=== PATIENT | male | born 1945 | race Caucasian/White ===

== ENCOUNTER 2016-08-23 21:10 | Inpatient (IN) | payer OTHER ==
[~2016-08-23] VITALS: Ht 182.9 cm; Wt 58.0 kg
[~2016-08-23 21:10] MED LIST: ALBUTEROL; DOXA1TAB86 PO; TIOTCAP INH; [UNRECOGNIZED DRUG - OTHER]; advair
[2016-08-23] MEDS ORDERED: METHYLPREDNISOLONE 125 MG VIAL IV STA (21:42)
[2016-08-23] MEDS ORDERED: ADVIN25/60 INH (21:51)
[2016-08-23] MEDS ORDERED: Ventolin HFA INH (21:51)
[2016-08-23] MEDS ORDERED: MULT-506 PO (21:51)
[2016-08-23] MEDS ORDERED: IPRASOL4 INH (21:51)
[2016-08-23] MEDS ORDERED: THY/30 PO (21:51)
[2016-08-23] MEDS ORDERED: CHOL20007 PO (21:51)
--- NOTE | 2016-08-23 21:54 | EMERGENCY ROOM VISIT NOTE ---
History Report prepared by Rohit: Liu Zayas Under the Supervision of: Dr. Sole Thacker M.D. First contact with patient: 21:34 Chief Complaint: SHORTNESS OF BREATH Stated Complaint: SOB History of Present Illness The patient is a 70 year old male who presents to the Emergency Room via ALS with complaints of persistent shortness of breath that worsened this evening. The patient was a long-term smoker and quit four years ago, He has a history of COPD. He notes that he has had episodes like this in the past where he can't get enough air. He had some episodes earlier today and then had another one this evening at which point he called ALS because it was worse than the prior episodes. He does not know what triggers these episodes. He also complains of a cough. He denies being on oxygen at home and any heart history. The patient received 125 of Solu-Medrol en route to the ED. Source of History: patient Onset: this evening Position: chest Timing: worsening, other (persistent) Associated Symptoms: + cough Review of Systems See HPI for pertinent positives & negatives. A total of 10 systems reviewed and were otherwise negative. Past Medical & Surgical Medical Problems: (1) Asthma (2) Bronchitis (3) COPD (chronic obstructive pulmonary disease) (4) Emphysema of lung (5) Kidney stones (6) Pneumonia Surgical Problems: (1) S/P hernia surgery Family History FH: cancer FH: lung disease Social History Smoking Status: Former Smoker Alcohol Use: occasionally Marital Status: Housing Status: lives with significant other Occupation Status: employed Current/Historical Medications Scheduled Cholecalciferol (Vitamin D3), 2,000 INTER.UNIT PO DAILY Doxazosin Mesylate (Doxazosin Mesylate), 4 MG PO HS Fluticasone Prop/Salmeterol (Advair Diskus 250/50 60 Dose), 1 PUFF INH BID Multivitamin (Multivitamin), 1 TAB PO DAILY Thyroid ([place]man Thyroid), 60 MG PO DAILY Scheduled PRN Ipratropium-Albuterol (Duoneb), 1 TREATMENT INH Q6H PRN for SOB/Cough/Wheeze [Ventolin HFA], 2 PUFFS INH QID PRN for SOB/Wheezing Allergies Coded Allergies: Gadolinium (Verified Allergy, Intermediate, Nausea/Vomiting, 08/23/16) Physical Exam Vital Signs Date Time Temp Pulse Resp B/P Pulse Ox O2 Delivery O2 Flow Rate FiO2 08/23/16 23:14 109 22 97/74 98 BiPAP 08/23/16 22:12 105 100 6.0 08/23/16 21:41 113 08/23/16 21:31 36.7 111 30 141/83 95 Room Air 08/23/16 21:31 97 Nasal Cannula 4.0 Physical Exam CONSTITUTIONAL: Moderate to severe respiratory distress. HEENT: No icterus, moist mucous membranes NECK: No meningismus, trachea is midline. CARDIOVASCULAR: Regular rate, normal perfusion RESPIRATORY: Diminished breath sounds bilaterally. Faint wheezing in all ji. GASTROINTESTINAL: Non-tender GENITOURINARY: No flank tenderness MUSCULOSKELETAL: Full range of motion NEUROLOGIC: No acute gross focal deficits. PSYCHIATRIC: Normal affect SKIN: Normal for ethnicity. Medical Decision & Procedures ER Provider Diagnostic Interpretation: X-ray results as stated below per interpretation by me and the radiologist. CHEST ONE VIEW PORTABLE CLINICAL HISTORY: DYSPNEA SHORTNESS OF BREATH. COMPARISON STUDY: 02/09/2013 FINDINGS: There is underlying pulmonary emphysema. There is no focal pulmonary consolidation. There is subtle elevation of the interstitium, a finding which may be related to technical factors. There are no pleural effusions. There is no pneumothorax. IMPRESSION: Emphysema. No evidence of focal pulmonary consolidation Electronically signed by: Juvenal Green M.D. 08/23/2016 10:28 PM CTA CHEST: No definite filling defect to suggest a PE. No acute aortic abnormality. No consolidation or pleural effusion. Hyperinflation of the lungs with severe, bilateral emphysematous changes. Mild multifocal parenchymal lung scarring. Small parenchymal lung nodules in the right lower lobe are likely due to prior infection/ prior inflammation. Followup in 12 months or per year department's specific protocol. Laboratory Results 08/23/16 22:00 Red Blood Count 4.32, Mean Corpuscular Volume 93.8, Mean Corpuscular Hemoglobin 33.3, Mean Corpuscular Hemoglobin Concent 35.6, Mean Platelet Volume 9.2, Neutrophils (%) (Auto) 86.4, Lymphocytes (%) (Auto) 7.1, Monocytes (%) (Auto) 5.7, Eosinophils (%) (Auto) 0.4, Basophils (%) (Auto) 0.2, Neutrophils # (Auto) 9.67, Lymphocytes # (Auto) 0.79, Monocytes # (Auto) 0.64, Eosinophils # (Auto) 0.04, Basophils # (Auto) 0.02 08/23/16 22:00 Test 08/23/16 21:55 08/23/16 22:00 08/24/16 00:13 Influenza Type A Antigen Neg for Influ A (NEG) Influenza Type B Antigen Neg for Influ B (NEG) White Blood Count 11.18 K/uL (4.8-10.8) Red Blood Count 4.32 M/uL (4.7-6.1) Hemoglobin 14.4 g/dL (14.0-18.0) Hematocrit 40.5 % (42-52) Mean Corpuscular Volume 93.8 fL (80-100) Mean Corpuscular Hemoglobin 33.3 pg (25-34) Mean Corpuscular Hemoglobin Concent 35.6 g/dl (32-36) Platelet Count 156 K/uL (130-400) Mean Platelet Volume 9.2 fL (7.4-10.4) Neutrophils (%) (Auto) 86.4 % Lymphocytes (%) (Auto) 7.1 % Monocytes (%) (Auto) 5.7 % Eosinophils (%) (Auto) 0.4 % Basophils (%) (Auto) 0.2 % Neutrophils # (Auto) 9.67 K/uL (1.4-6.5) Lymphocytes # (Auto) 0.79 K/uL (1.2-3.4) Monocytes # (Auto) 0.64 K/uL (0.11-0.59) Eosinophils # (Auto) 0.04 K/uL (0-0.5) Basophils # (Auto) 0.02 K/uL (0-0.2) RDW Standard Deviation 47.1 fL (36.4-46.3) RDW Coefficient of Variation 13.6 % (11.5-14.5) Immature Granulocyte % (Auto) 0.2 % Immature Granulocyte # (Auto) 0.02 K/uL (0.00-0.02) Prothrombin Time 11.2 SECONDS (9.0-12.0) Prothromb Time International Ratio 1.0 (0.9-1.1) Activated Partial Thromboplast Time 29.6 SECONDS (21.0-31.0) Partial Thromboplastin Ratio 1.1 Anion Gap 13.0 mmol/L (3-11) Est Creatinine Clear Calc Drug Dose 81.7 ml/min Estimated GFR () 109.5 Estimated GFR (Non- 94.5 BUN/Creatinine Ratio 24.9 (10-20) Calcium Level 8.2 mg/dl (8.5-10.1) Total Bilirubin 0.4 mg/dl (0.2-1) Aspartate Amino Transf (AST/SGOT) 25 U/L (15-37) Alanine Aminotransferase (ALT/SGPT) 33 U/L (12-78) Alkaline Phosphatase 50 U/L (45-117) Troponin I 0.043 ng/ml (0-0.045) Pro-B-Type Natriuretic Peptide 362 pg/ml (0-900) Total Protein 6.4 gm/dl (6.4-8.2) Albumin 3.6 gm/dl (3.4-5.0) Globulin 2.8 gm/dl (2.5-4.0) Albumin/Globulin Ratio 1.3 (0.9-2) Thyroid Stimulating Hormone (TSH) 1.040 uIu/ml (0.300-4.500) Labs reviewed by ED physician. Medications Administered Medications (Trade) Dose Ordered Sig/William Route Start Time Stop Time Status Last Admin Dose Admin Albuterol/ Ipratropium (Duoneb) 10 ml QIDR INH 08/24/16 08:00 09/23/16 07:59 08/23/16 22:11 10 ML ECG Indication: SOB/dyspnea Rate (beats per minute): 118 Rhythm: sinus tachycardia Findings: nonspecific-ST abn, RBBB ED Course 2129: Past medical records reviewed. The patient was evaluated in room A12. A complete history and physical examination was performed. 2199: Ordered Ioversol 125 ml IV/interaction checking. 2210: Ordered Duoneb 10 ml INH. 0004: At this time, I discussed the patient's case with Dr. Lincoln - Hospital[facility] and he agreed to accept the patient for further evaluation. Medical Decision Differential diagnoses include exacerbation of underlying emphysema, COPD, or pulmonary embolism. 70-year-old long-time smoker (quit 4 years ago) with worsening emphysema and lung disease presents to the emergency room for worsening shortness of breath today. He notes his PFTs 25%. He was noted to be tachycardic and severely short of breath on arrival to the emergency room. He is placed on oxygen, BiPAP given albuterol nebulizer treatments as well as steroids. CT was obtained to rule out pulmonary embolus was subsequently negative. Admission arranged with [facility] hospitalist service. Consults Time Called: [phone] Consulting Physician: Dr. Lincoln - [facility] Returned Call: [phone] At this time, I discussed the patient's case with Dr. Lincoln and he agreed to accept the patient for further evaluation. Impression Primary Impression: Emphysema of lung Additional Impression: COPD (chronic obstructive pulmonary disease) Critical Care critical care time 30 mins Scribe Attestation The scribe's documentation has been prepared under my direction and personally reviewed by me in its entirety. I confirm that the note above accurately reflects all work, treatment, procedures, and medical decision making performed by me. Departure Information Dispostion Being Evaluated By Hospitalist Referrals No Doctor, Assigned (PCP)
[2016-08-23] MEDS ORDERED: OPTIRAY 320 IV PRN (22:00)
[2016-08-23 22:12] VITALS: PULSE 105; O2SAT 100
[2016-08-23 22:21] LABS: BASO % 0.2 %; BASO ABS # 0.02 K/uL (0-0.2); COMPLETE YES; EOS % 0.4 %; HEMATOCRIT 40.5 % (42-52); IG% 0.2 %; LYMPH % 7.1 %; LYMPH ABS # 0.79 K/uL (1.2-3.4); MEAN CELL VOLUME 93.8 fL (80-100); MEAN CORPUSCULAR HEMOGLOBIN 33.3 pg (25-34); MEAN CORPUSCULAR HGB CONC 35.6 g/dl (32-36); MEAN PLATELET VOLUME 9.2 fL (7.4-10.4); MONO % 5.7 %; NEUT % 86.4 %; PLATELET COUNT 156 K/uL (130-400); RED BLOOD COUNT 4.32 M/uL (4.7-6.1); WHITE BLOOD COUNT 11.18 K/uL (4.8-10.8)
--- NOTE | 2016-08-23 22:30 | DIAGNOSTIC IMAGING REPORT ---
CHEST ONE VIEW PORTABLE CLINICAL HISTORY: DYSPNEA SHORTNESS OF BREATH. COMPARISON STUDY: 02/09/2013 FINDINGS: There is underlying pulmonary emphysema. There is no focal pulmonary consolidation. There is subtle elevation of the interstitium, a finding which may be related to technical factors. There are no pleural effusions. There is no pneumothorax. IMPRESSION: Emphysema. No evidence of focal pulmonary consolidation Electronically signed by: Juvenal Green M.D. 08/23/2016 10:28 PM
[2016-08-23 22:31] LABS: PARTIAL THROMBOPLASTIN RATIO 1.1; PROTHROMBIN TIME (PATIENT) 11.2 SECONDS (9.0-12.0)
[2016-08-23 22:43] LABS: CALCIUM 8.2 mg/dl (8.5-10.1); POTASSIUM 3.8 mmol/L (3.5-5.1)
[2016-08-23 23:00] LABS: BUN/CREATININE RATIO 24.9 (10-20); CREATININE 0.72 mg/dl (0.60-1.40)
[2016-08-23 23:10] LABS: ALB/GLOB RATIO 1.3 (0.9-2); THYROID STIMULATING HORMONE 1.04 uIu/ml (0.300-4.500)
[2016-08-24] VITALS (11 sets, daily range): BP systolic 94–117; BP diastolic 62–75; PULSE 72–94; TEMP 36.4–36.9; O2SAT 93–97; Ht 182.9 cm; Wt 58.0 kg
[2016-08-24] MEDS ORDERED: SODIUM CHLORIDE 0.9% 1000ML 1,000 ML IV ONE (00:15)
[2016-08-24 00:52] LABS: ALLEN TEST POS (POS); ARTERIAL BLD GAS O2 SATURATION 98.1 % (90-95); ARTERIAL BLOOD GAS HCO3 24 mmol/L (19-24); ARTERIAL BLOOD GAS PO2 110 mm/Hg (80-95); ARTERIAL BLOOD GAS pH 7.38 (7.35-7.45); O2 ADMINISTRATION 6 L O2
[2016-08-24] MEDS ORDERED: DOXYCYCLINE IV 100 MG in DEXTROSE 5% 100ML 100 ML IV STA (02:09)
[2016-08-24] MEDS ORDERED: CALCIUM GLUCONATE 10% 1,000 MG in SODIUM CHLORIDE 0.9% 50ML 50 ML IV STA (02:21)
[2016-08-24] MEDS ORDERED: LEVALBUTEROL/IPRATROPIUM NEB INH PRN (02:30)
[2016-08-24] MEDS ORDERED: IPRATROPIUM BROMIDE NEB SOLN 0.02% 2.5 ML VIAL INH PRN (02:30)
[2016-08-24] MEDS ORDERED: NITROGLYCERIN 0.4 MG SL PER TAB CHARGE SL PRN (02:30)
[2016-08-24] MEDS ORDERED: LEVALBUTEROL 1.25MG/0.5ML NEB INH PRN (02:30)
[2016-08-24] MEDS ORDERED: TRAMADOL HCL 50 MG TAB PO PRN (02:30)
[2016-08-24] MEDS ORDERED: ACETAMINOPHEN 325 MG TAB PO PRN (02:30)
[2016-08-24] MEDS ORDERED: LEVALBUTEROL/IPRATROPIUM NEB INH SCH (03:00)
[2016-08-24] MEDS: LEVALBUTEROL 1.25MG/0.5ML NEB INH SCH ×4 (03:00→21:00)
[2016-08-24] MEDS: IPRATROPIUM BROMIDE NEB SOLN 0.02% 2.5 ML VIAL INH SCH ×4 (03:00→21:00)
[2016-08-24] MEDS ORDERED: INSULIN GLARGINE SOLOSTAR 100 UNITS/ML 3 ML PEN SC STA (03:03)
[2016-08-24] MEDS ORDERED: MAGNESIUM SULFATE 1GM / D5W 1 GM in PREMIXED IN D5W 100 ML IV STA (03:04)
[2016-08-24] MEDS ORDERED: DEXTROSE 50% 50 ML SYR IV PRN (05:30)
[2016-08-24] MEDS ORDERED: GLUCOSE 10 TABS/TUBE PO PRN (05:30)
[2016-08-24] MEDS ORDERED: GLUCAGON FOR INJ 1 MG VIAL SQ PRN (05:30)
[2016-08-24] MEDS ORDERED: GLUCOSE 40% GEL 15 GM TUBE PO PRN (05:30)
--- NOTE | 2016-08-24 07:16 | DIAGNOSTIC IMAGING REPORT ---
CT ANGIOGRAM OF THE CHEST CLINICAL HISTORY: Dyspnea. Tachypnea. COMPARISON STUDY: Chest x-ray dated 08/23/2016. TECHNIQUE: Following the IV administration of 113 cc of Optiray 320, CT angiogram of the chest was performed from the upper abdomen to the thoracic inlet utilizing the pulmonary embolus protocol. Images are reviewed in the axial, sagittal, and coronal planes. 3-D MIPS images are created and assessed. IV contrast was administered without complication. CT DOSE: 259.30 mGy.cm FINDINGS: Thyroid: Atrophic. Thoracic aorta: There is atherosclerotic calcification of the thoracic aorta, which is normal in caliber and demonstrates standard 3-vessel arch anatomy. No dissection is seen. Pulmonary vasculature: The pulmonary trunk is normal in caliber. There are no filling defects identified in main, lobar, or segmental pulmonary branches to suggest pulmonary embolus. Heart: The heart is normal in size and configuration, and without pericardial effusion. Lungs and pleural spaces: There is advanced emphysema. Minimal secretions are noted in the trachea. No airspace consolidation or pleural effusion is identified. Foci of linear atelectasis versus scarring is are present at both lung bases. There is a 10 mm irregular nodular density in the left upper lobe seen on image #251. There are 2 nodular foci at the right lung base seen on image #85 measuring up to 7 mm. Air trapping is present at both lung bases. Mediastinum: There is no mediastinal lymphadenopathy. Pham: Clear. Axillae: There is no axillary lymphadenopathy. Upper abdomen: There is advanced atherosclerotic calcification of the partially imaged abdominal aorta. Partially visualized upper abdominal viscera is otherwise within normal limits. Skeletal structures: The skeletal structures are osteopenic. Mild degenerative change and kyphoscoliosis are noted in the thoracic spine. No lytic or blastic bony lesions are seen. Soft tissues: The patient is cachectic. IMPRESSION: 1. There is no evidence of pulmonary embolus in the main, lobar, or segmental pulmonary arteries. 2. Advanced emphysema with air trapping both lung bases. 3. There is no airspace consolidation or pleural effusion. 4. There is an indeterminant 10 mm nodular density in the left upper lobe. Although this may represent parenchymal scarring, precautionary 3 month follow-up chest CT is recommended for reassessment. Additional nodular foci are seen in the right lung base. These should also be reassessed at follow-up. 5. No mediastinal or hilar adenopathy is identified. Electronically signed by: Aman Monte M.D. 08/24/2016 7:14 AM
[2016-08-24 07:30] LABS: BASO % 0.1 %; BASO ABS # 0.01 K/uL (0-0.2); COMPLETE YES; HEMATOCRIT 39.2 % (42-52); IG% 0.2 %; LYMPH % 3.8 %; LYMPH ABS # 0.39 K/uL (1.2-3.4); MEAN CELL VOLUME 93.8 fL (80-100); MEAN CORPUSCULAR HEMOGLOBIN 32.1 pg (25-34); MEAN CORPUSCULAR HGB CONC 34.2 g/dl (32-36); MEAN PLATELET VOLUME 9.4 fL (7.4-10.4); MONO % 3.9 %; PLATELET COUNT 165 K/uL (130-400); RED BLOOD COUNT 4.18 M/uL (4.7-6.1); WHITE BLOOD COUNT 10.29 K/uL (4.8-10.8)
[2016-08-24] MEDS ORDERED: ALBUT/IPRATROP 3MG/0.5MG NEB 3 ML VIAL INH SCH (08:00)
[2016-08-24 08:07] LABS: BUN/CREATININE RATIO 22.9 (10-20); CALCIUM 8.5 mg/dl (8.5-10.1); CREATININE 0.72 mg/dl (0.60-1.40); POTASSIUM 4.5 mmol/L (3.5-5.1)
[2016-08-24] MEDS: INSULIN ASPART 100 UNITS/ML 3 ML PEN SC SCH ×4 (08:18→20:58)
--- NOTE | 2016-08-24 08:22 | HISTORY & PHYSICAL EXAMINATION ---
DATE OF ADMISSION: 08/24/2016 PRIMARY CARE PHYSICIAN: Dr. Chávez. CHIEF COMPLAINT: Shortness of breath. HISTORY OF PRESENT ILLNESS: Medical history significant for COPD, pulmonary nodules as per records, past tobacco abuse, BPH. hypothyroidism Over the last few days, patient noted junky cough symptoms, increasing shortness of breath than usual. No chest pain. Sinus congestion sx, sick grandkids. Px was unsure if he was to take rescue kit from lung specialist's office. Patient was brought to Emergency Room. Given Solu-Medrol for COPD exacerbation en route to the ER. Px noted in respiratory distress at the ER. Px started on BiPAP MEDICAL HISTORY: As above. He sees [facility] outpatient. Recent outpatient visit last July 2017. Pulmonary rehabilitation referral outpatient after New Year. CT chest with contrast May 2003, 2015 showed severe emphysema. Overall, bilateral upper and lower lobe lingular pulmonary nodules are unchanged compared to previous chest CT. Pneumococcal vaccine June 2014 last seasonal flu vaccine last 2011, has been refusing flu vaccine since. HOME MEDICATIONS: Include vitamin D, doxazosin, Advair Diskus, DuoNebs, multivitamins, Bear thyroid. SURGERIES: He has had hernia surgery, shoulder surgery. HOME MEDICATIONS: Include Advair Diskus, armour thyroid, DuoNebs multivitamins, Ventolin. ALLERGIES: GADOLINIUM. FAMILY HISTORY: Lung cancer. PERSONAL AND SOCIAL HISTORY: Past tobacco abuse. No chronic intake of alcoholic beverages. REVIEW OF SYSTEM: As per HPI, all other ROS negative. PHYSICAL EXAMINATION: VITAL SIGNS: Blood pressure 107/60, pulse rate 111, RR 30, T 37 O2 sats 97% on BiPAP. GENERAL: Noted to be hyposthenic. min respiratory distress. SKIN: Normal color. HEENT: [place] palpebral conjunctivae. Dry mucosa. BiPAP in place. NECK: Supple. CHEST: Decreased breath sounds. Occasional wheeze. HEART: Tachycardic. ABDOMEN: Soft. EXTREMITIES: No edema. no tenderness NEUROLOGIC: No gross focality. LABS: Hemoglobin was noted to be 17, hematocrit 40, white cells 11, platelets 140. Sodium 140 potassium 3.8, chloride 101, CO2 27, BUN 18, creatinine 0.7, glucose 100. ABG - pH of 7.38, pCO2 42, pO2 112, O2 sats 98% on 6 liters. IMAGING DATA: CT chest initial read, no PE, no lobar infiltrates; emphysema. ASSESSMENT: 1. Acute hypoxemic respiratory failure secondary to chronic obstructive pulmonary disease exacerbation. 2. Past tobacco abuse. 3. Pulmonary nodules, stable on recent CT. 4. Malnutrition (Low BMI) secondary to chronic obstructive pulmonary disease. 6. Benign prostatic hypertrophy on doxazosin treatment. 7. Hypothyroidism, euthyroid as of today's TSH. PLAN: PCU continue BiPAP. Doxycycline, nebs, steroids. Pulmonary consult. RE Respiratory failure. Nutrition consult, low BMI. PT/OT. DVT prophylaxis, Lovenox subQ. Full code. MTDD
[2016-08-24] MEDS: METHYLPREDNISOLONE IV 40 MG in SYRINGE 0 ML IV SCH ×3 (08:26→23:09)
[2016-08-24] MEDS: MULTIVITAMIN TAB PO SCH (08:26)
[2016-08-24] MEDS: ARMOUR THYROID 30 MG TAB PO SCH (08:26)
[2016-08-24] MEDS: ENOXAPARIN 30 MG/0.3 ML SYR SC SCH (08:26)
--- NOTE | 2016-08-24 10:17 | Pulmonary Consultation ---
History General Date of Service: Aug 24, 2016. Stated Complaint: Respiratory Failure, Acute HPI The patient is a 70 year old male who presents to [facility] with complaints of Respiratory Failure, Acute. The patient's primary care provider is Mak Chávez III, M.D.. 70-year-old gentleman with very severe COPD last FEV1 obtain 2008 notably 27% predicted. He also should be noted he had no signs of significant reversibility. He said progressive shortness of breath over the last 4 days to the point EMS was called 2 days ago but he discontinue the call as he noted mild improvement in his shortness of breath. Yesterday he was severely short of breath and he notes unable to breathe. He denies: Fever, productive sputum, hemoptysis, pleurisy, classic cardiac chest pain. Spirometry (04/05/2009) FEV1: 1.02/27% FVC: 2.21/67% FEV1/FVC: 46 Borderline reversibility T.28/117% TV: 5.07/198% DLCO: 59% DL/DC: 62% Review of Systems Constitutional: reports: no symptoms Eyes: reports: no symptoms ENT: reports: no symptoms Cardiovascular: reports: no symptoms Respiratory: reports: as stated in HPI Gastrointestinal: reports: no symptoms Genitourinary - Male: reports: no symptoms Musculoskeletal: reports: no symptoms Integumentary: reports: no symptoms Neurologic: reports: no symptoms Psychiatric: reports: no symptoms Hematologic / Lymphatic: no symptoms Allergic / Immunologic: no symptoms Past Medical History Past Medical History: (1) Asthma (2) Bronchitis (3) COPD (chronic obstructive pulmonary disease) (4) Emphysema of lung (5) Kidney stones (6) Pneumonia Past Surgical History: (1) S/P hernia surgery Family History FH: cancer FH: lung disease Social History Hx Tobacco Use In Past Year?: No (Pt quit 4 years ago) Smoking Status: Former Smoker Marital status: Occupational Status: employed Allergies Coded Allergies: Gadolinium (Verified Allergy, Intermediate, Nausea/Vomiting, 08/23/16) Current Medications Reported Home Medications Medications Dose Route/Sig Max Daily Dose Days Date Category Dose Instructions [Ventolin HFA] 108 MCG/ACT Inh 2 Puffs INH QID PRN 08/23/16 Reported Vitamin D3 (Cholecalciferol) 2,000 Unit Tab 2,000 Inter.unit PO DAILY 08/23/16 Reported Multivitamin (Multivitamins) Tab 1 Tab PO DAILY 08/23/16 Reported Duoneb (Ipratropium-Albuterol) 3 Ml Nebu 1 Treatment INH Q6H PRN 08/23/16 Reported [place] Thyroid (Thyroid) 30 Mg Tab 60 Mg PO DAILY 08/23/16 Reported Advair Diskus 250/50 60 Dose (Fluticasone Prop/Salmeterol) 1 Ea Aerp 1 Puff INH BID 08/23/16 Reported RINSE MOUTH AFTER USE Doxazosin Mesylate 4 Mg Tab 4 Mg PO HS 02/09/13 Reported Physical Physical Exam Vital Signs: Date Time Temp Pulse Resp B/P Pulse Ox O2 Delivery O2 Flow Rate FiO2 08/24/16 08:00 Nasal Cannula 3.0 08/24/16 07:59 36.4 72 18 100/63 97 3.0 08/24/16 07:58 86 20 97 Nasal Cannula 3.0 08/24/16 05:14 36.6 83 18 98/62 97 3.0 08/24/16 05:14 97 Nasal Cannula 3.0 08/24/16 03:15 36.6 94 20 104/72 97 Non-Rebreather 10.0 08/24/16 02:29 88 18 116/89 97 BiPAP 08/24/16 01:34 88 20 107/68 97 BiPAP 6.0 08/24/16 01:11 95 08/23/16 23:14 109 22 97/74 98 BiPAP 08/23/16 22:12 105 100 6.0 08/23/16 21:41 113 08/23/16 21:31 36.7 111 30 141/83 95 Room Air 08/23/16 21:31 97 Nasal Cannula 4.0 General Appearance: NO APPARENT DISTRESS Head: NORMOCEPHALIC, ATRAUMATIC Eyes: EOMI, SCLERAE NORMAL, CONJUNCTIVAE NORMAL ENT: NORMAL EAR EXAM, NORMAL NASAL EXAM, NORMAL MOUTH EXAM, NORMAL SINUS EXAM Neck: NORMAL RANGE OF MOTION, NO TENDERNESS, TRACHEA MIDLINE, NO STRIDOR Respiratory: wheezing Cardiovasular: REGULAR RATE/RHYTHM, NORMAL S1S2, NO M/G/R, NO MURMUR, NO GALLOP Abdomen: NON TENDER, NORMAL BOWEL SOUNDS, NO REBOUND, NO MASSES, NO GUARDING, NO ORGANOMEGALY Genitourinary - Male: EXTERNAL GENITALIA NORMAL Back: NORMAL INSPECTION, NO MIDLINE TENDERNESS, NO CVA TENDERNESS, NO PARAVERTEBRAL TTP Upper Extremities: NO EDEMA, NO DEFORMITY, NORMAL ROM Lower Extremities: NO EDEMA, NO DEFORMITY, NORMAL ROM Pulses: carotid (R) (2+), carotid (L) (1+), dorsalis pedis (R) (2+), dorsalis pedis (L) (2+) Neuro: ALERT, ORIENTED x 3, NORMAL MOTOR EXAM, NORMAL SENSATION, NORMAL CEREBELLAR EXAM Reflexes: biceps (R) (2+), bicpes (L) (2+), patellar (L) (2+), achilles (R) (2+ ) Babinski Testing: right (downgoing), left (downgoing) Psychiatric: NORMAL AFFECT, NO SUICIDAL IDEATION Diagnostics Labs Results Past 24 Hours Test 08/23/16 21:55 08/23/16 22:00 08/24/16 00:32 08/24/16 03:22 Range/Units Influenza Type A Antigen Neg for Influ A NEG Influenza Type B Antigen Neg for Influ B NEG White Blood Count 11.18 4.8-10.8 K/uL Red Blood Count 4.32 4.7-6.1 M/uL Hemoglobin 14.4 14.0-18.0 g/dL Hematocrit 40.5 42-52 % Mean Corpuscular Volume 93.8 80-100 fL Mean Corpuscular Hemoglobin 33.3 25-34 pg Mean Corpuscular Hemoglobin Concent 35.6 32-36 g/dl Platelet Count 156 130-400 K/uL Mean Platelet Volume 9.2 7.4-10.4 fL Neutrophils (%) (Auto) 86.4 % Lymphocytes (%) (Auto) 7.1 % Monocytes (%) (Auto) 5.7 % Eosinophils (%) (Auto) 0.4 % Basophils (%) (Auto) 0.2 % Neutrophils # (Auto) 9.67 1.4-6.5 K/uL Lymphocytes # (Auto) 0.79 1.2-3.4 K/uL Monocytes # (Auto) 0.64 0.11-0.59 K/uL Eosinophils # (Auto) 0.04 0-0.5 K/uL Basophils # (Auto) 0.02 0-0.2 K/uL RDW Standard Deviation 47.1 36.4-46.3 fL RDW Coefficient of Variation 13.6 11.5-14.5 % Immature Granulocyte % (Auto) 0.2 % Immature Granulocyte # (Auto) 0.02 0.00-0.02 K/uL Prothrombin Time 11.2 9.0-12.0 SECONDS Prothromb Time International Ratio 1.0 0.9-1.1 Activated Partial Thromboplast Time 29.6 21.0-31.0 SECONDS Partial Thromboplastin Ratio 1.1 Sodium Level 139 136-145 mmol/L Potassium Level 3.8 3.5-5.1 mmol/L Chloride Level 101 98-107 mmol/L Carbon Dioxide Level 25 21-32 mmol/L Anion Gap 13.0 3-11 mmol/L Blood Urea Nitrogen 18 7-18 mg/dl Creatinine 0.72 0.60-1.40 mg/dl Est Creatinine Clear Calc Drug Dose 81.7 ml/min Estimated GFR () 109.5 Estimated GFR (Non- 94.5 BUN/Creatinine Ratio 24.9 10-20 Random Glucose 160 70-99 mg/dl Calcium Level 8.2 8.5-10.1 mg/dl Magnesium Level 2.0 1.8-2.4 mg/dl Total Bilirubin 0.4 0.2-1 mg/dl Aspartate Amino Transf (AST/SGOT) 25 15-37 U/L Alanine Aminotransferase (ALT/SGPT) 33 12-78 U/L Alkaline Phosphatase 50 45-117 U/L Troponin I 0.043 0-0.045 ng/ml Pro-B-Type Natriuretic Peptide 362 0-900 pg/ml Total Protein 6.4 6.4-8.2 gm/dl Albumin 3.6 3.4-5.0 gm/dl Globulin 2.8 2.5-4.0 gm/dl Albumin/Globulin Ratio 1.3 0.9-2 Thyroid Stimulating Hormone (TSH) 1.040 0.300-4.500 uIu/ml Arterial Blood pH 7.38 7.35-7.45 Arterial Blood Partial Pressure CO2 42 35-46 mmHg Arterial Blood Partial Pressure O2 110 80-95 mm/Hg Arterial Blood HCO3 24 19-24 mmol/L Arterial Blood Oxygen Saturation 98.1 90-95 % Arterial Blood Base Excess -1.0 -9-1.8 mEq/L Arterial Blood Gas Delivery 6 L O2 Steven Test POS POS Lactic Acid Level 1.9 0.4-2.0 mmol/L Bedside Glucose 209 70-99 mg/dl Test 08/24/16 06:52 08/24/16 08:07 Range/Units White Blood Count 10.29 4.8-10.8 K/uL Red Blood Count 4.18 4.7-6.1 M/uL Hemoglobin 13.4 14.0-18.0 g/dL Hematocrit 39.2 42-52 % Mean Corpuscular Volume 93.8 80-100 fL Mean Corpuscular Hemoglobin 32.1 25-34 pg Mean Corpuscular Hemoglobin Concent 34.2 32-36 g/dl Platelet Count 165 130-400 K/uL Mean Platelet Volume 9.4 7.4-10.4 fL Neutrophils (%) (Auto) 92.0 % Lymphocytes (%) (Auto) 3.8 % Monocytes (%) (Auto) 3.9 % Eosinophils (%) (Auto) 0.0 % Basophils (%) (Auto) 0.1 % Neutrophils # (Auto) 9.47 1.4-6.5 K/uL Lymphocytes # (Auto) 0.39 1.2-3.4 K/uL Monocytes # (Auto) 0.40 0.11-0.59 K/uL Eosinophils # (Auto) 0.00 0-0.5 K/uL Basophils # (Auto) 0.01 0-0.2 K/uL RDW Standard Deviation 47.0 36.4-46.3 fL RDW Coefficient of Variation 13.8 11.5-14.5 % Immature Granulocyte % (Auto) 0.2 % Immature Granulocyte # (Auto) 0.02 0.00-0.02 K/uL Sodium Level 138 136-145 mmol/L Potassium Level 4.5 3.5-5.1 mmol/L Chloride Level 101 98-107 mmol/L Carbon Dioxide Level 27 21-32 mmol/L Anion Gap 10.0 3-11 mmol/L Blood Urea Nitrogen 17 7-18 mg/dl Creatinine 0.72 0.60-1.40 mg/dl Est Creatinine Clear Calc Drug Dose 81.7 ml/min Estimated GFR () 109.5 Estimated GFR (Non- 94.5 BUN/Creatinine Ratio 22.9 10-20 Random Glucose 164 70-99 mg/dl Calcium Level 8.5 8.5-10.1 mg/dl Bedside Glucose 165 70-99 mg/dl Microbiology Results 08/23/16 Blood Culture, Received Pending 08/23/16 Blood Culture, Received Pending 08/24/16 Gram Stain, Received Pending 08/24/16 Sputum Culture, Received Pending Diagnostic Radiology 1) CTA CHEST: a. No definite filling defect to suggest a PE b. No acute aortic abnormality c. No consolidation or pleural effusion d. Hyperinflation of the lungs with severe, bilateral emphysematous changes. Mild multifocal parenchymal lung scarring e. Right lower lobe 7.2 mm lung nodule in 7.0 mm lung nodule f. High risk patient will require follow-up in 3 months 2) CXR: Bilateral apical emphysematous changes with flattened diaphragms bilateral nursing services manager strips suggesting right atrial enlargement Impression Assessment and Plan 70-year-old gentleman with a very severe COPD via ATS criteria and acute exacerbation: #1 COPD: Patient with very severe COPD best off FEV1 of 27% in 2008. He is receive steroids at this time and and we should continue monthly IV methylprednisolone 40 mg every 8 would be appropriate. If the patient as well as the next 24 hours with switch him to 60 of prednisone by mouth and slowly taper over 2 week period. Also suggest we continue the patient on nighttime BiPAP. Current study suggested PaCO2 greater than 45 and/or signs of poor sleep and severe COPD patients treated with BiPAP will decrease readmission rates. Also patient will need pulmonary rehabilitation to help optimize decrease in readmission rates. I've also written for incentive spirometry. #2 ID: Patient initiated on doxycycline but per criteria as he is severe COPD and required admission I will change him to ceftriaxone and azithromycin. I do believe the patient has a low risk for acute infections of 3 days of ceftriaxone and a full course of azithromycin over 5 day period of time should be adequate. Thank you very much for this consultation
[2016-08-24] MEDS: CEFTRIAXONE SOD INJ 1 GM in DEXTROSE 5% ADD-VANTAGE 50ML 50 ML IV SCH (11:36)
[2016-08-24] MEDS: AZITHROMYCIN IV 500 MG in DEXTROSE 5% 250ML 250 ML IV SCH (12:05)
[2016-08-24] MEDS ORDERED: DOXYCYCLINE IV 100 MG in DEXTROSE 5% 100ML 100 ML IV SCH (14:00)
--- NOTE | 2016-08-24 14:15 | Progress Note ---
Internal Med Progress Note Date of Service: Aug 24, 2016. Provider Documentation: SUBJECTIVE: The patient was seen and examined Admitted with COPD exacerbation ,possibly Infected A little better this Morning OBJECTIVE: Vital Signs-as noted below Exam: General-Moderate distress at rest Eyes-normal ENT-normal Neck-supple Lungs-Decreased breath sound bilaterally No wheezing Heart-Regular,no murmur Abdomen-Benign,no masses,bowel sound present Extremities-No edema Neuro-AAOx3 Lab data as noted below. ASSESSMENT & PLAN: Acute hypoxemic respiratory failure secondary to chronic obstructive pulmonary disease exacerbation. Past tobacco abuse. FEV1-27% and FVC 67% in 2008 Emphysema in CXR-no pneumonia Has been on Azithromycin and Ceftriaxone and IV Solumedrol Appreciate Pulmonary Input Pulmonary nodules, stable on recent CT. No acute symptoms Malnutrition (Low BMI) secondary to chronic obstructive pulmonary disease. Nutrition consult, low BMI. Benign prostatic hypertrophy on doxazosin treatment.\ Hypothyroidism, euthyroid as of today's TSH. . DVT prophylaxis, Lovenox subQ. Full code. DISPOSITION PT /OT evaluation Vital Signs: Date Time Temp Pulse Resp B/P Pulse Ox O2 Delivery O2 Flow Rate FiO2 08/24/16 12:00 Nasal Cannula 3.0 08/24/16 11:30 36.7 86 18 94/62 93 Room Air 08/24/16 08:00 Nasal Cannula 3.0 08/24/16 07:59 36.4 72 18 100/63 97 3.0 08/24/16 07:58 86 20 97 Nasal Cannula 3.0 08/24/16 05:14 36.6 83 18 98/62 97 3.0 08/24/16 05:14 97 Nasal Cannula 3.0 08/24/16 03:15 36.6 94 20 104/72 97 Non-Rebreather 10.0 08/24/16 02:29 88 18 116/89 97 BiPAP 08/24/16 01:34 88 20 107/68 97 BiPAP 6.0 08/24/16 01:11 95 08/23/16 23:14 109 22 97/74 98 BiPAP 08/23/16 22:12 105 100 6.0 08/23/16 21:41 113 08/23/16 21:31 36.7 111 30 141/83 95 Room Air 08/23/16 21:31 97 Nasal Cannula 4.0 Lab Results: Results Past 24 Hours Test 08/23/16 21:55 08/23/16 22:00 08/24/16 00:32 08/24/16 03:22 Range/Units Influenza Type A Antigen Neg for Influ A NEG Influenza Type B Antigen Neg for Influ B NEG White Blood Count 11.18 4.8-10.8 K/uL Red Blood Count 4.32 4.7-6.1 M/uL Hemoglobin 14.4 14.0-18.0 g/dL Hematocrit 40.5 42-52 % Mean Corpuscular Volume 93.8 80-100 fL Mean Corpuscular Hemoglobin 33.3 25-34 pg Mean Corpuscular Hemoglobin Concent 35.6 32-36 g/dl Platelet Count 156 130-400 K/uL Mean Platelet Volume 9.2 7.4-10.4 fL Neutrophils (%) (Auto) 86.4 % Lymphocytes (%) (Auto) 7.1 % Monocytes (%) (Auto) 5.7 % Eosinophils (%) (Auto) 0.4 % Basophils (%) (Auto) 0.2 % Neutrophils # (Auto) 9.67 1.4-6.5 K/uL Lymphocytes # (Auto) 0.79 1.2-3.4 K/uL Monocytes # (Auto) 0.64 0.11-0.59 K/uL Eosinophils # (Auto) 0.04 0-0.5 K/uL Basophils # (Auto) 0.02 0-0.2 K/uL RDW Standard Deviation 47.1 36.4-46.3 fL RDW Coefficient of Variation 13.6 11.5-14.5 % Immature Granulocyte % (Auto) 0.2 % Immature Granulocyte # (Auto) 0.02 0.00-0.02 K/uL Prothrombin Time 11.2 9.0-12.0 SECONDS Prothromb Time International Ratio 1.0 0.9-1.1 Activated Partial Thromboplast Time 29.6 21.0-31.0 SECONDS Partial Thromboplastin Ratio 1.1 Sodium Level 139 136-145 mmol/L Potassium Level 3.8 3.5-5.1 mmol/L Chloride Level 101 98-107 mmol/L Carbon Dioxide Level 25 21-32 mmol/L Anion Gap 13.0 3-11 mmol/L Blood Urea Nitrogen 18 7-18 mg/dl Creatinine 0.72 0.60-1.40 mg/dl Est Creatinine Clear Calc Drug Dose 81.7 ml/min Estimated GFR () 109.5 Estimated GFR (Non- 94.5 BUN/Creatinine Ratio 24.9 10-20 Random Glucose 160 70-99 mg/dl Calcium Level 8.2 8.5-10.1 mg/dl Magnesium Level 2.0 1.8-2.4 mg/dl Total Bilirubin 0.4 0.2-1 mg/dl Aspartate Amino Transf (AST/SGOT) 25 15-37 U/L Alanine Aminotransferase (ALT/SGPT) 33 12-78 U/L Alkaline Phosphatase 50 45-117 U/L Troponin I 0.043 0-0.045 ng/ml Pro-B-Type Natriuretic Peptide 362 0-900 pg/ml Total Protein 6.4 6.4-8.2 gm/dl Albumin 3.6 3.4-5.0 gm/dl Globulin 2.8 2.5-4.0 gm/dl Albumin/Globulin Ratio 1.3 0.9-2 Thyroid Stimulating Hormone (TSH) 1.040 0.300-4.500 uIu/ml Arterial Blood pH 7.38 7.35-7.45 Arterial Blood Partial Pressure CO2 42 35-46 mmHg Arterial Blood Partial Pressure O2 110 80-95 mm/Hg Arterial Blood HCO3 24 19-24 mmol/L Arterial Blood Oxygen Saturation 98.1 90-95 % Arterial Blood Base Excess -1.0 -9-1.8 mEq/L Arterial Blood Gas Delivery 6 L O2 Steven Test POS POS Lactic Acid Level 1.9 0.4-2.0 mmol/L Bedside Glucose 209 70-99 mg/dl Test 08/24/16 06:52 08/24/16 08:07 08/24/16 11:34 Range/Units White Blood Count 10.29 4.8-10.8 K/uL Red Blood Count 4.18 4.7-6.1 M/uL Hemoglobin 13.4 14.0-18.0 g/dL Hematocrit 39.2 42-52 % Mean Corpuscular Volume 93.8 80-100 fL Mean Corpuscular Hemoglobin 32.1 25-34 pg Mean Corpuscular Hemoglobin Concent 34.2 32-36 g/dl Platelet Count 165 130-400 K/uL Mean Platelet Volume 9.4 7.4-10.4 fL Neutrophils (%) (Auto) 92.0 % Lymphocytes (%) (Auto) 3.8 % Monocytes (%) (Auto) 3.9 % Eosinophils (%) (Auto) 0.0 % Basophils (%) (Auto) 0.1 % Neutrophils # (Auto) 9.47 1.4-6.5 K/uL Lymphocytes # (Auto) 0.39 1.2-3.4 K/uL Monocytes # (Auto) 0.40 0.11-0.59 K/uL Eosinophils # (Auto) 0.00 0-0.5 K/uL Basophils # (Auto) 0.01 0-0.2 K/uL RDW Standard Deviation 47.0 36.4-46.3 fL RDW Coefficient of Variation 13.8 11.5-14.5 % Immature Granulocyte % (Auto) 0.2 % Immature Granulocyte # (Auto) 0.02 0.00-0.02 K/uL Sodium Level 138 136-145 mmol/L Potassium Level 4.5 3.5-5.1 mmol/L Chloride Level 101 98-107 mmol/L Carbon Dioxide Level 27 21-32 mmol/L Anion Gap 10.0 3-11 mmol/L Blood Urea Nitrogen 17 7-18 mg/dl Creatinine 0.72 0.60-1.40 mg/dl Est Creatinine Clear Calc Drug Dose 81.7 ml/min Estimated GFR () 109.5 Estimated GFR (Non- 94.5 BUN/Creatinine Ratio 22.9 10-20 Random Glucose 164 70-99 mg/dl Calcium Level 8.5 8.5-10.1 mg/dl Bedside Glucose 165 190 70-99 mg/dl Microbiology Results 08/23/16 Blood Culture, Received Pending 08/23/16 Blood Culture, Received Pending 08/24/16 Gram Stain - Final, Resulted 08/24/16 Sputum Culture, Resulted Pending
[2016-08-24] MEDS: FLUTICASONE/SALMETEROL 250/50 (ADVAIR) 14 PUFF/1 INHALER INH SCH (20:33)
[2016-08-24] MEDS: DOXAZosin MESYLATE TAB 4 MG TAB PO SCH (20:33)
[2016-08-25] VITALS (15 sets, daily range): BP systolic 107–146; BP diastolic 62–81; PULSE 80–99; TEMP 36.4–37.1; O2SAT 93–98
[2016-08-25] MEDS: LEVALBUTEROL 1.25MG/0.5ML NEB INH SCH ×4 (02:17→20:51)
[2016-08-25] MEDS: IPRATROPIUM BROMIDE NEB SOLN 0.02% 2.5 ML VIAL INH SCH ×4 (02:17→20:51)
[2016-08-25 05:43] LABS: CALCIUM 8.5 mg/dl (8.5-10.1); CREATININE 0.78 mg/dl (0.60-1.40); POTASSIUM 4.5 mmol/L (3.5-5.1)
[2016-08-25 06:10] LABS: MAGNESIUM 2.3 mg/dl (1.8-2.4)
[2016-08-25] MEDS: INSULIN ASPART 100 UNITS/ML 3 ML PEN SC SCH ×4 (07:42→21:00)
[2016-08-25 07:45] LABS: ESTIMATED AVERAGE GLUCOSE 105 mg/dl; HA1C FLAG Normal (Normal)
[2016-08-25] MEDS: ARMOUR THYROID 30 MG TAB PO SCH (08:18)
[2016-08-25] MEDS: MULTIVITAMIN TAB PO SCH (08:18)
[2016-08-25] MEDS: FLUTICASONE/SALMETEROL 250/50 (ADVAIR) 14 PUFF/1 INHALER INH SCH ×2 (08:18→21:12)
[2016-08-25] MEDS: TIOTROPIUM BROMIDE 5 PUFF/90 MCG INH INH SCH (08:18)
[2016-08-25] MEDS: ENOXAPARIN 30 MG/0.3 ML SYR SC SCH (08:19)
[2016-08-25] MEDS: INSULIN GLARGINE SOLOSTAR 100 UNITS/ML 3 ML PEN SC SCH (08:23)
[2016-08-25] MEDS: METHYLPREDNISOLONE IV 40 MG in SYRINGE 0 ML IV SCH ×3 (10:12→23:59)
[2016-08-25] MEDS: CEFTRIAXONE SOD INJ 1 GM in DEXTROSE 5% ADD-VANTAGE 50ML 50 ML IV SCH (11:00)
[2016-08-25] MEDS: AZITHROMYCIN IV 500 MG in DEXTROSE 5% 250ML 250 ML IV SCH (11:51)
--- NOTE | 2016-08-25 12:17 | Pulmonology Progress Note ---
Pulmonary Progress Note Date of Service Aug 25, 2016. Attending Cable Subjective Some mild improvement in dyspnea. Cough generally dry but able to produce yellow sputum this morning. Denies chest pain. Appetite is very marginal and has been so for quite some time. Reports very poor sleep and relates this in part to high tension/ anxiety related to family related issues. Objective 70-yo male hospital day # 2 admitted to [facility] with exacerbation of COPD. Prior records were reviewed. PMHx includes: Emphysema/COPD [FEV1: 1.02/27%, FVC: 2.21/ 67, FEV1/FVC: 46%] follows with [facility], h/o pneumonia, hypothyroid, underweight, pulmonary nodules, BPH. He is a former smoker, quit 2013. This is the patient's first admission with COPD. 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 He reports he is currently in the process of arranging pulmonary rehab referral (PFTs, CXR, EKG scheduled for 09/02/16). At baseline he is markedly symptomatic with dyspnea provoked activity such as preparing for his day and doing the dishes. He does have history of pulmonary nodules which he states were followed for 2-years in [place]. His last CT ( record unavailable) 06/2016. Patient presented through the ER with symptoms of increased dyspnea and loose cough. He was treated briefly with BiPAP now weaned to supplemental O2. On admission WBC 11.18, AB.38/42/110-6L/24, influenza: negative. CXR consistent with emphysema. CTA 08/23/16: Advanced emphysema with 10mm BLANCHE irregular density and nodular basilar densities (7mm) with evidence of air trapping. He was treated with nebulized bronchodilators, IV steroid, Azithromycin/ceftriaxone, with continued Advair + Spiriva. Today: - 95-98% on 3-4LPM - HD stable, afebrile - WBC: 10.27 - improved Physical Exam: Constitutional: Frail male lying in hospital bed. Family at bedside Head: + facial symmetry, nasal cannula in place Respiratory: non-labored respirations. Very diminished BS throughout. No wheeze , rales or rhonchi. No cough during examination CV: RRR, no MRG. Warm and perfused peripherally. +2 DP bilaterally. MSK/Extremities; Moving and developed symmetrically with muscle wasting and increased AP chest diameter. Neurologic: A&O, good data recall. Appropriate affect. Assessment & Plan 70-yo male admitted with hypoxic exacerbation of COPD/Emphysema: he is clinically improving 1. Continue Spiriva, Advair and nebulizers 2. Wean to PO steroid tomorrow: 50mg prednisone PO 3. Complete course of azithromycin + ceftriaxone for CAP 4. Consideration of nutrition consult in-house for initial recommendations then outpatient referral as well 5. Obtain prior records of past CT chest for pulmonary nodules 6. In the future will need: updated PFTs, ambulatory and nocturnal pulse oximetry studies, and CT chest in 10/2016. Data Medications: Current Inpatient Medications Medications (Trade) Dose Ordered Sig/William Route Start Time Stop Time Status Last Admin Dose Admin Ioversol (Optiray 320) 125 ml UD PRN IV 08/23/16 22:00 08/27/16 21:59 Enoxaparin Sodium (Lovenox Inj) 30 mg Q24H SC 08/24/16 08:00 09/23/16 07:59 08/25/16 08:19 30 MG Acetaminophen (Tylenol Tab) 650 mg Q4H PRN PO 08/24/16 02:30 09/23/16 02:29 Nitroglycerin (Nitrostat Tab) 0.4 mg UD PRN SL 08/24/16 02:30 09/23/16 02:29 Tramadol HCl 25 mg 25 mg Q6H PRN PO 08/24/16 02:30 09/23/16 02:29 Methylprednisolone Sodium Succinate/ Syringe (Solu-Medrol IV/ Syringe) 0.64 ml @ 1.5 mls/min Q8H IV 08/24/16 08:00 09/23/16 07:59 08/25/16 10:12 1.5 MLS/MIN Insulin Glargine (Lantus Solostar Pen) 5 unit DAILY SC 08/25/16 09:00 09/24/16 08:59 08/25/16 08:23 5 UNIT Doxazosin Mesylate (Cardura Tab) 4 mg HS PO 08/24/16 21:00 09/23/16 20:59 08/24/16 20:33 4 MG Multivitamins (Multivitamin Tab) 1 tab DAILY PO 08/24/16 09:00 09/23/16 08:59 08/25/16 08:18 1 TAB Thyroid ([place] Thyroid Tab) 60 mg DAILY PO 08/24/16 09:00 09/23/16 08:59 08/25/16 08:18 60 MG Ipratropium [place] (Atrovent 0.02% 0.5MG/2.5ML Neb) 0.5 mg Q6R INH 08/24/16 03:00 09/23/16 02:59 08/25/16 08:49 0.5 MG Levalbuterol (Xopenex 1.25MG/ 0.5ML Neb) 1.25 mg Q6R INH 08/24/16 03:00 09/23/16 02:59 08/25/16 08:50 1.25 MG Ipratropium [place] (Atrovent 0.02% 0.5MG/2.5ML Neb) 0.5 mg Q4H PRN INH 08/24/16 02:30 09/23/16 02:29 Levalbuterol (Xopenex 1.25MG/ 0.5ML Neb) 1.25 mg Q4H PRN INH 08/24/16 02:30 09/23/16 02:29 Insulin Aspart (novoLOG ASPART) SLIDING SCALE If C... ACHS SC 08/24/16 06:30 09/23/16 06:29 08/24/16 12:09 1 UNITS Glucose (Glucose 40% Gel) 15-30 GRAMS 15 GRAMS... UD PRN PO 08/24/16 05:30 09/23/16 05:29 Glucose (Glucose Chew Tab) 4-8 Tablets 4 Tabl... UD PRN PO 08/24/16 05:30 09/23/16 05:29 Dextrose (Dextrose 50% 50ML Syringe) 25-50ML OF 50% DW IV FOR... UD PRN IV 08/24/16 05:30 09/23/16 05:29 Glucagon 1 mg 1 mg UD PRN SQ 08/24/16 05:30 09/23/16 05:29 Ceftriaxone Sodium 1 gm/ Dextrose 50 ml @ 100 mls/hr DAILY@1100 IV 08/24/16 11:00 08/26/16 11:29 08/25/16 11:00 100 MLS/HR Azithromycin/ Dextrose (Zithromax IV/D5 250ml) 255 ml @ 125 mls/hr DAILY@1200 IV 08/24/16 12:00 08/28/16 14:03 08/25/16 11:51 125 MLS/HR Tiotropium [place] (Spiriva Handihaler Inhaler) 1 puff QAM INH 08/25/16 09:00 09/24/16 08:59 08/25/16 08:18 1 PUFF Salmeterol Xinafoate/ Fluticasone (Advair Diskus 250/50 Inh) 1 puff BIDR INH 08/24/16 21:00 09/23/16 20:59 08/25/16 08:18 1 PUFF I & O: 24-Hour Column 08/25/16 08:00 Intake Total 1253 ml Balance 1253 ml Vital Signs: Date Time Temp Pulse Resp B/P Pulse Ox O2 Delivery O2 Flow Rate FiO2 08/25/16 08:00 Nasal Cannula 3.0 08/25/16 07:55 84 20 95 Nasal Cannula 4.0 08/25/16 06:35 36.5 82 21 116/69 98 Nasal Cannula 4.0 08/25/16 05:00 36.5 80 20 116/68 98 Nasal Cannula 3.0 08/25/16 02:17 84 20 93 Nasal Cannula 4.0 08/24/16 23:40 Nasal Cannula 3.0 08/24/16 23:17 36.7 77 20 117/75 97 Nasal Cannula 4.0 08/24/16 20:00 96 Nasal Cannula 3.0 08/24/16 19:05 36.9 77 18 115/69 96 08/24/16 16:00 97 Nasal Cannula 3.0 08/24/16 15:13 36.9 83 18 100/63 97 Nasal Cannula 2.0 08/24/16 14:38 82 20 97 Nasal Cannula 2.0 Laboratory Results: Last 24 Hours Test 08/24/16 17:02 08/24/16 20:41 08/25/16 04:54 08/25/16 07:29 Bedside Glucose 121 mg/dl 169 mg/dl 139 mg/dl Sodium Level 139 mmol/L Potassium Level 4.5 mmol/L Chloride Level 103 mmol/L Carbon Dioxide Level 30 mmol/L Anion Gap 6.0 mmol/L Blood Urea Nitrogen 19 mg/dl Creatinine 0.78 mg/dl Est Creatinine Clear Calc Drug Dose 72.3 ml/min Estimated GFR () 106.0 Estimated GFR (Non- 91.5 BUN/Creatinine Ratio 24.0 Random Glucose 161 mg/dl Calcium Level 8.5 mg/dl Phosphorus Level 4.0 mg/dl Magnesium Level 2.3 mg/dl
--- NOTE | 2016-08-25 13:25 | Progress Note ---
Internal Med Progress Note Date of Service: Aug 25, 2016. Provider Documentation: SUBJECTIVE: The patient was seen and examined Admitted with COPD exacerbation ,possibly Infected Remains stable Minimal improvement OBJECTIVE: Vital Signs-as noted below Exam: General-Moderate distress at rest Eyes-normal ENT-normal Neck-supple Lungs-Decreased breath sound bilaterally Minimal air entry both sides Heart-Regular,no murmur Abdomen-Benign,no masses,bowel sound present Extremities-No edema Neuro-AAOx3 Lab data as noted below. ASSESSMENT & PLAN: Acute hypoxemic respiratory failure secondary to chronic obstructive pulmonary disease exacerbation. Past tobacco abuse. FEV1-27% and FVC 67% in 2008 Emphysema in CXR-no pneumonia Has been on Azithromycin and Ceftriaxone and IV Solumedrol Appreciate Pulmonary Input and recommendation Pulmonary nodules, stable on recent CT. No acute symptoms Follow up as recommended Malnutrition (Low BMI) secondary to chronic obstructive pulmonary disease. Nutrition consult, low BMI. Benign prostatic hypertrophy on doxazosin treatment. Hypothyroidism, Euthyroid as of today's TSH. . DVT prophylaxis, Lovenox subQ. Full code. DISPOSITION PT /OT evaluation Dr Nieves will take over care from 08/26/16 Vital Signs: Date Time Temp Pulse Resp B/P Pulse Ox O2 Delivery O2 Flow Rate FiO2 08/25/16 12:21 36.7 87 18 124/74 95 2.0 08/25/16 12:00 Nasal Cannula 3.0 08/25/16 08:00 Nasal Cannula 3.0 08/25/16 07:55 84 20 95 Nasal Cannula 4.0 08/25/16 06:35 36.5 82 21 116/69 98 Nasal Cannula 4.0 08/25/16 05:00 36.5 80 20 116/68 98 Nasal Cannula 3.0 08/25/16 02:17 84 20 93 Nasal Cannula 4.0 08/24/16 23:40 Nasal Cannula 3.0 08/24/16 23:17 36.7 77 20 117/75 97 Nasal Cannula 4.0 08/24/16 20:00 96 Nasal Cannula 3.0 08/24/16 19:05 36.9 77 18 115/69 96 08/24/16 16:00 97 Nasal Cannula 3.0 08/24/16 15:13 36.9 83 18 100/63 97 Nasal Cannula 2.0 08/24/16 14:38 82 20 97 Nasal Cannula 2.0 Lab Results: Results Past 24 Hours Test 08/24/16 17:02 08/24/16 20:41 08/25/16 04:54 08/25/16 07:29 Range/Units Bedside Glucose 121 169 139 70-99 mg/dl Sodium Level 139 136-145 mmol/L Potassium Level 4.5 3.5-5.1 mmol/L Chloride Level 103 98-107 mmol/L Carbon Dioxide Level 30 21-32 mmol/L Anion Gap 6.0 3-11 mmol/L Blood Urea Nitrogen 19 7-18 mg/dl Creatinine 0.78 0.60-1.40 mg/dl Est Creatinine Clear Calc Drug Dose 72.3 ml/min Estimated GFR () 106.0 Estimated GFR (Non- 91.5 BUN/Creatinine Ratio 24.0 10-20 Random Glucose 161 70-99 mg/dl Calcium Level 8.5 8.5-10.1 mg/dl Phosphorus Level 4.0 2.5-4.9 mg/dl Magnesium Level 2.3 1.8-2.4 mg/dl Test 08/25/16 11:53 Range/Units Bedside Glucose 127 70-99 mg/dl
[2016-08-25] MEDS: DOXAZosin MESYLATE TAB 4 MG TAB PO SCH (21:12)
[2016-08-26] VITALS (11 sets, daily range): BP systolic 124–141; BP diastolic 73–83; PULSE 85–102; TEMP 36.5–36.8; O2SAT 92–98
[2016-08-26] MEDS: IPRATROPIUM BROMIDE NEB SOLN 0.02% 2.5 ML VIAL INH SCH ×4 (02:00→20:00)
[2016-08-26] MEDS: LEVALBUTEROL 1.25MG/0.5ML NEB INH SCH ×4 (02:00→20:00)
[2016-08-26 07:34] LABS: BUN/CREATININE RATIO 28.3 (10-20); CREATININE 0.77 mg/dl (0.60-1.40); MAGNESIUM 2.5 mg/dl (1.8-2.4); POTASSIUM 4.6 mmol/L (3.5-5.1)
[2016-08-26 07:35] LABS: PHOSPHORUS 3.7 mg/dl (2.5-4.9)
[2016-08-26] MEDS: INSULIN ASPART 100 UNITS/ML 3 ML PEN SC SCH ×4 (08:00→20:53)
[2016-08-26] MEDS: ENOXAPARIN 30 MG/0.3 ML SYR SC SCH (08:21)
[2016-08-26] MEDS: METHYLPREDNISOLONE IV 40 MG in SYRINGE 0 ML IV SCH ×2 (08:21→15:47)
[2016-08-26] MEDS: FLUTICASONE/SALMETEROL 250/50 (ADVAIR) 14 PUFF/1 INHALER INH SCH ×2 (08:21→19:59)
[2016-08-26] MEDS: MULTIVITAMIN TAB PO SCH (08:59)
[2016-08-26] MEDS: ARMOUR THYROID 30 MG TAB PO SCH (08:59)
[2016-08-26] MEDS: TIOTROPIUM BROMIDE 5 PUFF/90 MCG INH INH SCH (08:59)
[2016-08-26] MEDS: INSULIN GLARGINE SOLOSTAR 100 UNITS/ML 3 ML PEN SC SCH (09:08)
[2016-08-26] MEDS: CEFTRIAXONE SOD INJ 1 GM in DEXTROSE 5% ADD-VANTAGE 50ML 50 ML IV SCH (10:22)
[2016-08-26] MEDS: AZITHROMYCIN IV 500 MG in DEXTROSE 5% 250ML 250 ML IV SCH (12:03)
--- NOTE | 2016-08-26 15:49 | PULMONARY PROGRESS NOTE ---
DATE: 08/26/2016 DATE: 08/26/2016. TIME: 2:55 p.m. SUBJECTIVE: The patient is generally feeling better. He is much less short of breath than when he first presented to the hospital. He has very little cough. There has been no sputum production. He is not having chest pains. He is able to move a bit now without getting as planned. The patient's was with him during this evaluation. They had many questions. The patient quit smoking about 4 years ago. We had a pulmonary function test from about 7 years ago that was severely abnormal at that time. This is only the first hospital stay for a respiratory problem. The patient keeps himself very active. 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 He and his have been going to the gym about 3 days per week, but not recently. He states he can do about 1.5 miles per hour on a treadmill. He used to be able to do 2 miles per hour. He has been elevating the treadmill somewhat; however. The patient has a history of multiple lung nodules. He had been followed at [facility] for 2 years or longer and was told that there was no change and thus the lesions were benign. OBJECTIVE: VITAL SIGNS: The patient was comfortable at rest. His BMI is only 17.3. His eyes are slightly sunken. Temperature was 36.5. No lymph nodes were palpable. Neck veins were not distended. CHEST: Heart rate was 88 beats per minute. The rhythm was regular. Blood pressure 141/80. Respiratory rate was 16 breaths per minute. The breath sounds were diffusely diminished. Faint wheezing was heard at end expiration with the forced vital capacity maneuver. Oxygen saturation on 3 liters was 94%. ABDOMEN: Soft. EXTREMITIES: Showed no cyanosis, clubbing or edema. I did review the patient's CAT scan that was done on August 24. It did show severe emphysema that was seen in all lobes. He does, however, have a very large bulla at the area of the right base. He also has a left upper lobe nodule measuring 10 mm and 2 much smaller nodules in the right lower lung field. There was no other CAT scan seen for comparison. Electrolytes today show sodium 139, potassium 4.6, chloride 102, bicarbonate 29. BUN 22 with a creatinine of 0.77. Blood sugar was 135. He did have a blood gas done 08/24/2016 showing a pH of 7.38 with a pCO2 of 42 and a pO2 of 110 on 6 liters of oxygen. ASSESSMENTS: 1. Acute respiratory failure with hypoxia -- improved. 2. Severe emphysema. 3. Chronic obstructive pulmonary disease exacerbation. 4. Multiple lung nodules. COMMENTS AND RECOMMENDATIONS: The patient spoke at length about his longstanding history of issues. He did have a discussion several years ago with Dr. Lopez regarding lung transplantation. 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 It is quite amazing that he has not been hospitalized before this. The encouraging finding is that he does not have carbon dioxide retention. As time goes on and he gets closer to discharge, we will need to determine if he needs oxygen at home. He has been maintained on Spiriva at home. He also is on Advair at home 250/50 one puff b.i.d. At the time of discharge, I would suggest changing that to 500/50 just to give him a little more steroid. He is still on methylprednisolone 40 mg IV q. 8 hours and this is likely accounting for much of his improvement. He is also on the nebulizer treatments. I believe that he has a machine at home for neb treatments, but he had not used them for a long long time. Obviously, there is no significant reversibility in this case. The most important thing is for the patient to stay active. He has already been referred for pulmonary rehab. They are going to delay the starting of this; however, due to his current illness. I would decrease the Solu-Medrol somewhat now that he is improved and see how he does with that. I did encourage the patient to stay active but that he would need to gradually resume some of his activities after he is home and feeling much better. The patient and his asked questions about such things as stem cell treatment. I gave them my opinion that there was no data at present to suggest that it was helpful for his particular problem. He states that is what all the other pulmonologists have told him as well. I did spend a total of 35 minutes with this patient and his .
--- NOTE | 2016-08-26 17:37 | Progress Note ---
Medicine Progress Note Date & Time of Visit: Aug 26, 2016 at 17:25. Subjective Pt was seen and examined Sitting in bed comfortable with his kids at bedside Pt said that he feels much better today He said that he works around to day and he did better compare to yesterday He said that he had mild SOB on exertion Pt denies any chest pain, palpitation, dizziness Objective Last 8 Hrs Date Time Temp Pulse Resp B/P Pulse Ox O2 Delivery O2 Flow Rate FiO2 08/26/16 16:00 94 Nasal Cannula 3.0 08/26/16 15:09 36.8 90 18 136/78 92 Nasal Cannula 2.0 08/26/16 11:28 94 Physical Exam: General- very pleasant, no acute distress Head- atraumatic Eyes- PERRL, EOMI ENT- oropharynx clear Neck- supple, no JVD Lungs- decrease breath sound at base, no wheezing Heart- regular rhythm; no murmur Abdomen- normal bowel sounds, soft, nontender, no masses or hepatosplenomegaly Extremities- no calf tenderness Neuro- alert, oriented x 3 Skin- warm & dry Laboratory Results: Last 24 Hours Test 08/25/16 21:08 08/26/16 06:30 08/26/16 07:44 08/26/16 12:20 Bedside Glucose 133 mg/dl 129 mg/dl 135 mg/dl Sodium Level 139 mmol/L Potassium Level 4.6 mmol/L Chloride Level 102 mmol/L Carbon Dioxide Level 29 mmol/L Anion Gap 8.0 mmol/L Blood Urea Nitrogen 22 mg/dl Creatinine 0.77 mg/dl Est Creatinine Clear Calc Drug Dose 73.2 ml/min Estimated GFR () 106.6 Estimated GFR (Non- 91.9 BUN/Creatinine Ratio 28.3 Random Glucose 140 mg/dl Calcium Level 9.0 mg/dl Phosphorus Level 3.7 mg/dl Magnesium Level 2.5 mg/dl Test 08/26/16 16:41 Bedside Glucose 100 mg/dl Assessment & Plan Acute hypoxemic respiratory failure secondary to chronic obstructive pulmonary disease exacerbation. Past tobacco abuse. FEV1-27% and FVC 67% in 2008 CXR showed Emphysema, no pneumonia CT chest showed advanced emphysema with air trapping both lung bases He was on Azithromycin and Ceftriaxone Ceftriaxone was discontinued Continue zithromax will taper IV Solumedrol to BID and change to PO prednisone upon discharge Pulmonary consulted and recommended to increase Advair to 500/50 upon discharge Continue breathing treatment Pulmonary nodules stable on recent CT. No acute symptoms Follow up as recommended Malnutrition (Low BMI) secondary to chronic obstructive pulmonary disease. Nutrition consult, low BMI. BPH on doxazosin Stable. Hypothyroidism, Stable. . DVT Px on Lovenox subQ. Code Status Full code. DISPOSITION PT /OT evaluation Current Inpatient Medications: Current Inpatient Medications Medications (Trade) Dose Ordered Sig/William Route Start Time Stop Time Status Last Admin Dose Admin Ioversol (Optiray 320) 125 ml UD PRN IV 08/23/16 22:00 08/27/16 21:59 Enoxaparin Sodium (Lovenox Inj) 30 mg Q24H SC 08/24/16 08:00 09/23/16 07:59 08/26/16 08:21 30 MG Acetaminophen (Tylenol Tab) 650 mg Q4H PRN PO 08/24/16 02:30 09/23/16 02:29 Nitroglycerin (Nitrostat Tab) 0.4 mg UD PRN SL 08/24/16 02:30 09/23/16 02:29 Tramadol HCl 25 mg 25 mg Q6H PRN PO 08/24/16 02:30 09/23/16 02:29 Methylprednisolone Sodium Succinate/ Syringe (Solu-Medrol IV/ Syringe) 0.64 ml @ 1.5 mls/min Q8H IV 08/24/16 08:00 09/23/16 07:59 08/26/16 15:47 1.5 MLS/MIN Insulin Glargine (Lantus Solostar Pen) 5 unit DAILY SC 08/25/16 09:00 09/24/16 08:59 08/26/16 09:08 5 UNIT Doxazosin Mesylate (Cardura Tab) 4 mg HS PO 08/24/16 21:00 09/23/16 20:59 08/25/16 21:12 4 MG Multivitamins (Multivitamin Tab) 1 tab DAILY PO 08/24/16 09:00 09/23/16 08:59 08/26/16 08:59 1 TAB Thyroid ([place] Thyroid Tab) 60 mg DAILY PO 08/24/16 09:00 09/23/16 08:59 08/26/16 08:59 60 MG Ipratropium [place] (Atrovent 0.02% 0.5MG/2.5ML Neb) 0.5 mg Q6R INH 08/24/16 03:00 09/23/16 02:59 08/26/16 08:03 0.5 MG Levalbuterol (Xopenex 1.25MG/ 0.5ML Neb) 1.25 mg Q6R INH 08/24/16 03:00 09/23/16 02:59 08/26/16 08:03 1.25 MG Ipratropium [place] (Atrovent 0.02% 0.5MG/2.5ML Neb) 0.5 mg Q4H PRN INH 08/24/16 02:30 09/23/16 02:29 Levalbuterol (Xopenex 1.25MG/ 0.5ML Neb) 1.25 mg Q4H PRN INH 08/24/16 02:30 09/23/16 02:29 Insulin Aspart (novoLOG ASPART) SLIDING SCALE If C... ACHS SC 08/24/16 06:30 09/23/16 06:29 08/24/16 12:09 1 UNITS Glucose (Glucose 40% Gel) 15-30 GRAMS 15 GRAMS... UD PRN PO 08/24/16 05:30 09/23/16 05:29 Glucose (Glucose Chew Tab) 4-8 Tablets 4 Tabl... UD PRN PO 08/24/16 05:30 09/23/16 05:29 Dextrose (Dextrose 50% 50ML Syringe) 25-50ML OF 50% DW IV FOR... UD PRN IV 08/24/16 05:30 09/23/16 05:29 Glucagon 1 mg 1 mg UD PRN SQ 08/24/16 05:30 09/23/16 05:29 Azithromycin/ Dextrose (Zithromax IV/D5 250ml) 255 ml @ 125 mls/hr DAILY@1200 IV 08/24/16 12:00 08/28/16 14:03 08/26/16 12:03 125 MLS/HR Tiotropium [place] (Spiriva Handihaler Inhaler) 1 puff QAM INH 08/25/16 09:00 09/24/16 08:59 08/26/16 08:59 1 PUFF Salmeterol Xinafoate/ Fluticasone (Advair Diskus 250/50 Inh) 1 puff BIDR INH 08/24/16 21:00 09/23/16 20:59 08/26/16 08:21 1 PUFF
[2016-08-26] MEDS: DOXAZosin MESYLATE TAB 4 MG TAB PO SCH (20:39)
[2016-08-27] VITALS (9 sets, daily range): BP systolic 114–137; BP diastolic 76–84; PULSE 69–101; TEMP 36.3–36.5; O2SAT 92–98
[2016-08-27] MEDS: IPRATROPIUM BROMIDE NEB SOLN 0.02% 2.5 ML VIAL INH SCH ×4 (02:40→21:02)
[2016-08-27] MEDS: LEVALBUTEROL 1.25MG/0.5ML NEB INH SCH ×4 (02:41→21:02)
[2016-08-27] MEDS: METHYLPREDNISOLONE IV 40 MG in SYRINGE 0 ML IV SCH ×2 (05:35→18:01)
[2016-08-27 07:12] LABS: BASO % 0.1 %; BASO ABS # 0.01 K/uL (0-0.2); COMPLETE YES; IG% 0.3 %; LYMPH % 9.6 %; LYMPH ABS # 0.94 K/uL (1.2-3.4); MEAN CELL VOLUME 95.2 fL (80-100); MEAN CORPUSCULAR HEMOGLOBIN 32.6 pg (25-34); MEAN CORPUSCULAR HGB CONC 34.3 g/dl (32-36); MEAN PLATELET VOLUME 9.4 fL (7.4-10.4); MONO % 12.7 %; NEUT % 77.3 %; PLATELET COUNT 195 K/uL (130-400); WHITE BLOOD COUNT 9.84 K/uL (4.8-10.8)
[2016-08-27] MEDS: INSULIN ASPART 100 UNITS/ML 3 ML PEN SC SCH ×4 (08:00→21:00)
[2016-08-27] MEDS: FLUTICASONE/SALMETEROL 250/50 (ADVAIR) 14 PUFF/1 INHALER INH SCH ×2 (08:53→21:31)
[2016-08-27] MEDS: TIOTROPIUM BROMIDE 5 PUFF/90 MCG INH INH SCH (08:54)
[2016-08-27] MEDS: MULTIVITAMIN TAB PO SCH (08:55)
[2016-08-27] MEDS: ARMOUR THYROID 30 MG TAB PO SCH (08:55)
[2016-08-27] MEDS: ENOXAPARIN 30 MG/0.3 ML SYR SC SCH (08:56)
[2016-08-27] MEDS: INSULIN GLARGINE SOLOSTAR 100 UNITS/ML 3 ML PEN SC SCH (08:58)
[2016-08-27] MEDS: AZITHROMYCIN IV 500 MG in DEXTROSE 5% 250ML 250 ML IV SCH (12:31)
--- NOTE | 2016-08-27 12:32 | PROGRESS NOTE ---
DATE: 08/27/2016 DATE: 08/27/2016. PROBLEM LIST: Includes: 1. Acute respiratory failure with hypoxemia, which is improved. 2. Severe emphysema. 3. Chronic obstructive pulmonary disease with exacerbation. 4. Multiple lung nodules. SUBJECTIVE: The patient reports that he is doing better today. He states that he did have an episode last night where he became more short of breath. He states that this was following or during his nebulizer. He states that he did put oxygen on at 3 liters and ended up having medication for anxiety as well and eventually was able to get to sleep. He then states he woke up this morning, he was to 1 liter and he has been off oxygen this morning and doing well. He states that he is still a little bit short of breath, but it is improving. He still has little bit of cough and mucus production, but that is improving as well. He denies any chest pain or pressure. Denies any chest heaviness. Denies any palpitations. No nausea or vomiting, no indigestion or heartburn. States that overall he is doing pretty well. The patient did have multiple questions regarding the event last night regarding his breathing in general. These were answered as best as able. OBJECTIVE: GENERAL: The patient is a 70-year-old male in no acute distress. He is sitting at bedside. He is very thin, almost cachectic appearing. He is alert and oriented x3. Mood is good. Affect is good. VITAL SIGNS: Temp 36.4, pulse 69, respirations 20, blood pressure 137/84, pulse ox 96% on 2 liters. HEAD, EYES, EARS, NOSE, AND THROAT: Normocephalic, atraumatic. Pupils equal, round and reactive to light and accommodation. Extraocular movements are intact. [place] moist gingival and buccal mucosa. NECK: Supple. No mass. No adenopathy. No bruit. CHEST: Diminished, does have expiratory wheeze at end range exhalation. No rale or rhonchi noted. CARDIOVASCULAR: Regular rate and rhythm. There are no murmurs, gallops or rubs noted. ABDOMEN: Soft, nontender. No guarding, rigidity or organomegaly. EXTREMITIES: No erythema or edema. LABORATORY DATA: Shows a white count of 9,000, H\T\H 13.7 and 40.0. IMPRESSION: This is a 70-year-old male who has severe emphysema with bullae who presented with acute respiratory failure with hypoxemia, which has improved. Currently, his oxygen saturations are doing well on room air, although it is in low 90%. My suspicion is that the patient does desaturate overnight while he is sleeping based on history and I would like for him to have an overnight oximeter done on room air as I think he would benefit from oxygen at nighttime upon discharge. I would like that done tonight if possible. At this point, I think that it would be good to continue a slow prednisone taper. I think we can continue 40 q. 12 today and then transition to oral prednisone tomorrow. I will continue aggressive pulmonary toilet as well. The patient is benefiting from this. If he continues to do well will anticipate discharge in the next couple days. We will continue to follow through hospitalization. The patient will need to have pulmonary followup as an outpatient as well. Again spent 30 minutes with the patient answering questions regarding his lung condition.
[2016-08-27] MEDS ORDERED: CEFUROXIME AXETIL 500 MG TAB PO ONE (13:30)
[2016-08-27] MEDS: DOXAZosin MESYLATE TAB 4 MG TAB PO SCH (21:31)
--- NOTE | 2016-08-27 21:39 | Progress Note ---
Medicine Progress Note Date & Time of Visit: Aug 27, 2016 at 21:34. Subjective Pt was seen and examined sitting in bed eating dinner with family at bedside Pt said that he feels much better today I saw him walking early today in the hallway, and he said that he did better today compared to yesterday denies any palpitation, dizziness and chest pain Objective Last 8 Hrs Date Time Temp Pulse Resp B/P Pulse Ox O2 Delivery O2 Flow Rate FiO2 08/27/16 21:30 87 136/84 08/27/16 21:04 95 18 95 Room Air 08/27/16 15:26 36.5 83 18 114/76 92 Room Air Physical Exam: General- very pleasant, no acute distress Head- atraumatic Eyes- PERRL, EOMI ENT- oropharynx clear Neck- supple, no JVD Lungs- no wheezing, no crackles Heart- regular rhythm; no murmur Abdomen- normal bowel sounds, soft, nontender, no masses or hepatosplenomegaly Extremities- no calf tenderness Neuro- alert, oriented x 3 Skin- warm & dry Laboratory Results: Last 24 Hours Test 08/27/16 06:23 08/27/16 07:50 08/27/16 11:38 08/27/16 16:45 White Blood Count 9.84 K/uL Red Blood Count 4.20 M/uL Hemoglobin 13.7 g/dL Hematocrit 40.0 % Mean Corpuscular Volume 95.2 fL Mean Corpuscular Hemoglobin 32.6 pg Mean Corpuscular Hemoglobin Concent 34.3 g/dl Platelet Count 195 K/uL Mean Platelet Volume 9.4 fL Neutrophils (%) (Auto) 77.3 % Lymphocytes (%) (Auto) 9.6 % Monocytes (%) (Auto) 12.7 % Eosinophils (%) (Auto) 0.0 % Basophils (%) (Auto) 0.1 % Neutrophils # (Auto) 7.61 K/uL Lymphocytes # (Auto) 0.94 K/uL Monocytes # (Auto) 1.25 K/uL Eosinophils # (Auto) 0.00 K/uL Basophils # (Auto) 0.01 K/uL RDW Standard Deviation 47.5 fL RDW Coefficient of Variation 13.7 % Immature Granulocyte % (Auto) 0.3 % Immature Granulocyte # (Auto) 0.03 K/uL Bedside Glucose 100 mg/dl 124 mg/dl 111 mg/dl Test 08/27/16 20:55 Bedside Glucose 124 mg/dl Assessment & Plan Acute hypoxemic respiratory failure secondary to chronic obstructive pulmonary disease exacerbation. Past tobacco abuse. FEV1-27% and FVC 67% in 2008 CXR showed Emphysema, no pneumonia CT chest showed advanced emphysema with air trapping both lung bases He was on Azithromycin and Ceftriaxone Ceftriaxone was discontinued Completed zithromax course Conitnue IV Solumedrol to BID and change to PO prednisone upon discharge Pulmonary consulted and recommended to increase Advair to 500/50 upon discharge Continue breathing treatment will get an overnight pulse oximetry tonight will need to continue to follow with pulmonology as an outpatient Pulmonary nodules stable on recent CT. No acute symptoms Follow up as recommended Malnutrition (Low BMI) secondary to chronic obstructive pulmonary disease. Nutrition consult, low BMI. BPH on doxazosin Stable. Hypothyroidism, Stable. . DVT Px on Lovenox subQ. Code Status Full code. DISPOSITION PT /OT evaluation possible to discharge tomorrow Current Inpatient Medications: Current Inpatient Medications Medications (Trade) Dose Ordered Sig/William Route Start Time Stop Time Status Last Admin Dose Admin Ioversol (Optiray 320) 125 ml UD PRN IV 08/23/16 22:00 08/27/16 21:59 Enoxaparin Sodium (Lovenox Inj) 30 mg Q24H SC 08/24/16 08:00 09/23/16 07:59 08/27/16 08:56 30 MG Acetaminophen (Tylenol Tab) 650 mg Q4H PRN PO 08/24/16 02:30 09/23/16 02:29 Nitroglycerin (Nitrostat Tab) 0.4 mg UD PRN SL 08/24/16 02:30 09/23/16 02:29 Tramadol HCl ([place] Tab) 25 mg Q6H PRN PO 08/24/16 02:30 09/23/16 02:29 Insulin Glargine (Lantus Solostar Pen) 5 unit DAILY SC 08/25/16 09:00 09/24/16 08:59 08/27/16 08:58 5 UNIT Doxazosin Mesylate (Cardura Tab) 4 mg HS PO 08/24/16 21:00 09/23/16 20:59 08/27/16 21:31 4 MG Multivitamins (Multivitamin Tab) 1 tab DAILY PO 08/24/16 09:00 09/23/16 08:59 08/27/16 08:55 1 TAB Thyroid ([place] Thyroid Tab) 60 mg DAILY PO 08/24/16 09:00 09/23/16 08:59 08/27/16 08:55 60 MG Ipratropium [place] (Atrovent 0.02% 0.5MG/2.5ML Neb) 0.5 mg Q6R INH 08/24/16 03:00 09/23/16 02:59 08/27/16 21:02 0.5 MG Levalbuterol (Xopenex 1.25MG/ 0.5ML Neb) 1.25 mg Q6R INH 08/24/16 03:00 09/23/16 02:59 08/27/16 21:02 1.25 MG Ipratropium [place] (Atrovent 0.02% 0.5MG/2.5ML Neb) 0.5 mg Q4H PRN INH 08/24/16 02:30 09/23/16 02:29 Levalbuterol (Xopenex 1.25MG/ 0.5ML Neb) 1.25 mg Q4H PRN INH 08/24/16 02:30 09/23/16 02:29 Insulin Aspart (novoLOG ASPART) SLIDING SCALE If C... ACHS SC 08/24/16 06:30 09/23/16 06:29 08/24/16 12:09 1 UNITS Glucose (Glucose 40% Gel) 15-30 GRAMS 15 GRAMS... UD PRN PO 08/24/16 05:30 09/23/16 05:29 Glucose (Glucose Chew Tab) 4-8 Tablets 4 Tabl... UD PRN PO 08/24/16 05:30 09/23/16 05:29 Dextrose (Dextrose 50% 50ML Syringe) 25-50ML OF 50% DW IV FOR... UD PRN IV 08/24/16 05:30 09/23/16 05:29 Glucagon (Glucagon Inj) 1 mg UD PRN SQ 08/24/16 05:30 09/23/16 05:29 Tiotropium [place] (Spiriva Handihaler Inhaler) 1 puff QAM INH 08/25/16 09:00 09/24/16 08:59 08/27/16 08:54 1 PUFF Salmeterol Xinafoate/ Fluticasone 1 puff 1 puff BIDR INH 08/24/16 21:00 09/23/16 20:59 08/27/16 21:31 1 PUFF Methylprednisolone Sodium Succinate/ Syringe (Solu-Medrol IV/ Syringe) 0.64 ml @ 1.5 mls/min Q12H IV 08/27/16 06:00 09/26/16 05:59 08/27/16 18:01 1.5 MLS/MIN Cefuroxime Axetil (Ceftin Tab) 500 mg BID PO 08/27/16 23:00 08/30/16 10:59
[2016-08-27] MEDS: CEFUROXIME AXETIL 500 MG TAB PO SCH (22:42)
[2016-08-28] MEDS: LEVALBUTEROL 1.25MG/0.5ML NEB INH SCH ×4 (01:30→20:53)
[2016-08-28] MEDS: IPRATROPIUM BROMIDE NEB SOLN 0.02% 2.5 ML VIAL INH SCH ×4 (01:30→20:53)
[2016-08-28] MEDS: METHYLPREDNISOLONE IV 40 MG in SYRINGE 0 ML IV SCH (05:32)
[2016-08-28 07:11] VITALS: BP 129/80; PULSE 83; TEMP 36.8; O2SAT 93
[2016-08-28 07:41] VITALS: O2SAT 93
[2016-08-28] MEDS: INSULIN ASPART 100 UNITS/ML 3 ML PEN SC SCH ×4 (08:38→20:59)
[2016-08-28] MEDS: TIOTROPIUM BROMIDE 5 PUFF/90 MCG INH INH SCH (08:44)
[2016-08-28] MEDS: FLUTICASONE/SALMETEROL 250/50 (ADVAIR) 14 PUFF/1 INHALER INH SCH ×2 (08:44→20:23)
[2016-08-28] MEDS: ENOXAPARIN 30 MG/0.3 ML SYR SC SCH (08:45)
[2016-08-28] MEDS: CEFUROXIME AXETIL 500 MG TAB PO SCH ×2 (08:46→20:24)
[2016-08-28] MEDS: MULTIVITAMIN TAB PO SCH (08:46)
[2016-08-28] MEDS: ARMOUR THYROID 30 MG TAB PO SCH (08:46)
[2016-08-28] MEDS: INSULIN GLARGINE SOLOSTAR 100 UNITS/ML 3 ML PEN SC SCH (08:47)
[2016-08-28] MEDS ORDERED: GUAIFENESIN 200 MG TAB PO PRN (13:15)
--- NOTE | 2016-08-28 13:35 | Progress Note ---
Medicine Progress Note Date & Time of Visit: Aug 28, 2016 at 13:25. Subjective Pt was seen and examined Sitting at the edge of the bed eating his food Pt said that he is feeling much better He continue to cough alot he said that last night the lowest his o2 sat dropped was 93 Denies any chest pain, palpitation and dizziness Objective Last 8 Hrs Date Time Temp Pulse Resp B/P Pulse Ox O2 Delivery O2 Flow Rate FiO2 08/28/16 07:41 93 Room Air 08/28/16 07:11 36.8 83 16 129/80 93 Room Air Physical Exam: General- very pleasant, no acute distress Head- atraumatic Eyes- PERRL, EOMI ENT- oropharynx clear Neck- supple, no JVD Lungs- no wheezing, no crackles Heart- regular rhythm; no murmur Abdomen- normal bowel sounds, soft, nontender, no masses or hepatosplenomegaly Extremities- no calf tenderness Neuro- alert, oriented x 3 Skin- warm & dry Laboratory Results: Last 24 Hours Test 08/27/16 16:45 08/27/16 20:55 08/28/16 08:25 08/28/16 12:05 Bedside Glucose 111 mg/dl 124 mg/dl 109 mg/dl 102 mg/dl Assessment & Plan Acute hypoxemic respiratory failure secondary to chronic obstructive pulmonary disease exacerbation. Past tobacco abuse. FEV1-27% and FVC 67% in 2008 CXR showed Emphysema, no pneumonia CT chest showed advanced emphysema with air trapping both lung bases He was on Azithromycin and Ceftriaxone Ceftriaxone was discontinued Completed zithromax course Conitnue IV Solumedrol to BID and change to PO prednisone upon discharge Pulmonary consulted and recommended to increase Advair to 500/50 upon discharge Continue breathing treatment Abx was changed to cefuroxime Change steroid to po prednisone Guaifenesin added will need to continue to follow with pulmonology as an outpatient Will discharge when clears by pulmonology Pulmonary nodules stable on recent CT. No acute symptoms Follow up as recommended Malnutrition (Low BMI) secondary to chronic obstructive pulmonary disease. Nutrition consult, low BMI. BPH on doxazosin Stable. Hypothyroidism, Stable. . DVT Px on Lovenox subQ. Code Status Full code. DISPOSITION PT /OT evaluation possible to discharge today Follow up appointment with his primary care provider Dr. Chávez on Sep 03 @ 3: 30 pm Consultants: pulmonology PT/OT Current Inpatient Medications: Current Inpatient Medications Medications (Trade) Dose Ordered Sig/William Route Start Time Stop Time Status Last Admin Dose Admin Enoxaparin Sodium (Lovenox Inj) 30 mg Q24H SC 08/24/16 08:00 09/23/16 07:59 08/28/16 08:45 30 MG Acetaminophen (Tylenol Tab) 650 mg Q4H PRN PO 08/24/16 02:30 09/23/16 02:29 Nitroglycerin (Nitrostat Tab) 0.4 mg UD PRN SL 08/24/16 02:30 09/23/16 02:29 Tramadol HCl (Ultram Tab) 25 mg Q6H PRN PO 08/24/16 02:30 09/23/16 02:29 Insulin Glargine (Lantus Solostar Pen) 5 unit DAILY SC 08/25/16 09:00 09/24/16 08:59 08/28/16 08:47 5 UNIT Doxazosin Mesylate (Cardura Tab) 4 mg HS PO 08/24/16 21:00 09/23/16 20:59 08/27/16 21:31 4 MG Multivitamins (Multivitamin Tab) 1 tab DAILY PO 08/24/16 09:00 09/23/16 08:59 08/28/16 08:46 1 TAB Thyroid ([place] Thyroid Tab) 60 mg DAILY PO 08/24/16 09:00 09/23/16 08:59 08/28/16 08:46 60 MG Ipratropium [place] (Atrovent 0.02% 0.5MG/2.5ML Neb) 0.5 mg Q6R INH 08/24/16 03:00 09/23/16 02:59 08/27/16 21:02 0.5 MG Levalbuterol (Xopenex 1.25MG/ 0.5ML Neb) 1.25 mg Q6R INH 08/24/16 03:00 09/23/16 02:59 08/27/16 21:02 1.25 MG Ipratropium [place] (Atrovent 0.02% 0.5MG/2.5ML Neb) 0.5 mg Q4H PRN INH 08/24/16 02:30 09/23/16 02:29 Levalbuterol (Xopenex 1.25MG/ 0.5ML Neb) 1.25 mg Q4H PRN INH 08/24/16 02:30 09/23/16 02:29 Insulin Aspart (novoLOG ASPART) SLIDING SCALE If C... ACHS SC 08/24/16 06:30 09/23/16 06:29 08/24/16 12:09 1 UNITS Glucose (Glucose 40% Gel) 15-30 GRAMS 15 GRAMS... UD PRN PO 08/24/16 05:30 09/23/16 05:29 Glucose (Glucose Chew Tab) 4-8 Tablets 4 Tabl... UD PRN PO 08/24/16 05:30 09/23/16 05:29 Dextrose (Dextrose 50% 50ML Syringe) 25-50ML OF 50% DW IV FOR... UD PRN IV 08/24/16 05:30 09/23/16 05:29 Glucagon (Glucagon Inj) 1 mg UD PRN SQ 08/24/16 05:30 09/23/16 05:29 Tiotropium [place] (Spiriva Handihaler Inhaler) 1 puff QAM INH 08/25/16 09:00 09/24/16 08:59 08/28/16 08:44 1 PUFF Salmeterol Xinafoate/ Fluticasone 1 puff 1 puff BIDR INH 08/24/16 21:00 09/23/16 20:59 08/28/16 08:44 1 PUFF Methylprednisolone Sodium Succinate/ Syringe (Solu-Medrol IV/ Syringe) 0.64 ml @ 1.5 mls/min Q12H IV 08/27/16 06:00 09/26/16 05:59 08/28/16 05:32 1.5 MLS/MIN Cefuroxime Axetil (Ceftin Tab) 500 mg BID PO 08/27/16 23:00 08/30/16 10:59 08/28/16 08:46 500 MG Guaifenesin (Organidin Nr Tab) 200 mg Q6H PRN PO 08/28/16 13:15 09/27/16 13:14 UNV
[2016-08-28 15:06] VITALS: BP 127/74; PULSE 94; TEMP 36.9; O2SAT 93
--- NOTE | 2016-08-28 17:38 | PULMONARY PROGRESS NOTE ---
DATE: 08/28/2016 TIME: 5:10 p.m. SUBJECTIVE: The patient is generally feeling better. He ambulated without much difficulty today. He is overall less short of breath. He is not coughing a whole lot. The patient has many questions. Upon discharge, he is going to a personal nursing home, this involves some family issues. OBJECTIVE: GENERAL: The patient appeared comfortable at rest. He is afebrile. EARS, NOSE, THROAT: Unchanged. VITAL SIGNS: Heart rate was 94 beats per minute, blood pressure 127/74, oxygen saturation 93% on room air, respiratory rate 20 breaths per minute and not labored. The breath sounds were severely diminished. There was prolongation to the expiratory phase of respirations. LABORATORY DATA: Blood sugar today was 102. IMPRESSIONS: 1. Acute respiratory failure with hypoxia - improved. 2. Severe emphysema. 3. Chronic obstructive pulmonary disease exacerbation. 4. Multiple lung nodules. COMMENTS AND RECOMMENDATIONS: The patient is about ready for discharge. It appears that he needs a new nebulizer at home. He never got one of his own, someone gave him one. I believe it would be reasonable to continue him with the albuterol 3-4 times per day. He would continue with the Spiriva and the Advair. The Advair dose, however, should be increased to 500/50 one puff b.i.d. He can be sent home with tapering prednisone and continue the antibiotics for a few days. If a 2-step has not been done, that should be done before discharge. Likewise, it appears he will not be going home tonight and if possible an overnight pulse ox with digital recording should again be attempted. Reportedly, there was not equipment to do so last night. Staff monitored him and did not notice any oxygen desaturations. The patient requested if I could see him in the office for follow up. I told him that I was more than happy to do that. I would still anticipate that he would be following with his primary and with Hue Zaragoza PA-C who works from the respiratory division. I told him, he could call my office for an appointment in about 1 month, but he would be following with the primary in a week or so. VALERY
[2016-08-28] MEDS: DOXAZosin MESYLATE TAB 4 MG TAB PO SCH (20:26)
[2016-08-28 20:28] VITALS: BP 126/80; PULSE 82
[2016-08-28] MEDS ORDERED: COUGH DROP (SUGAR FREE) LOZ 24 LOZ/1 BOX ONE (22:32)
[2016-08-28 23:37] VITALS: BP 143/90; PULSE 75; TEMP 36.3; O2SAT 93
[2016-08-29] MEDS: LEVALBUTEROL 1.25MG/0.5ML NEB INH SCH ×2 (01:36→07:06)
[2016-08-29] MEDS: IPRATROPIUM BROMIDE NEB SOLN 0.02% 2.5 ML VIAL INH SCH ×2 (01:36→07:06)
[2016-08-29] MEDS: FLUTICASONE/SALMETEROL 250/50 (ADVAIR) 14 PUFF/1 INHALER INH SCH (07:37)
[2016-08-29] MEDS: ENOXAPARIN 30 MG/0.3 ML SYR SC SCH (07:39)
[2016-08-29 07:53] VITALS: BP 130/78; PULSE 77; TEMP 36.4; O2SAT 95
[2016-08-29] MEDS: INSULIN ASPART 100 UNITS/ML 3 ML PEN SC SCH ×2 (08:00→12:00)
[2016-08-29] MEDS: INSULIN GLARGINE SOLOSTAR 100 UNITS/ML 3 ML PEN SC SCH (08:37)
[2016-08-29] MEDS: MULTIVITAMIN TAB PO SCH (08:40)
[2016-08-29] MEDS: ARMOUR THYROID 30 MG TAB PO SCH (08:40)
[2016-08-29] MEDS: CEFUROXIME AXETIL 500 MG TAB PO SCH (08:40)
[2016-08-29] MEDS: TIOTROPIUM BROMIDE 5 PUFF/90 MCG INH INH SCH (08:41)
[2016-08-29 08:53] VITALS: O2SAT 95
--- NOTE | 2016-08-29 12:16 | Progress Note ---
Medicine Progress Note Date & Time of Visit: Aug 29, 2016 at 12:03. Subjective Pt was seen and examined Pt sitting in at the edge of the bed very comfortable He already got dressed and ready to be discharge Pt said that he feels much better today He said that he is back to his baseline He did good at the 2 step exercise denies any chest pain, palpitation Objective Last 8 Hrs Date Time Temp Pulse Resp B/P Pulse Ox O2 Delivery O2 Flow Rate FiO2 08/29/16 08:53 95 Room Air 08/29/16 07:53 36.4 77 20 130/78 95 Room Air 08/29/16 07:15 Room Air Physical Exam: General- very pleasant, no acute distress Head- atraumatic Eyes- PERRL, EOMI ENT- oropharynx clear Neck- supple, no JVD Lungs- no wheezing, no crackles Heart- regular rhythm; no murmur Abdomen- normal bowel sounds, soft, nontender Extremities- no calf tenderness Neuro- alert, oriented x 3 Skin- warm & dry Laboratory Results: Last 24 Hours Test 08/28/16 12:05 08/28/16 16:46 08/28/16 20:37 08/29/16 08:04 Bedside Glucose 102 mg/dl 98 mg/dl 91 mg/dl 88 mg/dl Test 08/29/16 11:49 Bedside Glucose 154 mg/dl Assessment & Plan Acute hypoxemic respiratory failure secondary to chronic obstructive pulmonary disease exacerbation. Past tobacco abuse. FEV1-27% and FVC 67% in 2008 CXR showed Emphysema, no pneumonia CT chest showed advanced emphysema with air trapping both lung bases He was on Azithromycin and Ceftriaxone Ceftriaxone was discontinued Completed zithromax course Conitnue IV Solumedrol to BID and change to PO prednisone upon discharge Pulmonary consulted and recommended to increase Advair to 500/50 upon discharge Continue breathing treatment Abx was changed to cefuroxime Change steroid to po prednisone Guaifenesin added Continue to follow with pulmonology as an outpatient Will discharge today with prednisone taper Pulmonary nodules stable on recent CT. No acute symptoms Follow up as recommended Malnutrition (Low BMI) secondary to chronic obstructive pulmonary disease. Nutrition consult, low BMI. BPH on doxazosin Stable. Hypothyroidism, Stable. . DVT Px on Lovenox subQ. Code Status Full code. DISPOSITION PT /OT evaluation discharge today Follow up appointment with his primary care provider Dr. Chávez on Sep 03 @ 3: 30 pm Hue Womack's office will call pt to schedule a follow up appointment Consultants: pulmonology PT/OT Current Inpatient Medications: Current Inpatient Medications Medications (Trade) Dose Ordered Sig/William Route Start Time Stop Time Status Last Admin Dose Admin Enoxaparin Sodium (Lovenox Inj) 30 mg Q24H SC 08/24/16 08:00 09/23/16 07:59 08/28/16 08:45 30 MG Acetaminophen (Tylenol Tab) 650 mg Q4H PRN PO 08/24/16 02:30 09/23/16 02:29 Nitroglycerin (Nitrostat Tab) 0.4 mg UD PRN SL 08/24/16 02:30 09/23/16 02:29 Tramadol HCl (Ultram Tab) 25 mg Q6H PRN PO 08/24/16 02:30 09/23/16 02:29 Insulin Glargine (Lantus Solostar Pen) 5 unit DAILY SC 08/25/16 09:00 09/24/16 08:59 08/28/16 08:47 5 UNIT Doxazosin Mesylate (Cardura Tab) 4 mg HS PO 08/24/16 21:00 09/23/16 20:59 08/28/16 20:26 4 MG Multivitamins (Multivitamin Tab) 1 tab DAILY PO 08/24/16 09:00 09/23/16 08:59 08/29/16 08:40 1 TAB Thyroid ([place] Thyroid Tab) 60 mg DAILY PO 08/24/16 09:00 09/23/16 08:59 08/29/16 08:40 60 MG Ipratropium [place] (Atrovent 0.02% 0.5MG/2.5ML Neb) 0.5 mg Q6R INH 08/24/16 03:00 09/23/16 02:59 08/27/16 21:02 0.5 MG Levalbuterol (Xopenex 1.25MG/ 0.5ML Neb) 1.25 mg Q6R INH 08/24/16 03:00 09/23/16 02:59 08/27/16 21:02 1.25 MG Ipratropium [place] (Atrovent 0.02% 0.5MG/2.5ML Neb) 0.5 mg Q4H PRN INH 08/24/16 02:30 09/23/16 02:29 Levalbuterol (Xopenex 1.25MG/ 0.5ML Neb) 1.25 mg Q4H PRN INH 08/24/16 02:30 09/23/16 02:29 Insulin Aspart (novoLOG ASPART) SLIDING SCALE If C... ACHS SC 08/24/16 06:30 09/23/16 06:29 08/24/16 12:09 1 UNITS Glucose (Glucose 40% Gel) 15-30 GRAMS 15 GRAMS... UD PRN PO 08/24/16 05:30 09/23/16 05:29 Glucose (Glucose Chew Tab) 4-8 Tablets 4 Tabl... UD PRN PO 08/24/16 05:30 09/23/16 05:29 Dextrose (Dextrose 50% 50ML Syringe) 25-50ML OF 50% DW IV FOR... UD PRN IV 08/24/16 05:30 09/23/16 05:29 Glucagon (Glucagon Inj) 1 mg UD PRN SQ 08/24/16 05:30 09/23/16 05:29 Tiotropium [place] (Spiriva Handihaler Inhaler) 1 puff QAM INH 08/25/16 09:00 09/24/16 08:59 08/29/16 08:41 1 PUFF Salmeterol Xinafoate/ Fluticasone (Advair Diskus 250/50 Inh) 1 puff BIDR INH 08/24/16 21:00 09/23/16 20:59 08/29/16 07:37 1 PUFF Cefuroxime Axetil (Ceftin Tab) 500 mg BID PO 08/27/16 23:00 08/30/16 10:59 08/29/16 08:40 500 MG Guaifenesin (Organidin Nr Tab) 200 mg Q6H PRN PO 08/28/16 13:15 09/27/16 13:14 08/28/16 22:31 200 MG Prednisone (PredniSONE TAB) 40 mg BID PO 08/28/16 21:00 09/27/16 20:59 08/29/16 08:40 40 MG
[2016-08-29] MEDS ORDERED: GUAI1TAB68 PO (12:29)
[2016-08-29] MEDS ORDERED: PRED10TA PO (12:29)
[2016-08-29] MEDS ORDERED: SPRIN INH (12:29)
[2016-08-29] MEDS ORDERED: CEFU1TAB35 PO (12:29)
[2016-08-29] MEDS ORDERED: ADVIN50/60 INH (12:29)
[2016-08-29] MEDS ORDERED: Ventolin HFA INH (12:33)
[2016-08-29] MEDS ORDERED: CHOL20007 PO (12:33)
[2016-08-29] MEDS ORDERED: DOXA1TAB86 PO (12:33)
[2016-08-29] MEDS ORDERED: THY/30 PO (12:33)
[2016-08-29] MEDS ORDERED: IPRASOL4 INH (12:33)
[2016-08-29] MEDS ORDERED: MULT-506 PO (12:33)
--- NOTE | 2016-08-29 12:44 | Discharge Instructions ---
Discharge Instructions Admission Reason for Admission: Respiratory Failure, Acute Discharge Discharge Diagnosis / Problem: COPD exacerbation, Severe emphysema, Lung nodules Discharge Goals Goal(s): Decrease discomfort, Improve function, Improve disease control Activity Recommendations Activity Limitations: resume your previous activity (as tolerated) . Instructions / Follow-Up Instructions / Follow-Up Discharge at [facility] Follow up appointment with his primary care provider Dr. Chávez on Sep 03 @ 3: 30 pm Nik Swann's office will contact you to schedule a follow up appointment Continue Physical therapy Nebulizer script was given to case technician to fax Advair was changed to 500/50 mg take 1 puff twice a day (please rinse mouth after each use) Complete the abx course (Cefuroxime 500mg twice a day) Spiriva was added Prednisone taper dose as directed Current Hospital Diet Patient's current hospital diet: Regular Diet Discharge Diet Recommended Diet: Low Sodium Diet (2gm Na) Pending Studies Studies pending at discharge: no Laboratory Results Hemoglobin A1c Test 08/23/16 22:00 Range/Units Estimated Average Glucose 105 mg/dl Hemoglobin A1c 5.3 4.5-5.6 % Medical Emergencies . Who to Call and When: Medical Emergencies: If at any time you feel your situation is an emergency, please call 911 immediately. . Non-Emergent Contact Non-Emergency issues call your: Primary Care Provider Call Non-Emergent contact if: you have any medication questions . . "Provider Documentation" section prepared by Scott Nieves. VTE Core Measure Inpt VTE Proph given/why not?: Enoxaparin (Lovenox)SQ
[2016-08-29 12:50] VITALS: BP 130/78; PULSE 77; TEMP 36.4; O2SAT 95
--- NOTE | 2016-08-31 23:52 | Discharge Summary ---
Discharge Summary Admission Date: Aug 24, 2016 at 01:50 Discharge Date: Aug 29, 2016 Discharge Disposition: Personal care Principal Diagnosis: Acute Respiratory failure Secondary Diagnoses/Problems: COPD exacerbation Severe emphysema Lung Nodule Procedures: Patient Name: JI ARAYA JR Unit Number: [id number] Dictated: 08/24/16705 Transcribed: 08/24/16705 EV Printed Date/Time: [~ rep prt dt]/[~ rep prt tm] [~ rep ct labl] - [~ rep ct ivnm] [facility] Radiology [place] [address] Dictated: 08/24/16705 Transcribed: 08/24/16705 EV Printed Date/Time: [~ rep prt dt]/[~ rep prt tm] [~ rep ct labl] - [~ rep ct ivnm] CT ANGIOGRAM OF THE CHEST CLINICAL HISTORY: Dyspnea. Tachypnea. COMPARISON STUDY: Chest x-ray dated 08/23/2016. TECHNIQUE: Following the IV administration of 113 cc of Optiray 320, CT angiogram of the chest was performed from the upper abdomen to the thoracic inlet utilizing the pulmonary embolus protocol. Images are reviewed in the axial, sagittal, and coronal planes. 3-D MIPS images are created and assessed. IV contrast was administered without complication. CT DOSE: 259.30 mGy.cm FINDINGS: Thyroid: Atrophic. Thoracic aorta: There is atherosclerotic calcification of the thoracic aorta, which is normal in caliber and demonstrates standard 3-vessel arch anatomy. No dissection is seen. Pulmonary vasculature: The pulmonary trunk is normal in caliber. There are no filling defects identified in main, lobar, or segmental pulmonary branches to suggest pulmonary embolus. Heart: The heart is normal in size and configuration, and without pericardial effusion. Lungs and pleural spaces: There is advanced emphysema. Minimal secretions are noted in the trachea. No airspace consolidation or pleural effusion is identified. Foci of linear atelectasis versus scarring is are present at both lung bases. There is a 10 mm irregular nodular density in the left upper lobe seen on image #251. There are 2 nodular foci at the right lung base seen on image #85 measuring up to 7 mm. Air trapping is present at both lung bases. Mediastinum: There is no mediastinal lymphadenopathy. Pham: Clear. Axillae: There is no axillary lymphadenopathy. Upper abdomen: There is advanced atherosclerotic calcification of the partially imaged abdominal aorta. Partially visualized upper abdominal viscera is otherwise within normal limits. Skeletal structures: The skeletal structures are osteopenic. Mild degenerative change and kyphoscoliosis are noted in the thoracic spine. No lytic or blastic bony lesions are seen. Soft tissues: The patient is cachectic. IMPRESSION: 1. There is no evidence of pulmonary embolus in the main, lobar, or segmental pulmonary arteries. 2. Advanced emphysema with air trapping both lung bases. 3. There is no airspace consolidation or pleural effusion. 4. There is an indeterminant 10 mm nodular density in the left upper lobe. Although this may represent parenchymal scarring, precautionary 3 month follow-up chest CT is recommended for reassessment. Additional nodular foci are seen in the right lung base. These should also be reassessed at follow-up. 5. No mediastinal or hilar adenopathy is identified. Electronically signed by: Aman Monte M.D. 08/24/2016 7:14 AM Consultations: pulmonology PT/OT Medication Reconciliation New Medications: Fluticasone Prop/Salmeterol (Advair Diskus 500/50 60 Dose) 1 Ea Aerp 1 PUFFS INH BID for 30 Days, #1 INHALER Rinse mouth after each use Cefuroxime Axetil (Cefuroxime Axetil) 500 Mg Tab 500 MG PO BID for 4 Days, #8 TAB Guaifenesin (Organ-I Nr) 200 Mg Tab 200 MG PO 7 PRN for cough for 7 Days, #21 TAB Prednisone Tab (Prednisone) 10 Mg Tab 10 MG PO UD for 12 Days, #30 TAB Take 4 tab daily for 3 days, then 3 tab daily for 3 days, then 2 tabs daily for 3 days, then 1 tab daily for 3 days and stop. Tiotropium [place] (Spiriva Handihaler) 5 Puff/90 Mcg Aerp 1 PUFF INH QAM for 30 Days Continued Medications: Cholecalciferol (Vitamin D3) 2,000 Unit Tab 2000 INTER.UNIT PO DAILY for 30 Days, TAB (This prescription has been renewed) Doxazosin Mesylate (Doxazosin Mesylate) 4 Mg Tab 4 MG PO HS for 30 Days (This prescription has been renewed) Ipratropium-Albuterol (Duoneb) 3 Ml Nebu 1 TREATMENT INH Q6H PRN for SOB/Cough/Wheeze for 30 Days, INHA (This prescription has been renewed) Multivitamin (Multivitamin) Tab 1 TAB PO DAILY for 30 Days, TAB (This prescription has been renewed) Thyroid ([place] Thyroid) 30 Mg Tab 60 MG PO DAILY for 30 Days, #60 TAB (This prescription has been renewed) [Ventolin HFA] () 108 MCG/ACT INH 2 PUFFS INH QID PRN for SOB/Wheezing (This prescription has been renewed) Discontinued Medications: Fluticasone Prop/Salmeterol (Advair Diskus 250/50 60 Dose) 1 Ea Aerp 1 PUFF INH BID, INHALER RINSE MOUTH AFTER USE Admission Information HPI (per Admitting provider): HISTORY OF PRESENT ILLNESS: Medical history significant for COPD, pulmonary nodules as per records, past tobacco abuse, BPH. hypothyroidism Over the last few days, patient noted junky cough symptoms, increasing shortness of breath than usual. No chest pain. Sinus congestion sx, sick grandkids. Px was unsure if he was to take rescue kit from lung specialist's office. Patient was brought to Emergency Room. Given Solu-Medrol for COPD exacerbation en route to the ER. Px noted in respiratory distress at the ER. Px started on BiPAP Physical Exam (per Admitting): PHYSICAL EXAMINATION: VITAL SIGNS: Blood pressure 107/60, pulse rate 111, RR 30, T 37 O2 sats 97% on BiPAP. GENERAL: Noted to be hyposthenic. min respiratory distress. SKIN: Normal color. HEENT: [place] palpebral conjunctivae. Dry mucosa. BiPAP in place. NECK: Supple. CHEST: Decreased breath sounds. Occasional wheeze. HEART: Tachycardic. ABDOMEN: Soft. EXTREMITIES: No edema. no tenderness NEUROLOGIC: No gross focality. Hospital Course Acute hypoxemic respiratory failure secondary to chronic obstructive pulmonary disease exacerbation. Past tobacco abuse. FEV1-27% and FVC 67% in 2008 CXR showed Emphysema, no pneumonia CT chest showed advanced emphysema with air trapping both lung bases He was on Azithromycin and Ceftriaxone Ceftriaxone was discontinued Completed zithromax course Conitnue IV Solumedrol to BID and change to PO prednisone upon discharge Pulmonary consulted and recommended to increase Advair to 500/50 upon discharge Continue breathing treatment Abx was changed to cefuroxime Change steroid to po prednisone Guaifenesin added Continue to follow with pulmonology as an outpatient Will discharge today with prednisone taper Pulmonary nodules stable on recent CT. No acute symptoms Follow up as recommended Malnutrition (Low BMI) secondary to chronic obstructive pulmonary disease. Nutrition consult, low BMI. BPH on doxazosin Stable. Hypothyroidism, Stable. . DVT Px on Lovenox subQ. Code Status Full code. DISPOSITION PT /OT evaluation discharge today Follow up appointment with his primary care provider Dr. Chávez on Sep 03 @ 3: 30 pm Hue Womack's office will call pt to schedule a follow up appointment Total time spent on discharge = 35 minutes This includes examination of the patient, discharge planning, medication reconciliation, and communication with other providers. Discharge Instructions Reason for Admission: Respiratory Failure, Acute Discharge Discharge Diagnosis / Problem: COPD exacerbation, Severe emphysema, Lung nodules Discharge Goals Goal(s): Decrease discomfort, Improve function, Improve disease control Activity Recommendations Activity Limitations: resume your previous activity (as tolerated) . Instructions / Follow-Up Instructions / Follow-Up Discharge at [facility] Follow up appointment with his primary care provider Dr. Chávez on Sep 03 @ 3: 30 pm Nik Swann's office will contact you to schedule a follow up appointment Continue Physical therapy Nebulizer script was given to case management manager to fax Advair was changed to 500/50 mg take 1 puff twice a day (please rinse mouth after each use) Complete the abx course (Cefuroxime 500mg twice a day) Spiriva was added Prednisone taper dose as directed Current Hospital Diet Patient's current hospital diet: Regular Diet Discharge Diet Recommended Diet: Low Sodium Diet (2gm Na) Pending Studies Studies pending at discharge: no Laboratory Results Hemoglobin A1c Test 08/23/16 22:00 Range/Units Estimated Average Glucose 105 mg/dl Hemoglobin A1c 5.3 4.5-5.6 % Medical Emergencies . Who to Call and When: Medical Emergencies: If at any time you feel your situation is an emergency, please call 911 immediately. . Non-Emergent Contact Non-Emergency issues call your: Primary Care Provider Call Non-Emergent contact if: you have any medication questions . . "Provider Documentation" section prepared by Scott Nieves. VTE Core Measure Inpt VTE Proph given/why not?: Enoxaparin (Lovenox)SQ Additional Copies To Eber Vidal
[2016-10-19] MEDS ORDERED: PRD20 PO (20:13)
[2016-10-19] MEDS ORDERED: XNX5 PO (20:13)
[2016-10-19] MEDS ORDERED: ZTHM250 PO (20:13)
[2016-10-19] MEDS ORDERED: DLR500 PO (20:13)
== END 2016-08-29 13:50 | disposition home or self-care (01) | DRG 190 ==
LOC: CANRESERV → ENRESERVDT → ENRESERVTM → EDBD 21:10 → C.EDA 21:12 → C.MED 08-24 01:50 → C.MSW 08-26 00:08
PROVIDERS: ADMIT Internal Medicine; ATTEND Internal Medicine
DX: J44.1 Chronic obstructive pulmonary disease with (acute) exacerbation (principal); J96.01 Acute respiratory failure with hypoxia; E46 Unspecified protein-calorie malnutrition; Z68.1 Body mass index [BMI] 19.9 or less, adult; N40.0 Benign prostatic hyperplasia without lower urinary tract symptoms; E03.9 Hypothyroidism, unspecified; R91.8 Other nonspecific abnormal finding of lung field; Z87.891 Personal history of nicotine dependence; J45.909 Unspecified asthma, uncomplicated; Z87.442 Personal history of urinary calculi; Z79.51 Long term (current) use of inhaled steroids; Z79.52 Long term (current) use of systemic steroids; Z79.02 Long term (current) use of antithrombotics/antiplatelets; Z79.899 Other long term (current) drug therapy

== ENCOUNTER 2016-10-09 11:11 | Inpatient (IN) | payer OTHER ==
[~2016-10-09] VITALS: Ht 182.9 cm; Wt 55.4 kg
[~2016-10-09 11:11] MED LIST changes: -ALBUTEROL; +CEFU1TAB35 PO; +CHOL20007 PO; +GUAI1TAB68 PO; +IPRASOL4 INH; +MULT-506 PO; +SPRIN INH; +THY/30 PO; -TIOTCAP INH; +Ventolin HFA INH; -[UNRECOGNIZED DRUG - OTHER]; -advair
[2016-10-09 11:56] LABS: BASO % 0.7 %; BASO ABS # 0.05 K/uL (0-0.2); COMPLETE YES; EOS % 1.2 %; HEMATOCRIT 46.3 % (42-52); IG% 0.7 %; LYMPH % 18.2 %; LYMPH ABS # 1.33 K/uL (1.2-3.4); MEAN CELL VOLUME 94.9 fL (80-100); MEAN CORPUSCULAR HEMOGLOBIN 32.8 pg (25-34); MEAN CORPUSCULAR HGB CONC 34.6 g/dl (32-36); MEAN PLATELET VOLUME 9.4 fL (7.4-10.4); MONO % 12.6 %; NEUT % 66.6 %; PLATELET COUNT 218 K/uL (130-400); RED BLOOD COUNT 4.88 M/uL (4.7-6.1); WHITE BLOOD COUNT 7.29 K/uL (4.8-10.8)
[2016-10-09] MEDS ORDERED: ALBUT/IPRATROP 3MG/0.5MG NEB 3 ML VIAL INH ONE (12:00)
--- NOTE | 2016-10-09 12:07 | DIAGNOSTIC IMAGING REPORT ---
SINGLE VIEW CHEST CLINICAL HISTORY: Dyspnea. FINDINGS: 2 AP, portable, upright chest radiographs are compared to chest x-ray and chest CT dated 08/23/2016. The cardiomediastinal silhouette is unremarkable. Enlargement of the central pulmonary arteries suggests pulmonary artery hypertension. Advanced emphysema with chronic interstitial thickening and nodularity is similar to previous. Nodular densities were better characterized on the recent chest CT scan. No airspace consolidation or pleural effusion is identified. No pneumothorax is seen. The skeletal structures are osteopenic. The bony thorax is grossly intact. IMPRESSION: Advanced emphysema with no acute cardiopulmonary abnormality. No significant change from recent prior examinations Electronically signed by: Aman Monte M.D. 10/09/2016 12:06 PM Dictated Date/Time: 10/09/2016 12:04 PM
[2016-10-09 12:12] LABS: BLOOD UREA NITROGEN 15 mg/dl (7-18); BUN/CREATININE RATIO 15.5 (10-20); CALCIUM 8.9 mg/dl (8.5-10.1); CARBON DIOXIDE 30 mmol/L (21-32); CHLORIDE 103 mmol/L (98-107); CKMB/CK RATIO 4.2 (0-3.0); CREATININE 0.99 mg/dl (0.60-1.40); GLUCOSE 124 mg/dl (70-99); MAGNESIUM 2.3 mg/dl (1.8-2.4); SODIUM 141 mmol/L (136-145)
--- NOTE | 2016-10-09 12:13 | EMERGENCY ROOM VISIT NOTE ---
History Report prepared by Rohit: Anyi Garcia Under the Supervision of: Dr. José Moya M.D. First contact with patient: 11:42 Chief Complaint: SHORTNESS OF BREATH Stated Complaint: SHORTNESS OF BREATH Nursing Triage Summary: pt here increased sob since last pm. pt currently at [facility] for rehab for copd. pt had duoneb there this am. pt normally does not wear oxygen at home. fully ambulatory History of Present Illness The patient is a 70 year old male who presents to the Emergency Room with complaints of persistent shortness of breath that began Thursday. The patient states that he is currently at [facility] for rehabilitation after a COPD exacerbation in early August. He states that he does not normally wear oxygen at home. The patient states that Thursday he began experiencing the symptoms so he began his rescue kit. He states that he has been taking 40 mg of Prednisone daily along with 875 mg of Augment twice a day. The patient states that he gives his own DuoNebs while at the rehabilitation facility. EMS reports that he received Solu-Medrol IV prior to arrival. The patient's daughter notes that the patient's cough has been subsiding since Thursday, but states that the shortness of breath has been worsening. The patient denies any chest pain, loss of consciousness, or abdominal pain. Source of History: patient, family (daughter) Onset: Thursday Position: other (global) Quality: other (shortness of breath) Timing: worsening, other (persistent) Associated Symptoms: + cough, No LOC, No abdominal pain, No chest pain Review of Systems See HPI for pertinent positives & negatives. A total of 10 systems reviewed and were otherwise negative. Past Medical & Surgical Medical Problems: (1) BPH (benign prostatic hyperplasia) (2) COPD (chronic obstructive pulmonary disease) (3) Emphysema of lung (4) Hypothyroidism (5) Lung nodules Surgical Problems: (1) H/O cystoscopy (2) History of inguinal hernia repair (3) History of tonsillectomy and adenoidectomy Family History FH: cancer FH: lung disease Social History Smoking Status: Never Smoker Alcohol Use: occasionally Marital Status: Housing Status: lives with significant other Occupation Status: employed Current/Historical Medications Scheduled Albuterol Hfa (Ventolin Hfa), 2-4 PUFFS INH Q6H Amoxicillin & Pot Clavulanate (Augmentin 875-125 mg), 1 TAB PO BID Cholecalciferol (Vitamin D3), 2,000 INTER.UNIT PO DAILY Doxazosin Mesylate (Doxazosin Mesylate), 4 MG PO HS Fluticasone Prop/Salmeterol (Advair Diskus 500/50 60 Dose), 1 PUFFS INH BID Multivitamin (Multivitamin), 1 TAB PO DAILY Thyroid ([place] Thyroid), 60 MG PO DAILY Tiotropium [place] (Spiriva Handihaler), 1 PUFF INH QAM Scheduled PRN Ipratropium-Albuterol (Duoneb), 1 TREATMENT INH Q6H PRN for SOB/Cough/Wheeze Miscellaneous Medications Prednisone (Prednisone Tab), 20 MG PO Allergies Coded Allergies: Gadolinium (Verified Allergy, Intermediate, Nausea/Vomiting, 10/09/16) Physical Exam Vital Signs Date Time Temp Pulse Resp B/P Pulse Ox O2 Delivery O2 Flow Rate FiO2 10/09/16 13:31 111 19 91 10/09/16 13:09 98 10/09/16 13:01 96 19 99 10/09/16 12:31 82 16 98 10/09/16 12:26 83 12 98 Nebulizer 10.0 10/09/16 12:21 84 15 92 Room Air 10/09/16 12:16 85 12 91 10/09/16 12:11 87 23 90 10/09/16 12:06 86 17 91 10/09/16 12:01 86 15 92 10/09/16 11:56 85 13 91 10/09/16 11:51 89 18 10/09/16 11:46 86 22 91 10/09/16 11:41 87 15 92 10/09/16 11:36 84 23 92 10/09/16 11:31 87 17 93 10/09/16 11:30 96 Room Air 10/09/16 11:26 87 15 93 10/09/16 11:22 36.4 87 18 124/83 95 Room Air 10/09/16 11:21 91 21 94 10/09/16 11:18 91 10/09/16 11:16 90 16 96 10/09/16 11:14 124/83 Physical Exam GENERAL: Patient is in moderate distress, unwell appearing. HEENT: No acute trauma, normocephalic atraumatic, mucous membranes moist, no nasal congestion, no scleral icterus. NECK: No stridor, no adenopathy, no meningismus, trachea is midline. LUNGS: Dyspneic, tachypneic with pursed lip breathing. Tight lung sounds in all ji with minimal air movement. HEART: Regular rate and rhythm. No murmurs, rubs, gallops appreciated. ABDOMEN: Soft, nontender, bowel sounds positive, no masses appreciated, no peritonitis. BACK: No midline tenderness, no CVA tenderness EXTREMITIES: Normal motion all extremities, no cyanosis, no edema. NEUROLOGIC: Alert and oriented, no acute motor or sensory deficits, no focal weakness, cranial nerves grossly intact. SKIN: No rash, no jaundice, no diaphoresis. Medical Decision & Procedures ER Provider Diagnostic Interpretation: X ray results are stated below per my interpretation and the radiologist's interpretation. SINGLE VIEW CHEST CLINICAL HISTORY: Dyspnea. FINDINGS: 2 AP, portable, upright chest radiographs are compared to chest x-ray and chest CT dated 08/23/2016. The cardiomediastinal silhouette is unremarkable. Enlargement of the central pulmonary arteries suggests pulmonary artery hypertension. Advanced emphysema with chronic interstitial thickening and nodularity is similar to previous. Nodular densities were better characterized on the recent chest CT scan. No airspace consolidation or pleural effusion is identified. No pneumothorax is seen. The skeletal structures are osteopenic. The bony thorax is grossly intact. IMPRESSION: Advanced emphysema with no acute cardiopulmonary abnormality. No significant change from recent prior examinations Electronically signed by: Aman Monte M.D. 10/09/2016 12:06 PM Dictated Date/Time: 10/09/2016 12:04 PM Laboratory Results 10/09/16 11:15 Red Blood Count 4.88, Mean Corpuscular Volume 94.9, Mean Corpuscular Hemoglobin 32.8, Mean Corpuscular Hemoglobin Concent 34.6, Mean Platelet Volume 9.4, Neutrophils (%) (Auto) 66.6, Lymphocytes (%) (Auto) 18.2, Monocytes (%) (Auto) 12.6, Eosinophils (%) (Auto) 1.2, Basophils (%) (Auto) 0.7, Neutrophils # (Auto ) 4.85, Lymphocytes # (Auto) 1.33, Monocytes # (Auto) 0.92, Eosinophils # (Auto ) 0.09, Basophils # (Auto) 0.05 10/09/16 11:15 Test 10/09/16 11:15 White Blood Count 7.29 K/uL (4.8-10.8) Red Blood Count 4.88 M/uL (4.7-6.1) Hemoglobin 16.0 g/dL (14.0-18.0) Hematocrit 46.3 % (42-52) Mean Corpuscular Volume 94.9 fL (80-100) Mean Corpuscular Hemoglobin 32.8 pg (25-34) Mean Corpuscular Hemoglobin Concent 34.6 g/dl (32-36) Platelet Count 218 K/uL (130-400) Mean Platelet Volume 9.4 fL (7.4-10.4) Neutrophils (%) (Auto) 66.6 % Lymphocytes (%) (Auto) 18.2 % Monocytes (%) (Auto) 12.6 % Eosinophils (%) (Auto) 1.2 % Basophils (%) (Auto) 0.7 % Neutrophils # (Auto) 4.85 K/uL (1.4-6.5) Lymphocytes # (Auto) 1.33 K/uL (1.2-3.4) Monocytes # (Auto) 0.92 K/uL (0.11-0.59) Eosinophils # (Auto) 0.09 K/uL (0-0.5) Basophils # (Auto) 0.05 K/uL (0-0.2) RDW Standard Deviation 46.9 fL (36.4-46.3) RDW Coefficient of Variation 13.5 % (11.5-14.5) Immature Granulocyte % (Auto) 0.7 % Immature Granulocyte # (Auto) 0.05 K/uL (0.00-0.02) Anion Gap 8.0 mmol/L (3-11) Est Creatinine Clear Calc Drug Dose 58.9 ml/min Estimated GFR () 89.1 Estimated GFR (Non- 76.8 BUN/Creatinine Ratio 15.5 (10-20) Calcium Level 8.9 mg/dl (8.5-10.1) Magnesium Level 2.3 mg/dl (1.8-2.4) Total Creatine Kinase 62 U/L (39-308) Creatine Kinase MB 2.6 ng/ml (0.5-3.6) Creatine Kinase MB Ratio 4.2 (0-3.0) Troponin I < 0.015 ng/ml (0-0.045) Chemistry Specimen Hemolysis Laboratory results as reviewed by me. Medications Administered Medications (Trade) Dose Ordered Sig/William Route Start Time Stop Time Status Last Admin Dose Admin Doxycycline Hyclate/Dextrose (Vibramycin IV/ D5 100ml) 110 ml @ 50 mls/hr NOW STAT IV 10/09/16 12:18 10/09/16 14:29 DC 10/09/16 12:58 50 MLS/HR Albuterol/ Ipratropium (Duoneb) 12 ml TODAY@1245 INH 10/09/16 12:45 10/09/16 16:00 DC 10/09/16 12:00 12 ML ECG Indication: SOB/dyspnea Rate (beats per minute): 84 Rhythm: normal sinus Findings: RBBB, no acute ischemic change, no ectopy ED Course 1143: The patient was evaluated in room C10. A complete history and physical exam was performed. 1211: Per nursing staff, the patient declined his first DuoNeb treatment. 1218: Ordered Doxycycline Hyclate 100 mg/Dextrose 110 ml @ 50 mls/hr IV. 1225: I reevaluated the patient and he agrees to the breathing treatment. I discussed the exam findings with him and I discussed the treatment plan. He verbalized complete understanding and agreement. He will be evaluated for further treatment. 1228: I discussed the patient's case with Pavel Mandel. He is going to evaluate the patient for further treatment. 1245: Ordered DuoNeb 12 ml INH. Medical Decision Differential: Infectious, Reactive Airway Disease, Pneumonia, Pneumothorax, COPD , CHF, ACS, Pulmonary Embolism, MSK, GI, Dissection, amongst other etiologies entertained. 70 yr old male arrives with worsening SHOB and breathing difficulty over the last few days. Long history of lung disease with known emphysema. Started rescue meds 4 days ago and symptoms persist. Now to point where unable to even walk down flowers due to severe SHOB. Given hour neb, already had solumedrol TEST EVALUATOR by EMS, and will add on Doxy (no pneumonia on CXR). Otherwise labs/ekg look OK. Will bring in as he has failed outpatient treatment and is far to SHOB to even walk down flowers. Consults Time Called: 1225 Consulting Physician: Dr. Palepu, [facility] Returned Call: 1228 I discussed the patient's case with Pavel Mandel. He is going to evaluate the patient for further treatment. Impression Primary Impression: Acute exacerbation of emphysema Additional Impression: Failure of outpatient treatment Scribe Attestation The scribe's documentation has been prepared under my direction and personally reviewed by me in its entirety. I confirm that the note above accurately reflects all work, treatment, procedures, and medical decision making performed by me. Departure Information Dispostion Being Evaluated By Hospitalist Referrals Mak Chávez III, M.D. (PCP) Problem Qualifiers
[2016-10-09] MEDS ORDERED: DOXYCYCLINE IV 100 MG in DEXTROSE 5% 100ML 100 ML IV STA (12:18)
[2016-10-09] MEDS ORDERED: ALBUT/IPRATROP 3MG/0.5MG NEB 3 ML VIAL INH SCH (12:45)
[2016-10-09] MEDS ORDERED: PRED20TA2 PO (13:15)
[2016-10-09] MEDS ORDERED: ONDANSETRON INJ 2 MG/ML 2 ML VIAL IV PRN (13:15)
[2016-10-09] MEDS ORDERED: AMOX875T PO (13:15)
[2016-10-09] MEDS ORDERED: ACETAMINOPHEN 325 MG TAB PO PRN (13:15)
[2016-10-09] MEDS ORDERED: VNTHFA/IN INH (13:19)
[2016-10-09] MEDS ORDERED: ADVIN50/60 INH (14:41)
[2016-10-09 15:02] LABS: ALLEN TEST POS (POS); ARTERIAL BLD GAS O2 SATURATION 89.4 % (90-95); ARTERIAL BLOOD GAS BASE EXCESS 5.9 mEq/L (-9-1.8); ARTERIAL BLOOD GAS HCO3 31 mmol/L (19-24); ARTERIAL BLOOD GAS PO2 55 mm/Hg (80-95); ARTERIAL BLOOD GAS pH 7.46 (7.35-7.45); O2 ADMINISTRATION RA
--- NOTE | 2016-10-09 15:38 | History and Physical ---
History & Physical Date & Time of Service: Oct 09, 2016 at 15:04 Chief Complaint: Shortness Of Breath Primary Care Physician: Mak Chávez III, M.D. History of Present Illness 70 year old male who presents to the ER with shortness of breath. Patient was recently admitted to [facility] 08/24 - 08/29 for COPD exacerbation. At the time of discharge, patient's Advair was increased, he was started on Spiriva, he completed courses of azithromycin and cefuroxime, and discharged on a Prednisone taper. Patient was discharged to [facility]. He reports he had been tolerating therapy until about one week ago. He reports increasing shortness of breath and cough productive for clear sputum. Patient was started on Prednisone taper and Augmentin 5 days ago. He reports 3 episodes of severe shortness of breath since last night. He reports improvement with application of oxygen. He has been using his nebulizer as well. She denies chest pain. No fever or chills. He denies lightheadedness, dizziness, diaphoresis, or syncopal events. No abdominal pain, nausea, or vomiting. He reports loose stools which he attributes to antibiotic use. He denies urinary symptoms. In the ER, patient is saturating well on room air. He was given IV solu-medrol by EMS and received IV Doxy and Duoneb in the ED. Past Medical/Surgical History Medical Problems: (1) BPH (benign prostatic hyperplasia) Status: Chronic (2) COPD (chronic obstructive pulmonary disease) Status: Chronic (3) Emphysema of lung Status: Chronic (4) Hypothyroidism Status: Chronic (5) Lung nodules Status: Chronic Surgical Problems: (1) H/O cystoscopy Status: Resolved (2) History of inguinal hernia repair Status: Resolved (3) History of tonsillectomy and adenoidectomy Status: Resolved Family History FH: breast cancer MOTHER Social History Smoking Status: Former Smoker Alcohol Use: none Immunizations History of Influenza Vaccine: Yes Influenza Vaccine Date: Jun 10, 2012 History of Tetanus Vaccine?: Yes Tetanus Immunization Date: May 12, 2007 History of Pneumococcal: Yes Pneumococcal Date: Jul 05, 2014 Allergies Coded Allergies: Gadolinium (Verified Allergy, Intermediate, Nausea/Vomiting, 10/09/16) Home Medications Scheduled Albuterol Hfa (Ventolin Hfa), 2-4 PUFFS INH Q6H Amoxicillin & Pot Clavulanate (Augmentin 875-125 mg), 1 TAB PO BID Cholecalciferol (Vitamin D3), 2,000 INTER.UNIT PO DAILY Doxazosin Mesylate (Doxazosin Mesylate), 4 MG PO HS Fluticasone Prop/Salmeterol (Advair Diskus 500/50 60 Dose), 1 PUFFS INH BID Multivitamin (Multivitamin), 1 TAB PO DAILY Thyroid ([place] Thyroid), 60 MG PO DAILY Tiotropium [place] (Spiriva Handihaler), 1 PUFF INH QAM Scheduled PRN Ipratropium-Albuterol (Duoneb), 1 TREATMENT INH Q6H PRN for SOB/Cough/Wheeze Miscellaneous Medications Prednisone (Prednisone Tab), 20 MG PO Review of Systems 10 point review of systems was completed with the pertinent positives and negatives noted per the HPI Physical Exam Vital Signs Date Time Temp Pulse Resp B/P Pulse Ox O2 Delivery O2 Flow Rate FiO2 10/09/16 14:47 104 126/68 90 Room Air 10/09/16 14:25 36.4 106 16 124/83 87 10/09/16 14:01 106 16 87 10/09/16 13:31 111 19 91 10/09/16 13:09 98 10/09/16 13:01 96 19 99 10/09/16 12:31 82 16 98 10/09/16 12:26 83 12 98 Nebulizer 10.0 10/09/16 12:21 84 15 92 Room Air 10/09/16 12:16 85 12 91 10/09/16 12:11 87 23 90 10/09/16 12:06 86 17 91 10/09/16 12:01 86 15 92 10/09/16 11:56 85 13 91 10/09/16 11:51 89 18 10/09/16 11:46 86 22 91 10/09/16 11:41 87 15 92 10/09/16 11:36 84 23 92 10/09/16 11:31 87 17 93 10/09/16 11:30 96 Room Air 10/09/16 11:26 87 15 93 10/09/16 11:22 36.4 87 18 124/83 95 Room Air 10/09/16 11:21 91 21 94 10/09/16 11:18 91 10/09/16 11:16 90 16 96 10/09/16 11:14 124/83 General Appearance: no apparent distress Head: normocephalic Eyes: normal inspection ENT: hearing grossly normal Neck: supple, no JVD Respiratory/Chest: no respiratory distress, + decreased breath sounds, + rhonchi (faint, scattered), + wheezing (faint, end expiratory) Cardiovascular: regular rate, rhythm, no edema, normal peripheral pulses Abdomen/GI: normal bowel sounds, non tender, soft Extremities/Musculoskelatal: normal inspection, no calf tenderness Neurologic/Psych: no motor/sensory deficits, alert, normal mood/affect, oriented x 3 Skin: normal color, warm/dry Diagnostics Laboratory Results Results Past 24 Hours Test 10/09/16 11:15 10/09/16 14:50 Range/Units White Blood Count 7.29 4.8-10.8 K/uL Red Blood Count 4.88 4.7-6.1 M/uL Hemoglobin 16.0 14.0-18.0 g/dL Hematocrit 46.3 42-52 % Mean Corpuscular Volume 94.9 80-100 fL Mean Corpuscular Hemoglobin 32.8 25-34 pg Mean Corpuscular Hemoglobin Concent 34.6 32-36 g/dl Platelet Count 218 130-400 K/uL Mean Platelet Volume 9.4 7.4-10.4 fL Neutrophils (%) (Auto) 66.6 % Lymphocytes (%) (Auto) 18.2 % Monocytes (%) (Auto) 12.6 % Eosinophils (%) (Auto) 1.2 % Basophils (%) (Auto) 0.7 % Neutrophils # (Auto) 4.85 1.4-6.5 K/uL Lymphocytes # (Auto) 1.33 1.2-3.4 K/uL Monocytes # (Auto) 0.92 0.11-0.59 K/uL Eosinophils # (Auto) 0.09 0-0.5 K/uL Basophils # (Auto) 0.05 0-0.2 K/uL RDW Standard Deviation 46.9 36.4-46.3 fL RDW Coefficient of Variation 13.5 11.5-14.5 % Immature Granulocyte % (Auto) 0.7 % Immature Granulocyte # (Auto) 0.05 0.00-0.02 K/uL Sodium Level 141 136-145 mmol/L Potassium Level 4.0 3.5-5.1 mmol/L Chloride Level 103 98-107 mmol/L Carbon Dioxide Level 30 21-32 mmol/L Anion Gap 8.0 3-11 mmol/L Blood Urea Nitrogen 15 7-18 mg/dl Creatinine 0.99 0.60-1.40 mg/dl Est Creatinine Clear Calc Drug Dose 58.9 ml/min Estimated GFR () 89.1 Estimated GFR (Non- 76.8 BUN/Creatinine Ratio 15.5 10-20 Random Glucose 124 70-99 mg/dl Calcium Level 8.9 8.5-10.1 mg/dl Magnesium Level 2.3 1.8-2.4 mg/dl Total Creatine Kinase 62 39-308 U/L Creatine Kinase MB 2.6 0.5-3.6 ng/ml Creatine Kinase MB Ratio 4.2 0-3.0 Troponin I < 0.015 0-0.045 ng/ml Chemistry Specimen Hemolysis Arterial Blood pH 7.46 7.35-7.45 Arterial Blood Partial Pressure CO2 44 35-46 mmHg Arterial Blood Partial Pressure O2 55 80-95 mm/Hg Arterial Blood HCO3 31 19-24 mmol/L Arterial Blood Oxygen Saturation 89.4 90-95 % Arterial Blood Base Excess 5.9 -9-1.8 mEq/L Arterial Blood Gas Delivery RA Steven Test POS POS Diagnostic Radiology CXR IMPRESSION: Advanced emphysema with no acute cardiopulmonary abnormality. No significant change from recent prior examinations Impression Assessment and Plan COPD EXACERBATION - admit to tele - hx severe COPD - presenting with increasing shortness of breath and cough x 1 week despite use of Prednisone and Augmentin - recently admitted 08/24 - 08/29 - Advair increased, started on Spiriva, discharged on prednisone taper, Azithromycin, and Cefuroxime - currently saturating well on room air - around the clock steroids and nebs, continue inhaled corticosteroid - no pneumonia on CXR; will use empiric Doxy - ABG - CT chest negative for PE on 08/24/16 - currently no hypoxia or tachycardia - will check flu PCR - pulmonary consult, input appreciated HX PULMONARY NODULES - outpatient follow up BPH - continue doxasosin HYPOTHYROIDISM - continue [place] thyroid DVT PROPHYLAXIS - SQ Lovenox DISPO - In my clinical judgment this beneficiary meets acute admission criteria, established by [facility], that includes being hospitalized through two midnights. Agree with above h and p.70M with hx of severe copd who was recently in hospital for copd ex and [facility] comes back with sob. Says he is again getting sob and cough since one week and was started on prednisone and Augmentin but was not getting better. Last night he had very shallow and anxious breathing. Currently saturating fine but once a while getting sob and having shallow breathing. Denies chest pain. afebrile. No nausea or abdominal pain. p/e Ge mild resp distress cvs s1 and s2 heard no murmurs Rs diminished b/l breath sounds Abd benign Round Up Ring Hand non focal ext no edema a/p copd ex cxr unremarkable started on nebs, iv steroids and doxycycline pulmonary consulted. monitor in tele VTE Prophylaxis VTE Risk Assessment Done? Y/N: Yes Risk Level: Moderate
[2016-10-09 16:13] VITALS: BP 99/67; PULSE 105; TEMP 36.7; O2SAT 92; Ht 182.9 cm; Wt 55.4 kg
[2016-10-09] MEDS: METHYLPREDNISOLONE IV 40 MG in SYRINGE 0 ML IV SCH (16:29)
[2016-10-09] MEDS: ENOXAPARIN 40 MG/0.4 ML SYR SQ SCH (18:01)
[2016-10-09] MEDS: ALBUT/IPRATROP 3MG/0.5MG NEB 3 ML VIAL INH SCH (19:34)
[2016-10-09 19:39] VITALS: PULSE 91; O2SAT 94
[2016-10-09 19:47] VITALS: BP 102/64; PULSE 92; TEMP 36.6; O2SAT 93
--- NOTE | 2016-10-09 19:54 | PULMONARY CONSULTATION ---
DATE OF CONSULTATION: 10/09/2016 TIME: 4:20 p.m. HISTORY OF PRESENT ILLNESS: The patient was seen in room 229. He is a 70-year-old male, with a longstanding history of severe emphysema. He was hospitalized from August 24 until August 29 with severe exacerbation. He has done fairly well since that time. He has been living at [facility]. I had seen him in the office recently. He was looking overall pretty comfortable. He did have pulmonary function testing done on September 13 and his FEV1 was only 21% of predicted. The actual FEV1 was 0.75 liters. The patient is short of breath with any exertion at all. He had been trying to do some treadmill at a very slow pace. He states many days he was doing a half a mile or more. It would be very slow, but he would persist. In the last week or so, he has been unable to do that. Approximately, 4-5 days ago, he developed some increased cough. The mucus was clear. He was much more short of breath. He was starting to get some panic attacks with breathing. He started a rescue kit that he had from his primary doctors. This included prednisone and Augmentin. He has been taking them up to the present time. Last evening, he had what he describes as a panic attack at about 7:30 p.m. He feels like he cannot get any air in or out. It just so happens that for several days he had not been walking to his dining area, but on that particular day he did. He thought he perhaps had tired himself out more. He goes through a few minutes of time where he gets very panicky and feels like he cannot breathe. He had oxygen around his room and he put it on for some relief. He felt somewhat better overnight and this morning. Then his symptoms recurred again. He was unable to do any significant exertion. This resulted in him going to the Emergency Room. In the Emergency Room today, he did have saturations as low as 87% on room air. He is feeling moderately better now, but he has not exerted himself at all. Earlier in the week, he did have some fevers as high as 100.8 according to the patient and his family. He has 3 family members there with him. He did not have any chest pains. His appetite has been only fair. His energy level is low. The patient does have a lot of anxiety and possibly some depression. He has been going through some stressful things at home apparently. He had a past history of some tiny lung nodules as well as the emphysema. PAST SURGICAL HISTORY: 1. Cystoscopy 2. Inguinal hernia repair. 3. T\T\A. 4. Right shoulder surgery in 2013. PAST MEDICAL HISTORY: 1. COPD as noted. 2. Anxiety. SOCIAL HISTORY: The patient quit smoking about 5 years ago. He smoked 2 packs per day for 45 years or more. Alcohol use is occasional. ALLERGIES: LISTED ALLERGY TO GADOLINIUM. IT APPARENTLY WAS SEVERE NAUSEA AND VOMITING. HOME MEDICATIONS: 1. Ventolin HFA p.r.n. 2. Augmentin. 3. Vitamin D3 daily. 4. Doxazosin 4 mg at bedtime. 5. Fluticasone/salmeterol (Advair) 500/50 one puff b.i.d. 6. Tiotropium daily. 7. DuoNebs q. 6 hours p.r.n. -- I have encouraged him to use it regularly, but he does not seem to want to. 8. Prednisone, currently at 20 mg. REVIEW OF SYSTEMS: Negative except for the above-mentioned complaints. FAMILY HISTORY: Father at age 88, congestive heart failure. Mother at age 54, breast cancer with metastatic disease to bones. PHYSICAL EXAMINATION: GENERAL: The patient is a 70-year-old male who was cooperative, alert and oriented. He was in no distress at rest. The patient is somewhat cachectic. His BMI is only 17.9. HEENT: Pupils were reactive to light. Nares were clear. Mouth exam was normal. NECK: Palpation of the neck reveals no lymph nodes. CHEST: Emphysematous. There is an increased AP diameter. His ribs were prominent from cachexia. VITAL SIGNS: Heart rate is 104. The rhythm is regular. Blood pressure is 126/68. Oxygen saturation is 90% on room air. LUNGS: The breath sounds are severely diminished bilaterally. No active wheezing was heard. There was marked prolongation to the expiratory phase of respiration. ABDOMEN: Soft. It was nontender. No masses were palpable. EXTREMITIES: Showed no cyanosis, clubbing or edema. IMAGING: Chest x-ray done today showed advanced emphysema with no acute changes. Osteopenia was reported. LABORATORY DATA: White count is 7.29. Hemoglobin is 16. Platelets are 218,000. Arterial blood gas showed a pH of 7.46 with a pCO2 of 44 and a pO2 of 55 on room air. Electrolytes show sodium 141, potassium 4.0, chloride 103, bicarbonate 30. BUN was 15 with a creatinine of 0.99. Blood sugar was 124. Troponin was less than 0.015. IMPRESSION: 1. Respiratory failure -- with hypoxia. 2. Severe emphysema with exacerbation. 3. Anxiety. COMMENTS AND RECOMMENDATIONS: The patient was started on doxycycline. I have no objection to this. I am not convinced that he has an active infection; however. He is on DuoNebs every 6 hours. He is on his baseline Advair. He is getting methylprednisolone 40 mg IV q. 8 hours. The patient has severe anxiety. His pCO2 levels were acceptable at 44. I am going to order him an antianxiety agent to see if this helps with his breathing. I will try him on low dose of Ativan. The patient is hopefully going to get started with pulmonary rehabilitation soon. I believe exercise would help him a lot, but for right now I have to try and get him through this exacerbation. We ultimately need to determine if he qualifies for oxygen as an outpatient. Thus far he has not, but this afternoon his saturations were as low as 87%. That of course would need to be checked shortly before discharge to qualify.
[2016-10-09] MEDS: FLUTICASONE/SALMETEROL (ADVAIR) 500/50 INH 14 PUFF INH SCH (21:34)
[2016-10-09] MEDS: DOXAZosin MESYLATE TAB 4 MG TAB PO SCH (21:35)
[2016-10-09] MEDS: LORAZEPAM 0.5 MG TAB PO SCH (21:46)
[2016-10-10] VITALS (15 sets, daily range): BP systolic 106–125; BP diastolic 69–77; PULSE 72–99; TEMP 36.3–36.7; O2SAT 90–97
[2016-10-10] MEDS: DOXYCYCLINE IV 100 MG in DEXTROSE 5% 100ML 100 ML IV SCH ×2 (00:35→11:03)
[2016-10-10] MEDS: METHYLPREDNISOLONE IV 40 MG in SYRINGE 0 ML IV SCH ×3 (00:36→17:51)
[2016-10-10 00:41] LABS: INFLUENZA A PCR Neg for Influ A (NEG); INFLUENZA B PCR Neg for Influ B (NEG)
[2016-10-10] MEDS: ALBUT/IPRATROP 3MG/0.5MG NEB 3 ML VIAL INH SCH ×4 (03:35→20:11)
[2016-10-10] MEDS: ARMOUR THYROID 30 MG TAB PO SCH (05:53)
[2016-10-10 07:00] LABS: HEMATOCRIT 41.3 % (42-52); MEAN CELL VOLUME 92.8 fL (80-100); MEAN CORPUSCULAR HEMOGLOBIN 32.1 pg (25-34); MEAN CORPUSCULAR HGB CONC 34.6 g/dl (32-36); MEAN PLATELET VOLUME 9.3 fL (7.4-10.4); PLATELET COUNT 209 K/uL (130-400); RED BLOOD COUNT 4.45 M/uL (4.7-6.1); WHITE BLOOD COUNT 8.78 K/uL (4.8-10.8)
[2016-10-10 07:29] LABS: BUN/CREATININE RATIO 28.8 (10-20); CALCIUM 8.4 mg/dl (8.5-10.1); CREATININE 0.7 mg/dl (0.60-1.40); POTASSIUM 4.2 mmol/L (3.5-5.1)
[2016-10-10] MEDS: FLUTICASONE/SALMETEROL (ADVAIR) 500/50 INH 14 PUFF INH SCH ×2 (08:14→20:33)
[2016-10-10] MEDS: MULTIVITAMIN TAB PO SCH (08:14)
[2016-10-10] MEDS: CHOLECALCIFEROL 1000 INTER.UNIT TAB PO SCH (08:15)
[2016-10-10] MEDS: LORAZEPAM 0.5 MG TAB PO SCH ×2 (08:16→20:32)
--- NOTE | 2016-10-10 08:47 | Clinical Documentation Query ---
JENNY Mckeon : CLINICAL DOCUMENTATION QUERY Patient is a 70 year old male admitted for COPD exacerbation. BMI noted to be 16.7 Kg/m*m. In order for this important clinical information to be captured, an associated clinical diagnosis must be explicitly documented by the provider. As appropriate, consider clarification as suggested below as this directly impacts risk of mortality and measures of severity of illness. Thank you. In your clinical opinion is this patient being managed for/present with: ( x) Cachexia as evidenced by BMI of 16.7 Kg/m*m in the setting of severe COPD ( ) Other explanation of clinical findings (Please Explain) ( ) Unable to determine (Please Define) ( ) Need to Discuss ( ) Not Agree The medical record reflects the following clinical findings, treatment, and risk factors. Clinical Indicators: BMI 16.7 Kg/m*m Treatment: Regular diet Risk Factors: Severe COPD Please clarify and document your clinical opinion in the progress notes and discharge summary. Terms such as "probable", "suspected", "likely", "questionable", "possible", or "still to be ruled out" are acceptable. IF IN AGREEMENT, YOU MUST DOCUMENT ABOVE DIAGNOSTIC STATEMENT IN DAILY PROGRESS NOTES AND DISCHARGE SUMMARY. This document is not part of the patient's record. Thank You, Brandon Cerda, KEVIN [phone]
--- NOTE | 2016-10-10 17:14 | PULMONARY PROGRESS NOTE ---
DATE: 10/10/2016 PULMONARY PROGRESS NOTE TIME: 4:55 p.m. SUBJECTIVE: The patient's breathing is slightly better today. He is not quite as short of breath. He has been sleepy today. This may in part be related to the trial of Ativan. The patient has severe anxiety. He was started on a q. 12 hours 0.5 dose. I explained to him that we may change this to p.r.n. if he persists with significant sleepiness. He did feel a little more relaxed today. In a certain sense, he felt it may have helped his breathing. He has been continued on his other medications. His cough is somewhat loose. He is not bringing up any phlegm. OBJECTIVE: GENERAL: The patient looks mildly short of breath. His family was with him. He is afebrile with a temperature of 36.3. EARS, NOSE, THROAT: Exam is unremarkable. VITAL SIGNS: Heart rate is 95 per minute. The rhythm is regular. Blood pressure 125/77. Respiratory rate is 20. However, he is doing some pursed lip breathing even with that. Oxygen saturation taken at the time of my exam was 91% on room air. LUNGS: The breath sounds are severely diminished. There is faint end-expiratory wheezing heard. ABDOMEN: Soft and nontender. EXTREMITIES: Showed no cyanosis, clubbing or edema. LABORATORY DATA: White count today was 8.78. Hemoglobin 14.3. Platelets 209,000. Blood gas yesterday showed a pH of 7.46 with a pCO2 of 44 and a pO2 of 55 on room air. Electrolytes showed sodium 140, potassium 4.2, chloride 103, bicarbonate 27. The BUN was 20 with a creatinine of 0.7. IMPRESSIONS: 1. Respiratory failure - with hypoxia. 2. Severe emphysema with exacerbation. 3. Anxiety. COMMENTS AND RECOMMENDATIONS: I believe the doxycycline could be given orally. I would continue with his neb treatments as current. I would continue with the methylprednisolone at the current dose of 40 mg IV q. 8 hours for now. Continue with the enoxaparin prophylactically. If the patient becomes or stays excessively sleepy, we change the lorazepam to p.r.n. only. This is being given just as a trial to see if it helps his breathing because of severe anxiety. Dr. Hidalgo will be caring for the patient as of tomorrow.
[2016-10-10] MEDS: ENOXAPARIN 40 MG/0.4 ML SYR SQ SCH (17:50)
[2016-10-10] MEDS: DOXAZosin MESYLATE TAB 4 MG TAB PO SCH (20:32)
[2016-10-10] MEDS ORDERED: METHYLPREDNISOLONE IV 40 MG in SYRINGE 0 ML IV SCH (21:00)
[2016-10-10] MEDS: DOXYCYCLINE HYCLATE 100 MG CAP PO SCH (21:05)
--- NOTE | 2016-10-10 21:27 | Progress Note ---
Internal Med Progress Note Date of Service: Oct 10, 2016. Provider Documentation: SUBJECTIVE: still having SOB , trouble with taking deep breath feels slightly better than yesterday no productive cough OBJECTIVE: Vital Signs-as noted below Exam: General-chronically ill appearing Eyes-sclera non icteric ENT- Neck-no thyromegaly Lungs-diminished breath sound , + wheeze Heart-regular S1/S2 Abdomen-soft, non tender Extremities-no lower ext edema Neuro-no focal neurological deficit Lab data as noted below. ASSESSMENT & PLAN: COPD EXACERBATION - presenting with increasing shortness of breath and cough x 1 week despite use of Prednisone and Augmentin - recently admitted 08/24 - 08/29 - for COPD exacerbation discharged to [facility] for rehab ABG shows respiratory alkalosis , hypoxia, Co2 in 50's - CT chest negative for PE on 08/24/16 - - pt is continued with IV Solu Medrol scheduled Neb tx Pulmonology consulted, input appreciated HX PULMONARY NODULES - outpatient follow up BPH - continue doxazosin HYPOTHYROIDISM - continue [place] thyroid [place]HEXIA/LOW BMI : possible secondary to underlying severe lung disease /advanced COPD cont respiratory support dietary consult requested DVT PROPHYLAXIS - SQ Lovenox FULL CODE DISPOSITION was recently in rehab will need PT/OT eval prior to discharge Vital Signs: Date Time Temp Pulse Resp B/P Pulse Ox O2 Delivery O2 Flow Rate FiO2 10/11/16 16:23 Nasal Cannula 2.0 10/11/16 15:27 36.8 94 22 125/78 90 Nasal Cannula 2.0 10/11/16 14:01 77 18 98 Nasal Cannula 2.0 10/11/16 08:13 Nasal Cannula 2.0 10/11/16 07:47 36.5 75 20 128/76 95 Nasal Cannula 2.0 10/11/16 07:25 80 16 98 Nasal Cannula 2.0 10/11/16 02:04 79 16 96 Nasal Cannula 2.0 10/11/16 00:00 36.8 91 20 137/84 94 Nasal Cannula 2.0 10/10/16 23:59 94 Nasal Cannula 2.0 10/10/16 22:00 36.6 97 24 92 2.0 10/10/16 20:11 97 24 92 Room Air 10/10/16 20:00 90 Room Air 2.0 10/10/16 19:51 36.6 99 18 121/76 90 Room Air Lab Results: Results Past 24 Hours Test 10/11/16 18:18 10/11/16 18:31 10/11/16 18:34 Range/Units
[2016-10-11] VITALS (12 sets, daily range): BP systolic 125–137; BP diastolic 76–85; PULSE 75–100; TEMP 36.5–36.8; O2SAT 90–98
[2016-10-11] MEDS: ALBUT/IPRATROP 3MG/0.5MG NEB 3 ML VIAL INH SCH ×3 (02:04→14:01)
[2016-10-11] MEDS: ARMOUR THYROID 30 MG TAB PO SCH (06:14)
[2016-10-11] MEDS: METHYLPREDNISOLONE IV 40 MG in SYRINGE 0 ML IV SCH ×2 (06:15→17:26)
[2016-10-11] MEDS: MULTIVITAMIN TAB PO SCH (07:46)
[2016-10-11] MEDS: DOXYCYCLINE HYCLATE 100 MG CAP PO SCH ×2 (07:46→21:06)
[2016-10-11] MEDS: FLUTICASONE/SALMETEROL (ADVAIR) 500/50 INH 14 PUFF INH SCH (07:47)
[2016-10-11] MEDS: CHOLECALCIFEROL 1000 INTER.UNIT TAB PO SCH (07:47)
[2016-10-11] MEDS: LORAZEPAM 0.5 MG TAB PO SCH (07:50)
[2016-10-11] MEDS: GUAIFENESIN 600 MG TABCR PO SCH ×2 (13:36→21:05)
[2016-10-11] MEDS: ENOXAPARIN 40 MG/0.4 ML SYR SQ SCH (17:26)
[2016-10-11] MEDS ORDERED: LORAZEPAM 0.5 MG TAB PO PRN (18:30)
[2016-10-11] MEDS: IPRATROPIUM BROMIDE NEB SOLN 0.02% 2.5 ML VIAL INH SCH (18:44)
[2016-10-11] MEDS: LEVALBUTEROL 1.25MG/0.5ML NEB INH SCH (18:44)
[2016-10-11] MEDS ORDERED: LEVALBUTEROL 1.25MG/0.5ML NEB INH PRN (18:45)
[2016-10-11] MEDS ORDERED: LEVALBUTEROL 1.25MG/0.5ML NEB INH STA (18:45)
[2016-10-11] MEDS ORDERED: IPRATROPIUM BROMIDE NEB SOLN 0.02% 2.5 ML VIAL INH PRN (18:45)
[2016-10-11] MEDS ORDERED: METHYLPREDNISOLONE IV 60 MG in SYRINGE 0 ML IV ONE (19:00)
[2016-10-11 19:09] LABS: ARTERIAL BLD GAS O2 SATURATION 99.4 % (90-95); ARTERIAL BLOOD GAS HCO3 33 mmol/L (19-24); ARTERIAL BLOOD GAS PO2 172 mm/Hg (80-95); ARTERIAL BLOOD GAS pH 7.44 (7.35-7.45)
--- NOTE | 2016-10-11 19:14 | DIAGNOSTIC IMAGING REPORT ---
CHEST ONE VIEW PORTABLE HISTORY: respiratory failure COMPARISON: Chest 10/09/2016. FINDINGS: The lungs remain hyperexpanded with apical predominant emphysematous changes. No pneumothorax. No pleural effusions. The heart is normal in size. No focal lung consolidations to suggest pneumonia. No evidence for pulmonary edema. IMPRESSION: Emphysema. No change from the prior study. No acute process within the chest. Electronically signed by: Remberto Liu M.D. 10/11/2016 7:13 PM Dictated Date/Time: 10/11/2016 7:12 PM
[2016-10-11] MEDS ORDERED: OPTIRAY 320 IV PRN (19:15)
[2016-10-11 19:21] LABS: ALLEN TEST POS (POS); O2 ADMINISTRATION 40%
--- NOTE | 2016-10-11 19:26 | Progress Note ---
Internal Med Progress Note Date of Service: Oct 11, 2016. Provider Documentation: SUBJECTIVE: developed severe respiratory distress today using accessory muscles sweating , can not complete full sentence mentions that he could not complete the Duo Neb breathing due to severe coughing spell Lung auscultation -minimum air entry Respiratory called immediately pt placed on BiPAP got an hour long Xopenex neb tx while on BiPAP ordered for stat ABG, Cxray transfer pt to PCU for close monitoring of hemodynamics Family members -significant others , Sister updated at bedside OBJECTIVE: Vital Signs-as noted below Exam: General-in respiratory distress, tachypneic , using accessory muscles to breath , sweating, tachypneic Eyes-sclera non icteric ENT-dry oral mucosa Neck-no thyromegaly Lungs-very poor air entry , Heart-regular S1/S2 Abdomen-soft, non tender Extremities-no lower ext edema Neuro-no focal neurological deficit , anxious Lab data as noted below. ASSESSMENT & PLAN: ACUTE ON CHRONIC RESPIRATORY FAILURE -due to COPD exacerbation , underlying severe emphysema ( FEV1 21 % ) with Bullous emphysema -pt placed on Bipap increase IV Solu Medrol to 60 mg q8 hrs ( was on 40 mg Q 12 h) -given hour long neb /along with Bipap -pt mentions of improvement of SOB able to speak in sentences cont Xopenex neb tx scheduled q 4hrs and Q 2hrs PRN -on empiric Abx with Doxycycline -stat portable Cxray shows -no infiltrate or effusion /unchanged form Xray on severe emphysematous disease ABG at 1900 shows : pH 7.44/pCo2 49 /P02 172 /Hco3 33 , spo2 99 % on Bipap Fio2 40 % D dimer 800 ( possible due to chronic illness /viral infection ) CT chest with contrast ordered to R/O PE serial cardiac markers ECHO ordered to assess rt heart strain Case D/w occupational therapist Pulmonology very poor prognosis given advanced underlying pulmonary disease ,recommend continued tx and respiratory support as outlined above recent admission to [facility] for severe COPD /ac respiratory failure form 08/24/16 to 08/29/16 discharged to [facility] Personal residential pt did not qualify for nocturnal 02 or BiPAP as per pulmonology note recently ordered for 2 L 02 tank , was delivered to [facility] , pt had not used the home 02 yet Had PFT done at [facility] Pulmonary clinic on 09/16/16 : shows severe compromised lung capacity FEV1 21 % reduced FEV1/FVC ratio evidence of severe air trapping based on the increased RV TLC ratio diffusion capacity severe reduced Flow volume loop is consistent with severe obstructive lung disease with now significant bronchodilator response present very poor prognosis HX PULMONARY NODULES - had continued out pt follow up -noted to be stable by Bronchoscopy on 04/07 and 04/26/[address] chest monitoring since 2013 CT chest with contrast ordered this admission for progressive respiratory failure R/O PE ECHO on 06/2014 : RV mildly elevated trace TR , mild MR no evidence of pulmonary HTN EF 65 -69 % Grade 1 diastolic dysfunction repeat ECHO ordered cont to monitor in tele BPH - on doxazosin HYPOTHYROIDISM - continue [place] thyroid CACHEXIA/LOW BMI : possible secondary to underlying severe lung disease /advanced COPD cont respiratory support dietary consult requested DVT PROPHYLAXIS moderate to High risk - SQ Lovenox FULL CODE DISPOSITION lives at Personal correction in [facility] will need PT/OT eval prior to discharge Family updated at bedside Vital Signs: Date Time Temp Pulse Resp B/P Pulse Ox O2 Delivery O2 Flow Rate FiO2 10/11/16 18:49 80 98 40 10/11/16 18:45 80 20 98 BiPAP/CPAP 40 10/11/16 18:37 36.8 94 22 10/11/16 16:23 Nasal Cannula 2.0 10/11/16 15:27 36.8 94 22 125/78 90 Nasal Cannula 2.0 10/11/16 14:01 77 18 98 Nasal Cannula 2.0 10/11/16 08:13 Nasal Cannula 2.0 10/11/16 07:47 36.5 75 20 128/76 95 Nasal Cannula 2.0 10/11/16 07:25 80 16 98 Nasal Cannula 2.0 10/11/16 02:04 79 16 96 Nasal Cannula 2.0 10/11/16 00:00 36.8 91 20 137/84 94 Nasal Cannula 2.0 10/10/16 23:59 94 Nasal Cannula 2.0 10/10/16 22:00 36.6 97 24 92 2.0 10/10/16 20:11 97 24 92 Room Air 10/10/16 20:00 90 Room Air 2.0 Lab Results: Results Past 24 Hours Test 10/11/16 18:35 10/11/16 19:00 Range/Units Creatine Kinase MB Ratio 0-3.0 Prothrombin Time 10.8 9.0-12.0 SECONDS Prothromb Time International Ratio 1.0 0.9-1.1 D-Dimer 800 0-500 ug/L FEU Arterial Blood pH 7.44 7.35-7.45 Arterial Blood Partial Pressure CO2 49 35-46 mmHg Arterial Blood Partial Pressure O2 172 80-95 mm/Hg Arterial Blood HCO3 33 19-24 mmol/L Arterial Blood Oxygen Saturation 99.4 90-95 % Arterial Blood Base Excess 7.0 -9-1.8 mEq/L Arterial Blood Gas Delivery 40% Steven Test POS POS
[2016-10-11 19:30] LABS: PROTHROMBIN TIME (PATIENT) 10.8 SECONDS (9.0-12.0)
[2016-10-11 19:54] LABS: CKMB/CK RATIO 3.5 (0-3.0); THYROID STIMULATING HORMONE 0.598 uIu/ml (0.300-4.500)
[2016-10-11] MEDS ORDERED: LEVALBUTEROL/IPRATROPIUM NEB INH SCH (20:00)
[2016-10-11] MEDS: DOXAZosin MESYLATE TAB 4 MG TAB PO SCH (21:05)
--- NOTE | 2016-10-11 21:23 | DIAGNOSTIC IMAGING REPORT ---
CHEST CTA for PULMONARY ARTERIES CT DOSE: 275.49 mGy.cm HISTORY: Atypical chest pain. TECHNIQUE: Multiaxial CT images of the chest were performed following the intravenous administration of contrast to evaluate the pulmonary arteries. Maximal intensity projection images were also obtained. COMPARISON STUDY: Chest CTA 08/23/2016. FINDINGS: There is a normal caliber thoracic aorta with no evidence for dissection. There is no evidence for pulmonary embolus. No pleural effusions. No pneumothorax. The liver and spleen are unremarkable. No mediastinal or hilar lymphadenopathy. The central airways are patent. Stable 1.5 cm left adrenal gland nodule. This is consistent with a benign adenoma. Advanced emphysema. Mild bronchial wall thickening persists. Left upper lobe 7 mm irregular density remains stable. This is best in image 105. Stable 3 mm subpleural nodule within the left lower lobe in image 45. No new focal lung consolidations. Subcentimeter nodular densities at the right lung base on image 105 of 371 also remain stable. IMPRESSION: 1. No evidence for pulmonary embolus. 2. Severe emphysema. 3. No new focal lung consolidations. 4. Stable subcentimeter nodular/irregular densities. Continued six-month chest CT follow up is recommended to ensure stability. Electronically signed by: Remberto Liu M.D. 10/11/2016 9:22 PM Dictated Date/Time: 10/11/2016 9:12 PM
[2016-10-11 22:10] LABS: ALLEN TEST POS (POS); ARTERIAL BLD GAS O2 SATURATION 99.2 % (90-95); ARTERIAL BLOOD GAS BASE EXCESS 4.4 mEq/L (-9-1.8); ARTERIAL BLOOD GAS HCO3 30 mmol/L (19-24); ARTERIAL BLOOD GAS PO2 158 mm/Hg (80-95); ARTERIAL BLOOD GAS pH 7.41 (7.35-7.45); O2 ADMINISTRATION 40%
[2016-10-12] VITALS (18 sets, daily range): BP systolic 117–131; BP diastolic 68–82; PULSE 60–96; TEMP 35.8–36.7; O2SAT 95–97
[2016-10-12] MEDS: METHYLPREDNISOLONE IV 60 MG in SYRINGE 0 ML IV SCH ×3 (00:08→16:57)
[2016-10-12 01:45] LABS: CKMB/CK RATIO 4.4 (0-3.0)
[2016-10-12] MEDS: IPRATROPIUM BROMIDE NEB SOLN 0.02% 2.5 ML VIAL INH SCH ×6 (02:48→20:27)
[2016-10-12] MEDS: LEVALBUTEROL 1.25MG/0.5ML NEB INH SCH ×6 (02:48→20:27)
[2016-10-12] MEDS: ARMOUR THYROID 30 MG TAB PO SCH (05:33)
[2016-10-12 07:18] LABS: HEMATOCRIT 41.9 % (42-52); MEAN CELL VOLUME 93.5 fL (80-100); MEAN CORPUSCULAR HEMOGLOBIN 31.9 pg (25-34); MEAN CORPUSCULAR HGB CONC 34.1 g/dl (32-36); MEAN PLATELET VOLUME 9.2 fL (7.4-10.4); PLATELET COUNT 222 K/uL (130-400); RED BLOOD COUNT 4.48 M/uL (4.7-6.1); WHITE BLOOD COUNT 12.01 K/uL (4.8-10.8)
[2016-10-12 07:19] LABS: ARTERIAL BLD GAS O2 SATURATION 97.7 % (90-95); ARTERIAL BLOOD GAS BASE EXCESS 5.9 mEq/L (-9-1.8); ARTERIAL BLOOD GAS HCO3 31 mmol/L (19-24); ARTERIAL BLOOD GAS PO2 99 mm/Hg (80-95); ARTERIAL BLOOD GAS pH 7.45 (7.35-7.45)
[2016-10-12 07:21] LABS: ALLEN TEST POS (POS); O2 ADMINISTRATION 30%
--- NOTE | 2016-10-12 07:46 | Pulmonology Progress Note ---
Pulmonary Progress Note Date of Service Oct 12, 2016. Objective Date: 09/16/16 PRE POST % CHANGE FEV1/FVC: 73 FEV1: 0.75/21% 0.66 -11 FVC: 2.08/43% 1.88 -9 25-27%: TLC: VC: 2.68/55% Date: 04/05/2009 PRE FEV1/FVC: 46 FEV1: 1.02/27% FVC: 2.21/67% 25-27%: T.28/117% VC: RV: FRC: DLCO: 59% DLCO/VA: 62% Data Medications: Current Inpatient Medications Medications (Trade) Dose Ordered Sig/William Route Start Time Stop Time Status Last Admin Dose Admin Enoxaparin Sodium (Lovenox Inj) 40 mg Q24H SQ 10/09/16 17:00 11/08/16 16:59 10/11/16 17:26 40 MG Acetaminophen (Tylenol Tab) 650 mg Q4H PRN PO 10/09/16 13:15 11/08/16 13:14 Ondansetron HCl (Zofran Inj) 4 mg Q6H PRN IV 10/09/16 13:15 11/08/16 13:14 Doxazosin Mesylate (Cardura Tab) 4 mg HS PO 10/09/16 21:00 11/08/16 20:59 10/11/16 21:05 4 MG Multivitamins (Multivitamin Tab) 1 tab DAILY PO 10/10/16 09:00 11/09/16 08:59 10/11/16 07:46 1 TAB Thyroid ([place] Thyroid Tab) 60 mg DAILYBB PO 10/10/16 06:00 11/09/16 06:59 10/12/16 05:33 60 MG Cholecalciferol (Vitamin D Tab) 2,000 inter.unit DAILY PO 10/10/16 09:00 11/09/16 08:59 10/11/16 07:47 2,000 INTER.UNIT Doxycycline Hyclate (Vibramycin Cap) 100 mg BID PO 10/10/16 21:00 10/17/16 20:59 10/11/16 21:06 100 MG Guaifenesin 600 mg 600 mg Q12 PO 10/11/16 12:15 11/10/16 12:14 10/11/16 21:05 600 MG Methylprednisolone Sodium Succinate/ Syringe (Solu-Medrol IV/ Syringe) 0.96 ml @ 1.5 mls/min Q8H IV 10/12/16 00:00 11/11/16 00:00 10/12/16 00:08 1.5 MLS/MIN Lorazepam (Ativan Tab) 0.5 mg Q8 PRN PO 10/11/16 18:30 11/10/16 18:29 Ipratropium [place] (Atrovent 0.02% 0.5MG/2.5ML Neb) 0.5 mg Q4R INH 10/11/16 20:00 11/10/16 19:59 10/12/16 02:48 0.5 MG Levalbuterol (Xopenex 1.25MG/ 0.5ML Neb) 1.25 mg Q4R INH 10/11/16 20:00 11/10/16 19:59 10/12/16 02:48 1.25 MG Levalbuterol (Xopenex 1.25MG/ 0.5ML Neb) 1.25 mg Q2H PRN INH 10/11/16 18:45 11/10/16 18:44 Ipratropium [place] (Atrovent 0.02% 0.5MG/2.5ML Neb) 0.5 mg Q2H PRN INH 10/11/16 18:45 11/10/16 18:44 Ioversol (Optiray 320) 100 ml UD PRN IV 10/11/16 19:15 10/15/16 19:14 I & O: 24-Hour Column 10/12/16 08:00 Output Total 500 ml Balance -500 ml Vital Signs: Date Time Temp Pulse Resp B/P Pulse Ox O2 Delivery O2 Flow Rate FiO2 10/12/16 05:54 60 97 40 10/12/16 04:00 96 BiPAP 30 10/12/16 03:44 36.3 79 20 123/81 96 BiPAP 10/12/16 02:48 67 15 97 BiPAP/CPAP 30 10/12/16 02:47 68 97 40 10/12/16 00:00 70 16 97 BiPAP/CPAP 30 10/11/16 23:14 36.5 84 20 130/85 97 BiPAP 10/11/16 23:03 30 10/11/16 21:28 99 97 40 10/11/16 20:02 36.6 100 22 131/77 98 BiPAP 10/11/16 18:49 80 98 40 10/11/16 18:45 80 20 98 BiPAP/CPAP 40 10/11/16 18:37 36.8 94 22 10/11/16 16:23 Nasal Cannula 2.0 10/11/16 15:27 36.8 94 22 125/78 90 Nasal Cannula 2.0 10/11/16 14:01 77 18 98 Nasal Cannula 2.0 10/11/16 08:13 Nasal Cannula 2.0 10/11/16 07:47 36.5 75 20 128/76 95 Nasal Cannula 2.0 Laboratory Results: Last 24 Hours Test 10/11/16 19:00 10/11/16 21:53 10/12/16 01:04 10/12/16 07:05 Prothrombin Time 10.8 SECONDS Prothromb Time International Ratio 1.0 D-Dimer 800 ug/L FEU Arterial Blood pH 7.44 7.41 7.45 Arterial Blood Partial Pressure CO2 49 mmHg 49 mmHg 45 mmHg Arterial Blood Partial Pressure O2 172 mm/Hg 158 mm/Hg 99 mm/Hg Arterial Blood HCO3 33 mmol/L 30 mmol/L 31 mmol/L Arterial Blood Oxygen Saturation 99.4 % 99.2 % 97.7 % Arterial Blood Base Excess 7.0 mEq/L 4.4 mEq/L 5.9 mEq/L Arterial Blood Gas Delivery 40% 40% 30% Steven Test POS POS POS Total Creatine Kinase 79 U/L 48 U/L Creatine Kinase MB 2.8 ng/ml 2.1 ng/ml Creatine Kinase MB Ratio 3.5 4.4 Troponin I < 0.015 ng/ml < 0.015 ng/ml Thyroid Stimulating Hormone (TSH) 0.598 uIu/ml White Blood Count 12.01 K/uL Red Blood Count 4.48 M/uL Hemoglobin 14.3 g/dL Hematocrit 41.9 % Mean Corpuscular Volume 93.5 fL Mean Corpuscular Hemoglobin 31.9 pg Mean Corpuscular Hemoglobin Concent 34.1 g/dl RDW Standard Deviation 47.0 fL RDW Coefficient of Variation 13.7 % Platelet Count 222 K/uL Mean Platelet Volume 9.2 fL
[2016-10-12 07:52] LABS: BUN/CREATININE RATIO 38.8 (10-20); CALCIUM 8.2 mg/dl (8.5-10.1); CREATININE 0.67 mg/dl (0.60-1.40); MAGNESIUM 2.5 mg/dl (1.8-2.4); POTASSIUM 4.3 mmol/L (3.5-5.1)
[2016-10-12] MEDS: DOXYCYCLINE HYCLATE 100 MG CAP PO SCH (07:54)
[2016-10-12] MEDS: MULTIVITAMIN TAB PO SCH (07:54)
[2016-10-12] MEDS: GUAIFENESIN 600 MG TABCR PO SCH ×2 (07:54→20:46)
[2016-10-12] MEDS: CHOLECALCIFEROL 1000 INTER.UNIT TAB PO SCH (07:54)
[2016-10-12 08:49] LABS: CKMB/CK RATIO 2.9 (0-3.0)
--- NOTE | 2016-10-12 10:22 | Pulmonology Progress Note ---
Pulmonary Progress Note Date of Service Oct 12, 2016. Attending Miguel A Hidalgo Subjective Patient with continued dyspnea at rest intermittent dry cough denies fever, chills or pleurisy Objective Conversation the patient was notably tachypnea, intermittently had a catch his breath and tripoding during the interview. He continues to note progressive dyspnea on exertion over the last 3-4 years at this time continuously short of breath even at rest. He also notes weight loss over the past 2-3 years as well. Vital signs: Reviewed VS: SaO2: 90-97% ([id number]-23/3: FIO2:40%) Respiratory: Decreased breath sounds bilaterally even at the bases no rhonchi or wheezes appreciated Cardiac: S1-S2 regular rate rhythm no murmurs rubs or gallops appreciated Abdomen: Soft nontender no rebound Extremities: No pitting edema, proper capillary refill Labs: ABG 10/09/16: 7.46/44/55/31RA 10/11/16: 7.44/49/172/33--40% BiPaP 10/11/16: 7.41/49/158/3040% BiPaP 10/12/16: 7.45/% BiPAP D-dimer: (10/11/16) 800 Troponin I: <0.015 Treatment 1)BiPAP 2)Solu-Medrol 60mg IV Q8 3)Xopenex/Atrovent Nebs Q4 4)Xopenex/Atrovent Nebs Q2 prn 5)Doxycycline 100mg BID CTA PE protocol (10/11/16) compared to 08/23/16 No signs of PE sever panlobular emphysema BLANCHE 7mm nodule stable 3mm sub-pleural LLL stable 4mm nodule stable 9mm infiltrate stable LLL 11mm stable Date: 09/16/16 PRE POST % CHANGE FEV1/FVC: 73 FEV1: 0.75/21% 0.66 -11 FVC: 2.08/43% 1.88 -9 25-27%: TLC: VC: 2.68/55% Date: 04/05/2009 PRE FEV1/FVC: 46 FEV1: 1.02/27% FVC: 2.21/67% 25-27%: T.28/117% VC: RV: FRC: DLCO: 59% DLCO/VA: 62% Assessment & Plan 70-year-old gentleman with very severe COPD, and pulmonary nodules admitted for respiratory insufficiency: #1 COPD: Patient is very severe COPD with FEV1 noted to be 21%. At this time I suggest we continue BiPAP as much as tolerated, IV steroids <240mg/QD, maintaining SaO2 between 88-92%, initiate Roflumilast and switch from doxycycline to azithromycin 250 mg every day. Also should continue nebulizers as currently scheduled. #2 pulmonary nodule: Patient has multiple pulmonary nodules at this time should be followed up in 6 months, if stable then in 07/2018. #3 family discussion: I had a 30 minute family discussion with the patient as well as his sister, and nephews. We talked about his end-stage pulmonary disease and his increased mortality. We discussed the need for him to be compliant with his medications and pulmonary regimen. We also discussed the possibility of initiating consultation for pulmonary transplant. Data Medications: Current Inpatient Medications Medications (Trade) Dose Ordered Sig/William Route Start Time Stop Time Status Last Admin Dose Admin Enoxaparin Sodium (Lovenox Inj) 40 mg Q24H SQ 10/09/16 17:00 11/08/16 16:59 10/11/16 17:26 40 MG Acetaminophen (Tylenol Tab) 650 mg Q4H PRN PO 10/09/16 13:15 11/08/16 13:14 Ondansetron HCl (Zofran Inj) 4 mg Q6H PRN IV 10/09/16 13:15 11/08/16 13:14 Doxazosin Mesylate (Cardura Tab) 4 mg HS PO 10/09/16 21:00 11/08/16 20:59 10/11/16 21:05 4 MG Multivitamins (Multivitamin Tab) 1 tab DAILY PO 10/10/16 09:00 11/09/16 08:59 10/12/16 07:54 1 TAB Thyroid ([place] Thyroid Tab) 60 mg DAILYBB PO 10/10/16 06:00 11/09/16 06:59 10/12/16 05:33 60 MG Cholecalciferol (Vitamin D Tab) 2,000 inter.unit DAILY PO 10/10/16 09:00 11/09/16 08:59 10/12/16 07:54 2,000 INTER.UNIT Doxycycline Hyclate (Vibramycin Cap) 100 mg BID PO 10/10/16 21:00 10/17/16 20:59 10/12/16 07:54 100 MG Guaifenesin 600 mg 600 mg Q12 PO 10/11/16 12:15 11/10/16 12:14 10/12/16 07:54 600 MG Methylprednisolone Sodium Succinate/ Syringe (Solu-Medrol IV/ Syringe) 0.96 ml @ 1.5 mls/min Q8H IV 10/12/16 00:00 11/11/16 00:00 10/12/16 07:54 1.5 MLS/MIN Lorazepam (Ativan Tab) 0.5 mg Q8 PRN PO 10/11/16 18:30 11/10/16 18:29 Ipratropium [place] (Atrovent 0.02% 0.5MG/2.5ML Neb) 0.5 mg Q4R INH 10/11/16 20:00 11/10/16 19:59 10/12/16 07:39 0.5 MG Levalbuterol (Xopenex 1.25MG/ 0.5ML Neb) 1.25 mg Q4R INH 10/11/16 20:00 11/10/16 19:59 10/12/16 07:39 1.25 MG Levalbuterol (Xopenex 1.25MG/ 0.5ML Neb) 1.25 mg Q2H PRN INH 10/11/16 18:45 11/10/16 18:44 Ipratropium [place] (Atrovent 0.02% 0.5MG/2.5ML Neb) 0.5 mg Q2H PRN INH 10/11/16 18:45 11/10/16 18:44 Ioversol (Optiray 320) 100 ml UD PRN IV 10/11/16 19:15 10/15/16 19:14 I & O: 24-Hour Column 10/12/16 07:59 Output Total 500 ml Balance -500 ml Vital Signs: Date Time Temp Pulse Resp B/P Pulse Ox O2 Delivery O2 Flow Rate FiO2 10/12/16 08:51 96 Nasal Cannula 2.0 10/12/16 08:00 BiPAP 30 10/12/16 07:58 35.8 68 20 126/82 97 BiPAP 30 68 10/12/16 07:39 75 97 30 10/12/16 07:39 75 17 97 BiPAP/CPAP 30 10/12/16 05:54 60 97 40 10/12/16 04:00 96 BiPAP 30 10/12/16 03:44 36.3 79 20 123/81 96 BiPAP 10/12/16 02:48 67 15 97 BiPAP/CPAP 30 10/12/16 02:47 68 97 40 10/12/16 00:00 70 16 97 BiPAP/CPAP 30 10/11/16 23:14 36.5 84 20 130/85 97 BiPAP 10/11/16 23:03 30 10/11/16 21:28 99 97 40 10/11/16 20:02 36.6 100 22 131/77 98 BiPAP 10/11/16 18:49 80 98 40 10/11/16 18:45 80 20 98 BiPAP/CPAP 40 10/11/16 18:37 36.8 94 22 10/11/16 16:23 Nasal Cannula 2.0 10/11/16 15:27 36.8 94 22 125/78 90 Nasal Cannula 2.0 10/11/16 14:01 77 18 98 Nasal Cannula 2.0 Laboratory Results: Last 24 Hours Test 10/11/16 19:00 10/11/16 21:53 10/12/16 01:04 10/12/16 07:05 Prothrombin Time 10.8 SECONDS Prothromb Time International Ratio 1.0 D-Dimer 800 ug/L FEU Arterial Blood pH 7.44 7.41 7.45 Arterial Blood Partial Pressure CO2 49 mmHg 49 mmHg 45 mmHg Arterial Blood Partial Pressure O2 172 mm/Hg 158 mm/Hg 99 mm/Hg Arterial Blood HCO3 33 mmol/L 30 mmol/L 31 mmol/L Arterial Blood Oxygen Saturation 99.4 % 99.2 % 97.7 % Arterial Blood Base Excess 7.0 mEq/L 4.4 mEq/L 5.9 mEq/L Arterial Blood Gas Delivery 40% 40% 30% Steven Test POS POS POS Total Creatine Kinase 79 U/L 48 U/L Creatine Kinase MB 2.8 ng/ml 2.1 ng/ml Creatine Kinase MB Ratio 3.5 4.4 Troponin I < 0.015 ng/ml < 0.015 ng/ml Thyroid Stimulating Hormone (TSH) 0.598 uIu/ml White Blood Count 12.01 K/uL Red Blood Count 4.48 M/uL Hemoglobin 14.3 g/dL Hematocrit 41.9 % Mean Corpuscular Volume 93.5 fL Mean Corpuscular Hemoglobin 31.9 pg Mean Corpuscular Hemoglobin Concent 34.1 g/dl RDW Standard Deviation 47.0 fL RDW Coefficient of Variation 13.7 % Platelet Count 222 K/uL Mean Platelet Volume 9.2 fL Sodium Level 138 mmol/L Potassium Level 4.3 mmol/L Chloride Level 101 mmol/L Carbon Dioxide Level 29 mmol/L Anion Gap 8.0 mmol/L Blood Urea Nitrogen 26 mg/dl Creatinine 0.67 mg/dl Est Creatinine Clear Calc Drug Dose 84.0 ml/min Estimated GFR () 112.8 Estimated GFR (Non- 97.4 BUN/Creatinine Ratio 38.8 Random Glucose 125 mg/dl Calcium Level 8.2 mg/dl Magnesium Level 2.5 mg/dl Test 10/12/16 08:11 Total Creatine Kinase 51 U/L Creatine Kinase MB 1.5 ng/ml Creatine Kinase MB Ratio 2.9 Troponin I < 0.015 ng/ml
--- NOTE | 2016-10-12 12:30 | ECHOCARDIOGRAM REPORT ---
*NOTICE TO RECEIVING REPUBLICAN AGENCY This information is strictly Confidential and protected under [place] law. [place] law prohibits you from making any further disclosure of this information unless further disclosure is expressly permitted by the written consent of the person to whom it pertains or is authorized by law. A general authorization for the release of medical or other information is not sufficient for this purpose. Hospital accepts no responsibility if the information is made available to any other person, INCLUDING THE PATIENT. Interpretation Summary * Name: JI ARAYA JR Study Date: 10/12/2016 10:08 AM * Patient Location: 2\S\S241\S\1 * : 1945 (M/d/yyyy) Gender: Male Height: 72 in * Age: 70 yrs Ethnicity: CA Weight: 123 lb * Ordering Physician: Kathie Brand * Referring Physician: Self, Referred * Performed By: Khurram Way RDCS * * Reason For Study: Chest pain * BSA: 1.7 m2 * -- Conclusions -- * The study is technically limited , but adequate for the referral indication. * The left ventricular wall motion is normal. * Left ventricular systolic function is normal. * Ejection Fraction = 60-65%. * The right ventricle is moderately dilated. * The right ventricular systolic function is normal as assessed by tricuspid annular plane systolic excursion (TAPSE) (normal >1.5 cm). * The tricuspid regurgitation envelope is insufficient to allow estimation of the pulmonary artery systolic pressure. * Grade I diastolic dysfunction, (abnormal relaxation pattern). * There is a small loculated anterior and right lateral pericardial effusion. * There are no echocardiographic indications of cardiac tamponade. * Compared to the report of the outpatient study performed 07/19/2014 at [facility]: the right ventricular chamber was reported to be mildly enlarged at that time. No pericardial effusion was reported on the prior study. Procedure Details * A complete two-dimensional transthoracic echocardiogram was performed (2D, M-mode, Doppler and color flow Doppler). * The study was technically difficult. * There were technical limitations due to patient'sPoor acoustic windows secondary to severe lung disease. * The study was technically difficult, but visualization was adequate with the administration of Definity ultrasound contrast. * A contrast injection of Definity was performed to improve assessment of LV function. * Contrast was injected into an intravenous site in the left arm. * One vial of Definity ultrasound contrast was diluted in normal saline to a total volume of 10 ml. A total of '3' ml of solution was administered during imaging. * Lot # [id number] of Definity utilized for procedure. * Expiration date 1JAN18. * The attending nurse who injected the contrast agent was KEVIN Brown. Left Ventricle * The left ventricle is normal in size. * There is normal left ventricular wall thickness. * Left ventricular systolic function is normal. * Ejection Fraction = 60-65%. * The left ventricular wall motion is normal. Right Ventricle * The right ventricle is moderately dilated. * The right ventricular systolic function is grossly normal. * The right ventricular systolic function is normal as assessed by tricuspid annular plane systolic excursion (TAPSE) (normal >1.5 cm). Atria * The left atrial size is normal. * Right atrial size is normal. * There is no evidence of atrial septal defect, but resolution does not allow assessment for a patent foramen ovale. Mitral Valve * The mitral valve is normal. * There is no mitral valve stenosis. * Significant mitral regurgitation is absent. Tricuspid Valve * The tricuspid valve is normal. * There is no tricuspid stenosis. * Significant tricuspid regurgitation is absent. * The tricuspid regurgitation envelope is insufficient to allow estimation of the pulmonary artery systolic pressure. Aortic Valve * The aortic valve is trileaflet. * Aortic valve sclerosis mild, without significant aortic valvular stenosis. * Aortic stenosis is absent. * There is no significant aortic regurgitation. Pulmonic Valve * The pulmonary valve is not well seen, but the Doppler examination is normal without significant regurgitation or stenosis. Great Vessels * The aortic root and proximal ascending aorta are normal sized. Pericardium/Pleural * There is a small loculated anterior and right lateral pericardial effusion. * There are no echocardiographic indications of cardiac tamponade. Great Vessels * Intermediate inferior vena cava diamter and respiratory collapse consistent with right atrail pressure of 8 mm Hg. Left Ventricular Diastolic Function * Grade I diastolic dysfunction, (abnormal relaxation pattern). MMode 2D Measurements and Calculations IVSd 1.0 cm IVSs 1.3 cm LVIDd 3.7 cm LVIDs 2.2 cm LVPWd 1.0 cm LVPWs 1.4 cm IVS/LVPW 0.99 FS 39.2 % EDV(Teich) 56.8 ml ESV(Teich) 16.7 ml EF(Teich) 70.6 % EDV(cubed) 49.2 ml ESV(cubed) 11.1 ml EF(cubed) 77.6 % % IVS thick 29.1 % % LVPW thick 33.5 % LV mass(C)d 113.0 grams LV mass(C)dI 65.2 grams/m\S\2 LV mass(C)s 88.6 grams LV mass(C)sI 51.1 grams/m\S\2 SV(Teich) 40.1 ml SI(Teich) 23.2 ml/m\S\2 SV(cubed) 38.2 ml SI(cubed) 22.0 ml/m\S\2 EPSS 0.54 cm Ao root diam 3.5 cm Ao root area 9.4 cm\S\2 ACS 1.8 cm LA dimension 2.7 cm LA/Ao 0.78 LVOT diam 1.9 cm LVOT area 2.7 cm\S\2 LVAd ap4 28.4 cm\S\2 LVLd ap4 8.1 cm EDV(MOD-sp4) 81.0 ml LVAs ap4 15.0 cm\S\2 LVLs ap4 6.7 cm ESV(MOD-sp4) 27.0 ml EF(MOD-sp4) 66.7 % LVAd ap2 18.5 cm\S\2 LVLd ap2 6.6 cm EDV(MOD-sp2) 43.0 ml LVAs ap2 8.6 cm\S\2 LVLs ap2 4.7 cm ESV(MOD-sp2) 14.0 ml EF(MOD-sp2) 67.4 % SV(MOD-sp4) 54.0 ml SI(MOD-sp4) 31.2 ml/m\S\2 SV(MOD-sp2) 29.0 ml SI(MOD-sp2) 16.7 ml/m\S\2 Doppler Measurements and Calculations MV E max lashon 34.6 cm/sec MV A max lashon 41.0 cm/sec MV E/A 0.84 MV dec time 0.12 sec Ao V2 max 101.7 cm/sec Ao max PG 4.1 mmHg Ao max PG (full) 2.9 mmHg LÓPEZ(V,A) 1.5 cm\S\2 LÓPEZ(V,D) 1.5 cm\S\2 LV V1 max PG 1.3 mmHg LV V1 max 56.0 cm/sec PA V2 max 102.4 cm/sec PA max PG 4.2 mmHg
[2016-10-12] MEDS: AZITHROMYCIN 250 MG TAB PO SCH (14:15)
[2016-10-12] MEDS: BOOST PLUS VANILLA PO SCH ×2 (16:58)
[2016-10-12] MEDS: ENOXAPARIN 40 MG/0.4 ML SYR SQ SCH (16:58)
--- NOTE | 2016-10-12 19:05 | Progress Note ---
Internal Med Progress Note Date of Service: Oct 12, 2016. Provider Documentation: SUBJECTIVE: feels much better today was on Bipap most part of the day getting break during meals pt seen at dinner time , off Bipap feels much comfortable . able to sleep last night while on Bipap as does not feel SOB able to speak in sentences no respiratory distress noted , smiling cough remains minimum , non productive no fever or chills OBJECTIVE: Vital Signs-as noted below Exam: General-cachectic , no sign of distress, pleasant Eyes-sclera non icteric ENT-dry oral mucosa Neck-no thyromegaly Lungs-poor air entry , no wheeze, improved auscultation form prior Heart-regular S1/S2 Abdomen-soft, non tender Extremities-no lower ext edema Neuro-no focal neurological deficit , anxious Lab data as noted below. 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 cont IV Solu Medrol to 60 mg q8 hrs appreciate input form Pulmonology on Xopenex neb tx scheduled q 4hrs and Q 2hrs PRN Abx changed to Zithromax 250 mg daily -will need to be on chronic therapy -added Daliresp /PDE4 inhibitor- to reduce number of COPD exacerbation in setting of advanced /End stage bullous emphysema CT chest -no PE severe emphysematous disease very poor prognosis given advanced underlying pulmonary disease , cont Bipap while in hospital with break for meals only pt will need evaluation for Bipap on discharge Had PFT done at [facility] on 09/16/16 : shows severe compromised lung capacity FEV1 21 % reduced FEV1/FVC ratio evidence of severe air trapping based on the increased RV TLC ratio diffusion capacity severe reduced Flow volume loop is consistent with severe obstructive lung disease with now significant bronchodilator response present very poor prognosis HX PULMONARY NODULES - had continued out pt follow up -noted to be stable by Bronchoscopy on 04/07 and 04/26/[address] chest monitoring since 2013 CT chest with contrast ordered this admission for progressive respiratory failure R/O PE BPH - on doxazosin HYPOTHYROIDISM - continue [place] thyroid CACHEXIA/LOW BMI : possible secondary to underlying severe lung disease /advanced COPD cont respiratory support dietary consult requested side effect of Daliresp -wt loss updated to pt and family by pulmonology Daliresp recommended to reduce COPD exacerbation with severe pulmonary disease given severe of COPD and life threatening effect with each COPD exacerbation / respiratory failure -benefit of tx out weight the side effect DVT PROPHYLAXIS moderate to High risk - SQ Lovenox FULL CODE DISPOSITION lives at Personal skilled nursing in [facility] will need PT/OT eval prior to discharge Family updated at bedside Vital Signs: Date Time Temp Pulse Resp B/P Pulse Ox O2 Delivery O2 Flow Rate FiO2 10/12/16 16:00 90 12 97 BiPAP/CPAP 30 10/12/16 16:00 BiPAP 30 10/12/16 15:42 36.4 87 20 126/78 95 BiPAP 10/12/16 12:32 36.7 92 123/76 97 10/12/16 12:00 BiPAP 30 10/12/16 11:15 80 12 97 BiPAP/CPAP 30 10/12/16 11:15 80 97 30 10/12/16 08:51 96 Nasal Cannula 2.0 10/12/16 08:00 BiPAP 30 10/12/16 07:58 35.8 68 20 126/82 97 BiPAP 30 68 10/12/16 07:39 75 97 30 10/12/16 07:39 75 17 97 BiPAP/CPAP 30 10/12/16 05:54 60 97 40 10/12/16 04:00 96 BiPAP 30 10/12/16 03:44 36.3 79 20 123/81 96 BiPAP 10/12/16 02:48 67 15 97 BiPAP/CPAP 30 10/12/16 02:47 68 97 40 10/12/16 00:00 70 16 97 BiPAP/CPAP 30 10/11/16 23:14 36.5 84 20 130/85 97 BiPAP 10/11/16 23:03 30 10/11/16 21:28 99 97 40 Lab Results: Results Past 24 Hours Test 10/11/16 21:53 10/12/16 01:04 10/12/16 07:05 10/12/16 08:11 Range/Units Arterial Blood pH 7.41 7.45 7.35-7.45 Arterial Blood Partial Pressure CO2 49 45 35-46 mmHg Arterial Blood Partial Pressure O2 158 99 80-95 mm/Hg Arterial Blood HCO3 30 31 19-24 mmol/L Arterial Blood Oxygen Saturation 99.2 97.7 90-95 % Arterial Blood Base Excess 4.4 5.9 -9-1.8 mEq/L Arterial Blood Gas Delivery 40% 30% Steven Test POS POS POS Total Creatine Kinase 48 51 39-308 U/L Creatine Kinase MB 2.1 1.5 0.5-3.6 ng/ml Creatine Kinase MB Ratio 4.4 2.9 0-3.0 Troponin I < 0.015 < 0.015 0-0.045 ng/ml White Blood Count 12.01 4.8-10.8 K/uL Red Blood Count 4.48 4.7-6.1 M/uL Hemoglobin 14.3 14.0-18.0 g/dL Hematocrit 41.9 42-52 % Mean Corpuscular Volume 93.5 80-100 fL Mean Corpuscular Hemoglobin 31.9 25-34 pg Mean Corpuscular Hemoglobin Concent 34.1 32-36 g/dl RDW Standard Deviation 47.0 36.4-46.3 fL RDW Coefficient of Variation 13.7 11.5-14.5 % Platelet Count 222 130-400 K/uL Mean Platelet Volume 9.2 7.4-10.4 fL Sodium Level 138 136-145 mmol/L Potassium Level 4.3 3.5-5.1 mmol/L Chloride Level 101 98-107 mmol/L Carbon Dioxide Level 29 21-32 mmol/L Anion Gap 8.0 3-11 mmol/L Blood Urea Nitrogen 26 7-18 mg/dl Creatinine 0.67 0.60-1.40 mg/dl Est Creatinine Clear Calc Drug Dose 84.0 ml/min Estimated GFR () 112.8 Estimated GFR (Non- 97.4 BUN/Creatinine Ratio 38.8 10-20 Random Glucose 125 70-99 mg/dl Calcium Level 8.2 8.5-10.1 mg/dl Magnesium Level 2.5 1.8-2.4 mg/dl
[2016-10-12] MEDS: DOXAZosin MESYLATE TAB 4 MG TAB PO SCH (20:46)
[2016-10-13] VITALS (19 sets, daily range): BP systolic 117–130; BP diastolic 69–86; PULSE 78–95; TEMP 36.3–36.8; O2SAT 90–98
[2016-10-13] MEDS: IPRATROPIUM BROMIDE NEB SOLN 0.02% 2.5 ML VIAL INH SCH ×6 (00:04→20:00)
[2016-10-13] MEDS: LEVALBUTEROL 1.25MG/0.5ML NEB INH SCH ×6 (00:04→20:00)
[2016-10-13] MEDS: METHYLPREDNISOLONE IV 60 MG in SYRINGE 0 ML IV SCH (00:16)
[2016-10-13] MEDS: ARMOUR THYROID 30 MG TAB PO SCH (05:33)
--- NOTE | 2016-10-13 07:59 | Pulmonology Progress Note ---
Pulmonary Progress Note Date of Service Oct 13, 2016. Attending Miguel A Martínez Subjective Patient still complains of dyspnea at rest and severe dyspnea on exertion. This time he denies: Fever, chills, pleurisy, cardiac chest pain, productive cough Objective During our conversations patient still tachypnea, using accessory muscles and apparently catching his breath. Vital signs: Reviewed VS: SaO2: 95-98% (0Rfo-SoEsP-13/3: FIO2:30%) Respiratory: Decreased breath sounds bilaterally even at the bases no rhonchi or wheezes appreciated Cardiac: S1-S2 regular rate rhythm no murmurs rubs or gallops appreciated Abdomen: Soft nontender no rebound Extremities: No pitting edema, proper capillary refill Labs: ABG 10/09/16: 7.46/44/55/31RA 10/11/16: 7.44/49/172/33--40% BiPaP 10/11/16: 7.41/49/158/3040% BiPaP 10/12/16: 7.45/% BiPAP D-dimer: (10/11/16) 800 Troponin I: <0.015 Treatment 1)BiPAP 2)Solu-Medrol 60mg IV Q8 3)Xopenex/Atrovent Nebs Q4 4)Xopenex/Atrovent Nebs Q2 prn 5)Doxycycline 100mg BID CTA PE protocol (10/11/16) compared to 08/23/16 No signs of PE sever panlobular emphysema BLANCHE 7mm nodule stable 3mm sub-pleural LLL stable 4mm nodule stable 9mm infiltrate stable LLL 11mm stable Date: 09/16/16 PRE POST % CHANGE FEV1/FVC: 73 FEV1: 0.75/21% 0.66 -11 FVC: 2.08/43% 1.88 -9 25-27%: TLC: VC: 2.68/55% Date: 04/05/2009 PRE FEV1/FVC: 46 FEV1: 1.02/27% FVC: 2.21/67% 25-27%: T.28/117% VC: RV: FRC: DLCO: 59% DLCO/VA: 62% Assessment & Plan 70-year-old gentleman with very severe COPD, and pulmonary nodules admitted for respiratory insufficiency: #1 Very Sever COPD (FEV1: 21%): We'll decrease his IV steroids to 40 mg every 8 hours at this time. We'll continue the rest of his medical regimen and monitor his response to initiation of Roflumilast and azithromycin, as a notably have GI side effects/weight loss. This patient is on BiPAP most of the time his SaO2 are notably elevated in the high 90s, continue on BiPAP for mechanical relief of his intrinsic PEEP. We'll also have to repeat/reattempt nocturnal desaturation study as the patient refused the testing last night, he was confused about the etiology/purpose of the test. He notes it he will comply this evening. The goal at this time is to move the patient to by mouth prednisone, continue on his current medical regimen, discharge on BiPAP and home O2 support and then consult lung transplant team. The patient is willing to go down to [facility] for ransplant consultation. #2 Pulmonary Nodule: Patient has multiple pulmonary nodules at this time should be followed up in 6 months, if stable then in 07/2018. #3 Family Discussion: Once again I had a 20-30 minute conversation with the patient and his sister about the necessity of medication/medical advice compliance. The patient and family member notes at this time they understand our goals and the reasoning behind her suggestions. Data Medications: Current Inpatient Medications Medications (Trade) Dose Ordered Sig/William Route Start Time Stop Time Status Last Admin Dose Admin Enoxaparin Sodium (Lovenox Inj) 40 mg Q24H SQ 10/09/16 17:00 11/08/16 16:59 10/12/16 16:58 40 MG Acetaminophen (Tylenol Tab) 650 mg Q4H PRN PO 10/09/16 13:15 11/08/16 13:14 Ondansetron HCl (Zofran Inj) 4 mg Q6H PRN IV 10/09/16 13:15 11/08/16 13:14 Doxazosin Mesylate (Cardura Tab) 4 mg HS PO 10/09/16 21:00 11/08/16 20:59 10/12/16 20:46 4 MG Multivitamins (Multivitamin Tab) 1 tab DAILY PO 10/10/16 09:00 11/09/16 08:59 10/12/16 07:54 1 TAB Thyroid ([place] Thyroid Tab) 60 mg DAILYBB PO 10/10/16 06:00 3/19/17 06:59 10/13/16 05:33 60 MG Cholecalciferol (Vitamin D Tab) 2,000 inter.unit DAILY PO 10/10/16 09:00 11/09/16 08:59 10/12/16 07:54 2,000 INTER.UNIT Guaifenesin 600 mg 600 mg Q12 PO 10/11/16 12:15 11/10/16 12:14 10/12/16 20:46 600 MG Methylprednisolone Sodium Succinate/ Syringe (Solu-Medrol IV/ Syringe) 0.96 ml @ 1.5 mls/min Q8H IV 10/12/16 00:00 11/11/16 00:00 10/13/16 00:16 1.5 MLS/MIN Lorazepam (Ativan Tab) 0.5 mg Q8 PRN PO 10/11/16 18:30 11/10/16 18:29 Ipratropium [place] (Atrovent 0.02% 0.5MG/2.5ML Neb) 0.5 mg Q4R INH 10/11/16 20:00 11/10/16 19:59 10/13/16 03:31 0.5 MG Levalbuterol (Xopenex 1.25MG/ 0.5ML Neb) 1.25 mg Q4R INH 10/11/16 20:00 11/10/16 19:59 10/13/16 03:31 1.25 MG Levalbuterol (Xopenex 1.25MG/ 0.5ML Neb) 1.25 mg Q2H PRN INH 10/11/16 18:45 11/10/16 18:44 Ipratropium [place] (Atrovent 0.02% 0.5MG/2.5ML Neb) 0.5 mg Q2H PRN INH 10/11/16 18:45 11/10/16 18:44 Ioversol (Optiray 320) 100 ml UD PRN IV 10/11/16 19:15 10/15/16 19:14 Azithromycin (Zithromax Tab) 250 mg QAM PO 10/12/16 14:00 10/19/16 08:59 10/12/16 14:15 250 MG Roflumilast (Daliresp Tab) 500 mcg DAILY PO 10/13/16 09:00 11/12/16 08:59 Enteral Nutritional Formula (Boost Plus Vanilla) 1 can TIDM PO 10/12/16 16:45 11/11/16 16:44 10/12/16 16:58 1 CAN I & O: 24-Hour Column 10/13/16 07:59 Intake Total 680 ml Output Total 650 ml Balance 30 ml Vital Signs: Date Time Temp Pulse Resp B/P Pulse Ox O2 Delivery O2 Flow Rate FiO2 10/13/16 07:46 36.3 82 20 130/77 98 BiPAP 10/13/16 06:07 84 97 30 10/13/16 04:00 97 BiPAP 30 10/13/16 03:41 36.4 86 24 118/86 97 BiPAP 10/13/16 03:32 78 97 30 10/13/16 03:31 78 16 97 BiPAP/CPAP 30 10/13/16 00:04 95 16 97 BiPAP/CPAP 30 10/13/16 00:01 97 BiPAP 30 10/12/16 23:23 36.5 91 22 121/79 95 Nasal Cannula 2.0 10/12/16 23:20 95 97 30 10/12/16 20:27 96 16 96 Nasal Cannula 2.0 10/12/16 20:00 95 BiPAP 30 10/12/16 19:27 36.5 89 18 131/82 95 BiPAP 10/12/16 16:00 90 12 97 BiPAP/CPAP 30 10/12/16 16:00 BiPAP 30 10/12/16 15:42 36.4 87 20 126/78 95 BiPAP 10/12/16 12:32 36.7 92 123/76 97 10/12/16 12:00 BiPAP 30 10/12/16 11:15 80 12 97 BiPAP/CPAP 30 10/12/16 11:15 80 97 30 10/12/16 08:51 96 Nasal Cannula 2.0 10/12/16 08:00 BiPAP 30 10/12/16 07:58 35.8 68 20 126/82 97 BiPAP 30 68 Laboratory Results: Last 24 Hours Test 10/12/16 08:11 10/13/16 07:15 Total Creatine Kinase 51 U/L Creatine Kinase MB 1.5 ng/ml Creatine Kinase MB Ratio 2.9 Troponin I < 0.015 ng/ml
[2016-10-13] MEDS: CHOLECALCIFEROL 1000 INTER.UNIT TAB PO SCH (08:21)
[2016-10-13] MEDS: GUAIFENESIN 600 MG TABCR PO SCH ×2 (08:21→20:35)
[2016-10-13] MEDS: MULTIVITAMIN TAB PO SCH (08:22)
[2016-10-13] MEDS: ROFLUMILAST 500 MCG TAB PO SCH (08:22)
[2016-10-13] MEDS: BOOST PLUS VANILLA PO SCH ×6 (08:22→17:52)
[2016-10-13 08:44] LABS: BUN/CREATININE RATIO 38.5 (10-20); CALCIUM 8.6 mg/dl (8.5-10.1); CREATININE 0.84 mg/dl (0.60-1.40); MAGNESIUM 2.5 mg/dl (1.8-2.4); POTASSIUM 4.8 mmol/L (3.5-5.1)
[2016-10-13] MEDS: AZITHROMYCIN 250 MG TAB PO SCH (08:56)
[2016-10-13] MEDS: METHYLPREDNISOLONE IV 40 MG in SYRINGE 0 ML IV SCH ×2 (08:56→17:52)
[2016-10-13] MEDS: ENOXAPARIN 40 MG/0.4 ML SYR SQ SCH (17:52)
[2016-10-13] MEDS: DOXAZosin MESYLATE TAB 4 MG TAB PO SCH (20:36)
--- NOTE | 2016-10-13 22:34 | Progress Note ---
Internal Med Progress Note Date of Service: Oct 13, 2016. Provider Documentation: SUBJECTIVE: respiratory status remains stable cough has improved nocturnal pulse oximetry ordered by pulmonology for Bipap on discharge OBJECTIVE: Vital Signs-as noted below Exam: General-cachectic , no sign of distress, pleasant Eyes-sclera non icteric ENT-dry oral mucosa Neck-no thyromegaly Lungs-poor air entry , no wheeze, improved auscultation form prior Heart-regular S1/S2 Abdomen-soft, non tender Extremities-no lower ext edema Neuro-no focal neurological deficit , anxious Lab data as noted below. 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 cont IV Solu Medrol to 60 mg q8 hrs appreciate input form Pulmonology on Xopenex neb tx scheduled q 4hrs and Q 2hrs PRN Abx changed to Zithromax 250 mg daily -will need to be on chronic therapy -added Daliresp /PDE4 inhibitor- to reduce number of COPD exacerbation in setting of advanced /End stage bullous emphysema CT chest -no PE severe emphysematous disease very poor prognosis given advanced underlying pulmonary disease , cont Bipap while in hospital with break for meals only Nocturnal pulse oximetry to asses for Bipap on discharge Had PFT done at [facility] clinic on 09/16/16 : shows severe compromised lung capacity FEV1 21 % reduced FEV1/FVC ratio evidence of severe air trapping based on the increased RV TLC ratio diffusion capacity severe reduced Flow volume loop is consistent with severe obstructive lung disease with now significant bronchodilator response present very poor prognosis pt will be referred to [facility] for lung transplant evaluation on discharge HX PULMONARY NODULES - had continued out pt follow up -noted to be stable by Bronchoscopy on 04/07 and 04/26/[address] chest monitoring since 2013 CT chest with contrast ordered this admission for progressive respiratory failure R/O PE BPH - on doxazosin HYPOTHYROIDISM - continue [place] thyroid CACHEXIA/LOW BMI : possible secondary to underlying severe lung disease /advanced COPD cont respiratory support dietary consult requested side effect of Daliresp -wt loss updated to pt and family by pulmonology Daliresp recommended to reduce COPD exacerbation with severe pulmonary disease given severe of COPD and life threatening effect with each COPD exacerbation / respiratory failure -benefit of tx out weight the side effect DVT PROPHYLAXIS moderate to High risk - SQ Lovenox FULL CODE DISPOSITION lives at [facility] residential in [facility] will need PT/OT eval prior to discharge Vital Signs: Date Time Temp Pulse Resp B/P Pulse Ox O2 Delivery O2 Flow Rate FiO2 10/13/16 23:21 36.8 88 22 126/79 90 Room Air 10/13/16 20:54 79 16 97 BiPAP/CPAP 24 10/13/16 20:00 93 BiPAP 10/13/16 19:49 36.4 92 18 127/79 93 BiPAP 10/13/16 16:16 88 98 30 10/13/16 16:13 88 16 98 BiPAP/CPAP 30 10/13/16 16:00 BiPAP 30 10/13/16 15:20 36.4 86 22 117/69 96 BiPAP 10/13/16 12:01 36.8 93 20 122/76 95 BiPAP 10/13/16 12:00 BiPAP 30 10/13/16 11:41 89 16 96 BiPAP/CPAP 30 10/13/16 08:00 BiPAP 30 10/13/16 07:46 36.3 82 20 130/77 98 BiPAP 10/13/16 07:08 83 16 98 BiPAP/CPAP 30 10/13/16 06:07 84 97 30 10/13/16 04:00 97 BiPAP 30 10/13/16 03:41 36.4 86 24 118/86 97 BiPAP 10/13/16 03:32 78 97 30 10/13/16 03:31 78 16 97 BiPAP/CPAP 30 10/13/16 00:04 95 16 97 BiPAP/CPAP 30 10/13/16 00:01 97 BiPAP 30 Lab Results: Results Past 24 Hours Test 10/13/16 07:15 Range/Units Sodium Level 141 136-145 mmol/L Potassium Level 4.8 3.5-5.1 mmol/L Chloride Level 102 98-107 mmol/L Carbon Dioxide Level 31 21-32 mmol/L Anion Gap 8.0 3-11 mmol/L Blood Urea Nitrogen 32 7-18 mg/dl Creatinine 0.84 0.60-1.40 mg/dl Est Creatinine Clear Calc Drug Dose 67.2 ml/min Estimated GFR () 102.8 Estimated GFR (Non- 88.7 BUN/Creatinine Ratio 38.5 10-20 Random Glucose 133 70-99 mg/dl Calcium Level 8.6 8.5-10.1 mg/dl Magnesium Level 2.5 1.8-2.4 mg/dl
[2016-10-14] VITALS (12 sets, daily range): BP systolic 125–141; BP diastolic 72–82; PULSE 81–100; TEMP 36.5–37; O2SAT 90–98
[2016-10-14] MEDS: METHYLPREDNISOLONE IV 40 MG in SYRINGE 0 ML IV SCH ×3 (02:04→18:13)
[2016-10-14] MEDS: IPRATROPIUM BROMIDE NEB SOLN 0.02% 2.5 ML VIAL INH SCH ×6 (03:02→19:31)
[2016-10-14] MEDS: LEVALBUTEROL 1.25MG/0.5ML NEB INH SCH ×6 (03:02→19:31)
[2016-10-14] MEDS: ARMOUR THYROID 30 MG TAB PO SCH (05:42)
[2016-10-14 07:35] LABS: BUN/CREATININE RATIO 44.1 (10-20); CALCIUM 8.5 mg/dl (8.5-10.1); CREATININE 0.74 mg/dl (0.60-1.40); MAGNESIUM 2.5 mg/dl (1.8-2.4); POTASSIUM 4.5 mmol/L (3.5-5.1)
[2016-10-14] MEDS: GUAIFENESIN 600 MG TABCR PO SCH ×2 (07:39→20:57)
[2016-10-14] MEDS: AZITHROMYCIN 250 MG TAB PO SCH (07:39)
[2016-10-14] MEDS: ROFLUMILAST 500 MCG TAB PO SCH (07:39)
[2016-10-14] MEDS: CHOLECALCIFEROL 1000 INTER.UNIT TAB PO SCH (07:40)
[2016-10-14] MEDS: MULTIVITAMIN TAB PO SCH (07:40)
[2016-10-14] MEDS: BOOST PLUS VANILLA PO SCH ×6 (07:40→17:43)
--- NOTE | 2016-10-14 09:01 | Progress Note ---
Subjective Date of Service: Oct 14, 2016. Subjective Pt evaluation today including: conversation w/ patient, physical exam, lab review, review of studies, review of inpatient medication list Saw/examined the patient in room 241 +pursed breathing does not have oxygen on currently while he is eating breakfast breathing is slightly improved as per patient, but cannot complete sentences due to shortness of breath denies chest pain, denies fevers/chills Problem List Medical Problems: (1) Acute exacerbation of emphysema Status: Acute (2) Failure of outpatient treatment Status: Acute Review of Systems Constitutional: No chills, No fever Respiratory: + dyspnea at rest, + dyspnea on exertion, + shortness of breath, No cough, No sputum, No wheezing Cardiac: No chest pain, No edema, No palpitations Abdomen: No diarrhea, No nausea, No pain, No vomiting Medications Current Inpatient Medications Medications (Trade) Dose Ordered Sig/William Route Start Time Stop Time Status Last Admin Dose Admin Enoxaparin Sodium (Lovenox Inj) 40 mg Q24H SQ 10/09/16 17:00 11/08/16 16:59 10/13/16 17:52 40 MG Acetaminophen (Tylenol Tab) 650 mg Q4H PRN PO 10/09/16 13:15 11/08/16 13:14 Ondansetron HCl (Zofran Inj) 4 mg Q6H PRN IV 10/09/16 13:15 11/08/16 13:14 Doxazosin Mesylate (Cardura Tab) 4 mg HS PO 10/09/16 21:00 11/08/16 20:59 10/13/16 20:36 4 MG Multivitamins (Multivitamin Tab) 1 tab DAILY PO 10/10/16 09:00 11/09/16 08:59 10/14/16 07:40 1 TAB Thyroid ([place] Thyroid Tab) 60 mg DAILYBB PO 10/10/16 06:00 11/09/16 06:59 10/14/16 05:42 60 MG Cholecalciferol (Vitamin D Tab) 2,000 inter.unit DAILY PO 10/10/16 09:00 11/09/16 08:59 10/14/16 07:40 2,000 INTER.UNIT Guaifenesin (Mucinex Contr Rel Tab) 600 mg Q12 PO 10/11/16 12:15 11/10/16 12:14 10/14/16 07:39 600 MG Lorazepam (Ativan Tab) 0.5 mg Q8 PRN PO 10/11/16 18:30 11/10/16 18:29 Ipratropium [place] (Atrovent 0.02% 0.5MG/2.5ML Neb) 0.5 mg Q4R INH 10/11/16 20:00 11/10/16 19:59 10/14/16 08:15 0.5 MG Levalbuterol (Xopenex 1.25MG/ 0.5ML Neb) 1.25 mg Q4R INH 10/11/16 20:00 11/10/16 19:59 10/14/16 08:15 1.25 MG Levalbuterol (Xopenex 1.25MG/ 0.5ML Neb) 1.25 mg Q2H PRN INH 10/11/16 18:45 11/10/16 18:44 Ipratropium [place] (Atrovent 0.02% 0.5MG/2.5ML Neb) 0.5 mg Q2H PRN INH 10/11/16 18:45 11/10/16 18:44 Ioversol (Optiray 320) 100 ml UD PRN IV 10/11/16 19:15 10/15/16 19:14 Azithromycin (Zithromax Tab) 250 mg QAM PO 10/12/16 14:00 10/19/16 08:59 10/14/16 07:39 250 MG Roflumilast (Daliresp Tab) 500 mcg DAILY PO 10/13/16 09:00 11/12/16 08:59 10/14/16 07:39 500 MCG Enteral Nutritional Formula 1 can 1 can TIDM PO 10/12/16 16:45 11/11/16 16:44 10/14/16 07:40 1 CAN Methylprednisolone Sodium Succinate/ Syringe (Solu-Medrol IV/ Syringe) 0.64 ml @ 1.5 mls/min Q8H IV 10/13/16 10:00 11/12/16 15:59 10/14/16 07:40 1.5 MLS/MIN Objective Vital Signs Date Time Temp Pulse Resp B/P Pulse Ox O2 Delivery O2 Flow Rate FiO2 10/14/16 08:19 36.8 83 16 133/78 98 10/14/16 07:20 81 16 92 Room Air 10/14/16 04:00 Room Air 10/14/16 03:54 36.8 83 20 128/72 92 Room Air 10/13/16 23:59 90 Room Air 10/13/16 23:21 36.8 88 22 126/79 90 Room Air 10/13/16 20:54 79 16 97 BiPAP/CPAP 24 10/13/16 20:00 93 BiPAP 10/13/16 19:49 36.4 92 18 127/79 93 BiPAP 10/13/16 16:16 88 98 30 10/13/16 16:13 88 16 98 BiPAP/CPAP 30 10/13/16 16:00 BiPAP 30 10/13/16 15:20 36.4 86 22 117/69 96 BiPAP 10/13/16 12:01 36.8 93 20 122/76 95 BiPAP 10/13/16 12:00 BiPAP 30 10/13/16 11:41 89 16 96 BiPAP/CPAP 30 Physical Exam General Appearance: + mild distress (mild respiratory distress), + thin Respiratory/Chest: + respiratory distress (mild respiratory distress with pursed breathing and inability to form complete sentences without getting short of breath), + decreased breath sounds (decreased air movement), + accessory muscle use Abdomen: non tender, soft Extremities: normal inspection, no pedal edema Neurologic/Psychiatric: no motor/sensory deficits, alert, normal mood/affect Skin: normal color Laboratory Results Last 24 Hours Test 10/14/16 06:45 Sodium Level 141 mmol/L Potassium Level 4.5 mmol/L Chloride Level 103 mmol/L Carbon Dioxide Level 29 mmol/L Anion Gap 9.0 mmol/L Blood Urea Nitrogen 33 mg/dl Creatinine 0.74 mg/dl Est Creatinine Clear Calc Drug Dose 75.7 ml/min Estimated GFR () 108.3 Estimated GFR (Non- 93.5 BUN/Creatinine Ratio 44.1 Random Glucose 120 mg/dl Calcium Level 8.5 mg/dl Magnesium Level 2.5 mg/dl Assessment and Plan This is a 70 year old male with PMH of severe emphysema who has oxygen at home but is noncompliant as well as a history of hypothyroidism presents with acute shortness of breath. Patient presented to the ER on 10/09 for shortness of breath and was admitted due to exacerbation of COPD/emphysema - he was started on nebs, doxycycline, solu-medrol with little improvement. Patient had a CTA to r/o PE on 10/11 - showing some subcentimeter pulmonary nodules but no pulmonary embolism. An echo was done on 10/12 - showing some right ventricular dilatation. Daliresp started, doxycycline was changed to azithro and the steroids were tapered upwards. Acute on Chronic Respiratory Failure secondary to Acute COPD exacerbation CXR and Chest CT to r/o PE were performed - showing severe pulmonary emphysema patient with FEV1 ~ 21% patient's steroids were tapered down on 10/13 to 40mg q8 doxycycline was converted to azithromycin May need long-term azithro as well as steroids, pending clinical course here was non-compliant with oxygen therapy at home - may need long-term and continuous therapy Daliresp started and will continue on discharge Nebulizers as needed May need bipap nocturnally - will discuss with pulmonology Pulmonary rehab, outpatient pulmonary follow-up upon discharge Will transfer out of tele to medical floor with continuous pulse oximeter Pulmonary Nodules to have repeat Chest CT in 6 months Hypothyroidism TSH wnl continue [place] thyroid replacement BPH continue Cardura DVT ppx Lovenox FULL CODE
[2016-10-14] MEDS: ENOXAPARIN 40 MG/0.4 ML SYR SQ SCH (17:44)
[2016-10-14] MEDS: DOXAZosin MESYLATE TAB 4 MG TAB PO SCH (20:57)
[2016-10-15] VITALS (18 sets, daily range): BP systolic 120–135; BP diastolic 76–83; PULSE 84–103; TEMP 36.4–36.9; O2SAT 93–97
[2016-10-15] MEDS: IPRATROPIUM BROMIDE NEB SOLN 0.02% 2.5 ML VIAL INH SCH ×7 (00:19→23:32)
[2016-10-15] MEDS: LEVALBUTEROL 1.25MG/0.5ML NEB INH SCH ×7 (00:19→23:32)
[2016-10-15] MEDS: METHYLPREDNISOLONE IV 40 MG in SYRINGE 0 ML IV SCH ×3 (02:40→20:26)
[2016-10-15 06:32] LABS: MEAN CELL VOLUME 95.2 fL (80-100); MEAN CORPUSCULAR HEMOGLOBIN 31.9 pg (25-34); MEAN CORPUSCULAR HGB CONC 33.5 g/dl (32-36); MEAN PLATELET VOLUME 9.5 fL (7.4-10.4); PLATELET COUNT 229 K/uL (130-400); RED BLOOD COUNT 4.83 M/uL (4.7-6.1); WHITE BLOOD COUNT 13.64 K/uL (4.8-10.8)
[2016-10-15 07:00] LABS: BUN/CREATININE RATIO 50.7 (10-20); CALCIUM 8.7 mg/dl (8.5-10.1); CREATININE 0.71 mg/dl (0.60-1.40); MAGNESIUM 2.5 mg/dl (1.8-2.4); POTASSIUM 4.3 mmol/L (3.5-5.1)
[2016-10-15] MEDS: ARMOUR THYROID 30 MG TAB PO SCH (07:41)
[2016-10-15] MEDS: BOOST PLUS VANILLA PO SCH ×6 (08:05→18:34)
[2016-10-15] MEDS: MULTIVITAMIN TAB PO SCH (08:07)
[2016-10-15] MEDS: CHOLECALCIFEROL 1000 INTER.UNIT TAB PO SCH (08:07)
[2016-10-15] MEDS: ROFLUMILAST 500 MCG TAB PO SCH (08:07)
[2016-10-15] MEDS: GUAIFENESIN 600 MG TABCR PO SCH ×2 (08:07→20:27)
[2016-10-15] MEDS: AZITHROMYCIN 250 MG TAB PO SCH (08:07)
--- NOTE | 2016-10-15 11:56 | Pulmonology Progress Note ---
Pulmonary Progress Note Date of Service Oct 15, 2016. Attending Dr. Hidalgo Subjective Feels well at rest. Marked dyspnea and light-headedness on ambulation to the restroom without supplementaryO2. Has been using BiPAP with improvement. Objective 70-yo male admitted to [facility] 10/09/16 from [facility] with 1-week history of dyspnea and cough persistent/progressive despite outpatient course of Augmentin and prednisone. Prior records were reviewed. 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 Patient was recently admitted to [facility] treated for COPD exacerbation. He was discharged to [facility] and doing well until apx 1-week [facility] when he developed dyspnea and cough progressive despite outpatient course of Augmentin and Steroid. CTA 10/11: no PE, severe emphysema, bronchial wall thickening, and stable pulmonary nodules. Echocardiogram: 10/12: EF 60-65%, grade diastolic dysfunction without any significant valvular dysfunction. He was treated with doxycycline then transitioned to Azithromycin (day #4), nebulized bronchodilators, IV steroid, expectorants and Daliresp. Additionally, he has been using BiPAP to aid in work of breathing. 10/14/16 pulse oximetry study was not consistent with prolonged desaturation. ABG : 10/12/16: 7.48/45/99-30%/31. Co2 - elevated to 49, highest documented. Today: - 93% - RA, slept on BiPAP - Methylprednisolone decreased to [id number] dosing - Azithromycin day #4 - Tolerating Roflumilast - PT/OT consulted - WBC 13.64 in setting of steroid - Hgb/Hct/Plts: 15.4/46/229 - CO2: 28 Physical Exam: Constitutional: Cachectic male lying in hospital bed. No acute distress Head: + facial symmetry Eyes: EOMi, PERRLA, no injection Respiratory: pursed lip-breathing with accessory muscle use. Bilateral wheeze most pronounced at bases. Cough and wheeze provoked with deep inspiration. No rales/rhonchi. CV: RRR, no MRG. Warm and perfused peripherally MSK/Extremiteis: Moving and developed symmetrically. No peripheral edema. Muscle wasting noted. Assessment & Plan 70-year-old admitted with COPD exacerbation: 1. Severe COPD/Emphysema: - Improving with steroid (down-titrated today) and bronchodilators - Tolerating roflumilast: continue post discharge - Nutrition encouraged - Continue 250mg azithromycin daily - repeat EKG for QTc with chronic use ( order placed) - Will need pulmonary rehabilitation as outpatient - Has been using BiPAP for WOB - he does not qualify for BiPAP but will attempt to determine if he may benefit / quality from home trilogy unit (TBD). 2. Pulmonary Nodules in high-risk patient: CT chest without contrast 03/2017, then, if stable then in 07/2018. Patient discussed reviewed and plan agreed upon Data Medications: Current Inpatient Medications Medications (Trade) Dose Ordered Sig/William Route Start Time Stop Time Status Last Admin Dose Admin Enoxaparin Sodium (Lovenox Inj) 40 mg Q24H SQ 10/09/16 17:00 11/08/16 16:59 10/14/16 17:44 40 MG Acetaminophen (Tylenol Tab) 650 mg Q4H PRN PO 10/09/16 13:15 11/08/16 13:14 Ondansetron HCl (Zofran Inj) 4 mg Q6H PRN IV 10/09/16 13:15 11/08/16 13:14 Doxazosin Mesylate (Cardura Tab) 4 mg HS PO 10/09/16 21:00 11/08/16 20:59 10/14/16 20:57 4 MG Multivitamins (Multivitamin Tab) 1 tab DAILY PO 10/10/16 09:00 11/09/16 08:59 10/15/16 08:07 1 TAB Thyroid ([place] Thyroid Tab) 60 mg DAILYBB PO 10/10/16 06:00 11/09/16 06:59 10/15/16 07:41 60 MG Cholecalciferol (Vitamin D Tab) 2,000 inter.unit DAILY PO 10/10/16 09:00 11/09/16 08:59 10/15/16 08:07 2,000 INTER.UNIT Guaifenesin (Mucinex Contr Rel Tab) 600 mg Q12 PO 10/11/16 12:15 11/10/16 12:14 10/15/16 08:07 600 MG Lorazepam (Ativan Tab) 0.5 mg Q8 PRN PO 10/11/16 18:30 11/10/16 18:29 Ipratropium Jbphh (Atrovent 0.02% 0.5MG/2.5ML Neb) 0.5 mg Q4R INH 10/11/16 20:00 11/10/16 19:59 10/15/16 06:50 0.5 MG Levalbuterol (Xopenex 1.25MG/ 0.5ML Neb) 1.25 mg Q4R INH 10/11/16 20:00 11/10/16 19:59 10/15/16 06:51 1.25 MG Levalbuterol (Xopenex 1.25MG/ 0.5ML Neb) 1.25 mg Q2H PRN INH 10/11/16 18:45 11/10/16 18:44 Ipratropium Jbphh (Atrovent 0.02% 0.5MG/2.5ML Neb) 0.5 mg Q2H PRN INH 10/11/16 18:45 11/10/16 18:44 Ioversol (Optiray 320) 100 ml UD PRN IV 10/11/16 19:15 10/15/16 19:14 Azithromycin (Zithromax Tab) 250 mg QAM PO 10/12/16 14:00 10/19/16 08:59 10/15/16 08:07 250 MG Roflumilast 500 mcg 500 mcg DAILY PO 10/13/16 09:00 11/12/16 08:59 10/15/16 08:07 500 MCG Methylprednisolone Sodium Succinate/ Syringe (Solu-Medrol IV/ Syringe) 0.64 ml @ 1.5 mls/min Q12 IV 10/15/16 09:00 11/14/16 08:59 10/15/16 09:31 1.5 MLS/MIN Enteral Nutritional Formula (Boost Plus Vanilla) 1 can TIDM PO 10/15/16 12:00 11/11/16 16:44 10/15/16 11:22 1 CAN I & O: 24-Hour Column 10/15/16 08:00 Intake Total 150 ml Output Total 275 ml Balance -125 ml Vital Signs: Date Time Temp Pulse Resp B/P Pulse Ox O2 Delivery O2 Flow Rate FiO2 10/15/16 09:49 93 Room Air 10/15/16 08:00 Room Air 10/15/16 07:57 36.5 101 20 135/82 93 Room Air 10/15/16 06:51 92 97 30 10/15/16 06:51 92 17 97 BiPAP/CPAP 24 10/15/16 03:58 86 96 30 10/15/16 03:57 86 19 95 BiPAP/CPAP 24 10/15/16 01:00 96 BiPAP 2.0 40 10/15/16 00:22 98 11 96 BiPAP/CPAP 40 10/15/16 00:19 98 96 30 10/14/16 22:57 36.6 100 16 125/80 90 Room Air 10/14/16 19:32 87 18 94 BiPAP/CPAP 24 10/14/16 19:31 87 94 30 10/14/16 15:45 98 16 96 Room Air 10/14/16 15:39 Room Air BiPAP 10/14/16 15:32 36.5 92 16 141/82 91 Room Air 10/14/16 13:29 100 93 10/14/16 11:41 100 16 93 Room Air Laboratory Results: Last 24 Hours Test 10/15/16 05:22 White Blood Count 13.64 K/uL Red Blood Count 4.83 M/uL Hemoglobin 15.4 g/dL Hematocrit 46.0 % Mean Corpuscular Volume 95.2 fL Mean Corpuscular Hemoglobin 31.9 pg Mean Corpuscular Hemoglobin Concent 33.5 g/dl RDW Standard Deviation 48.2 fL RDW Coefficient of Variation 13.8 % Platelet Count 229 K/uL Mean Platelet Volume 9.5 fL Sodium Level 140 mmol/L Potassium Level 4.3 mmol/L Chloride Level 102 mmol/L Carbon Dioxide Level 28 mmol/L Anion Gap 10.0 mmol/L Blood Urea Nitrogen 36 mg/dl Creatinine 0.71 mg/dl Est Creatinine Clear Calc Drug Dose 77.5 ml/min Estimated GFR () 110.2 Estimated GFR (Non- 95.1 BUN/Creatinine Ratio 50.7 Random Glucose 129 mg/dl Calcium Level 8.7 mg/dl Magnesium Level 2.5 mg/dl
--- NOTE | 2016-10-15 12:52 | Progress Note ---
Subjective Date of Service: Oct 15, 2016. Subjective Pt evaluation today including: conversation w/ patient, conversation w/ family , physical exam, lab review, review of studies, conversation w/ home service consultant, review of inpatient medication list Saw/examined the patient in room 254 breathing with pursed lips +thin, +cachectic +sob with exertion no chest pain Problem List Medical Problems: (1) Acute exacerbation of emphysema Status: Acute (2) Failure of outpatient treatment Status: Acute Review of Systems Constitutional: No chills, No fever Respiratory: + dyspnea at rest, + dyspnea on exertion, + shortness of breath, + wheezing, No cough, No hemoptysis, No sputum Cardiac: No chest pain, No edema, No palpitations Abdomen: No diarrhea, No nausea, No pain, No vomiting Medications Current Inpatient Medications Medications (Trade) Dose Ordered Sig/William Route Start Time Stop Time Status Last Admin Dose Admin Enoxaparin Sodium (Lovenox Inj) 40 mg Q24H SQ 10/09/16 17:00 11/08/16 16:59 10/14/16 17:44 40 MG Acetaminophen (Tylenol Tab) 650 mg Q4H PRN PO 10/09/16 13:15 11/08/16 13:14 Ondansetron HCl (Zofran Inj) 4 mg Q6H PRN IV 10/09/16 13:15 11/08/16 13:14 Doxazosin Mesylate (Cardura Tab) 4 mg HS PO 10/09/16 21:00 11/08/16 20:59 10/14/16 20:57 4 MG Multivitamins (Multivitamin Tab) 1 tab DAILY PO 10/10/16 09:00 11/09/16 08:59 10/15/16 08:07 1 TAB Thyroid ([place] Thyroid Tab) 60 mg DAILYBB PO 10/10/16 06:00 11/09/16 06:59 10/15/16 07:41 60 MG Cholecalciferol (Vitamin D Tab) 2,000 inter.unit DAILY PO 10/10/16 09:00 11/09/16 08:59 10/15/16 08:07 2,000 INTER.UNIT Guaifenesin (Mucinex Contr Rel Tab) 600 mg Q12 PO 10/11/16 12:15 11/10/16 12:14 10/15/16 08:07 600 MG Ipratropium [place] (Atrovent 0.02% 0.5MG/2.5ML Neb) 0.5 mg Q4R INH 10/11/16 20:00 11/10/16 19:59 10/15/16 11:59 0.5 MG Levalbuterol (Xopenex 1.25MG/ 0.5ML Neb) 1.25 mg Q4R INH 10/11/16 20:00 11/10/16 19:59 10/15/16 11:59 1.25 MG Levalbuterol (Xopenex 1.25MG/ 0.5ML Neb) 1.25 mg Q2H PRN INH 10/11/16 18:45 11/10/16 18:44 Ipratropium [place] (Atrovent 0.02% 0.5MG/2.5ML Neb) 0.5 mg Q2H PRN INH 10/11/16 18:45 11/10/16 18:44 Ioversol (Optiray 320) 100 ml UD PRN IV 10/11/16 19:15 10/15/16 19:14 Azithromycin (Zithromax Tab) 250 mg QAM PO 10/12/16 14:00 10/19/16 08:59 10/15/16 08:07 250 MG Roflumilast 500 mcg 500 mcg DAILY PO 10/13/16 09:00 11/12/16 08:59 10/15/16 08:07 500 MCG Methylprednisolone Sodium Succinate/ Syringe (Solu-Medrol IV/ Syringe) 0.64 ml @ 1.5 mls/min Q12 IV 10/15/16 09:00 11/14/16 08:59 10/15/16 09:31 1.5 MLS/MIN Enteral Nutritional Formula (Boost Plus Vanilla) 1 can TIDM PO 10/15/16 12:00 11/11/16 16:44 10/15/16 11:22 1 CAN Alprazolam (Xanax Tab) 0.5 mg Q8H PRN PO 10/15/16 11:45 11/14/16 11:44 Objective Vital Signs Date Time Temp Pulse Resp B/P Pulse Ox O2 Delivery O2 Flow Rate FiO2 10/15/16 11:59 101 22 97 Nasal Cannula 2.0 10/15/16 11:39 36.9 101 18 125/82 94 Room Air 10/15/16 09:49 93 Room Air 10/15/16 08:00 Room Air 10/15/16 07:57 36.5 101 20 135/82 93 Room Air 10/15/16 06:51 92 97 30 10/15/16 06:51 92 17 97 BiPAP/CPAP 24 10/15/16 03:58 86 96 30 10/15/16 03:57 86 19 95 BiPAP/CPAP 24 10/15/16 01:00 96 BiPAP 2.0 40 10/15/16 00:22 98 11 96 BiPAP/CPAP 40 10/15/16 00:19 98 96 30 10/14/16 22:57 36.6 100 16 125/80 90 Room Air 10/14/16 19:32 87 18 94 BiPAP/CPAP 24 10/14/16 19:31 87 94 30 10/14/16 15:45 98 16 96 Room Air 10/14/16 15:39 Room Air BiPAP 10/14/16 15:32 36.5 92 16 141/82 91 Room Air 10/14/16 13:29 100 93 Physical Exam General Appearance: + mild distress, + cachetic, + thin Respiratory/Chest: + respiratory distress (decreased breath sounds, decreased air movement; air trapping), + decreased breath sounds, + accessory muscle use ( +pursed lips breathing) Cardiovascular: regular rate, rhythm, no edema, no murmur Extremities: no pedal edema Neurologic/Psychiatric: alert, normal mood/affect Laboratory Results Last 24 Hours Test 10/15/16 05:22 White Blood Count 13.64 K/uL Red Blood Count 4.83 M/uL Hemoglobin 15.4 g/dL Hematocrit 46.0 % Mean Corpuscular Volume 95.2 fL Mean Corpuscular Hemoglobin 31.9 pg Mean Corpuscular Hemoglobin Concent 33.5 g/dl RDW Standard Deviation 48.2 fL RDW Coefficient of Variation 13.8 % Platelet Count 229 K/uL Mean Platelet Volume 9.5 fL Sodium Level 140 mmol/L Potassium Level 4.3 mmol/L Chloride Level 102 mmol/L Carbon Dioxide Level 28 mmol/L Anion Gap 10.0 mmol/L Blood Urea Nitrogen 36 mg/dl Creatinine 0.71 mg/dl Est Creatinine Clear Calc Drug Dose 77.5 ml/min Estimated GFR () 110.2 Estimated GFR (Non- 95.1 BUN/Creatinine Ratio 50.7 Random Glucose 129 mg/dl Calcium Level 8.7 mg/dl Magnesium Level 2.5 mg/dl Assessment and Plan This is a 70 year old male with PMH of severe emphysema who has oxygen at home but is noncompliant as well as a history of hypothyroidism presents with acute shortness of breath. Patient presented to the ER on 10/09 for shortness of breath and was admitted due to exacerbation of COPD/emphysema - he was started on nebs, doxycycline, solu-medrol with little improvement. Patient had a CTA to r/o PE on 10/11 - showing some subcentimeter pulmonary nodules but no pulmonary embolism. An echo was done on 10/12 - showing some right ventricular dilatation. Daliresp started, doxycycline was changed to azithro and the steroids were tapered upwards. Acute on Chronic Respiratory Failure secondary to Acute COPD exacerbation 10/15 severe pulmonary emphysema Steroids tapered to 40mg q12 continue azithro continue nebs as needed, O2 therapy Daliresp long-term steroids 10/[address] to r/o PE were performed - showing severe pulmonary emphysema patient with FEV1 ~ 21% patient's steroids were tapered down on 10/13 to 40mg q8 doxycycline was converted to azithromycin May need long-term azithro as well as steroids, pending clinical course here was non-compliant with oxygen therapy at home - may need long-term and continuous therapy Daliresp started and will continue on discharge Nebulizers as needed May need bipap nocturnally - will discuss with pulmonology Pulmonary rehab, outpatient pulmonary follow-up upon discharge Will transfer out of tele to medical floor with continuous pulse oximeter Pulmonary Nodules to have repeat Chest CT in 6 months Hypothyroidism TSH wnl continue [place] thyroid replacement BPH continue Cardura DVT ppx Lovenox FULL CODE
[2016-10-15] MEDS: ENOXAPARIN 40 MG/0.4 ML SYR SQ SCH (18:34)
[2016-10-15] MEDS: DOXAZosin MESYLATE TAB 4 MG TAB PO SCH (20:27)
[2016-10-16] VITALS (8 sets, daily range): BP systolic 111–123; BP diastolic 75–76; PULSE 57–99; TEMP 36.5–36.8; O2SAT 93–97
[2016-10-16] MEDS: IPRATROPIUM BROMIDE NEB SOLN 0.02% 2.5 ML VIAL INH SCH ×5 (04:00→19:40)
[2016-10-16] MEDS: LEVALBUTEROL 1.25MG/0.5ML NEB INH SCH ×5 (04:00→19:40)
[2016-10-16] MEDS: ARMOUR THYROID 30 MG TAB PO SCH (06:36)
[2016-10-16 07:15] LABS: HEMATOCRIT 43.5 % (42-52); MEAN CELL VOLUME 94.6 fL (80-100); MEAN CORPUSCULAR HEMOGLOBIN 32.4 pg (25-34); MEAN CORPUSCULAR HGB CONC 34.3 g/dl (32-36); MEAN PLATELET VOLUME 9.2 fL (7.4-10.4); PLATELET COUNT 215 K/uL (130-400); WHITE BLOOD COUNT 14.58 K/uL (4.8-10.8)
[2016-10-16 07:45] LABS: BUN/CREATININE RATIO 49.2 (10-20); CALCIUM 8.4 mg/dl (8.5-10.1); CREATININE 0.66 mg/dl (0.60-1.40); POTASSIUM 4.4 mmol/L (3.5-5.1)
[2016-10-16] MEDS: ROFLUMILAST 500 MCG TAB PO SCH (08:59)
[2016-10-16] MEDS: BOOST PLUS VANILLA PO SCH ×6 (08:59→16:47)
[2016-10-16] MEDS: CHOLECALCIFEROL 1000 INTER.UNIT TAB PO SCH (08:59)
[2016-10-16] MEDS: MULTIVITAMIN TAB PO SCH (08:59)
[2016-10-16] MEDS: GUAIFENESIN 600 MG TABCR PO SCH ×2 (08:59→21:37)
[2016-10-16] MEDS: AZITHROMYCIN 250 MG TAB PO SCH (09:00)
[2016-10-16] MEDS: METHYLPREDNISOLONE IV 40 MG in SYRINGE 0 ML IV SCH ×2 (09:00→21:39)
[2016-10-16] MEDS: ALPRAZOLAM 0.5 MG TAB PO PRN (09:07)
--- NOTE | 2016-10-16 09:20 | Pulmonology Progress Note ---
Pulmonary Progress Note Date of Service Oct 16, 2016. Attending Miguel A Hidalgo Subjective Patient with continued dyspnea at rest as well as dyspnea on exertion with little progress since his admission Objective 70-yo male admitted to [facility] 10/09/16 from [facility] with 1-week history of dyspnea and cough persistent/progressive despite outpatient course of Augmentin and prednisone. Prior records were reviewed. 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 Patient was recently admitted to [facility] treated for COPD exacerbation. He was discharged to [facility] and doing well until apx 1-week [employer] when he developed dyspnea and cough progressive despite outpatient course of Augmentin and Steroid. CTA 10/11: no PE, severe emphysema, bronchial wall thickening, and stable pulmonary nodules. Echocardiogram: 10/12: EF 60-65%, grade diastolic dysfunction without any significant valvular dysfunction. He was treated with doxycycline then transitioned to Azithromycin (day #4), nebulized bronchodilators, IV steroid, expectorants and Daliresp. Additionally, he has been using BiPAP to aid in work of breathing. 10/14/16 pulse oximetry study was not consistent with prolonged desaturation. ABG : 10/12/16: 7.48/45/99-30%/31. Co2 - elevated to 49, highest documented. Today: -SaO2 stable on 2 L nasal cannula, slept on BiPAP -WBC count 15,000 Medications: Solu-Medrol IV 40 mg every 12 hours Roflumilast Azithromycin 250 mg daily Xopenex/Atrovent nebulizers Guaifenesin 600 mg every 12 hours Discontinued medications: Doxycycline 100 mg by mouth twice a day Physical Exam: Constitutional: Cachectic male tripoding notably tachypnea R to the bathroom Head: + facial symmetry Eyes: EOMi, PERRLA, no injection Respiratory: Decreased breath sounds globally CV: Tachycardic no murmurs rubs or gallops appreciated Assessment & Plan 70-year-old admitted with COPD exacerbation: 1. Very Severe COPD/Emphysema: FEV1 21% predicted Medications: Continue current regimen Suggest we transfer the patient to lung transplant center for evaluation 2. Pulmonary Nodules in high-risk patient: CT chest without contrast 03/2017, then, if stable then in 07/2018. #3 leukocytosis: Suggest we obtain chest x-ray at this time and if negative or stable panculture. Patient shows any signs of increased instability reinitiated antibiotics for hospital associated infection. Data Medications: Current Inpatient Medications Medications (Trade) Dose Ordered Sig/William Route Start Time Stop Time Status Last Admin Dose Admin Enoxaparin Sodium (Lovenox Inj) 40 mg Q24H SQ 10/09/16 17:00 11/08/16 16:59 10/15/16 18:34 40 MG Acetaminophen (Tylenol Tab) 650 mg Q4H PRN PO 10/09/16 13:15 11/08/16 13:14 Ondansetron HCl (Zofran Inj) 4 mg Q6H PRN IV 10/09/16 13:15 11/08/16 13:14 Doxazosin Mesylate (Cardura Tab) 4 mg HS PO 10/09/16 21:00 11/08/16 20:59 10/15/16 20:27 4 MG Multivitamins (Multivitamin Tab) 1 tab DAILY PO 10/10/16 09:00 11/09/16 08:59 10/16/16 08:59 1 TAB Thyroid ([place] Thyroid Tab) 60 mg DAILYBB PO 10/10/16 06:00 11/09/16 06:59 10/16/16 06:36 60 MG Cholecalciferol (Vitamin D Tab) 2,000 inter.unit DAILY PO 10/10/16 09:00 11/09/16 08:59 10/16/16 08:59 2,000 INTER.UNIT Guaifenesin (Mucinex Contr Rel Tab) 600 mg Q12 PO 10/11/16 12:15 11/10/16 12:14 10/16/16 08:59 600 MG Ipratropium [place] (Atrovent 0.02% 0.5MG/2.5ML Neb) 0.5 mg Q4R INH 10/11/16 20:00 11/10/16 19:59 10/16/16 07:15 0.5 MG Levalbuterol (Xopenex 1.25MG/ 0.5ML Neb) 1.25 mg Q4R INH 10/11/16 20:00 11/10/16 19:59 10/16/16 07:15 1.25 MG Levalbuterol (Xopenex 1.25MG/ 0.5ML Neb) 1.25 mg Q2H PRN INH 10/11/16 18:45 11/10/16 18:44 Ipratropium [place] (Atrovent 0.02% 0.5MG/2.5ML Neb) 0.5 mg Q2H PRN INH 10/11/16 18:45 11/10/16 18:44 Azithromycin (Zithromax Tab) 250 mg QAM PO 10/12/16 14:00 10/19/16 08:59 10/16/16 09:00 250 MG Roflumilast 500 mcg 500 mcg DAILY PO 10/13/16 09:00 11/12/16 08:59 10/16/16 08:59 500 MCG Methylprednisolone Sodium Succinate/ Syringe (Solu-Medrol IV/ Syringe) 0.64 ml @ 1.5 mls/min Q12 IV 10/15/16 09:00 11/14/16 08:59 10/16/16 09:00 1.5 MLS/MIN Enteral Nutritional Formula (Boost Plus Vanilla) 1 can TIDM PO 10/15/16 12:00 11/11/16 16:44 10/16/16 08:59 1 CAN Alprazolam (Xanax Tab) 0.5 mg Q8H PRN PO 10/15/16 11:45 11/14/16 11:44 10/16/16 09:07 0.5 MG I & O: 24-Hour Column 10/16/16 07:59 Intake Total 1350 ml Balance 1350 ml Vital Signs: Date Time Temp Pulse Resp B/P Pulse Ox O2 Delivery O2 Flow Rate FiO2 10/16/16 07:15 91 18 94 Nasal Cannula 2.0 10/16/16 07:08 36.5 87 18 123/75 93 Room Air 10/16/16 04:00 57 18 97 Nasal Cannula 2.0 10/16/16 00:10 Room Air 10/15/16 23:45 36.6 87 18 120/83 94 Room Air 87 10/15/16 23:33 84 20 96 Nasal Cannula 2.0 10/15/16 19:26 96 22 93 Room Air 10/15/16 17:25 94 BiPAP 10/15/16 15:50 97 95 24 10/15/16 15:50 97 21 95 BiPAP/CPAP 24 10/15/16 15:04 36.4 92 16 122/76 94 BiPAP 10/15/16 14:23 103 96 24 10/15/16 13:41 94 10/15/16 11:59 101 22 97 Nasal Cannula 2.0 10/15/16 11:39 36.9 101 18 125/82 94 Room Air 10/15/16 09:49 93 Room Air Laboratory Results: Last 24 Hours Test 10/16/16 06:56 White Blood Count 14.58 K/uL Red Blood Count 4.60 M/uL Hemoglobin 14.9 g/dL Hematocrit 43.5 % Mean Corpuscular Volume 94.6 fL Mean Corpuscular Hemoglobin 32.4 pg Mean Corpuscular Hemoglobin Concent 34.3 g/dl RDW Standard Deviation 47.0 fL RDW Coefficient of Variation 13.6 % Platelet Count 215 K/uL Mean Platelet Volume 9.2 fL Sodium Level 141 mmol/L Potassium Level 4.4 mmol/L Chloride Level 103 mmol/L Carbon Dioxide Level 29 mmol/L Anion Gap 9.0 mmol/L Blood Urea Nitrogen 32 mg/dl Creatinine 0.66 mg/dl Est Creatinine Clear Calc Drug Dose 80.6 ml/min Estimated GFR () 113.5 Estimated GFR (Non- 98.0 BUN/Creatinine Ratio 49.2 Random Glucose 98 mg/dl Calcium Level 8.4 mg/dl
--- NOTE | 2016-10-16 10:55 | DIAGNOSTIC IMAGING REPORT ---
CHEST ONE VIEW PORTABLE CLINICAL HISTORY: Leukocytosis. Possible pneumonia. COPD exacerbation. COMPARISON STUDY: Chest radiograph and chest CT October 11, 2016. FINDINGS: Severe emphysema is noted. There is no pneumothorax or pleural effusion. No consolidation is identified. Cardiac size is normal. Mediastinal contours are normal. IMPRESSION: Severe emphysema. No consolidation identified. Electronically signed by: Adam Ellis M.D. 10/16/2016 10:54 AM Dictated Date/Time: 10/16/2016 10:53 AM
--- NOTE | 2016-10-16 13:00 | Progress Note ---
Subjective Date of Service: Oct 16, 2016. Subjective Pt evaluation today including: conversation w/ patient, physical exam, lab review, review of studies, conversation w/ insurance consultant, review of inpatient medication list Saw/examined the patient in room 254 +breathing with pursed lips Oxygen currently on; he is laying Problem List Medical Problems: (1) Acute exacerbation of emphysema Status: Acute (2) Failure of outpatient treatment Status: Acute Review of Systems Constitutional: No chills, No fever Respiratory: + dyspnea at rest, + dyspnea on exertion, + shortness of breath, + wheezing, No hemoptysis Cardiac: No chest pain, No edema, No palpitations Medications Current Inpatient Medications Medications (Trade) Dose Ordered Sig/William Route Start Time Stop Time Status Last Admin Dose Admin Enoxaparin Sodium (Lovenox Inj) 40 mg Q24H SQ 10/09/16 17:00 11/08/16 16:59 10/15/16 18:34 40 MG Acetaminophen (Tylenol Tab) 650 mg Q4H PRN PO 10/09/16 13:15 11/08/16 13:14 Ondansetron HCl (Zofran Inj) 4 mg Q6H PRN IV 10/09/16 13:15 11/08/16 13:14 Doxazosin Mesylate (Cardura Tab) 4 mg HS PO 10/09/16 21:00 11/08/16 20:59 10/15/16 20:27 4 MG Multivitamins (Multivitamin Tab) 1 tab DAILY PO 10/10/16 09:00 11/09/16 08:59 10/16/16 08:59 1 TAB Thyroid ([place] Thyroid Tab) 60 mg DAILYBB PO 10/10/16 06:00 11/09/16 06:59 10/16/16 06:36 60 MG Cholecalciferol (Vitamin D Tab) 2,000 inter.unit DAILY PO 10/10/16 09:00 11/09/16 08:59 10/16/16 08:59 2,000 INTER.UNIT Guaifenesin (Mucinex Contr Rel Tab) 600 mg Q12 PO 10/11/16 12:15 11/10/16 12:14 10/16/16 08:59 600 MG Ipratropium [place] (Atrovent 0.02% 0.5MG/2.5ML Neb) 0.5 mg Q4R INH 10/11/16 20:00 11/10/16 19:59 10/16/16 11:33 0.5 MG Levalbuterol (Xopenex 1.25MG/ 0.5ML Neb) 1.25 mg Q4R INH 10/11/16 20:00 11/10/16 19:59 10/16/16 11:33 1.25 MG Levalbuterol (Xopenex 1.25MG/ 0.5ML Neb) 1.25 mg Q2H PRN INH 10/11/16 18:45 11/10/16 18:44 Ipratropium [place] (Atrovent 0.02% 0.5MG/2.5ML Neb) 0.5 mg Q2H PRN INH 10/11/16 18:45 11/10/16 18:44 Azithromycin (Zithromax Tab) 250 mg QAM PO 10/12/16 14:00 10/19/16 08:59 10/16/16 09:00 250 MG Roflumilast 500 mcg 500 mcg DAILY PO 10/13/16 09:00 11/12/16 08:59 10/16/16 08:59 500 MCG Methylprednisolone Sodium Succinate/ Syringe (Solu-Medrol IV/ Syringe) 0.64 ml @ 1.5 mls/min Q12 IV 10/15/16 09:00 11/14/16 08:59 10/16/16 09:00 1.5 MLS/MIN Enteral Nutritional Formula (Boost Plus Vanilla) 1 can TIDM PO 10/15/16 12:00 11/11/16 16:44 10/16/16 12:10 1 CAN Alprazolam (Xanax Tab) 0.5 mg Q8H PRN PO 10/15/16 11:45 11/14/16 11:44 10/16/16 09:07 0.5 MG Objective Vital Signs Date Time Temp Pulse Resp B/P Pulse Ox O2 Delivery O2 Flow Rate FiO2 10/16/16 11:33 99 96 24 10/16/16 11:33 99 21 96 BiPAP/CPAP 24 10/16/16 08:00 Room Air 10/16/16 07:15 91 18 94 Nasal Cannula 2.0 10/16/16 07:08 36.5 87 18 123/75 93 Room Air 10/16/16 04:00 57 18 97 Nasal Cannula 2.0 10/16/16 00:10 Room Air 10/15/16 23:45 36.6 87 18 120/83 94 Room Air 87 10/15/16 23:33 84 20 96 Nasal Cannula 2.0 10/15/16 19:26 96 22 93 Room Air 10/15/16 17:25 94 BiPAP 10/15/16 15:50 97 95 24 10/15/16 15:50 97 21 95 BiPAP/CPAP 24 10/15/16 15:04 36.4 92 16 122/76 94 BiPAP 10/15/16 14:23 103 96 24 10/15/16 13:41 94 Physical Exam General Appearance: + moderate distress, + cachetic, + thin Respiratory/Chest: + respiratory distress (pursed lip breathing), + decreased breath sounds, + accessory muscle use (increased work of breathing) Cardiovascular: regular rate, rhythm, no edema, no murmur Extremities: normal inspection, no pedal edema Neurologic/Psychiatric: alert, normal mood/affect Laboratory Results Last 24 Hours Test 10/16/16 06:56 White Blood Count 14.58 K/uL Red Blood Count 4.60 M/uL Hemoglobin 14.9 g/dL Hematocrit 43.5 % Mean Corpuscular Volume 94.6 fL Mean Corpuscular Hemoglobin 32.4 pg Mean Corpuscular Hemoglobin Concent 34.3 g/dl RDW Standard Deviation 47.0 fL RDW Coefficient of Variation 13.6 % Platelet Count 215 K/uL Mean Platelet Volume 9.2 fL Sodium Level 141 mmol/L Potassium Level 4.4 mmol/L Chloride Level 103 mmol/L Carbon Dioxide Level 29 mmol/L Anion Gap 9.0 mmol/L Blood Urea Nitrogen 32 mg/dl Creatinine 0.66 mg/dl Est Creatinine Clear Calc Drug Dose 80.6 ml/min Estimated GFR () 113.5 Estimated GFR (Non- 98.0 BUN/Creatinine Ratio 49.2 Random Glucose 98 mg/dl Calcium Level 8.4 mg/dl Assessment and Plan This is a 70 year old male with PMH of severe emphysema who has oxygen at home but is noncompliant as well as a history of hypothyroidism presents with acute shortness of breath. Patient presented to the ER on 10/09 for shortness of breath and was admitted due to exacerbation of COPD/emphysema - he was started on nebs, doxycycline, solu-medrol with little improvement. Patient had a CTA to r/o PE on 10/11 - showing some subcentimeter pulmonary nodules but no pulmonary embolism. An echo was done on 10/12 - showing some right ventricular dilatation. Daliresp started, doxycycline was changed to azithro and the steroids were tapered upwards. Acute on Chronic Respiratory Failure secondary to Acute COPD exacerbation 10/16 severe pulmonary emphysema CXR noted from this AM, no acute process continue Daliresp, continue steroids, continue azithromycin, nebulizer treatments bipap nocturnally, oxygen at all times appreciate pulm input - would like patient transferred directly to [facility] to lung transplant center not sure if this is possible - will speak with CM 10/15 severe pulmonary emphysema Steroids tapered to 40mg q12 continue azithro continue nebs as needed, O2 therapy Daliresp long-term steroids 10/[address] to r/o PE were performed - showing severe pulmonary emphysema patient with FEV1 ~ 21% patient's steroids were tapered down on 10/13 to 40mg q8 doxycycline was converted to azithromycin May need long-term azithro as well as steroids, pending clinical course here was non-compliant with oxygen therapy at home - may need long-term and continuous therapy Daliresp started and will continue on discharge Nebulizers as needed May need bipap nocturnally - will discuss with pulmonology Pulmonary rehab, outpatient pulmonary follow-up upon discharge Will transfer out of tele to medical floor with continuous pulse oximeter Pulmonary Nodules to have repeat Chest CT in 6 months Hypothyroidism TSH wnl continue [place] thyroid replacement BPH continue Cardura DVT ppx Lovenox FULL CODE
[2016-10-16] MEDS: ENOXAPARIN 40 MG/0.4 ML SYR SQ SCH (16:47)
[2016-10-16] MEDS: DOXAZosin MESYLATE TAB 4 MG TAB PO SCH (21:38)
[2016-10-17] VITALS (14 sets, daily range): BP systolic 108–124; BP diastolic 73–85; PULSE 66–95; TEMP 36.5–37.1; O2SAT 91–98
[2016-10-17] MEDS: LEVALBUTEROL 1.25MG/0.5ML NEB INH SCH ×6 (00:18→23:52)
[2016-10-17] MEDS: IPRATROPIUM BROMIDE NEB SOLN 0.02% 2.5 ML VIAL INH SCH ×6 (00:18→23:52)
[2016-10-17] MEDS: ALPRAZOLAM 0.5 MG TAB PO PRN (06:25)
[2016-10-17] MEDS: ARMOUR THYROID 30 MG TAB PO SCH (06:52)
[2016-10-17] MEDS: BOOST PLUS VANILLA PO SCH ×6 (08:33→17:00)
[2016-10-17] MEDS: CHOLECALCIFEROL 1000 INTER.UNIT TAB PO SCH (09:47)
[2016-10-17] MEDS: AZITHROMYCIN 250 MG TAB PO SCH (09:47)
[2016-10-17] MEDS: ROFLUMILAST 500 MCG TAB PO SCH (09:47)
[2016-10-17] MEDS: MULTIVITAMIN TAB PO SCH (09:47)
[2016-10-17] MEDS: METHYLPREDNISOLONE IV 40 MG in SYRINGE 0 ML IV SCH ×2 (09:49→21:01)
[2016-10-17] MEDS: GUAIFENESIN 600 MG TABCR PO SCH ×2 (10:28→21:02)
--- NOTE | 2016-10-17 13:14 | Pulmonology Progress Note ---
Pulmonary Progress Note Date of Service Oct 17, 2016. Attending Miguel A Hidalgo Subjective Patient notes stable breathing over the last 24 hours. Objective 70-yo male admitted to [facility] 10/09/16 from [facility] with 1-week history of dyspnea and cough persistent/progressive despite outpatient course of Augmentin and prednisone. Prior records were reviewed. 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 Patient was recently admitted to [facility] treated for COPD exacerbation. He was discharged to [facility] and doing well until apx 1-week [employer] when he developed dyspnea and cough progressive despite outpatient course of Augmentin and Steroid. CTA 10/11: no PE, severe emphysema, bronchial wall thickening, and stable pulmonary nodules. Echocardiogram: 10/12: EF 60-65%, grade diastolic dysfunction without any significant valvular dysfunction. He was treated with doxycycline then transitioned to Azithromycin (day #4), nebulized bronchodilators, IV steroid, expectorants and Daliresp. Additionally, he has been using BiPAP to aid in work of breathing. 10/14/16 pulse oximetry study was not consistent with prolonged desaturation. ABG : 10/12/16: 7.48/45/99-30%/31. Co2 - elevated to 49, highest documented. Today: -SaO2: stable on BiPAP and O2nc (91-98%) -WBC count 15,000 Medications: Solu-Medrol IV 40 mg every 12 hours Roflumilast Azithromycin 250 mg daily Xopenex/Atrovent nebulizers Guaifenesin 600 mg every 12 hours Discontinued medications: Doxycycline 100 mg by mouth twice a day Physical Exam: Constitutional: Cachectic male tripoding notably tachypnea R to the bathroom Head: + facial symmetry Eyes: EOMi, PERRLA, no injection Respiratory: Decreased breath sounds globally CV: Tachycardic no murmurs rubs or gallops appreciated Assessment & Plan 70-year-old admitted with COPD exacerbation: 1. Very Severe COPD/Emphysema: FEV1 21% predicted Medications: Continue current regimen Suggest we transfer the patient to lung transplant center for evaluation 2. Pulmonary Nodules in high-risk patient: CT chest without contrast 03/2017, then, if stable then in 07/2018. #3 Leukocytosis: CXR stable and patient afebrile. continue to monitor Data Medications: Current Inpatient Medications Medications (Trade) Dose Ordered Sig/William Route Start Time Stop Time Status Last Admin Dose Admin Enoxaparin Sodium (Lovenox Inj) 40 mg Q24H SQ 10/09/16 17:00 11/08/16 16:59 10/16/16 16:47 40 MG Acetaminophen (Tylenol Tab) 650 mg Q4H PRN PO 10/09/16 13:15 11/08/16 13:14 10/17/16 08:33 650 MG Ondansetron HCl (Zofran Inj) 4 mg Q6H PRN IV 10/09/16 13:15 11/08/16 13:14 Doxazosin Mesylate (Cardura Tab) 4 mg HS PO 10/09/16 21:00 11/08/16 20:59 10/16/16 21:38 4 MG Multivitamins (Multivitamin Tab) 1 tab DAILY PO 10/10/16 09:00 11/09/16 08:59 10/17/16 09:47 1 TAB Thyroid ([place] Thyroid Tab) 60 mg DAILYBB PO 10/10/16 06:00 11/09/16 06:59 10/17/16 06:52 60 MG Cholecalciferol (Vitamin D Tab) 2,000 inter.unit DAILY PO 10/10/16 09:00 11/09/16 08:59 10/17/16 09:47 2,000 INTER.UNIT Guaifenesin (Mucinex Contr Rel Tab) 600 mg Q12 PO 10/11/16 12:15 11/10/16 12:14 10/17/16 10:28 600 MG Ipratropium [place] (Atrovent 0.02% 0.5MG/2.5ML Neb) 0.5 mg Q4R INH 10/11/16 20:00 11/10/16 19:59 10/17/16 07:08 0.5 MG Levalbuterol (Xopenex 1.25MG/ 0.5ML Neb) 1.25 mg Q4R INH 10/11/16 20:00 11/10/16 19:59 10/17/16 07:08 1.25 MG Levalbuterol (Xopenex 1.25MG/ 0.5ML Neb) 1.25 mg Q2H PRN INH 10/11/16 18:45 11/10/16 18:44 Ipratropium [place] (Atrovent 0.02% 0.5MG/2.5ML Neb) 0.5 mg Q2H PRN INH 10/11/16 18:45 11/10/16 18:44 Azithromycin (Zithromax Tab) 250 mg QAM PO 10/12/16 14:00 10/19/16 08:59 10/17/16 09:47 250 MG Roflumilast 500 mcg 500 mcg DAILY PO 10/13/16 09:00 11/12/16 08:59 10/17/16 09:47 500 MCG Methylprednisolone Sodium Succinate/ Syringe (Solu-Medrol IV/ Syringe) 0.64 ml @ 1.5 mls/min Q12 IV 10/15/16 09:00 11/14/16 08:59 10/17/16 09:49 1.5 MLS/MIN Enteral Nutritional Formula (Boost Plus Vanilla) 1 can TIDM PO 10/15/16 12:00 11/11/16 16:44 10/17/16 08:33 1 CAN Alprazolam (Xanax Tab) 0.5 mg Q8H PRN PO 10/15/16 11:45 11/14/16 11:44 10/17/16 06:25 0.5 MG I & O: 24-Hour Column 10/17/16 08:00 Intake Total 520 ml Balance 520 ml Vital Signs: Date Time Temp Pulse Resp B/P Pulse Ox O2 Delivery O2 Flow Rate FiO2 10/17/16 10:06 91 Nasal Cannula 2.0 10/17/16 08:10 Nasal Cannula 2.0 10/17/16 07:50 36.7 93 16 119/73 91 Nasal Cannula 2.0 10/17/16 07:20 79 11 98 Nasal Cannula 2.0 10/17/16 02:54 95 17 97 BiPAP/CPAP 24 10/17/16 02:54 95 97 24 10/17/16 00:18 86 18 97 BiPAP/CPAP 24 10/17/16 00:12 36.5 95 18 121/85 95 BiPAP 10/17/16 00:00 97 Nasal Cannula 2.0 24 10/16/16 22:58 86 97 24 10/16/16 19:40 82 20 95 Nasal Cannula 2.0 10/16/16 16:07 96 24 93 BiPAP/CPAP 24 10/16/16 15:36 Nasal Cannula 2.0 10/16/16 15:35 36.8 96 18 111/76 94 BiPAP
--- NOTE | 2016-10-17 17:00 | Progress Note ---
Subjective Date of Service: Oct 17, 2016. Subjective Pt evaluation today including: conversation w/ patient, conversation w/ family , physical exam, lab review, review of studies, conversation w/ moving consultant, review of inpatient medication list Saw/examined the patient in room 254 stable, baseline with breathing Problem List Medical Problems: (1) Acute exacerbation of emphysema Status: Acute (2) Failure of outpatient treatment Status: Acute Review of Systems Constitutional: No chills, No fever Respiratory: + dyspnea at rest, + dyspnea on exertion, + shortness of breath, + wheezing, No cough, No hemoptysis, No sputum Cardiac: No chest pain, No edema, No palpitations Abdomen: No diarrhea, No nausea, No pain, No vomiting Medications Current Inpatient Medications Medications (Trade) Dose Ordered Sig/William Route Start Time Stop Time Status Last Admin Dose Admin Enoxaparin Sodium (Lovenox Inj) 40 mg Q24H SQ 10/09/16 17:00 11/08/16 16:59 10/16/16 16:47 40 MG Acetaminophen (Tylenol Tab) 650 mg Q4H PRN PO 10/09/16 13:15 11/08/16 13:14 10/17/16 08:33 650 MG Ondansetron HCl (Zofran Inj) 4 mg Q6H PRN IV 10/09/16 13:15 11/08/16 13:14 Doxazosin Mesylate (Cardura Tab) 4 mg HS PO 10/09/16 21:00 11/08/16 20:59 10/16/16 21:38 4 MG Multivitamins (Multivitamin Tab) 1 tab DAILY PO 10/10/16 09:00 11/09/16 08:59 10/17/16 09:47 1 TAB Thyroid ([place] Thyroid Tab) 60 mg DAILYBB PO 10/10/16 06:00 11/09/16 06:59 10/17/16 06:52 60 MG Cholecalciferol (Vitamin D Tab) 2,000 inter.unit DAILY PO 10/10/16 09:00 11/09/16 08:59 10/17/16 09:47 2,000 INTER.UNIT Guaifenesin (Mucinex Contr Rel Tab) 600 mg Q12 PO 10/11/16 12:15 11/10/16 12:14 10/17/16 10:28 600 MG Ipratropium [place] (Atrovent 0.02% 0.5MG/2.5ML Neb) 0.5 mg Q4R INH 10/11/16 20:00 11/10/16 19:59 10/17/16 07:08 0.5 MG Levalbuterol (Xopenex 1.25MG/ 0.5ML Neb) 1.25 mg Q4R INH 10/11/16 20:00 11/10/16 19:59 10/17/16 07:08 1.25 MG Levalbuterol (Xopenex 1.25MG/ 0.5ML Neb) 1.25 mg Q2H PRN INH 10/11/16 18:45 11/10/16 18:44 Ipratropium [place] (Atrovent 0.02% 0.5MG/2.5ML Neb) 0.5 mg Q2H PRN INH 10/11/16 18:45 11/10/16 18:44 Azithromycin (Zithromax Tab) 250 mg QAM PO 10/12/16 14:00 10/19/16 08:59 10/17/16 09:47 250 MG Roflumilast 500 mcg 500 mcg DAILY PO 10/13/16 09:00 11/12/16 08:59 10/17/16 09:47 500 MCG Methylprednisolone Sodium Succinate/ Syringe (Solu-Medrol IV/ Syringe) 0.64 ml @ 1.5 mls/min Q12 IV 10/15/16 09:00 11/14/16 08:59 10/17/16 09:49 1.5 MLS/MIN Enteral Nutritional Formula (Boost Plus Vanilla) 1 can TIDM PO 10/15/16 12:00 11/11/16 16:44 10/17/16 08:33 1 CAN Alprazolam (Xanax Tab) 0.5 mg Q8H PRN PO 10/15/16 11:45 11/14/16 11:44 10/17/16 06:25 0.5 MG Objective Vital Signs Date Time Temp Pulse Resp B/P Pulse Ox O2 Delivery O2 Flow Rate FiO2 10/17/16 15:04 96 10/17/16 14:48 36.5 91 17 124/74 97 Room Air 10/17/16 10:06 91 Nasal Cannula 2.0 10/17/16 08:10 Nasal Cannula 2.0 10/17/16 07:50 36.7 93 16 119/73 91 Nasal Cannula 2.0 10/17/16 07:20 79 11 98 Nasal Cannula 2.0 10/17/16 02:54 95 17 97 BiPAP/CPAP 24 10/17/16 02:54 95 97 24 10/17/16 00:18 86 18 97 BiPAP/CPAP 10/17/16 00:12 36.5 95 18 121/85 95 BiPAP 10/17/16 00:00 97 Nasal Cannula 2.0 24 10/16/16 22:58 86 97 24 10/16/16 19:40 82 20 95 Nasal Cannula 2.0 Physical Exam General Appearance: no apparent distress, + cachetic, + thin Respiratory/Chest: + respiratory distress, + decreased breath sounds, + accessory muscle use, + wheezing Cardiovascular: regular rate, rhythm, no edema, no murmur Abdomen: normal bowel sounds, non tender, soft Extremities: normal inspection, no pedal edema Assessment and Plan This is a 70 year old male with PMH of severe emphysema who has oxygen at home but is noncompliant as well as a history of hypothyroidism presents with acute shortness of breath. Patient presented to the ER on 10/09 for shortness of breath and was admitted due to exacerbation of COPD/emphysema - he was started on nebs, doxycycline, solu-medrol with little improvement. Patient had a CTA to r/o PE on 10/11 - showing some subcentimeter pulmonary nodules but no pulmonary embolism. An echo was done on 10/12 - showing some right ventricular dilatation. Daliresp started, doxycycline was changed to azithro and the steroids were tapered upwards. Acute on Chronic Respiratory Failure secondary to Acute COPD exacerbation 10/17 so the plan for this patient is for pulmonary to call someone from [facility]; will need [id number] transfer at this point, he will be continued on IV steroids, azithro, nebulizers chronic azithro and steroids needed chronic O2 Bipap is not covered, but he should use this nocturnally while inpatient 10/16 severe pulmonary emphysema CXR noted from this AM, no acute process continue Daliresp, continue steroids, continue azithromycin, nebulizer treatments bipap nocturnally, oxygen at all times appreciate pulm input - would like patient transferred directly to [facility] to lung transplant center not sure if this is possible - will speak with KOURTNEY 10/15 severe pulmonary emphysema Steroids tapered to 40mg q12 continue azithro continue nebs as needed, O2 therapy Daliresp long-term steroids 10/[address] to r/o PE were performed - showing severe pulmonary emphysema patient with FEV1 ~ 21% patient's steroids were tapered down on 10/13 to 40mg q8 doxycycline was converted to azithromycin May need long-term azithro as well as steroids, pending clinical course here was non-compliant with oxygen therapy at home - may need long-term and continuous therapy Daliresp started and will continue on discharge Nebulizers as needed May need bipap nocturnally - will discuss with pulmonology Pulmonary rehab, outpatient pulmonary follow-up upon discharge Will transfer out of tele to medical floor with continuous pulse oximeter Pulmonary Nodules to have repeat Chest CT in 6 months Hypothyroidism TSH wnl continue [place] thyroid replacement BPH continue Cardura DVT ppx Lovenox FULL CODE
[2016-10-17] MEDS: DOXAZosin MESYLATE TAB 4 MG TAB PO SCH (21:02)
[2016-10-17] MEDS: ENOXAPARIN 40 MG/0.4 ML SYR SQ SCH (21:03)
[2016-10-18] VITALS (10 sets, daily range): BP systolic 118–128; BP diastolic 72–78; PULSE 84–96; TEMP 36.3–37.1; O2SAT 96–99
[2016-10-18] MEDS: IPRATROPIUM BROMIDE NEB SOLN 0.02% 2.5 ML VIAL INH SCH ×4 (03:57→19:10)
[2016-10-18] MEDS: LEVALBUTEROL 1.25MG/0.5ML NEB INH SCH ×4 (03:57→19:10)
[2016-10-18] MEDS: ARMOUR THYROID 30 MG TAB PO SCH (06:13)
[2016-10-18 09:08] LABS: HEMATOCRIT 44.6 % (42-52); MEAN CELL VOLUME 92.5 fL (80-100); MEAN CORPUSCULAR HEMOGLOBIN 32.4 pg (25-34); MEAN PLATELET VOLUME 9.5 fL (7.4-10.4); PLATELET COUNT 219 K/uL (130-400); RED BLOOD COUNT 4.82 M/uL (4.7-6.1); WHITE BLOOD COUNT 16.17 K/uL (4.8-10.8)
[2016-10-18 09:24] LABS: CREATININE 0.59 mg/dl (0.60-1.40)
[2016-10-18] MEDS: GUAIFENESIN 600 MG TABCR PO SCH ×2 (09:36→20:23)
[2016-10-18] MEDS: AZITHROMYCIN 250 MG TAB PO SCH (09:36)
[2016-10-18] MEDS: MULTIVITAMIN TAB PO SCH (09:36)
[2016-10-18] MEDS: ROFLUMILAST 500 MCG TAB PO SCH (09:37)
[2016-10-18] MEDS: CHOLECALCIFEROL 1000 INTER.UNIT TAB PO SCH (09:37)
--- NOTE | 2016-10-18 09:52 | PULMONARY PROGRESS NOTE ---
DATE: 10/18/2016 DATE: 10/18/2016. TIME: 9:15 a.m. SUBJECTIVE: The patient is generally feeling much better. He is less short of breath. His family is with him at present. His appetite is improved somewhat. His cough is loose and he is bringing up clear to white sputum. The patient remains weak. He has not ambulated outside of his room yet. With Dr. Hidalgo's assistance the patient spoke with someone from the transplant team at [facility]. I believe it sounds like they would be happy to evaluate him as an outpatient. I am quite certain they do not want him transferred there. They did tell him that he would have to live in the [place] area with 2 family attendants for 6 months plus there are many drawbacks for this consideration. The patient and his family spoke at length with me regarding the pros and cons of lung transplantation. OBJECTIVE: GENERAL: The patient appears comfortable. VITAL SIGNS: Temperature is 37.1. EARS, NOSE, THROAT EXAMINATION: Unremarkable. NECK: Palpation of the neck reveals no lymph nodes or masses. CHEST: Showed an increased AP diameter. HEART: Heart rate 88 beats per minute, it was regular. Blood pressure 128/72. LUNGS: Respiratory rate was 18 breaths per minute and not labored. Saturation was 99% on 2 liters. ABDOMEN: Soft and nontender. EXTREMITIES: Showed no cyanosis, clubbing or edema. LABORATORY DATA: White count today is 16.17. This has been rising a bit over the past few days without overt signs of infection. Hemoglobin is 15.6. Platelets were 219,000. I reviewed the patient's blood gases. The highest pCO2 is 49. This does not qualify him for a home BiPAP. IMPRESSIONS: 1. Respiratory failure -- acute on chronic with hypercarbia and hypoxia. 2. Emphysema -- severe. 3. Chronic obstructive pulmonary disease with exacerbation. 4. Anxiety. COMMENTS AND RECOMMENDATIONS: The patient seems to be doing well. I would encourage him to wear his BiPAP only at night now. He could have it on during the day if he needed it. I would like to decrease the Solu-Medrol and then soon thereafter change to prednisone. Would continue with his respiratory treatments. Levalbuterol typically is meant to be given q. 6 to q. 8 hours and thus now that he is better I believe we can cut that back. He may soon be approaching time for discharge in about 48 hours if all continues as current. As an outpatient, the patient can decide if he wants to go to [facility] for an evaluation.
[2016-10-18] MEDS: BOOST PLUS VANILLA PO SCH ×6 (10:39→20:24)
[2016-10-18] MEDS: ENOXAPARIN 40 MG/0.4 ML SYR SQ SCH (17:04)
--- NOTE | 2016-10-18 19:18 | Progress Note ---
Internal Med Progress Note Date of Service: Oct 18, 2016. Provider Documentation: SUBJECTIVE: breathing has improved today on nasal canula was on Bipap for few hours last night able to ambulate in room with out significant ALFARO eager to be discharged home early next week will have out pt follow up at [facility] ( [facility] ) OBJECTIVE: Vital Signs-as noted below Exam: General-cachectic , no sign of distress, pleasant Eyes-sclera non icteric ENT-dry oral mucosa Neck-no thyromegaly Lungs-poor air entry , no wheeze, improved auscultation form prior Heart-regular S1/S2 Abdomen-soft, non tender Extremities-no lower ext edema Neuro-no focal neurological deficit , anxious Lab data as noted below. 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 appreciate input form Pulmonology on Xopenex neb tx scheduled q 4hrs and Q 2hrs PRN Abx changed to Zithromax 250 mg daily -will need to be on chronic therapy -added Daliresp /PDE4 inhibitor- to reduce number of COPD exacerbation in setting of advanced /End stage bullous emphysema CT chest -no PE severe emphysematous disease Had PFT done at [facility] Pulmonary clinic on 09/16/16 : shows severe compromised lung capacity FEV1 21 % reduced FEV1/FVC ratio evidence of severe air trapping based on the increased RV TLC ratio diffusion capacity severe reduced Flow volume loop is consistent with severe obstructive lung disease with now significant bronchodilator response present Nocturnal pulse oximetry for Bipap done -pt did not qualify for Bipap at home per insurance criteria pt is willing to buy BiPAP machine with out of pocket pay Script given for home BiPAP very poor prognosis will benefit form lung transplant evaluation on discharge pt is willing to follow up at [facility] all images copied in CD and chart copy will be provided to pt on discharge for Lung transplant follow up as put patient HX PULMONARY NODULES - had continued out pt follow up -noted to be stable by Bronchoscopy on 04/07 and 04/26/[address] chest monitoring since 2013 remains stable BPH - on doxazosin HYPOTHYROIDISM - continue [place] thyroid DVT PROPHYLAXIS moderate to High risk - SQ Lovenox FULL CODE DISPOSITION lives at [facility] [place] return to [facility] possible on Thursday will need arrangement for transport Vital Signs: Date Time Temp Pulse Resp B/P Pulse Ox O2 Delivery O2 Flow Rate FiO2 10/19/16 16:00 Nasal Cannula 2.0 10/19/16 14:14 76 18 97 BiPAP/CPAP 24 10/19/16 08:34 36.5 95 20 103/71 95 Nasal Cannula 2.0 95 10/19/16 08:00 Nasal Cannula 2.0 10/19/16 07:56 69 96 24 10/19/16 07:44 69 18 96 Nasal Cannula 2.0 10/19/16 02:07 89 18 97 Nasal Cannula 2.0 10/19/16 00:15 Nasal Cannula 2.0 10/19/16 00:02 36.5 91 18 106/70 97 Nasal Cannula 2.0 10/18/16 20:08 Nasal Cannula 2.0 Lab Results:
[2016-10-18] MEDS: DOXAZosin MESYLATE TAB 4 MG TAB PO SCH (20:23)
[2016-10-18] MEDS: METHYLPREDNISOLONE IV 20 MG in SYRINGE 0 ML IV SCH (20:24)
[2016-10-19] VITALS (7 sets, daily range): BP systolic 103–106; BP diastolic 70–71; PULSE 69–95; TEMP 36.5; O2SAT 95–97
[2016-10-19] MEDS: LEVALBUTEROL 1.25MG/0.5ML NEB INH SCH ×4 (02:07→20:45)
[2016-10-19] MEDS: IPRATROPIUM BROMIDE NEB SOLN 0.02% 2.5 ML VIAL INH SCH ×4 (02:07→20:45)
[2016-10-19] MEDS: ARMOUR THYROID 30 MG TAB PO SCH (06:11)
[2016-10-19] MEDS: ALPRAZOLAM 0.5 MG TAB PO PRN (06:14)
[2016-10-19] MEDS: GUAIFENESIN 600 MG TABCR PO SCH ×2 (08:29→20:05)
[2016-10-19] MEDS: ROFLUMILAST 500 MCG TAB PO SCH (08:36)
[2016-10-19] MEDS: MULTIVITAMIN TAB PO SCH (08:36)
[2016-10-19] MEDS: CHOLECALCIFEROL 1000 INTER.UNIT TAB PO SCH (08:37)
[2016-10-19] MEDS: AZITHROMYCIN 250 MG TAB PO SCH (08:37)
[2016-10-19] MEDS: METHYLPREDNISOLONE IV 20 MG in SYRINGE 0 ML IV SCH (09:09)
[2016-10-19] MEDS: BOOST PLUS VANILLA PO SCH ×6 (10:00→20:06)
--- NOTE | 2016-10-19 11:51 | PULMONARY PROGRESS NOTE ---
DATE: 10/19/2016 TIME: 11:05 a.m. SUBJECTIVE: The patient had a pretty good day yesterday. He did not wear BiPAP last night. He wanted to see how he did. He had put it on for just a little while yesterday when he was short of breath. He tolerated the lower pressures well. This morning, he awakened early and was feeling anxious. Nursing staff encouraged him to take his alprazolam and he took a dose at 6:14 a.m. today. He feels somewhat fatigued. When I came in however, he has been upright and walking in his room. He has a walker. The patient was continuing to stay upright, holding himself up for the approximate 30 minutes that I was with him. He is feeling better as time goes on. He had the BiPAP on for a short time this morning when he felt short of breath. He does have significant anxiety complicating the picture. OBJECTIVE: GENERAL: The patient looks about the same as he usually does. He was in no distress at rest. He was standing and with his walker. VITAL SIGNS: Temperature 36.5. Blood pressure was 103/71. Oxygen saturations 95% on 2 liters. EARS, NOSE, THROAT: Unremarkable and unchanged. HEART: Heart rate is 95 per minute. LUNGS: Auscultation reveals fairly diminished breath sounds as prior. He does have a harsh cough. He states he is not bringing up much phlegm the last day or two. He did not seem to be using accessory muscles, but he was trying to do pursed-lip breathing. ABDOMEN: Soft and nontender. EXTREMITIES: Showed no edema. The patient did not have any lab work today. IMPRESSIONS: 1. Respiratory failure -- acute on chronic with hypercarbia and hypoxia. 2. Emphysema -- severe. 3. Chronic obstructive pulmonary disease with exacerbation. 4. Anxiety. COMMENTS AND RECOMMENDATIONS: The patient is slowly improving. He is anticipating purchasing a BiPAP on his own after discharge. This would be because he does not qualify by insurance criteria. I have encouraged him to seek out the prices from multiple suppliers because there may be significant differences. He already has oxygen at home. I have encouraged the patient to make an appointment at [facility] for about a month from now. This would give him time to improve and get better. He is supposed to go to pulmonary rehab for the first time on Thursday. I told him that if he feels up to it, he can go. I asked him to see me in the office in about 2 weeks. Ideally, I would have seen him in 1 week but next week, I am working in the hospital and not in the office. I would send him home with 40 mg a day of prednisone and decrease very gradually, such as about 10 mg per week cutback. The patient's family was with him during this exam.
[2016-10-19] MEDS: ENOXAPARIN 40 MG/0.4 ML SYR SQ SCH (17:29)
[2016-10-19] MEDS: DOXAZosin MESYLATE TAB 4 MG TAB PO SCH (20:06)
--- NOTE | 2016-10-19 20:09 | Progress Note ---
Internal Med Progress Note Date of Service: Oct 19, 2016. Provider Documentation: SUBJECTIVE: feels a little bit more anxious today more Short of breath , no cough evaluated by Dr Shah earlier remains stable form respiratory stand point Script for Bipap given setting 07/28 already has home 02 plan to discharge tomorrow will follow up at Lung transplant center in 1 -2 months for evaluation cont to follow up with Dr Shah in office on discharge OBJECTIVE: Vital Signs-as noted below Exam: General-cachectic , no sign of distress, pleasant Eyes-sclera non icteric ENT-dry oral mucosa Neck-no thyromegaly Lungs-improved air entry , no wheeze, improved auscultation form prior Heart-regular S1/S2 Abdomen-soft, non tender Extremities-no lower ext edema Neuro-no focal neurological deficit , anxious Lab data as noted below. ASSESSMENT & PLAN: ACUTE ON CHRONIC RESPIRATORY FAILURE -respiratory status improved -presented with COPD exacerbation , underlying severe emphysema ( FEV1 21 % ) with Bullous emphysema appreciate input form Pulmonology on Xopenex neb tx Abx changed to Zithromax 250 mg daily -will need to be on chronic therapy -added Daliresp /PDE4 inhibitor- to reduce number of COPD exacerbation in setting of advanced /End stage bullous emphysema will need slow taper of Prednisone will be discharge on 40 mg PO Prednisone daily and reduce 10 mg weekly to chronic [address] PO daily dose CT chest -no PE severe emphysematous disease Had PFT done at [facility] Pulmonary clinic on 09/16/16 : shows severe compromised lung capacity FEV1 21 % reduced FEV1/FVC ratio evidence of severe air trapping based on the increased RV TLC ratio diffusion capacity severe reduced Flow volume loop is consistent with severe obstructive lung disease with now significant bronchodilator response present Nocturnal pulse oximetry for Bipap done -pt did not qualify for Bipap at home per insurance criteria pt is willing to buy BiPAP machine with out of pocket pay Script given for home BiPAP very poor prognosis will benefit form lung transplant evaluation on discharge pt is willing to follow up at [facility] all images copied in CD and chart copy will be provided to pt on discharge for Lung transplant follow up as put patient HX PULMONARY NODULES - had continued out pt follow up -noted to be stable by Bronchoscopy on 04/07 and 04/26/[address] chest monitoring since 2013 remains stable BPH - on doxazosin HYPOTHYROIDISM - continue [place] thyroid DVT PROPHYLAXIS moderate to High risk - SQ Lovenox FULL CODE DISPOSITION lives at [facility] in [place] [facility] [place] already has home 02 return to [facility] tomorrow will need arrangement for transport -wheel chair van social service will be updated Medicine follow up with Dr Chávez Pulmonology follow up with Dr Shah Vital Signs: Date Time Temp Pulse Resp B/P Pulse Ox O2 Delivery O2 Flow Rate FiO2 10/19/16 16:00 Nasal Cannula 2.0 10/19/16 14:14 76 18 97 BiPAP/CPAP 24 10/19/16 08:34 36.5 95 20 103/71 95 Nasal Cannula 2.0 95 10/19/16 08:00 Nasal Cannula 2.0 10/19/16 07:56 69 96 24 10/19/16 07:44 69 18 96 Nasal Cannula 2.0 10/19/16 02:07 89 18 97 Nasal Cannula 2.0 10/19/16 00:15 Nasal Cannula 2.0 10/19/16 00:02 36.5 91 18 106/70 97 Nasal Cannula 2.0
[2016-10-19] MEDS ORDERED: ZTHM250 PO (20:13)
[2016-10-19] MEDS ORDERED: DLR500 PO (20:13)
[2016-10-19] MEDS ORDERED: PRD20 PO (20:13)
[2016-10-19] MEDS ORDERED: XNX5 PO (20:13)
[2016-10-20] VITALS (7 sets, daily range): BP systolic 111–112; BP diastolic 70–71; PULSE 87–94; TEMP 36.2–36.4; O2SAT 95–99
[2016-10-20] MEDS: IPRATROPIUM BROMIDE NEB SOLN 0.02% 2.5 ML VIAL INH SCH ×3 (02:30→14:23)
[2016-10-20] MEDS: LEVALBUTEROL 1.25MG/0.5ML NEB INH SCH ×3 (02:30→14:23)
[2016-10-20] MEDS: ARMOUR THYROID 30 MG TAB PO SCH (06:15)
[2016-10-20] MEDS: AZITHROMYCIN 250 MG TAB PO SCH (08:22)
[2016-10-20] MEDS: ROFLUMILAST 500 MCG TAB PO SCH (08:22)
[2016-10-20] MEDS: CHOLECALCIFEROL 1000 INTER.UNIT TAB PO SCH (08:23)
[2016-10-20] MEDS: GUAIFENESIN 600 MG TABCR PO SCH (08:23)
[2016-10-20] MEDS: MULTIVITAMIN TAB PO SCH (08:23)
[2016-10-20] MEDS: BOOST PLUS VANILLA PO SCH ×4 (10:18→14:12)
--- NOTE | 2016-10-20 14:28 | Discharge Instructions ---
Discharge Instructions Admission Reason for Admission: Copd Exacerbation Discharge Discharge Diagnosis / Problem: ADVANCED COPD /ACUTE ON CHRONIC RESPIRATORY FAILURE Discharge Goals Goal(s): Improve disease control, Diagnostic testing, Therapeutic intervention Activity Recommendations Activity Limitations: as noted below ( TOLERATED ) . Instructions / Follow-Up Instructions / Follow-Up HOSPITAL FOLLOW UP ON 10/23/2016 @ 11:50 AM Venus Dias MD General Internal Medicine [facility] PULMONARY REHAB SCHEDULED FOR NEXT Thursday10/24/[address] UP [address] MALIN IN 2 WEEKS , PLEASE CONTACT LUNG TRANSPLANT CENTER AT [facility] FOR EVALUATION IN MONTH call [phone]) TO SCHEDULE AN APPOINTMENT Current Hospital Diet Patient's current hospital diet: Regular Diet Discharge Diet Recommended Diet: Regular Diet Pending Studies Studies pending at discharge: no Laboratory Results Hemoglobin A1c Test 08/23/16 22:00 Range/Units Estimated Average Glucose 105 mg/dl Hemoglobin A1c 5.3 4.5-5.6 % Medical Emergencies . Who to Call and When: Medical Emergencies: If at any time you feel your situation is an emergency, please call 911 immediately. . Non-Emergent Contact Non-Emergency issues call your: Primary Care Provider . . "Provider Documentation" section prepared by Kathie Brand. VTE Core Measure Inpt VTE Proph given/why not?: Unfractionated heparin SQ
--- NOTE | 2016-10-20 14:37 | Progress Note ---
Internal Med Progress Note Date of Service: Oct 20, 2016. Provider Documentation: SUBJECTIVE: breathing much better today had a good night sleep , did not require BiPAP minimum cough . denies of SOB or ALFARO on 2 L 02 via nasal canula feels well enough to be discharged home today OBJECTIVE: Vital Signs-as noted below Exam: General-cachectic , no sign of distress, pleasant Eyes-sclera non icteric ENT-dry oral mucosa Neck-no thyromegaly Lungs-improved air entry , no wheeze, improved auscultation form prior Heart-regular S1/S2 Abdomen-soft, non tender Extremities-no lower ext edema Neuro-no focal neurological deficit , anxious Lab data as noted below. ASSESSMENT & PLAN: ACUTE ON CHRONIC RESPIRATORY FAILURE -respiratory status improved on 2 L 02 via nasal canula -presented with COPD exacerbation , underlying severe emphysema ( FEV1 21 % ) with Bullous emphysema appreciate input form Pulmonology on Xopenex neb tx Abx changed to Zithromax 250 mg daily -will need to be on chronic therapy -added Daliresp /PDE4 inhibitor- to reduce number of COPD exacerbation in setting of advanced /End stage bullous emphysema will need slow taper of Prednisone will be discharge on 40 mg PO Prednisone daily and reduce 10 mg weekly to chronic 10 mg PO daily dose-script sent to pharmacy CT chest -no PE severe emphysematous disease Had PFT done at [facility] Pulmonary clinic on 09/16/16 : shows severe compromised lung capacity FEV1 21 % reduced FEV1/FVC ratio evidence of severe air trapping based on the increased RV TLC ratio diffusion capacity severe reduced Flow volume loop is consistent with severe obstructive lung disease with now significant bronchodilator response present Nocturnal pulse oximetry for Bipap done -pt did not qualify for Bipap at home per insurance criteria pt is willing to buy BiPAP machine with out of pocket pay Script given for home BiPAP will benefit form lung transplant evaluation on discharge pt is willing to follow up at [facility] all images copied in CD and chart copy provided to pt on discharge for Lung transplant follow up as put patient HX PULMONARY NODULES - had continued out pt follow up -noted to be stable by Bronchoscopy on 04/07 and 04/26/[address] chest monitoring since 2013 remains stable BPH - on doxazosin HYPOTHYROIDISM - continue [place] thyroid DVT PROPHYLAXIS moderate to High risk - SQ Lovenox FULL CODE DISPOSITION Lives at the [facility] stable to be discharged today Medicine follow up with Dr Chávez Hospital follow up scheduled with Dr Dias on 10/23/16 @ 11 :50 AM ( Dr Chávez is out office) Pulmonology follow up with Dr Shah Vital Signs: Date Time Temp Pulse Resp B/P Pulse Ox O2 Delivery O2 Flow Rate FiO2 10/20/16 14:25 94 20 98 Nasal Cannula 2.0 10/20/16 10:50 87 95 10/20/16 08:00 Nasal Cannula 2.0 10/20/16 07:20 36.2 87 20 112/70 99 Nasal Cannula 2.0 10/20/16 07:05 88 20 98 Nasal Cannula 2.0 10/20/16 02:31 87 18 97 Nasal Cannula 2.0 10/20/16 00:23 36.4 94 18 111/71 95 2.0 10/19/16 20:53 82 18 97 Nasal Cannula 2.0 10/19/16 20:05 Nasal Cannula 2.0 10/19/16 16:00 Nasal Cannula 2.0
--- NOTE | 2016-10-20 14:44 | Discharge Summary ---
Discharge Summary Date of Service Oct 20, 2016. Discharge Summary Admission Date: Oct 09, 2016 at 13:39 Discharge Date: Oct 19, 2016 Discharge Disposition: Home with services Principal Diagnosis: ADVANCED COPD /ACUTE ON CHRONIC RESPIRATORY FAILURE Consultations: PULMONOLOGY Medication Reconciliation New Medications: Alprazolam (Alprazolam) 0.5 Mg Tab 0.5 MG PO Q8H PRN for anxiety, #90 TAB Azithromycin (Azithromycin) 250 Mg Tab 250 MG PO QAM for 30 Days, #30 TAB 9 Refills Prednisone (Prednisone) 20 Mg Tab 40 MG PO UD for 30 Days, #30 TAB 6 Refills 40 mg daily for 1 week 30 mg daily for 1 week 20 mg daily for 1 week 10 mg daily continue Roflumilast (Daliresp) 500 Mcg Tab 500 MCG PO DAILY for 30 Days, #30 TAB 6 Refills Continued Medications: Albuterol Hfa (Ventolin Hfa) 200 Puffs/67512 Mcg Aers 2-4 PUFFS INH Q6H, #1 INHALER Cholecalciferol (Vitamin D3) 2,000 Unit Tab 2000 INTER.UNIT PO DAILY for 30 Days, TAB Doxazosin Mesylate (Doxazosin Mesylate) 4 Mg Tab 4 MG PO HS for 30 Days Fluticasone Prop/Salmeterol (Advair Diskus 500/50 60 Dose) 1 Ea Aerp 1 PUFFS INH BID for 30 Days, #1 INHALER 5 Refills Ipratropium-Albuterol (Duoneb) 3 Ml Nebu 1 TREATMENT INH Q6H PRN for SOB/Cough/Wheeze for 30 Days, INHA Multivitamin (Multivitamin) Tab 1 TAB PO DAILY for 30 Days, TAB Thyroid ([place] Thyroid) 30 Mg Tab 60 MG PO DAILY for 30 Days, #60 TAB Tiotropium [place] (Spiriva Handihaler) 5 Puff/90 Mcg Aerp 1 PUFF INH QAM for 30 Days Discontinued Medications: Amoxicillin & Pot Clavulanate (Augmentin 875-125 mg) 1 Tab Tab 1 TAB PO BID for 7 Days, #14 TAB Prednisone (Prednisone Tab) 20 Mg Tab 20 MG PO, TAB on taper - 2 tabs x 5 days, 1 tab x 5 days Referrals At Discharge Follow up Referrals: Physician Referral - Please Call For Appointment with Khurram Malin DO Admission Information HPI (per Admitting provider): 70 year old male who presents to the ER with shortness of breath. Patient was recently admitted to [facility] 08/24 - 08/29 for COPD exacerbation. At the time of discharge, patient's Advair was increased, he was started on Spiriva, he completed courses of azithromycin and cefuroxime, and discharged on a Prednisone taper. Patient was discharged to [facility]. He reports he had been tolerating therapy until about one week ago. He reports increasing shortness of breath and cough productive for clear sputum. Patient was started on Prednisone taper and Augmentin 5 days ago. He reports 3 episodes of severe shortness of breath since last night. He reports improvement with application of oxygen. He has been using his nebulizer as well. She denies chest pain. No fever or chills. He denies lightheadedness, dizziness, diaphoresis, or syncopal events. No abdominal pain, nausea, or vomiting. He reports loose stools which he attributes to antibiotic use. He denies urinary symptoms. In the ER, patient is saturating well on room air. He was given IV solu-medrol by EMS and received IV Doxy and Duoneb in the ED. Physical Exam (per Admitting): General Appearance: no apparent distress Head: normocephalic Eyes: normal inspection ENT: hearing grossly normal Neck: supple, no JVD Respiratory/Chest: no respiratory distress, + decreased breath sounds, + rhonchi (faint, scattered), + wheezing (faint, end expiratory) Cardiovascular: regular rate, rhythm, no edema, normal peripheral pulses Abdomen/GI: normal bowel sounds, non tender, soft Extremities/Musculoskelatal: normal inspection, no calf tenderness Neurologic/Psych: no motor/sensory deficits, alert, normal mood/affect, oriented x 3 Skin: normal color, warm/dry Hospital Course ACUTE ON CHRONIC RESPIRATORY FAILURE -respiratory status improved on 2 L 02 via nasal canula -presented with COPD exacerbation , underlying severe emphysema ( FEV1 21 % ) with Bullous emphysema appreciate input form Pulmonology on Xopenex neb tx Abx changed to Zithromax 250 mg daily -will need to be on chronic therapy -added Daliresp /PDE4 inhibitor- to reduce number of COPD exacerbation in setting of advanced /End stage bullous emphysema will need slow taper of Prednisone will be discharge on 40 mg PO Prednisone daily and reduce 10 mg weekly to chronic 10 mg PO daily dose-script sent to pharmacy CT chest -no PE severe emphysematous disease Had PFT done at [facility] Pulmonary clinic on 09/16/16 : shows severe compromised lung capacity FEV1 21 % reduced FEV1/FVC ratio evidence of severe air trapping based on the increased RV TLC ratio diffusion capacity severe reduced Flow volume loop is consistent with severe obstructive lung disease with now significant bronchodilator response present Nocturnal pulse oximetry for Bipap done -pt did not qualify for Bipap at home per insurance criteria pt is willing to buy BiPAP machine with out of pocket pay Script given for home BiPAP will benefit form lung transplant evaluation on discharge pt is willing to follow up at [facility] all images copied in CD and chart copy provided to pt on discharge for Lung transplant follow up as put patient HX PULMONARY NODULES - had continued out pt follow up -noted to be stable by Bronchoscopy on 04/07 and 04/26/[address] chest monitoring since 2013 remains stable BPH - on doxazosin HYPOTHYROIDISM - continue [place] thyroid DVT PROPHYLAXIS moderate to High risk - SQ Lovenox FULL CODE DISPOSITION Lives at the [facility] at [facility] stable to be discharged today Medicine follow up with Dr Chávez Hospital follow up scheduled with Dr Dias on 10/23/16 @ 11 :50 AM ( Dr Chávez is out office) Pulmonology follow up with Dr Malin Total time spent on discharge = 45 MINS This includes examination of the patient, discharge planning, medication reconciliation, and communication with other providers. Discharge Instructions Discharge Instructions Admission Reason for Admission: Copd Exacerbation Discharge Discharge Diagnosis / Problem: ADVANCED COPD /ACUTE ON CHRONIC RESPIRATORY FAILURE Discharge Goals Goal(s): Improve disease control, Diagnostic testing, Therapeutic intervention Activity Recommendations Activity Limitations: as noted below ( TOLERATED ) . Instructions / Follow-Up Instructions / Follow-Up HOSPITAL FOLLOW UP ON 10/23/2016 @ 11:50 AM Venus Dias MD General Internal Medicine [facility] PULMONARY REHAB SCHEDULED FOR NEXT Thursday10/24/16 PULMONOLOGY FOLLOW UP WITH DR MALIN IN 2 WEEKS , PLEASE CONTACT LUNG TRANSPLANT CENTER AT [facility] FOR EVALUATION IN MONTH call [phone]) TO SCHEDULE AN APPOINTMENT Current Hospital Diet Patient's current hospital diet: Regular Diet Discharge Diet Recommended Diet: Regular Diet Pending Studies Studies pending at discharge: no Laboratory Results Hemoglobin A1c Test 08/23/16 22:00 Range/Units Estimated Average Glucose 105 mg/dl Hemoglobin A1c 5.3 4.5-5.6 % Medical Emergencies . Who to Call and When: Medical Emergencies: If at any time you feel your situation is an emergency, please call 911 immediately. . Non-Emergent Contact Non-Emergency issues call your: Primary Care Provider . . "Provider Documentation" section prepared by Kathie Brand. VTE Core Measure Inpt VTE Proph given/why not?: Unfractionated heparin SQ Additional Copies To Venus DIAS M.D. Khurram Malin, DO
== END 2016-10-20 15:37 | disposition home or self-care (01) | DRG 190 ==
LOC: ENRESERVTM → ENRESERVDT → EDBD 11:11 → C.EDC 11:12 → C.2T 13:39 → EDBEDREQSVC 13:40 → C.MS2W 10-10 23:44 → C.2T 10-11 18:17 → C.MS2W 10-14 09:50
PROVIDERS: ADMIT Internal Medicine; ATTEND Hospitalist
DX: J44.1 Chronic obstructive pulmonary disease with (acute) exacerbation (principal); J96.20 Acute and chronic respiratory failure, unspecified whether with hypoxia or hypercapnia; Z68.1 Body mass index [BMI] 19.9 or less, adult; R64 Cachexia; N40.0 Benign prostatic hyperplasia without lower urinary tract symptoms; E03.9 Hypothyroidism, unspecified; Z80.3 Family history of malignant neoplasm of breast; Z87.891 Personal history of nicotine dependence; R91.8 Other nonspecific abnormal finding of lung field; Z91.19 Patient's noncompliance with other medical treatment and regimen; J43.9 Emphysema, unspecified

== ENCOUNTER 2023-08-25 12:00 | Inpatient (IN) ==
[2023-08-25] MEDS ORDERED: methylPREDNISolone 125 MG/2 ML VIAL IV STA (12:10)
--- NOTE | 2023-08-25 12:14 | Emergency Department Note ---
Impression & Plan Acute exacerbation of chronic obstructive pulmonary disease, Complete heart block ED Provider Note Name: JI ARAYA Age: 77 Sex: Male Arrives Via: Ambulance Informant: Patient, EMS, ED Provider: José Moya MD Chief Complaint: Breathing difficulty Impression: As per impressions above Medical Decision Making: Pleasant 77-year-old male arrives for evaluation of worsening shortness of breath over the last 2 to 3 days. He does note that his heart rate seems slow a few days ago. Due to severe shortness of breath 9 1 called this morning. Arrives in significant distress. He is bradycardic mildly hypotensive and very short of breath. Initially nasal cannula for respiratory distress but due to continued difficulty he was switched to BiPAP with vast improvement. Chest x- ray shows severe emphysema questionable congestive findings. Exam though he is clearly dehydrated. He was given 500 mL normal saline blood pressures remained in the 1 teens. Patient was initially paced by EMS though he has not had any significant hypotension here nor significant chest pain so would hold off on further pacing or atropine/epi. Given his acute complete heart block I did have interventional cardiology evaluate patient at bedside shortly after arrival. As patient's blood pressure has stabilized he is looking better on a breathing standpoint seems reasonable to continue monitoring rather than doing emergent pacemaker at this time. Hospitalist as well as [facility] cardiology consulted for further management. Patient will be admitted to ICU. Of note patient did test positive for rhinovirus which is likely the exacerbating cause of the COPD exacerbation. Unclear why developed complete heart block whether this has been ongoing for some time just exacerbated by shortness of breath or whether due to generalized illness but will clearly need further management as an inpatient. At this point there is no evidence of PE, dissection ACS. No indication to start anticoagulants emergently at this time either. Patient does not have an elevated white blood cell count, no lobar infiltrate appreciated and there is no evidence of this being severe sepsis but rather shortness of breath due to COPD secondary to rhinovirus. I do not feel patient requires 30 mL/kg IV fluids. Triage/Nursing Notes reviewed by Me Differential:Reactive airway disease, pneumonia, pneumothorax, ACS, arrhythmia, COPD, CHF, infections, cardiac ischemia, pulmonary embolism, musculoskeletal, gastrointestinal, as well as other pathologies. Vital Signs: reviewed and remarkable for bradycardia Interventions: Normal saline bolus for 100 mL IV, Decadron 10 mg IV, BiPAP Labs:ED labs Reviewed by me and remarkable for respiratory panel positive for rhinovirus Imagin view chest x-ray as per my interpretation reveals severe emphysema with some congestion centrally CHF versus viral. No lobar infiltrate appreciated. EKG:As per my interpretation, indication shortness of breath. Complete heart block with heart rate 30. Poor baseline (likely secondary to increased work of breathing). When compared to October 15, 2016 he is now in complete heart block. Cardiac/Tele Monitoring: Cardiac Monitoring: An Order was placed for continuous cardiac monitoring. The monitor shows a rate of 30 with a complete heart block rhythm. Consults:Dr Corado Interventional cardiology. Dr Basil Zhao Hospitalist. Dr Tom Zhao Cardiology Plan: Disposition:Hospitalization. Condition: Fair History of Present Illness: 77-year-old gentleman arrives for evaluation of shortness of breath. Patient states he been having rapidly worsening shortness of breath over the last 2 to 3 days. He feels like he cannot catch his breath. Severe exhaustion with any attempts at movement. Has had no appetite. Denies any specific pain but may be some mild chest pressure over the last few days. Denies any syncope, nausea, vomiting, abdominal pain, back pain, leg swelling, urinary/bowel symptoms or other concerning signs or symptoms. Denies any history of cardiac disease. Has previously followed with a field research associate but it has been 6 to 12 months since then. States he has a long history of COPD is feels like a severe COPD exacerbation. EMS arrived this morning due to shortness of breath. They gave him a DuoNeb in route and were pacing him due to heart rates in the 30s. They note blood pressure about 130/70. Patient did get atropine IV. Past Medical History: COPD and emphysema, hypothyroidism, see chart for full Home Medications:See Below Allergies: Gadolinium Vitals:Blood Pressure: 108/60, Pulse 30, RR 32, T 36.8C, O2 100% on RA Physical Exam: GENERAL: Patient is unwell appearing and in moderate distress. RESPIRATORY: Moderate dyspnea/tachypnea not moving much air. Using some accessory muscles to breathe. CARDIOVASCULAR: Bradycardic GASTROINTESTINAL: Abdomen soft, non-tender, no peritonitis. EXTREMITIES: Normal motion all extremities, no cyanosis, no edema. NEUROLOGIC: Alert and oriented. No focal neurologic deficits appreciated SKIN: No rash, no jaundice, no diaphoresis. PSYCH: Appropriate GCS: 15 ED Course: Times/Reassessments: Patient breathing stable lysed with BiPAP. Heart rate remains around 30 with good blood pressures. Critical Care: I have personally spent 90 minutes of critical care time in the direct management of this patient. COPD exacerbation with respiratory failure and complete heart block requiring extensive coordination of care and management throughout his stay. This was a life/limb threatening event. This 90 minutes is in excess of all separately billable procedures. José Moya MD Past Med/Surg History Medical History BPH (benign prostatic hyperplasia) Pancreatic cyst BENIGN Hypothyroidism Elevated cholesterol NO MEDS Emphysema lung Glaucoma Chronic obstructive pulmonary disease On home oxygen therapy 2L CONT. Surgical History Hx of left cataract extraction History of anesthesia reaction SLOW TO WAKE UP H/O shoulder surgery RT History of cystoscopy History of ERCP History of colonoscopy H/O inguinal hernia repair History of tooth extraction History of tonsillectomy Family History Other No family history of adverse response to anesthesia Social History Smoking Status: Former smoker Tobacco Type: Cigarettes Second Hand Exposure: No; Do You Dip or Chew Tobacco: No; Tobacco Cessation Education Requested by Patient: No Hx Alcohol Use: No Hx Substance Use: No Preferred Language: Upper Sorbian Communication Ability: Effective Supervisor Vat House Required: No Beliefs That Will Affect Care: None Current Living Situation: Spouse Other Information That Helps Us Care for You: No Feels Safe at Home: Yes Safety Concerns: Feels Safe At This Time Assistive Devices: Walker Allergies Allergies Allergy/AdvReac Type Severity Reaction Status Date / Time Gadolinium-Containing Allergy Intermediate Nausea/Vomi Verified 08/25/23 14:56 Contrast Medi ting Home Meds Home Medications Medication Instructions Recorded Confirmed albuterol sulfate 90 mcg/actuation 2 puffs inhalation Q4H PRN SOB #1 g 03/31/19 08/25/23 aerosol inhaler azithromycin 250 mg tablet 250 mg PO 3XWK #1 tab 03/31/19 08/25/23 cholecalciferol (vitamin D3) 25 1,000 mcg PO 3XWK 03/31/19 08/25/23 mcg (1,000 unit) tablet ipratropium 0.5 mg-albuterol 3 mg 3 ml inhalation Q4H PRN SOB #6 mL 03/31/19 08/25/23 (2.5 mg base)/3 mL nebulization soln multivitamin (Multiple Vitamins 1 tab PO 3XWK 03/31/19 08/25/23 tablet) thyroid (pork) 60 mg tablet 60 mg PO QAM 03/31/19 08/25/23 tiotropium bromide 18 mcg capsule 1 cap inhalation QAM #1 inh 03/31/19 08/25/23 with inhalation device ascorbic acid (vitamin C) 500 mg 500 mg PO DAILY 12/02/21 08/25/23 tablet (Vitamin C) doxazosin 4 mg tablet 4 mg PO QPM 12/02/21 08/25/23 latanoprost 0.005 % eye drops 1 drp OPL HS 12/02/21 08/25/23 acetylcysteine 600 mg capsule 600 mg PO BID 08/25/23 08/25/23 diltiazem HCl 120 mg 0 mg PO DAILY 08/25/23 08/25/23 capsule,extended release 24 hr (Cartia XT) furosemide 20 mg tablet 20 mg PO DAILY PRN edema 08/25/23 08/25/23 naltrexone 4.5 mg capsule 4.5 mg PO HS 08/25/23 08/25/23 Previous Rx's Medication Instructions Recorded fluticasone 500 mcg-salmeterol 50 1 puffs inhalation BID #60 ea 08/01/19 mcg/dose blistr powdr for inhalation (Advair Diskus) Results & Data (ED) Vital Signs Vital Signs - 24 hr 08/25/23 12:02 08/25/23 12:02 08/25/23 12:07 Pulse Rate 36 L 38 L Pulse Rate [Right Finger] Pulse Rate from SpO2 Sensor Respiratory Rate 21 Respiratory Effort / Characteristics Spontaneous Labored Spontaneous Labored Respiratory Depth Respiratory Pattern Regular Blood Pressure 101/48 L Blood Pressure [Right Arm] Blood Pressure Mean 65 Blood Pressure Mean [Right Arm] Pulse Oximetry 100 Oxygen Delivery Method Nasal Cannula Nasal Cannula Oxygen Flow Rate 6 2 Fraction of Inspired Oxygen SaO2/FiO2 Ratio Sepsis Recent Fever Within 48 Hours No Sepsis New/Unexplained Change in Mental Status N/A Sepsis Action Taken by Nursing No Action Required 08/25/23 12:17 08/25/23 12:24 08/25/23 12:30 Pulse Rate 34 L 38 L 35 L Pulse Rate [Right Finger] Pulse Rate from SpO2 Sensor 36 L Respiratory Rate 17 Respiratory Effort / Characteristics Respiratory Depth Respiratory Pattern Blood Pressure 117/55 L Blood Pressure [Right Arm] Blood Pressure Mean 75 Blood Pressure Mean [Right Arm] Pulse Oximetry 94 Oxygen Delivery Method Nasal Cannula Oxygen Flow Rate 2 Fraction of Inspired Oxygen SaO2/FiO2 Ratio Sepsis Recent Fever Within 48 Hours Sepsis New/Unexplained Change in Mental Status Sepsis Action Taken by Nursing 08/25/23 12:31 08/25/23 12:33 08/25/23 13:12 Pulse Rate Pulse Rate [Right Finger] 32 L 36 L Pulse Rate from SpO2 Sensor Respiratory Rate 35 H 24 Respiratory Effort / Characteristics Spontaneous Labored Spontaneous Labored Spontaneous Labored Respiratory Depth Respiratory Pattern Blood Pressure Blood Pressure [Right Arm] 97/54 L 108/45 L Blood Pressure Mean Blood Pressure Mean [Right Arm] 68 66 Pulse Oximetry 100 100 Oxygen Delivery Method Nebulizer Nebulizer Nasal Cannula Oxygen Flow Rate 6 6 2 Fraction of Inspired Oxygen SaO2/FiO2 Ratio Sepsis Recent Fever Within 48 Hours Sepsis New/Unexplained Change in Mental Status Sepsis Action Taken by Nursing 08/25/23 13:28 08/25/23 13:44 08/25/23 13:55 Pulse Rate 41 L Pulse Rate [Right Finger] 42 L Pulse Rate from SpO2 Sensor Respiratory Rate 16 18 Respiratory Effort / Characteristics Spontaneous Short of Breath Non-Labored Non-Labored Respiratory Depth Normal Normal Respiratory Pattern Tachypnea Regular Blood Pressure Blood Pressure [Right Arm] 120/53 L Blood Pressure Mean Blood Pressure Mean [Right Arm] 75 Pulse Oximetry 99 99 Oxygen Delivery Method BiPAP Oxygen Flow Rate Fraction of Inspired Oxygen 30 30 SaO2/FiO2 Ratio 330 Sepsis Recent Fever Within 48 Hours Sepsis New/Unexplained Change in Mental Status Sepsis Action Taken by Nursing Laboratory Data 08/26/23 03:25 08/26/23 03:25 Lab Results 08/25/23 08/25/23 08/25/23 Range/Units 12:17 12:18 12:57 WBC Cancelled 9.09 RBC Cancelled 3.95 L Hgb Cancelled 12.4 L Hct Cancelled 39.3 L MCV Cancelled 99.5 MCH Cancelled 31.4 MCHC Cancelled 31.6 L RDW Std Deviation Cancelled 50.5 H RDW Coeff of David Cancelled 13.7 Plt Count Cancelled 181 MPV Cancelled 9.9 Immature Gran % (Auto) Cancelled 0.9 Neut % (Auto) Cancelled 67.4 Lymph % (Auto) Cancelled 20.1 [place] % (Auto) Cancelled 9.7 Eos % (Auto) Cancelled 1.1 Baso % (Auto) Cancelled 0.8 Neut # (Auto) Cancelled 6.13 Lymph # (Auto) Cancelled 1.83 [place] # (Auto) Cancelled 0.88 H Eos # (Auto) Cancelled 0.10 Baso # (Auto) Cancelled 0.07 Immature Gran # (Auto) Cancelled 0.08 Absolute Nucleated RBC Cancelled Nucleated RBC % (auto) Cancelled Neutrophils % (Manual) Cancelled Band Neutrophils % Cancelled Lymphocytes % (Manual) Cancelled Prolymphocyte % Cancelled Reactive Lymphs % (Man) Cancelled Monocytes % (Manual) Cancelled Eosinophils % (Manual) Cancelled Basophils % (Manual) Cancelled Metamyelocytes % (Man) Cancelled Myelocytes % (Man) Cancelled Promyelocytes % (Man) Cancelled Blast Cells % (Manual) Cancelled Plasma Cell % (Manual) Cancelled Other Cells % Cancelled Nucleated RBC % Cancelled Neutrophils # (Manual) Cancelled Band Neutrophils # Cancelled Total Absolute Neuts Cancelled Lymphocytes # (Manual) Cancelled Prolymphocyte # Cancelled Reactive Lymphs # Cancelled Total Abs Lymphocytes Cancelled Monocytes # (Manual) Cancelled Eosinophils # (Manual) Cancelled Basophils # (Manual) Cancelled Metamyelocytes # (Man) Cancelled Myelocytes # (Manual) Cancelled Promyelocytes # (Man) Cancelled Blast Cells # (Man) Cancelled Plasma Cell # (Manual) Cancelled Other Cells # Cancelled Nucleated RBCs # (Man) Cancelled Hypersegmented Neuts Cancelled Hyposegmented Neuts Cancelled Hypogranular Neuts Cancelled Large Granular Lymphs Cancelled # Lrg Granular Lymphs Cancelled Hairy Cells Cancelled Smudge Cells Cancelled Toxic Granulation Cancelled Toxic Vacuolation Cancelled Dohle Bodies Cancelled Christopher Rods Cancelled Platelet Estimate Cancelled Hypogranular Platelets Cancelled Giant Platelets Cancelled Platelet Satelliting Cancelled RBC Morphology Cancelled Polychromasia Cancelled Hypochromasia Cancelled Poikilocytosis Cancelled Basophilic Stippling Cancelled Anisocytosis Cancelled Microcytosis Cancelled Macrocytosis Cancelled Spherocytes Cancelled Pappenheimer Bodies Cancelled Sickle Cells Cancelled Target Cells Cancelled Tear Drop Cells Cancelled Ovalocytes Cancelled Stomatocytes Cancelled Rehman-[place] Bodies Cancelled Echinocytes Cancelled Acanthocytes (Spur) Cancelled Rouleaux Cancelled RBC Agglutinates Cancelled Schistocytes Cancelled Sezary Cell Cancelled PT 11.0 (9.0-12.0) Seconds INR 1.0 (0.9-1.1) Sodium 141 (136-145) mmol/L Potassium 4.1 (3.5-5.1) mmol/L Chloride 105 (98-107) mmol/L Carbon Dioxide 32 (21-32) mmol/L Anion Gap 4 (3-11) BUN 20 (6-23) mg/dl Creatinine 0.65 (0.6-1.4) mg/dl Est Cr Clr Drug Dosing Not Reportable Est GFR ( Amer) 108.8 ml/min Est GFR (Non-Af Amer) 93.8 ml/min BUN/Creatinine Ratio 30.8 H (10-20) Glucose 100 H (70-99(Fasting)) mg/dl Calcium 8.7 (8.6-10.3) mg/dl Magnesium 2.0 (1.7-2.4) mg/dl Total Bilirubin 0.4 (0.2-1.0) mg/dl Direct Bilirubin 0.1 (0-0.2) mg/dl AST 23 (13-39) U/L ALT 16 (7-52) U/L Alkaline Phosphatase 48 (34-104) U/L Troponin I High Sens 8.0 (0-20) pg/ml Total Protein 5.8 L (6.0-8.3) gm/dl Albumin 3.7 (3.4-5.0) gm/dl Procalcitonin (0-0.5) ng/ml Adenovirus (PCR) Not Detected (NotDetected) B. pertussis DNA (PCR) Not Detected (NotDetected) B.parapertussis DNA PCR Not Detected (NotDetected) Lyme Disease IgG Ab (Negative) Lyme Disease IgM Ab (Negative) C. pneumoniae DNA (PCR) Not Detected (NotDetected) Coronavirus OC43 (PCR) Not Detected (NotDetected) Coronavirus HKU1 (PCR) Not Detected (NotDetected) Coronavirus 229E (PCR) Not Detected (NotDetected) SARS-CoV-2 (PCR) Not Detected (NotDetected) Coronavirus NL63 (PCR) Not Detected (NotDetected) Human Metapneumovir PCR Not Detected (NotDetected) Influenza Type A (PCR) Not Detected (NotDetected) Influenza Type B (PCR) Not Detected (NotDetected) M. pneumoniae (PCR) Not Detected (NotDetected) Parainfluenza 1 (PCR) Not Detected (NotDetected) Parainfluenza 2 (PCR) Not Detected (NotDetected) Parainfluenza 3 (PCR) Not Detected (NotDetected) Parainfluenza 4 (PCR) Not Detected (NotDetected) RSV (PCR) Not Detected (NotDetected) Entero/Rhino (PCR) DETECTED A* (NotDetected) Blood Parasites ID Cancelled 08/25/23 Range/Units 13:03 WBC RBC Hgb Hct MCV MCH MCHC RDW Std Deviation RDW Coeff of David Plt Count MPV Immature Gran % (Auto) Neut % (Auto) Lymph % (Auto) [place] % (Auto) Eos % (Auto) Baso % (Auto) Neut # (Auto) Lymph # (Auto) [place] # (Auto) Eos # (Auto) Baso # (Auto) Immature Gran # (Auto) Absolute Nucleated RBC Nucleated RBC % (auto) Neutrophils % (Manual) Band Neutrophils % Lymphocytes % (Manual) Prolymphocyte % Reactive Lymphs % (Man) Monocytes % (Manual) Eosinophils % (Manual) Basophils % (Manual) Metamyelocytes % (Man) Myelocytes % (Man) Promyelocytes % (Man) Blast Cells % (Manual) Plasma Cell % (Manual) Other Cells % Nucleated RBC % Neutrophils # (Manual) Band Neutrophils # Total Absolute Neuts Lymphocytes # (Manual) Prolymphocyte # Reactive Lymphs # Total Abs Lymphocytes Monocytes # (Manual) Eosinophils # (Manual) Basophils # (Manual) Metamyelocytes # (Man) Myelocytes # (Manual) Promyelocytes # (Man) Blast Cells # (Man) Plasma Cell # (Manual) Other Cells # Nucleated RBCs # (Man) Hypersegmented Neuts Hyposegmented Neuts Hypogranular Neuts Large Granular Lymphs # Lrg Granular Lymphs Hairy Cells Smudge Cells Toxic Granulation Toxic Vacuolation Dohle Bodies Christopher Rods Platelet Estimate Hypogranular Platelets Giant Platelets Platelet Satelliting RBC Morphology Polychromasia Hypochromasia Poikilocytosis Basophilic Stippling Anisocytosis Microcytosis Macrocytosis Spherocytes Pappenheimer Bodies Sickle Cells Target Cells Tear Drop Cells Ovalocytes Stomatocytes Rehman-[place] Bodies Echinocytes Acanthocytes (Spur) Rouleaux RBC Agglutinates Schistocytes Sezary Cell PT (9.0-12.0) Seconds INR (0.9-1.1) Sodium (136-145) mmol/L Potassium (3.5-5.1) mmol/L Chloride (98-107) mmol/L Carbon Dioxide (21-32) mmol/L Anion Gap (3-11) BUN (6-23) mg/dl Creatinine (0.6-1.4) mg/dl Est Cr Clr Drug Dosing Est GFR ( Amer) ml/min Est GFR (Non-Af Amer) ml/min BUN/Creatinine Ratio (10-20) Glucose (70-99(Fasting)) mg/dl Calcium (8.6-10.3) mg/dl Magnesium (1.7-2.4) mg/dl Total Bilirubin (0.2-1.0) mg/dl Direct Bilirubin (0-0.2) mg/dl AST (13-39) U/L ALT (7-52) U/L Alkaline Phosphatase (34-104) U/L Troponin I High Sens (0-20) pg/ml Total Protein (6.0-8.3) gm/dl Albumin (3.4-5.0) gm/dl Procalcitonin < 0.05 (0-0.5) ng/ml Adenovirus (PCR) (NotDetected) B. pertussis DNA (PCR) (NotDetected) B.parapertussis DNA PCR (NotDetected) Lyme Disease IgG Ab Negative (Negative) Lyme Disease IgM Ab Negative (Negative) C. pneumoniae DNA (PCR) (NotDetected) Coronavirus OC43 (PCR) (NotDetected) Coronavirus HKU1 (PCR) (NotDetected) Coronavirus 229E (PCR) (NotDetected) SARS-CoV-2 (PCR) (NotDetected) Coronavirus NL63 (PCR) (NotDetected) Human Metapneumovir PCR (NotDetected) Influenza Type A (PCR) (NotDetected) Influenza Type B (PCR) (NotDetected) M. pneumoniae (PCR) (NotDetected) Parainfluenza 1 (PCR) (NotDetected) Parainfluenza 2 (PCR) (NotDetected) Parainfluenza 3 (PCR) (NotDetected) Parainfluenza 4 (PCR) (NotDetected) RSV (PCR) (NotDetected) Entero/Rhino (PCR) (NotDetected) Blood Parasites ID Administered Medications Albuterol (Albut/Ipratrop 3mg/0.5mg Neb 3 Ml Vial) 3 ml NEB QIDR JERONIMO; Protocol Stop: 09/24/23 18:59 Last Admin: 08/26/23 09:06 Dose: Not Given Documented By: Admin: 08/25/23 20:28 Dose: 3 ml Documented By: REGAN Heparin Sodium (Porcine) (Heparin Sod 5,000 Unit/0.5 Ml Vial) 5,000 units SQ Q12 [facility] Stop: 09/24/23 20:59 Last Admin: 08/26/23 08:48 Dose: Not Given Documented By: Admin: 08/25/23 20:29 Dose: 5,000 units Documented By: REGAN Sodium Chloride (Nss) 1,000 mls @ 50 mls/hr IV .Q20H ONE Stop: 08/26/23 12:43 Last Admin: 08/25/23 17:38 Dose: 50 mls/hr Documented By: HLK Latanoprost (Latanoprost 0.005% Op Soln 2.5 Ml Btl) 1 drops OPL HS [facility] Stop: 09/24/23 20:59 Last Admin: 08/25/23 20:31 Dose: 1 drops Documented By: REGAN Miscellaneous (Icu Protocol For Hyperglycemia) 1 each N/A ACHS [facility] Stop: 08/27/23 16:43 Last Admin: 08/26/23 07:15 Dose: Not Given Documented By: Admin: 08/25/23 20:30 Dose: Not Given Documented By: Admin: 08/25/23 18:32 Dose: 1 each Documented By: VERONICA Thyroid ([place] Thyroid 30 Mg Tab) 60 mg PO QAM JERONIMO Stop: 09/25/23 08:59 Last Admin: 08/26/23 08:47 Dose: 60 mg Documented By: AMDaniel Umeclidinium Allen (Umeclidinium Allen 62.5mcg/Blister 7 Puffs/Inhaler) 1 puffs INH DAILY JERONIMO Stop: 09/25/23 08:59 Last Admin: 08/26/23 08:49 Dose: 1 puffs Documented By: AMW Discontinued Medications Albuterol (Albut/Ipratrop 3mg/0.5mg Neb 3 Ml Vial) 12 ml NEB ONE ONE; Protocol Stop: 08/25/23 12:28 Last Admin: 08/25/23 12:28 Dose: 12 ml Documented By: BILLIE Atropine Sulfate (Atropine Sulfate 0.1 Mg/Ml 10ml Syr) Confirm Administered Dose 1 mg IV .STK-MED ONE Stop: 08/25/23 17:36 Last Admin: 08/25/23 18:33 Dose: Not Given Documented By: VERONICA Budesonide (Budesonide 0.5 Mg/2 Ml Vial (Pulmicort)) 0.5 mg NEB BIDR JERONIMO Stop: 09/24/23 18:59 Last Admin: 08/26/23 09:06 Dose: Not Given Documented By: Admin: 08/25/23 20:31 Dose: 0.5 mg Documented By: REGAN Fluticasone/Vilanterol (Fluticasone/Vilanterol 200/25mcg 14 Puffs/Inhaler) 1 puffs INH DAILY JERONIMO Stop: 09/25/23 08:59 Last Admin: 08/26/23 09:33 Dose: Not Given Documented By: BARBARA Sodium Chloride (Nss) 500 mls @ 999 mls/hr IV .Q31M ONE Stop: 08/25/23 12:55 Last Infusion: 08/25/23 13:02 Dose: Infused Documented By: Admin: 08/25/23 12:29 Dose: 999 mls/hr Documented By: BILLIE Dopamine HCl/Dextrose (Dopamine / D5w) 400 mg in 250 mls @ 4.14 mls/hr IV .Q24H [facility]; Protocol Stop: 09/24/23 16:43 Last Admin: 08/25/23 19:12 Dose: Not Given Documented By: HLK Methylprednisolone 40 mg/ (Syringe) 0.64 mls @ 1.5 mls/min IV DAILY JERONIMO Stop: 09/25/23 08:59 Last Admin: 08/26/23 08:47 Dose: 1.5 mls/min Documented By: BARBARA Methylprednisolone (Methylprednisolone 125 Mg/2 Ml Vial) 125 mg IV NOW STA Stop: 08/25/23 12:11 Last Admin: 08/25/23 12:16 Dose: 125 mg Documented By: NRB Discharge Plan Visit Data Chief Complaint: Cardiac Assessment Stated Complaint: SOB ED Provider: José Moya Discharge Problem: Acute exacerbation of chronic obstructive pulmonary disease, Complete heart block Patient Disposition: Admitted As Inpatient Discharge Instructions Interventions: ED Discharge Assessment Last Done: 08/25/23 15:54
[2023-08-25] MEDS ORDERED: SODIUM CHLORIDE 0.9% 500 ML IV ONE (12:25)
[2023-08-25] MEDS ORDERED: ALBUT/IPRATROP 3MG/0.5MG NEB 3 ML VIAL NEB ONE (12:27)
[2023-08-25 12:53] LABS: Alanine Aminotransferase 16 U/L (7-52); Albumin Level 3.7 gm/dl (3.4-5.0); Alkaline Phosphatase 48 U/L (34-104); Anion Gap 4 (3-11); Aspartate Aminotransferase 23 U/L (13-39); BUN Creatinine Ratio 30.8 (10-20); Bilirubin Direct 0.1 mg/dl (0-0.2); Bilirubin,Total 0.4 mg/dl (0.2-1.0); Blood Urea Nitrogen 20 mg/dl (6-23); Calcium 8.7 mg/dl (8.6-10.3); Carbon Dioxide 32 mmol/L (21-32); Chloride 105 mmol/L (98-107); Est GFR (African American) 108.8 ml/min; Est GFR (Non-African American) 93.8 ml/min; Glucose 100 mg/dl (70-99(Fasting)); Potassium 4.1 mmol/L (3.5-5.1); Sodium 141 mmol/L (136-145); Total Protein 5.8 gm/dl (6.0-8.3)
--- NOTE | 2023-08-25 12:53 | XRay Report ---
SINGLE VIEW CHEST CLINICAL HISTORY: Dyspnea FINDINGS: 2 AP, portable, upright chest radiographs are compared to study dated 10/16/2016 and correla li with chest CT dated 06/24/2019. The heart is enlarged noting atherosclerotic calcification of the thoracic aorta. Advanced emphysema and chronic interstitial thickening is similar to previous. Foci o f parenchymal scarring are seen throughout both lungs. There is mild diffuse coarsening of the inters titium with patchy airspace opacities. No large pleural effusion or pneumothorax is seen. The skeleta l structures are osteopenic. The bony thorax is grossly intact. IMPRESSION: 1. Cardiomegaly and advanced emphysema. 2. There is diffuse coarsening of the interstitium and mild patchy airspace opacities. This could rep resent an infectious/inflammatory pneumonitis versus mild pulmonary edema. Clinical correlation will be required and radiographic follow-up to resolution is recommended. 3. No large pleural effusion is identified. ACT 112: Negative or not required by law. Electronically signed by: Aman Monte M.D. 08/25/2023 12:52 PM
[2023-08-25 13:26] LABS: Basophils # (auto) 0.07 K/uL (0.00-0.20); Basophils % (auto) 0.8 %; Eosinophils % (auto) 1.1 %; Hematocrit (blood only) 39.3 % (42.0-52.0); Hemoglobin 12.4 g/dl (14.0-18.0); Immature Granulocytes # (auto) 0.08 K/uL (0.01-0.20); Immature Granulocytes % (auto) 0.9 %; Lymphocytes # (auto) 1.83 K/uL (1.20-3.40); Lymphocytes % (auto) 20.1 %; Mean Corpuscular Hemoglobin 31.4 pg (25.0-34.0); Mean Corpuscular Hgb Conc 31.6 g/dL (32.0-36.0); Mean Corpuscular Volume 99.5 fL (80.0-100.0); Mean Platelet Volume 9.9 fL (9.4-12.4); Monocytes # (auto) 0.88 K/uL (0.11-0.59); Monocytes % (auto) 9.7 %; Neutrophils # (auto) 6.13 K/uL (1.40-6.50); Neutrophils % (auto) 67.4 %; Platelet Count 181 K/uL (130-400); RDW Coefficient of Variation 13.7 % (11.5-14.5); RDW Standard Deviation 50.5 fL (36.4-46.3); Red Blood Count 3.95 M/uL (4.70-6.10); White Blood Count 9.09 K/ul (4.8-10.8)
[2023-08-25 13:32] LABS: Adenovirus PCR Not Detected (NotDetected); Bordetella parapertussis PCR Not Detected (NotDetected); Bordetella pertussis PCR Not Detected (NotDetected); Chlamydia pneumoniae PCR Not Detected (NotDetected); Coronavirus 229E PCR Not Detected (NotDetected); Coronavirus CoV-2 (COVID19)PCR Not Detected (NotDetected); Coronavirus HKU1 PCR Not Detected (NotDetected); Coronavirus NL63 PCR Not Detected (NotDetected); Coronavirus OC43PCR Not Detected (NotDetected); Human Metapneumovirus PCR Not Detected (NotDetected); Influenza A PCR Not Detected (NotDetected); Influenza B PCR Not Detected (NotDetected); Mycoplasma pneumoniae PCR Not Detected (NotDetected); Parainfluenza Virus 1 PCR Not Detected (NotDetected); Parainfluenza Virus 2 PCR Not Detected (NotDetected); Parainfluenza Virus 3 PCR Not Detected (NotDetected); Parainfluenza Virus 4 PCR Not Detected (NotDetected); Respiratory Syncytial VirusPCR Not Detected (NotDetected)
[2023-08-25 13:37] LABS: Rhinovirus/Enterovirus PCR DETECTED (NotDetected)
--- NOTE | 2023-08-25 14:26 | History & Physical Report ---
Date of Service August 25, 2023 Assessment & Plan (1) Complete heart block: Plan: Complete heart block Likely secondary to viral infection, medications Lyme screen negative TSH pending Initial troponin negative Reviewed outpatient echo Hold azithromycin, diltiazem Avoid AV beth blocking agents Start on dopamine GGT Appreciate car whacker, cardiology input Monitor in ICU for pacemaker tomorrow Monitor and replace electrolytes as needed Acute Respiratory failure with hypoxia Acute COPD Exacerbation Secondary to Enterovirus infection Uses BiPAP at bedtime at baseline --CXR:Cardiomegaly and advanced emphysema. There is diffuse coarsening of the interstitium and mild patchy airspace opacities. This could represent an infectious/inflammatory pneumonitis versus mild pulmonary edema. Clinical correlation will be required and radiographic follow-up to resolution is recommended. No large pleural effusion is identified. --Normal procalcitonin --BioFire positive for enterovirus -- Continue BiPAP for respiratory support --Continue DuoNebs, Solu-Medrol --Continue home inhalers --Pulmonary hygiene Hypothyroidism TSH pending Continue levothyroxine Bronchiectasis Past tobacco use Multiple lung nodules as per records Glaucoma Continue eye drops BPH Resume doxazosin as able Bladder scan as needed to monitor for any retention DVT Px: Heparin SQ Code Status Full Code History of Present Illness Chief Complaint: Shortness of breath Primary Care Provider: Mak Chávez MD Patient is a 77-year-old male with history of COPD, chronic respiratory failure with hypoxia, bronchiectasis, past tobacco use, multiple lung nodules, hypothyroidism, glaucoma, pancreatic cyst, BPH and other medical problems presents with history of worsening shortness of breath is a runny nose, generalized weakness since 4 days duration. Patient is currently in respiratory distress on BiPAP, most of the history is obtained from patient's at bedside, old records and ER staff. Patient also noted to have low heart rate in 30-40s since 4 days duration but could not seek medical attention due to holiday weekend. Patient admits to have intermittent palpitations but denies any chest pain, dizziness, syncope, fever, chills, nausea, vomiting, abdominal pain, diarrhea. He also denies any bite. He has been on azithromycin for COPD exacerbation chronically--last echo on Thursday. He also has not been taking his diltiazem since 4 days duration due to low heart rate. Currently patient is on BiPAP and heart rate between 30s and 40s. Discussed with car whacker and fish conservationist on-call. Patient will be admitted to ICU and started on dopamine drip for pacemaker tomorrow. Allergies Allergy/AdvReac Type Severity Reaction Status Date / Time Gadolinium-Containing Allergy Intermediate Nausea/Vomi Verified 08/25/23 14:56 Contrast Medi ting Home Medications Medication Instructions Recorded Confirmed Type albuterol sulfate 90 mcg/actuation 2 puffs inhalation Q4H PRN SOB #1 g 03/31/19 08/25/23 History aerosol inhaler azithromycin 250 mg tablet 250 mg PO 3XWK #1 tab 03/31/19 08/25/23 History cholecalciferol (vitamin D3) 25 1,000 mcg PO 3XWK 03/31/19 08/25/23 History mcg (1,000 unit) tablet ipratropium 0.5 mg-albuterol 3 mg 3 ml inhalation Q4H PRN SOB #6 mL 03/31/19 08/25/23 History (2.5 mg base)/3 mL nebulization soln multivitamin (Multiple Vitamins 1 tab PO 3XWK 03/31/19 08/25/23 History tablet) thyroid (pork) 60 mg tablet 60 mg PO QAM 03/31/19 08/25/23 History tiotropium bromide 18 mcg capsule 1 cap inhalation QAM #1 inh 03/31/19 08/25/23 History with inhalation device fluticasone 500 mcg-salmeterol 50 1 puffs inhalation BID #60 ea 08/01/19 08/25/23 Rx mcg/dose blistr powdr for inhalation (Advair Diskus) ascorbic acid (vitamin C) 500 mg 500 mg PO DAILY 12/02/21 08/25/23 History tablet (Vitamin C) doxazosin 4 mg tablet 4 mg PO QPM 12/02/21 08/25/23 History latanoprost 0.005 % eye drops 1 drp ophthalmic (eye) HS 12/02/21 08/25/23 History acetylcysteine 600 mg capsule 600 mg PO DAILY 08/25/23 08/25/23 History diltiazem HCl 120 mg 120 mg PO DAILY 08/25/23 08/25/23 History capsule,extended release 24 hr (Cartia XT) furosemide 20 mg tablet 20 mg PO UD 08/25/23 08/25/23 History naltrexone 4.5 mg capsule 4.5 mg PO HS 08/25/23 08/25/23 History Past Med/Surg History Medical History BPH (benign prostatic hyperplasia) Pancreatic cyst BENIGN Hypothyroidism Elevated cholesterol NO MEDS Emphysema lung Glaucoma Chronic obstructive pulmonary disease On home oxygen therapy 2L CONT. Surgical History Hx of left cataract extraction History of anesthesia reaction SLOW TO WAKE UP H/O shoulder surgery RT History of cystoscopy History of ERCP History of colonoscopy H/O inguinal hernia repair History of tooth extraction History of tonsillectomy Family History Other No family history of adverse response to anesthesia Social History Smoking Status: Unknown if ever smoked Tobacco Type: Cigarettes Second Hand Exposure: Yes (CHILDHOOD); Do You Dip or Chew Tobacco: No; Hx Alcohol Use: Yes Alcohol type: beer and wine Hx Substance Use: No Preferred Language: Kazakh Communication Ability: Effective Anesthetic Assistant Required: No Beliefs That Will Affect Care: None Current Living Situation: Spouse Feels Safe at Home: Yes Assistive Devices: Cane, Glasses, Oxygen - Continuous and Walker Review of Systems Review of Systems: All systems reviewed & are unremarkable except as noted in Subjective Physical Exam Physical Exam: Physical Exam: Vitals signs as noted above General Appearance:Thin, Frail, chronic ill appearing, mild respiratory distress Head: normocephalic, Atraumatic Eyes: normal inspection, EOMI Neck: supple, Trachea midline Respiratory/Chest: Decreased breath sounds, CTA, No accessory muscle use Cardiovascular: S1, S2, No murmur, +Bradycardia Abdomen/GI:Soft, Non tender, Bowel sounds present Extremities/Musculoskeletal:normal inspection, no edema Neurologic/Psych:AAOX3, grossly no focal neurological deficits Skin: normal color, warm, Chronic LE erythematous rash (~ 8 months per family) Results & Data Results & Data Vital Signs (Past 12 Hours) Vital Signs Pulse Pulse Resp BP BP Pulse Ox O2 Del Method 08/25/23 13:55 42 L 18 120/53 L 99 BiPAP 08/25/23 13:28 41 L 16 99 01/02/24 13:12 36 L 24 108/45 L 100 Nasal Cannula 08/25/23 12:33 32 L 35 H 97/54 L 100 Nebulizer 08/25/23 12:31 Nebulizer 08/25/23 12:30 35 L 08/25/23 12:24 38 L Nasal Cannula 08/25/23 12:02 38 L Nasal Cannula 08/25/23 12:02 36 L 21 101/48 L 100 Nasal Cannula O2 Flow Rate FiO2 08/25/23 13:55 30 08/25/23 13:28 30 08/25/23 13:12 2 08/25/23 12:33 6 08/25/23 12:31 6 08/25/23 12:30 08/25/23 12:24 2 08/25/23 12:02 2 08/25/23 12:02 6 Laboratory Results Short CBC 08/25/23 08/25/23 Range/Units 12:17 12:57 WBC Cancelled 9.09 Hgb Cancelled 12.4 L Hct Cancelled 39.3 L Plt Count Cancelled 181 BMP 08/25/23 12:17 Sodium 141 Potassium 4.1 Chloride 105 Carbon Dioxide 32 BUN 20 Creatinine 0.65 Glucose 100 H Calcium 8.7 Liver Function 08/25/23 Range/Units 12:17 Total Bilirubin 0.4 (0.2-1.0) mg/dl Direct Bilirubin 0.1 (0-0.2) mg/dl AST 23 (13-39) U/L ALT 16 (7-52) U/L Alkaline Phosphatase 48 (34-104) U/L Albumin 3.7 (3.4-5.0) gm/dl Diagnostic Findings --CXR:Cardiomegaly and advanced emphysema. There is diffuse coarsening of the interstitium and mild patchy airspace opacities. This could represent an infectious/inflammatory pneumonitis versus mild pulmonary edema. Clinical correlation will be required and radiographic follow-up to resolution is recommended. No large pleural effusion is identified. ECG Additional Comments: EKG: Sinus, complete heart block with ventricular escape complexes, low voltage EKG QTc 265.
[2023-08-25 14:59] LABS: Procalcitonin < 0.05 ng/ml (0-0.5)
[2023-08-25 15:05] LABS: Lyme Ab IgG w/WB Rflx Negative (Negative); Lyme Ab IgM w/WB Rflx Negative (Negative)
--- NOTE | 2023-08-25 15:50 | Electrocardiogram Report ---
Test Reason : Blood Pressure : / mmHG Vent. Rate : 117 BPM Atrial Rate : 138 BPM P-R Int : 000 ms QRS Dur : 058 ms QT Int : 190 ms P-R-T Axes : 000 076 265 degrees QTc Int : 265 ms Sinus tachycardia with complete heart block with ventricular escape complexes Low voltage QRS Septal infarct , age undetermined Possible Lateral infarct , age undetermined Abnormal ECG When compared with ECG of 15-OCT-2016 13:56, Significant changes have occurred Confirmed by Maximo Murphy ([id number]) on 08/25/2023 3:50:14 PM Referred By: REFERRED SELF Confirmed By:Maximo Murphy
[2023-08-25 16:14] LABS: Troponin I High Sensitivity 8.2 pg/ml (0-20)
[2023-08-25 16:24] LABS: Thyroid Stimulating Hormone 2.721 uIu/ml (0.300-4.500)
--- NOTE | 2023-08-25 16:28 | Cardiology Consultation ---
Date of Consultation August 25, 2023 Assessment & Plan (1) Complete heart block: (2) COPD (chronic obstructive pulmonary disease): (3) Emphysema of lung: Plan 77-year-old male with underlying severe chronic obstructive lung disease and conduction system disease who presents with increasing dyspnea and marked reduction in exercise tolerance x 3 days. Marked bradycardia noted on pulse oximetry Sought evaluation today due to persistent symptoms and low heart rate. Found to be in third-degree AV block with a ventricular escape rhythm. Currently hemodynamically stable with adequate blood pressures and normal renal perfusion Minimal increase in vascular markings on chest x-ray but no other findings consistent with congestive failure Impression: Symptomatic third-degree AV block/conduction system disease Plan: Initiate IV dopamine 2 to 3 mcg/kg/min. Would not titrate higher N.p.o. after midnight for anticipated dual-chamber pacemaker insertion in a.m. History of Present Illness Reason for Consultation: Third-degree heart block Requesting Physician: Dr. Gracia Attending Physician: Liban Gracia MD History of Present Illness Patient is a 77-year-old male referred for evaluation after newly observed third-degree heart block on telemetry and EKG. Underlying medical concerns include 1. Severe O2 dependent chronic obstructive lung disease COPD group D with bronchiectasis requiring BiPAP at night, right ventricular enlargement. 2. 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 He is accompanied by his who aids in history. Patient notes symptoms of increasing dyspnea especially with any activity over the past 3 days. Noted low heart rates on pulse oximetry with heart rates in the 30s today.No syncope or near syncope but marked reduction in activity tolerance. Did take additional azithromycin over the weekend due to possible URI, dyspnea No chest pains no productive cough. Takes medications faithfully. Uses a dose of azithromycin as a suppressive agent 3 days/week Appetite only fair. Has had difficulty with respiratory cachexia No edema no worsening sleep No bleeding difficulty Did take diltiazem today Patient brought to the ER via ambulance. External pacer patches placed and single dose of atropine given and transient external pacing begun. Discontinued on arrival given hemodynamic stability Received additional IV Solu-Medrol on arrival, bronchodilators and BiPAP support Allergies Allergy/AdvReac Type Severity Reaction Status Date / Time Gadolinium-Containing Allergy Intermediate Nausea/Vomi Verified 08/25/23 14:56 Contrast Medi tin Home Medications Medication Instructions Recorded Confirmed Type albuterol sulfate 90 mcg/actuation 2 puffs inhalation Q4H PRN SOB #1 g 03/31/19 08/25/23 History aerosol inhaler azithromycin 250 mg tablet 250 mg PO 3XWK #1 tab 03/31/19 08/25/23 History cholecalciferol (vitamin D3) 25 1,000 mcg PO 3XWK 03/31/19 08/25/23 History mcg (1,000 unit) tablet ipratropium 0.5 mg-albuterol 3 mg 3 ml inhalation Q4H PRN SOB #6 mL 03/31/19 08/25/23 History (2.5 mg base)/3 mL nebulization soln multivitamin (Multiple Vitamins 1 tab PO 3XWK 03/31/19 08/25/23 History tablet) thyroid (pork) 60 mg tablet 60 mg PO QAM 03/31/19 08/25/23 History tiotropium bromide 18 mcg capsule 1 cap inhalation QAM #1 inh 03/31/19 08/25/23 History with inhalation device fluticasone 500 mcg-salmeterol 50 1 puffs inhalation BID #60 ea 08/01/19 08/25/23 Rx mcg/dose blistr powdr for inhalation (Advair Diskus) ascorbic acid (vitamin C) 500 mg 500 mg PO DAILY 12/02/21 08/25/23 History tablet (Vitamin C) doxazosin 4 mg tablet 4 mg PO QPM 12/02/21 08/25/23 History latanoprost 0.005 % eye drops 1 drp OPL HS 12/02/21 08/25/23 History acetylcysteine 600 mg capsule 600 mg PO BID 08/25/23 08/25/23 History diltiazem HCl 120 mg 0 mg PO DAILY 08/25/23 08/25/23 History capsule,extended release 24 hr (Cartia XT) furosemide 20 mg tablet 20 mg PO DAILY PRN edema 08/25/23 08/25/23 History naltrexone 4.5 mg capsule 4.5 mg PO HS 08/25/23 08/25/23 History Patient History Medical History BPH (benign prostatic hyperplasia) Pancreatic cyst BENIGN Hypothyroidism Elevated cholesterol NO MEDS Emphysema lung Glaucoma Chronic obstructive pulmonary disease On home oxygen therapy 2L CONT. Surgical History Hx of left cataract extraction History of anesthesia reaction SLOW TO WAKE UP H/O shoulder surgery RT History of cystoscopy History of ERCP History of colonoscopy H/O inguinal hernia repair History of tooth extraction History of tonsillectomy Family History Other No family history of adverse response to anesthesia Social History Smoking Status: Unknown if ever smoked Tobacco Type: Cigarettes Second Hand Exposure: Yes (CHILDHOOD); Do You Dip or Chew Tobacco: No; Hx Alcohol Use: Yes Alcohol type: beer and wine Hx Substance Use: No Preferred Language: Turkmen Communication Ability: Effective Clinical Field Specialist Required: No Beliefs That Will Affect Care: None Current Living Situation: Spouse Feels Safe at Home: Yes Assistive Devices: Cane, Glasses, Oxygen - Continuous and Walker Review of Systems Review of Systems: All systems reviewed & are unremarkable except as noted in HPI & below Physical Exam Constitutional: + thin and + cachectic; no acute distres s Eyes: PERRL, conjunctivae normal, anicteric sclerae ENMT: external ear and nose normal, oropharynx normal Neck: trachea midline, no thyromegaly Respiratory: Auscultation: + diminished lung sounds and + rhonchi (Upper airway sounds with BiPAP in place) Cardiovascular: Rate/Rhythm: regular rhythm and + bradycardic Heart Sounds: no murmur Vessels: femoral pulses present and radial pulses present; no JVD Extremities: + edema (Trace) Chest (Breasts): Additional Comments: Depleted muscle mass chest Gastrointestinal (Abdomen): normal bowel sounds, soft, nontender, no hepatosplenomegaly Psychiatric: A+Ox3, euthymic affect Results & Data Vital Signs (Past 12 Hours) Vital Signs Pulse Pulse Resp BP BP Pulse Ox O2 Del Method 08/25/23 15:37 36 L 15 119/53 L 100 BiPAP 08/25/23 15:30 42 L 21 99 BiPAP 08/25/23 15:00 36 L 15 100 BiPAP 08/25/23 15:00 100 08/25/23 13:55 42 L 18 120/53 L 99 BiPAP 08/25/23 13:28 41 L 16 99 08/25/23 13:12 36 L 24 108/45 L 100 Nasal Cannula 08/25/23 12:33 32 L 35 H 97/54 L 100 Nebulizer 08/25/23 12:31 Nebulizer 08/25/23 12:30 35 L 08/25/23 12:24 38 L Nasal Cannula 08/25/23 12:17 34 L 17 117/55 L 94 08/25/23 12:02 38 L Nasal Cannula 08/25/23 12:02 36 L 21 101/48 L 100 Nasal Cannula O2 Flow Rate FiO2 08/25/23 15:37 30 08/25/23 15:30 30 08/25/23 15:00 08/25/23 15:00 30 08/25/23 13:55 30 08/25/23 13:28 30 08/25/23 13:12 2 08/25/23 12:33 6 08/25/23 12:31 6 08/25/23 12:30 08/25/23 12:24 2 08/25/23 12:17 08/25/23 12:02 2 08/25/23 12:02 6 Laboratory Results Laboratory Results - last 24 hr 08/25/23 08/25/23 08/25/23 12:17 12:18 12:57 WBC Cancelled 9.09 RBC Cancelled 3.95 L Hgb Cancelled 12.4 L Hct Cancelled 39.3 L MCV Cancelled 99.5 MCH Cancelled 31.4 MCHC Cancelled 31.6 L RDW Std Deviation Cancelled 50.5 H RDW Coeff of David Cancelled 13.7 Plt Count Cancelled 181 MPV Cancelled 9.9 Immature Gran % (Auto) Cancelled 0.9 Neut % (Auto) Cancelled 67.4 Lymph % (Auto) Cancelled 20.1 [place] % (Auto) Cancelled 9.7 Eos % (Auto) Cancelled 1.1 Baso % (Auto) Cancelled 0.8 Neut # (Auto) Cancelled 6.13 Lymph # (Auto) Cancelled 1.83 [place] # (Auto) Cancelled 0.88 H Eos # (Auto) Cancelled 0.10 Baso # (Auto) Cancelled 0.07 Immature Gran # (Auto) Cancelled 0.08 Absolute Nucleated RBC Cancelled Nucleated RBC % (auto) Cancelled Neutrophils % (Manual) Cancelled Band Neutrophils % Cancelled Lymphocytes % (Manual) Cancelled Prolymphocyte % Cancelled Reactive Lymphs % (Man) Cancelled Monocytes % (Manual) Cancelled Eosinophils % (Manual) Cancelled Basophils % (Manual) Cancelled Metamyelocytes % (Man) Cancelled Myelocytes % (Man) Cancelled Promyelocytes % (Man) Cancelled Blast Cells % (Manual) Cancelled Plasma Cell % (Manual) Cancelled Other Cells % Cancelled Nucleated RBC % Cancelled Neutrophils # (Manual) Cancelled Band Neutrophils # Cancelled Total Absolute Neuts Cancelled Lymphocytes # (Manual) Cancelled Prolymphocyte # Cancelled Reactive Lymphs # Cancelled Total Abs Lymphocytes Cancelled Monocytes # (Manual) Cancelled Eosinophils # (Manual) Cancelled Basophils # (Manual) Cancelled Metamyelocytes # (Man) Cancelled Myelocytes # (Manual) Cancelled Promyelocytes # (Man) Cancelled Blast Cells # (Man) Cancelled Plasma Cell # (Manual) Cancelled Other Cells # Cancelled Nucleated RBCs # (Man) Cancelled Hypersegmented Neuts Cancelled Hyposegmented Neuts Cancelled Hypogranular Neuts Cancelled Large Granular Lymphs Cancelled # Lrg Granular Lymphs Cancelled Hairy Cells Cancelled Smudge Cells Cancelled Toxic Granulation Cancelled Toxic Vacuolation Cancelled Dohle Bodies Cancelled Christopher Rods Cancelled Platelet Estimate Cancelled Hypogranular Platelets Cancelled Giant Platelets Cancelled Platelet Satelliting Cancelled RBC Morphology Cancelled Polychromasia Cancelled Hypochromasia Cancelled Poikilocytosis Cancelled Basophilic Stippling Cancelled Anisocytosis Cancelled Microcytosis Cancelled Macrocytosis Cancelled Spherocytes Cancelled Pappenheimer Bodies Cancelled Sickle Cells Cancelled Target Cells Cancelled Tear Drop Cells Cancelled Ovalocytes Cancelled Stomatocytes Cancelled Rehman-[place] Bodies Cancelled Echinocytes Cancelled Acanthocytes (Spur) Cancelled Rouleaux Cancelled RBC Agglutinates Cancelled Schistocytes Cancelled Sezary Cell Cancelled PT 11.0 INR 1.0 Sodium 141 Potassium 4.1 Chloride 105 Carbon Dioxide 32 Anion Gap 4 BUN 20 Creatinine 0.65 Est Cr Clr Drug Dosing Not Reportable Est GFR ( Amer) 108.8 Est GFR (Non-Af Amer) 93.8 BUN/Creatinine Ratio 30.8 H Glucose 100 H Calcium 8.7 Magnesium 2.0 Total Bilirubin 0.4 Direct Bilirubin 0.1 AST 23 ALT 16 Alkaline Phosphatase 48 Troponin I High Sens 8.0 Total Protein 5.8 L Albumin 3.7 Procalcitonin TSH Adenovirus (PCR) Not Detected B. pertussis DNA (PCR) Not Detected B.parapertussis DNA PCR Not Detected Lyme Disease IgG Ab Lyme Disease IgM Ab C. pneumoniae DNA (PCR) Not Detected Coronavirus OC43 (PCR) Not Detected Coronavirus HKU1 (PCR) Not Detected Coronavirus 229E (PCR) Not Detected SARS-CoV-2 (PCR) Not Detected Coronavirus NL63 (PCR) Not Detected Human Metapneumovir PCR Not Detected Influenza Type A (PCR) Not Detected Influenza Type B (PCR) Not Detected M. pneumoniae (PCR) Not Detected Parainfluenza 1 (PCR) Not Detected Parainfluenza 2 (PCR) Not Detected Parainfluenza 3 (PCR) Not Detected Parainfluenza 4 (PCR) Not Detected RSV (PCR) Not Detected Entero/Rhino (PCR) DETECTED A* Blood Parasites ID Cancelled 08/25/23 08/25/23 08/25/23 13:03 15:33 15:33 WBC RBC Hgb Hct MCV MCH MCHC RDW Std Deviation RDW Coeff of David Plt Count MPV Immature Gran % (Auto) Neut % (Auto) Lymph % (Auto) [place] % (Auto) Eos % (Auto) Baso % (Auto) Neut # (Auto) Lymph # (Auto) [place] # (Auto) Eos # (Auto) Baso # (Auto) Immature Gran # (Auto) Absolute Nucleated RBC Nucleated RBC % (auto) Neutrophils % (Manual) Band Neutrophils % Lymphocytes % (Manual) Prolymphocyte % Reactive Lymphs % (Man) Monocytes % (Manual) Eosinophils % (Manual) Basophils % (Manual) Metamyelocytes % (Man) Myelocytes % (Man) Promyelocytes % (Man) Blast Cells % (Manual) Plasma Cell % (Manual) Other Cells % Nucleated RBC % Neutrophils # (Manual) Band Neutrophils # Total Absolute Neuts Lymphocytes # (Manual) Prolymphocyte # Reactive Lymphs # Total Abs Lymphocytes Monocytes # (Manual) Eosinophils # (Manual) Basophils # (Manual) Metamyelocytes # (Man) Myelocytes # (Manual) Promyelocytes # (Man) Blast Cells # (Man) Plasma Cell # (Manual) Other Cells # Nucleated RBCs # (Man) Hypersegmented Neuts Hyposegmented Neuts Hypogranular Neuts Large Granular Lymphs # Lrg Granular Lymphs Hairy Cells Smudge Cells Toxic Granulation Toxic Vacuolation Dohle Bodies Christopher Rods Platelet Estimate Hypogranular Platelets Giant Platelets Platelet Satelliting RBC Morphology Polychromasia Hypochromasia Poikilocytosis Basophilic Stippling Anisocytosis Microcytosis Macrocytosis Spherocytes Pappenheimer Bodies Sickle Cells Target Cells Tear Drop Cells Ovalocytes Stomatocytes Rehman-[place] Bodies Echinocytes Acanthocytes (Spur) Rouleaux RBC Agglutinates Schistocytes Sezary Cell PT INR Sodium Potassium Chloride Carbon Dioxide Anion Gap BUN Creatinine Est Cr Clr Drug Dosing Est GFR ( Amer) Est GFR (Non-Af Amer) BUN/Creatinine Ratio Glucose Calcium Magnesium Cancelled 2.0 Total Bilirubin Direct Bilirubin AST ALT Alkaline Phosphatase Troponin I High Sens 8.2 Total Protein Albumin Procalcitonin < 0.05 TSH Cancelled Adenovirus (PCR) B. pertussis DNA (PCR) B.parapertussis DNA PCR Lyme Disease IgG Ab Negative Lyme Disease IgM Ab Negative C. pneumoniae DNA (PCR) Coronavirus OC43 (PCR) Coronavirus HKU1 (PCR) Coronavirus 229E (PCR) SARS-CoV-2 (PCR) Coronavirus NL63 (PCR) Human Metapneumovir PCR Influenza Type A (PCR) Influenza Type B (PCR) M. pneumoniae (PCR) Parainfluenza 1 (PCR) Parainfluenza 2 (PCR) Parainfluenza 3 (PCR) Parainfluenza 4 (PCR) RSV (PCR) Entero/Rhino (PCR) Blood Parasites ID 08/25/23 15:33 WBC RBC Hgb Hct MCV MCH MCHC RDW Std Deviation RDW Coeff of David Plt Count MPV Immature Gran % (Auto) Neut % (Auto) Lymph % (Auto) [place] % (Auto) Eos % (Auto) Baso % (Auto) Neut # (Auto) Lymph # (Auto) [place] # (Auto) Eos # (Auto) Baso # (Auto) Immature Gran # (Auto) Absolute Nucleated RBC Nucleated RBC % (auto) Neutrophils % (Manual) Band Neutrophils % Lymphocytes % (Manual) Prolymphocyte % Reactive Lymphs % (Man) Monocytes % (Manual) Eosinophils % (Manual) Basophils % (Manual) Metamyelocytes % (Man) Myelocytes % (Man) Promyelocytes % (Man) Blast Cells % (Manual) Plasma Cell % (Manual) Other Cells % Nucleated RBC % Neutrophils # (Manual) Band Neutrophils # Total Absolute Neuts Lymphocytes # (Manual) Prolymphocyte # Reactive Lymphs # Total Abs Lymphocytes Monocytes # (Manual) Eosinophils # (Manual) Basophils # (Manual) Metamyelocytes # (Man) Myelocytes # (Manual) Promyelocytes # (Man) Blast Cells # (Man) Plasma Cell # (Manual) Other Cells # Nucleated RBCs # (Man) Hypersegmented Neuts Hyposegmented Neuts Hypogranular Neuts Large Granular Lymphs # Lrg Granular Lymphs Hairy Cells Smudge Cells Toxic Granulation Toxic Vacuolation Dohle Bodies Christopher Rods Platelet Estimate Hypogranular Platelets Giant Platelets Platelet Satelliting RBC Morphology Polychromasia Hypochromasia Poikilocytosis Basophilic Stippling Anisocytosis Microcytosis Macrocytosis Spherocytes Pappenheimer Bodies Sickle Cells Target Cells Tear Drop Cells Ovalocytes Stomatocytes Rehman-[place] Bodies Echinocytes Acanthocytes (Spur) Rouleaux RBC Agglutinates Schistocytes Sezary Cell PT INR Sodium Potassium Chloride Carbon Dioxide Anion Gap BUN Creatinine Est Cr Clr Drug Dosing Est GFR ( Amer) Est GFR (Non-Af Amer) BUN/Creatinine Ratio Glucose Calcium Magnesium Total Bilirubin Direct Bilirubin AST ALT Alkaline Phosphatase Troponin I High Sens Total Protein Albumin Procalcitonin TSH 2.721 Adenovirus (PCR) B. pertussis DNA (PCR) B.parapertussis DNA PCR Lyme Disease IgG Ab Lyme Disease IgM Ab C. pneumoniae DNA (PCR) Coronavirus OC43 (PCR) Coronavirus HKU1 (PCR) Coronavirus 229E (PCR) SARS-CoV-2 (PCR) Coronavirus NL63 (PCR) Human Metapneumovir PCR Influenza Type A (PCR) Influenza Type B (PCR) M. pneumoniae (PCR) Parainfluenza 1 (PCR) Parainfluenza 2 (PCR) Parainfluenza 3 (PCR) Parainfluenza 4 (PCR) RSV (PCR) Entero/Rhino (PCR) Blood Parasites ID Diagnostic Findings Echocardiogram 11/21/2022 Left ventricular cavity size is normal EF 55 to 59% Grossly normal wall motion Mild aortic valve sclerosis Mild mitral insufficiency and trivial tricuspid sufficiency ECG Additional Comments: EKG 08/25/2023, 12:07 Sinus tachycardia with third-degree heart block. Ventricular escape rhythm at 35 bpm
[2023-08-25] MEDS ORDERED: DOPamine / D5W 400 MG/250 ML BAG IV SCH (16:44)
[2023-08-25] MEDS ORDERED: STAT IV Infusion **Titration per Protocol STA (16:44)
[2023-08-25] MEDS ORDERED: ALBUTEROL HFA 8 GM INHALER INH PRN (16:44)
[2023-08-25] MEDS ORDERED: SODIUM CHLORIDE 0.9% 1,000 ML IV ONE (16:44)
--- OUTSIDE RECORDS SUMMARY | 2023-08-25 17:14 | External Medical Summary | Summary of Care ---
Author Name Unknown Organization [facility] Address [address] [facility] [place] [address] Phone [phone] Care Team Providers Care Expediter Clerk Name Role Phone Kyler ABDUL MD, Mak Gibson Primary Care Provider [phone] Reason for Visit * Reason Comments Follow Up Sleep Apnea COPD Lung Nodule Chronic Hypoxemic Re sp Failure Bronchiectasis Emphysema Encounter Details Date Type Department Care Team (Latest Contact Info) Description 07/08/2023 3:30 PM EST Office Visit [facility] [address] [place] [id number] rGicelda Young CRNP [address] [place] [address] COPD, group D, by GOLD 2017 classification (HCC)*; Bullous emphysema (HCC); Chronic hypoxemic respiratory failure (HCC); Bronchiectasis without complication (HCC); Multiple lung nodules; History of tobacco use Allergies Active Allergy Reactions Criticality Noted Date Comments Gadolinium Nausea/vomiting 08/08/2015 Noted during MRI in 2013. documented as of this encounter (statuses as of 07/08/2023) Medications Medication Sig Dispensed Refills Start Date End Date Status VENTOLIN HFA 108 (90 BASE) MCG/ACT IN AERSIndications:Ot her dyspnea and respiratory abnormality inhale 2 puffs by mouth four times a day 1 Inhaler 11 06/08/2013 Active MULTIVITAMINS PO CAPS 1 tab daily 0 Active VITAMIN D3 2000 UNITS PO TABS daily 0 Active oxygen GASIndications:SEWING MACHINE ATTACHMENT TESTER D, very severe (HCC) 2 LPM via NC with activity. Maintain saturations >+88% 1 Each 0 09/17/2016 Active albuterol-ipratrop ium (DUONEB) 2.5-0.5 MG/3ML nebulizer solutionIndication s:COPD exacerbation (HCC) 1-VIAL VIA NEBULIZER EVERY 6 HOURS NEEDED FOR SOB/COUGH/WHEEZE 120 Vial 4 09/18/2016 Active doxazosin (CARDURA) 4 MG Tablet 1 TAB BY MOUTH AT BEDTIME 30 Tab 11 09/27/2016 Active ARMOUR THYROID 30 MG Tablet 2 TABS (60MG) BY MOUTH EVERY DAY 60 Tab 1 09/26/2016 Active SPIRIVA HANDIHALER 18 MCG inhalation Capsule INHALE THE CONTENTS OF ONE CAPSULE ORALLY EVERY DAY (BY TAKING 2-SEPARATE INHALATIONS VIA HANDIHALER DEVICE) 30 Cap 5 10/13/2016 Active latanoprost (XALATAN) 0.005 % ophthalmic solution Instill 1 Drop into the left eye at bedtime. 0 Active Fluticasone-Salmet milan 500-50 MCG/ACT Inhalation Aerosol Powder Breath Activated Inhale 1 Puff by mouth in the morning and 1 Puff before bedtime. 0 09/29/2018 Active Ascorbic Acid 500 MG Oral Tablet 1 Tablet. 0 12/02/2021 Active Naltrexone 4.5 MG OR Capsule Take by mouth 4.5 mg before bedtime. 0 Active BiPAP every night at bedtime. 0 Active predniSONE 20 MG Oral Tablet (Deltasone) 2 tablets by mouth daily for COPD exacerbation 10 Tablet 0 09/11/2022 Active Azithromycin 250 MG Oral Tablet Take 1 Tablet by mouth once a day on Thursday, Thursday, and Thursday only. 6 Tablet 0 09/11/2022 Active levoFLOXacin 750 MG Oral Tablet (Levaquin) COPD exacerbation: Take 1 tablet by mouth daily for 3-5 days depending on symptoms and clinician recommendation. 5 Tablet 0 09/30/2022 Active Furosemide 20 MG Oral Tablet (Lasix)Indications :SOB (shortness of breath),Edema, unspecified type Take one tablet daily on Thursday and Thursday. 30 Tablet 5 10/22/2022 Active dilTIAZem HCl ER Coated Beads 120 MG Oral Capsule Extended Release 24 Hour (Cardizem CD) Take 1 Capsule by mouth in the morning. 90 Capsule 3 12/26/2022 Active Acetylcysteine 600 MG Oral Capsule (NAC) Take 1 Capsule by mouth in the morning. 0 06/06/2022 Active Clotrimazole 1 % External Cream (Lotrimin) APPLY APPLICATION TO SKIN TWICE A DAY NEEDED FOR FUNGAL INFECTION ON FEET AND ANKLES TO THE RED/IRRITATED/ITCHY AREAS UNTIL RESOLVED, THEN APPROX 48 HOURS MORE TO ENSURE ERADIFICATION INFECTION. FOR FUNGAL INFECTION ON FEET AND ANKLES TO THE RED/IRRITATED/ITCHY AREAS UNTIL RESOLVED, THEN APPROX 48 HOURS MORE TO ENSURE ERADIFICATION INFECTION. 0 06/06/2022 Active documented as of this encounter (statuses as of 07/08/2023) Active Problems Problem Noted Date Diagnosed Date Cyst of pancreas 10/16/2022 Primary open-angle glaucoma, bilateral, moderate stage 11/28/2021 Hypothyroidism 11/28/2021 Chronic hypoxemic respiratory failure 01/12/2019 Bronchiectasis without complication 01/12/2019 Overview: LLL Protein calorie malnutrition 12/31/2016 Bullous emphysema 01/30/2015 Multiple lung nodules 04/01/2014 COPD, group D, by GOLD 2017 classification 03/09 Overview: PER COPD PROTOCOL #24. LAST PFT -03/03/12 12/29/12 Nocturnal ox, RA -- low 85%, mean 91.7%, <89% 4.5 mins, CRISTAL 5 HISTORY OF TOBACCO USE BENIGN NEOPLASM LG BOWEL Overview: Repeat in 2011 documented as of this encounter (statuses as of 07/08/2023) Resolved Problems Problem Noted Date Diagnosed Date Resolved Date Examination following surgery 04/16/2012 04/14/2019 Unilateral inguinal hernia 03/14/2012 0 04/14/2019 COPD, severe 03/09/2012 07/06/2012 Overview: PER COPD PROTOCOL #24. LAST PFT -03/03/12 Other specified pre-operative examination 03/09/2012 04/14/2019 documented as of this encounter (statuses as of 07/08/2023) Immunizations Name Administration Dates Next Due Pneumococcal Conjugate Vacc, 13 Valent (Prevnar) 07/05/2014 Pneumococcal Polysaccharide PPV23 (Pneumovax) ,01/11/2009 Seasonal Influenza Virus Vac cine, Unspecified Formulation 06/10/2012 Seasonal Influenza, Split, IIV3, With Preserve, Inj 06/10/2012 TDAP (age 10 and older)(Boostrix) 04/01/2022 04/01/2032 TDAP (age 11 and older)(Adacel) 05/12/2007 documented as of this encounter Social History Tobacco Use Types Packs/Day Years Used Date Smoking Tobacco: Former Cigarettes 2 50 Q uit: 02/10/2013 Smokeless Tobacco: Never Alcohol Use Standard Drinks/Week Comments Never 3.3 (1 standard drink = 0.6 oz p ure alcohol) Hunger Vital Sign Answer Date Recorded Worried About Running Out of Food in the Last Ye ar Never true 04/06/2020 Ran Out of Food in the Last Year Never true 04/06/2020 Sex and Gender Information Value Date Recorded Sex Assigned at Not on file Gender Identity Not on file Sexual Orientation Not on file Job Start Date Occupation Industry Not on file Not on file Not on file documented as of this encounter Last Filed Vital Signs Vital Sign Reading Time Taken Comments Blood Pressure 110/60 07/08/2023 3:37 PM EST Pulse 69 07/08/2023 3:37 PM EST Temperature 36.4 C (97.6 F) 07/08/2023 3 :37 PM EST Respiratory Rate 18 07/08/2023 3:37 PM EST Oxygen Saturation 100% 07/08/2023 3:3 7 PM EST pt on O2 @ 2 lpm-turned down to 1 lpm Inhaled Oxygen Concentration - - Weight 53.5 kg (118 lb) 07/08/2023 3:37 PM EST Height 182.9 cm (6') 07/08/2023 3:37 PM EST Body Mass Index 16 07/08/2023 3:37 PM EST documented in this encounter Progress Notes * Gricelda Young CRNP - 07/08/2023 3:35 PM EST [facility] Tyrone Thompson is a 77 year old male with history including COPD with bullous emphysema (FEV1 0.75 or 21% 2017), chronic hypoxic respiratory failure at risk for hypercapnia, bronchiectasis, prior smoking history (100 pk yrs, quit 2012), pulmonary nodules decreased on last CT dated 06/24/2019 and Covid19 infection 04/2022. Last hospitalization was in 2017 with acute on chronic respiratory failure, AE COPD discharged on home BPAP. Interim History: Reports 0 ER visits/hospitalization and 0 courses of prednisone related to their breathing in the past year. Was having trouble getting [facility] to fill azithromycin. Wondering if azithromycin taken 3x/week currently can or should be stopped. Continues with dyspnea with any activity. Harder to complete ADLs. More fatigued and week. Sats running 95%-98% on 2.5 LPM worn 24 hours per day BPAP used to help resolve dyspnea and during sleep. Tolerating it well. Sleeping 8-10 hours, laying flat and supine. Not exercising, sedentary. Compliance Data: Report date: 30 days ending 07/06/2023 % total days used: 100 % days used > 4 hours: 97 Average hours per day used: 12 hours 13 mins Leak: 6.5 L/min AHI: 0.6 Tidal volume: median 510 ml Equipment: [facility] Provider: Snowman Device: [employer] 10 Settings: 12/5 cmH20 Interface Type: FFM Humidifier: Passive- can't tolerate higher setting Cleaning: Washing by hand and changing supplies as needed Pulmonary Medications: managed by [facility] [place] 500/50 twice daily, stopped daily prednisone '21 Spiriva Respimet 2 doses daily Albuterol HFA - rare use DuoNeb - hasn't been needed Azithromycin 250 mg MWF Flutter occasionally used Mucinex - hasn't needed Oxygen 2.5 LPM at home Incentive spirometer - used Social History Tobacco Use Smoking Status Former Packs/day: 2.00 Years: 50.00 Additional pack years: 0.00 Total pack years: 100.00 Types: Cigarettes Quit date: 02/10/2013 Years since quittin.4 Smokeless Tobacco Never Patient Active Problem List Diagnosis Code HISTORY OF TOBACCO USE Z87.891 BENIGN NEOPLASM LG BOWEL D12.6 COPD, group D, by GOLD 2017 classification ([facility]) J44.9 Multiple lung nodules R91.8 Bullous emphysema ([facility]) J43.9 Protein calorie malnutrition ([facility]) E46 Chronic hypoxemic respiratory failure ([facility]) J96.11 Bronchiectasis without complication ([facility]) J47.9 Primary open-angle glaucoma, bilateral, moderate stage H40.1132 Hypothyroidism E03.9 Cyst of pancreas K86.2 Outpatient Medications Marked as Taking for the 07/08/23 encounter (Office Visit) with Gricelda Young CRNP Medication Sig Acetylcysteine 600 MG Oral Capsule (NAC) Take 1 Capsule by mouth in the morning. Clotrimazole 1 % External Cream (Lotrimin) APPLY APPLICATION TO SKIN TWICE A DAY NEEDED FOR FUNGAL INFECTION ON FEET AND ANKLES TO THE RED/IRRITATED/ITCHY AREAS UNTIL RESOLVED, THEN APPROX 48 HOURS MORE TO ENSURE ERADIFICATION INFECTION. FOR FUNGAL INFECTION ON FEET AND ANKLES TO THE RED/IRRITATED/ITCHY AREAS UNTIL RESOLVED, THEN APPROX 48 HOURS MORE TO ENSURE ERADIFICATION INFECTION. dilTIAZem HCl ER Coated Beads 120 MG Oral Capsule Extended Release 24 Hour (Cardizem CD) Take 1 Capsule by mouth in the morning. Furosemide 20 MG Oral Tablet (Lasix) Take one tablet daily on Thursday and Thursday. levoFLOXacin 750 MG Oral Tablet (Levaquin) COPD exacerbation: Take 1 tablet by mouth daily for 3-5 days depending on symptoms and clinician recommendation. Azithromycin 250 MG Oral Tablet Take 1 Tablet by mouth once a day on Thursday, Thursday, and Thursday only. BiPAP every night at bedtime. predniSONE 20 MG Oral Tablet (Deltasone) 2 tablets by mouth daily for COPD exacerbation Ascorbic Acid 500 MG Oral Tablet 1 Tablet. Naltrexone 4.5 MG OR Capsule Take by mouth 4.5 mg before bedtime. Fluticasone-Salmeterol 500-50 MCG/ACT Inhalation Aerosol Powder Breath Activated Inhale 1 Puff by mouth in the morning and 1 Puff before bedtime. latanoprost (XALATAN) 0.005 % ophthalmic solution Instill 1 Drop into the left eye at bedtime. SPIRIVA HANDIHALER 18 MCG inhalation Capsule INHALE THE CONTENTS OF ONE CAPSULE ORALLY EVERY DAY (BY TAKING 2-SEPARATE INHALATIONS VIA HANDIHALER DEVICE) doxazosin (CARDURA) 4 MG Tablet 1 TAB BY MOUTH AT BEDTIME ARMOUR THYROID 30 MG Tablet 2 TABS (60MG) BY MOUTH EVERY DAY albuterol-ipratropium (DUONEB) 2.5-0.5 MG/3ML nebulizer solution 1-VIAL VIA NEBULIZER EVERY 6 HOURSAS NEEDED FOR SOB/COUGH/WHEEZE oxygen GAS 2 LPM via NC with activity. Maintain saturations >+88% VITAMIN D3 2000 UNITS PO TABS daily MULTIVITAMINS PO CAPS 1 tab daily VENTOLIN HFA 108 (90 BASE) MCG/ACT IN AERS inhale 2 puffs by mouth four times a day Social/occupational/living/family history: No changes Review of Systems Constitutional: Positive for fatigue. HENT: Negative for trouble swallowing. Respiratory: Positive for shortness of breath. Negative for cough. Cardiovascular: Positive for leg swelling (intermittent feet). Negative for chest pain. Neurological: Positive for weakness. Psychiatric/Behavioral: Negative for sleep disturbance. Diagnostics: Serum CO2 01/07/2023: 29 10/09/16 ABG RA (hospitalized): 7.46 / 44 / 55 / 31 / 89% Pulmonary Function Test Results: Performed on 07/2017 FVC 1.98, 41% FEV1 0.67L, 18%; 17% post BD Chest X-ray: Performed on 10/16/22 Emphysematous changes. No focal consolidation, pleural effusion, or pneumothorax. Cardiac silhouette is normal in size. Degenerative changes of the spine. Abd CT scan: Performed on 01/07/23 LOWER CHEST: There is severe emphysema with bullous changes in the lung bases. Several subcentimeter pulmonary nodules do not appear significantly changed. The heart is normal in size without pericardial effusion. Echocardiogram: Performed on 11/21/22: The qualitative LV ejection fraction is 55-59% (normal). The left ventricular diastolic function is normal. Mild aortic valve sclerosis is present. Mild mitral regurgitation is present. Trivial tricuspid regurgitation. There is no evidence of pulmonary hypertension. [place] Sleepiness Scale Question 07/08/2023 3:40 PM EST - Filed by Cassie Hester LPN What is the chance you will doze off in the following situation? Sitting and reading Slight chance of dozing Watching TV No chance of dozing Sitting inactive in a public place, such as a theater or meeting Slight chance of dozing As a passenger in a car for an hour without a break Slight chance of dozing Lying down to rest in the afternoon when circumstances permit Moderate chance of dozing When sitting and talking to someone No chance of dozing When sitting quietly after lunch without alcohol Moderate chance of dozing In a car, while stopped for a few minutes in traffic No chance of dozing Score (range: 0 - 24) 7 Mmrc Cat Question 07/08/2023 3:43 PM EST - Filed by Cassie Hester LPN When do you become breathless? (2) On level ground, I walk slower than people of the same age because of breathlessness or have to stop for breath when walking at my own pace How frequently do you cough? (0) - I never cough Do you have phlegm in your chest? (0) - I have no phlegm (mucus) in my chest Is your chest tight? (1) How breathless do you become when walking up a hill or steps? (5) - When I walk up a hill or one flight of stairs I am very breathless How limited are you doing activities at home? (5) - I am very limited doing activities at home How confident are you leaving home with your lung condition? (4) How soundly do you sleep? (0) - I sleep soundly How much energy do you have? (4) Total MMRC Score (range: 0 - 4) 2 Total CAT Score (range: 0 - 40) 19 BP 110/60 | Pulse 69 | Temp 36.4 C (97.6 F) (Tympanic) | Resp 18 | Ht 1.829 m (6') | Wt 53.5 kg(118 lb) | SpO2 100% Comment: pt on O2 @ 2 lpm-turned down to 1 lpm | BMI 16.00 kg/m | BSA 1.65 m Physical Exam Vitals and nursing note reviewed. Constitutional: General: He is not in acute distress. Appearance: He is cachectic. He is not ill-appearing or diaphoretic. Comments: Accompanied by Mariel Cardiovascular: Rate and Rhythm: Normal rate and regular rhythm. Heart sounds: No murmur heard. Pulmonary: Effort: Accessory muscle usage present. No respiratory distress. Breath sounds: No stridor. Comments: Diminished airflow throughout ji Skin: General: Skin is warm and dry. Capillary Refill: Capillary refill takes less than 2 seconds. Neurological: Mental Status: He is alert and oriented to person, place, and time. Assessment and Plan: COPD, group D, by GOLD 2017 classification (HCC) (Primary) Bullous emphysema (HCC) Chronic hypoxemic respiratory failure, at risk for hypercapnia MmRC 2 CAT 19 Continue ICS/LABA/LAMA and azithromycin 250 mg MWF per [facility] Continue oxygen as prescribed to keep oxygen saturations 89-94%. Continues bilevel PAP during all periods of sleep and during periods of increased dyspnea noting ongoing benefit with use. Declined further assessment with ABG, overnight oximetry on current settings or 6 MWT. Encouraged exercise as tolerated. Encouraged increased caloric intake and maintaining hydration. Weight is down 7 lbs from last visit. Interested in bronchoscopic treatment for emphysema such as the [place] valve Discussed the role of palliative medicine and hospice. Declined vaccination for influenza vaccine today. Previously declined Covid19 vaccination. RSV vaaccine is also recommended. Bronchiectasis without complication (HCC) Step up airway clearance as needed (mucinex, flutter, GUILLERMO neb/HFA) Multiple lung nodules Previously reported as stable 2018. Abd CT earlier this year shows stable lower lobe nodules. History of tobacco use Eligible for Lung Cancer Screening Program. Counseled regarding. He declined referral. Adia would like to establish with a Technical Specialist Cytology. Discussed options within [facility] and outside organizations and encouraged that this get arranged. ISAAK [facility] I spent a total of Greater than 55 mins (exact time 105 mins) on the date of service in preparation, delivery, and documentation of the care provided to Tyrone Thompson excluding any time spent in the performance of separately billed services. documented in this encounter Nursing Notes * Cassie Hester LPN - 07/08/2023 3:44 PM EST Chief Complaint Patient presents with Follow Up Sleep Apnea COPD Lung Nodule Chronic Hypoxemic Resp Failure Bronchiectasis Emphysema Bipap DME: [employer] Interm History/Respiratory Symptoms Cough: no Hemoptysis: no Sinus Symptoms: PND Hospitalizations: no ED Trips: no Triggers: stress Nocturnal: no CPAP/BiPAP/O2: Bipap-O2 @ 2.5 lpm Flu Vaccine: refused Pneumovax: 07/05/14, 12/30/16 Prevnar: no COVID 19: no Travel Screening Question 07/08/2023 3:31 PM EST - Filed by Patient Do you have any of the following new or worsening symptoms? None of these Have you recently been in contact with someone who was sick? No / Unsure [place] Sleepiness Scale Question 07/08/2023 3:40 PM EST - Filed by Cassie Hester LPN What is the chance you will doze off in the following situation? Sitting and reading Slight chance of dozing Watching TV No chance of dozing Sitting inactive in a public place, such as a theater or meeting Slight chance of dozing As a passenger in a car for an hour without a break Slight chance of dozing Lying down to rest in the afternoon when circumstances permit Moderate chance of dozing When sitting and talking to someone No chance of dozing When sitting quietly after lunch without alcohol Moderate chance of dozing In a car, while stopped for a few minutes in traffic No chance of dozing Score (range: 0 - 24) 7 Mmrc Cat Question 07/08/2023 3:43 PM EST - Filed by Cassie Hester LPN When do you become breathless? (2) On level ground, I walk slower than people of the same age because of breathlessness or have to stop for breath when walking at my own pace How frequently do you cough? (0) - I never cough Do you have phlegm in your chest? (0) - I have no phlegm (mucus) in my chest Is your chest tight? (1) How breathless do you become when walking up a hill or steps? (5) - When I walk up a hill or one flight of stairs I am very breathless How limited are you doing activities at home? (5) - I am very limited doing activities at home How confident are you leaving home with your lung condition? (4) How soundly do you sleep? (0) - I sleep soundly How much energy do you have? (4) Total MMRC Score (range: 0 - 4) 2 Total CAT Score (range: 0 - 40) 19 documented in this encounter Plan of Treatment Health Maintenance Due Date Last Done Comments COVID-19 Vaccine (#1) 06/07/1946 Alpha-1 Antitrypsin 12/07/1963 Zoster Vaccines (1 of 2) 12/07/1995 COLONOSCOPY-EVERY 5 YRS AGES 18-100 07/21/2017 07/21/2012, 06/07/2007 Depression Screening 12/30/2017 12/30/2016 Influenza Vaccine (FLU shot) (#1) 2023 06/10/2012, 06/10/2012 O2 ASSESSMENT COMPLETED IN PAST YEAR FOR COPD 03/07/2024 03/07/2023 DTaP,Tdap,and Td Vaccines (3 - Td or Tdap) 04/01/2032 04/01/2022, 05/12/2007 Pneumococcal Vaccine: 65+ Years Completed 12/30/2016, 07/05/2014, 01/11/2009 LUNG CANCER SCREENING - USE SMARTSET 36118 Completed 06/24/2019, 09/24/2018, 07/05/2018, Additional history exists GARDASIL-HPV IMMUNIZATION SERIES Aged Out No longer eligible based on patient's age to complete this topic Hepatitis B Aged Out No longer eligi ble based on patient's age to complete this topic MENINGOCOCCAL (MENACTRA/MENVEO) Aged Out No longer eligible based on patient's age to complete this topic documented as of this encounter Medical Devices Implanted Type Area Sales And Service Agent Device Identifier Shelf Expiration Date Model / Serial / Lot Mesh Max 3d Levlr Med [id number] - [id number] Implanted:Qty: 1 on 03/31/2012 at [place] [facility] [place] Right: Groin CR BARD : DAVOL 09/24/2016 [id number] / / [id number] documented as of this encounter Visit Diagnoses Diagnosis COPD, group D, by GOLD 2017 classification (HCC)- Primary Bullous emphysema (HCC) Emphysematous bleb Chronic hypoxemic respiratory failure (HCC) Chronic respiratory failure Bronchiectasis without complication (HCC) Bronchiectasis without acute exacerbation Multiple lung nodules Other nonspecific abnormal finding of lung field History of tobacco use Personal history of tobacco use, presenting hazards to health documented in this encounter Advance Directives Documents on File Type Date Recorded Patient Dog Walker Expl anation Power of Therapist'S Assistant 02/17/2013 POWER OF A TTORNEY POA NOTICE Latest Code Status on File Code Status Date Activated Date Inactivated Comments Full Code 03/31/2012 7:42 AM 03/31/2012 7:41 PM This or rhiannon reflects the patients wishes and were consensually agreed upon. Question Answer Comments Discussion of Advance Directives occurred with: Not Discussed Care Teams Expediter Clerk Relationship Specialty Start Date End Date Mak Chávez III, MD [address] [place] [address] PCP - General 12/04/08 documented as of this encounter"
--- OUTSIDE RECORDS SUMMARY | 2023-08-25 17:14 | External Medical Summary ---
Author Name Unknown Address Unknown Organization [id number]:[facility] [place] [address] [place] [id number] Laboratory Report Ordering Provider Test Date Status VICKEY RUIZ 03/07/2023 17:42:49 Final Observation Date Value Abnormality Reference (Units) Status Bacteria identified in Unspecified specimen by Culture 03/07/2023 17:42:49 No significant growth Final Test: Culture, Urine, Quanti tative
Specimen Source: Urine, Clean Catch
Specimen Type: Urine
Specimen Date: 03/07/2023 5:42 PM
Result Date: 03/08/2023 3:09 PM
Result Status: Final result
Resulting Lab: [facility] [place]
[address]
[place] [id number]

CULTURE

No significant growth

null Performing Location [facility] [place] [address] [facility] [id number]
--- OUTSIDE RECORDS SUMMARY | 2023-08-25 17:14 | External Medical Summary | Summary of Care ---
Author Name Unknown Organization [facility] Address [address] [place] [address] Phone [phone] Care Team Providers Care Tissue Specialist Name Role Phone Kyler ABDUL MD, Mak Gibson Primary Care Provider [phone] Encounter Details Date Type Department Care Team (Late st Contact Info) Description 07/10/2023 Orders Only Family Practice [facility] [place] [address] [facility] [place] [address] Mak Chávez III, MD [address] [place] [id number] Allergies Active Allergy Reactions Criticality Noted Date Comments Gadolinium Nausea/vomiting 08/08/2015 Noted during MRI in 2013. documented as of this encounter (statuses as of 07/10/2023) Medications Medication Sig Dispensed Refills Start Date End Date Status VENTOLIN HFA 108 (90 BASE) MCG/ACT IN AERSIndications:Ot her dyspnea and respiratory abnormality inhale 2 puffs by mouth four times a day 1 Inhaler 11 06/08/2013 Active MULTIVITAMINS PO CAPS 1 tab daily 0 Active VITAMIN D3 2000 UNITS PO TABS daily 0 Active oxygen GASIndications:DIAGNOSTICS TECH D, very severe (HCC) 2 LPM via [...] as of this encounter (statuses as of 07/10/2023) Active Problems Problem Noted Date Diagnosed Date [...] as of this encounter (statuses as of 07/10/2023) Resolved Problems Problem Noted Date Diagnosed Date Resolved Date Examination following surgery 04/16/2012 04/14/2019 Unilateral inguinal hernia 03/14/2012 0 04/14/2019 COPD, severe 03/09/2012 07/06/2012 Overview: PER COPD PROTOCOL #24. LAST PFT -03/03/12 Other specified pre-operative examination 03/09/2012 04/14/2019 documented as of this encounter (statuses as of 07/10/2023) Immunizations Name Administration Dates Next Due Pneumococcal [...] on file documented as of this encounter Plan of Treatment Health Maintenance Due Date Last Done Comments COVID-19 Vaccine (#1) 06/07/1946 Alpha-1 Antitrypsin 12/07/1963 Zoster Vaccines (1 of 2) 12/07/1995 COLONOSCOPY-EVERY 5 YRS AGES 18-100 07/21/2017 07/21/2012, 06/07/2007 Depression Screening 12/30/2017 12/30/2016 Influenza Vaccine (FLU shot) (#1) 2023 06/10/2012, 06/10/2012 O2 ASSESSMENT COMPLETED IN PAST YEAR FOR COPD 07/08/2024 07/08/2023 DTaP,Tdap,and Td Vaccines (3 - Td or Tdap) 04/01/2032 04/01/2022, 05/12/2007 Pneumococcal Vaccine: 65+ Years Completed 12/30/2016, 07/05/2014, 01/11/2009 LUNG CANCER SCREENING - USE SMARTSET [id number] Completed 06/24/2019, 09/24/2018, 07/05/2018, Additional history exists [...] this encounter Medical Devices Implanted Type Area Size Changer Device Identifier Shelf Expiration Date Model / Serial / Lot Mesh Max 3d R Med [id number] - [id number] Implanted:Qty: 1 on 03/31/2012 at [facility] Right: Kourtney MERCADO BARD : COURTNEY 09/24/2016 [id number] / / [id number] documented as of this encounter Procedures Procedure Name Priority Date/Time Associated Diagnosis Comments CHEMISTRY-OUTSIDE Routine 05/28/2023 TSH Routine 05/28/2023 documented in this encounter Results * TSH (05/28/2023) TSH - OUTSIDE LAB 1.49 O0.45 - 5.33 UIU/ML OUTSIDE LAB (SEE SCANNED REPORT) Blood Venous blood specimen / Unknown 05/28/2023 Ameya Chandra MD LAB BLOO D ORDERABLES OUTSIDE LAB (SEE SCANNED REPORT) * (ABNORMAL) CHEMISTRY-OUTSIDE (05/28/2023) Not all results display below - see scan for full detail OUTSIDE LAB (SEE SCANNED REPORT) Comment:SCAN INCLUDES - V.A. LABS: CBCD, BMP, LIVER FUNCTION, MG, LIPID PANEL, TSH, HBA1C, FERRITIN, FOLATE, VIT B12, VIT D 25-OH CREATININE-OUTSID E LAB 0.7 0.6 - 1.5 MG/DL OUTSIDE LAB (SEE SCANNED REPORT) EGFR-OUTSIDE LAB >90 ML/MIN/1.7 3M2 OUTSIDE LAB (SEE SCANNED REPORT) POTASSIUM-OUTSIDE LAB 4.3 3.6 - 5.1 MMOL/L OUTSIDE LAB (SEE SCANNED REPORT) GLUCOSE-OUTSIDE LAB 89 70 - 99 MG/DL OUTSIDE LAB (SEE SCANNED REPORT) HOURS FASTING OUTSID E LAB (SEE SCANNED REPORT) TRIGLYCERIDES-OUT SIDE LAB 49 <=100 MG/DL OUTSIDE LAB (SEE SCANNED REPORT) CHOLESTEROL-OUTSI DE LAB 249 <=200 MG/DL OUTSIDE LAB (SEE SCANNED REPORT) HDL-OUTSIDE LAB 71.3(A) 40 - 60 MG/DL OUTSIDE LAB (SEE SCANNED REPORT) CHOL/HDL RATIO-OUTSIDE LAB OUTSIDE LA B (SEE SCANNED REPORT) LDL (CALCULATED)-OUTS AVE LAB 168(A) 5 - 100 MG/DL OUTSIDE LAB (SEE SCANNED REPORT) LDL (DIRECT MEASURE)-OUTSIDE LAB OUTSIDE LAB (SEE SCANNED REPORT) HEMOGLOBIN, E5Z-GETODUB LAB 5.4 4.3 - 6.2 % OUTSIDE LAB (SEE SCANNED REPORT) PHOSPHORUS-OUTSID E LAB OUTSIDE LAB (SEE SCANNED REPORT) PTH-OUTSIDE LAB OUTS AVE LAB (SEE SCANNED REPORT) MICROALBUMIN RATIO-OUTSIDE LAB OUTSIDE LA B (SEE SCANNED REPORT) PROTEIN, UA-OUTSIDE LAB OUTSIDE LAB (SEE SCANNED REPORT) HEMOGLOBIN-OUTSID E LAB 12.4 12.4 - 17.3 G/DL OUTSIDE LAB (SEE SCANNED REPORT) 05/28/2023 Ameya Chandra MD [facility] OUTSIDE LAB (SEE SCANNED REPORT) documented in this encounter Advance Directives Documents on File Type Date Recorded 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 Question Answer Comments Discussion of Advance Directives occurred with: Not Discussed Care Teams Tissue Specialist Relationship Specialty Start Date End Date Mak Chávez III, MD [address] [place] [address] PCP - General 12/04/08 documented as of this encounter
--- OUTSIDE RECORDS SUMMARY | 2023-08-25 17:14 | External Medical Summary | Summary of Care ---
Author Name Unknown Organization [facility] Address [address] [facility] [address] Phone [phone] Care Team Providers Care International Logistics Manager Name Role Phone Kyler ABDUL MD, Mak Gibson Primary Care Provider [phone] Reason for Referral * Evaluate & Treat - Unlimited Visits (Within 3 days (urgent)) - Authorized Specialty Diagnoses / Procedures Referred By Jaci donahue Referred To Contact Urology Diagnoses Polyuria 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 symptoms Buddy Cerda PA-C [address] [place] [id number] Referral ID Status Reason Start Date Expiration Date Visits Requested Visits Authorized [id number] Authorized Specialty Services Required 03/07/[phone] Question Answer Referral Priority Within 3 days (urgent) What is the patient being referred for? BPH Reason for Visit * Reason Onset Date Comments Urinary Tract Infection Symptoms Urinary Tract Infection Symptoms 03/07/2023 Encounter Details Date Type Department Care Team Description 03/07[facility]2023 [facility] [address] [place] [id number] Buddy Cerda PA-C [address] [place] [address] [address] Polyuria*; 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 symptoms Allergies Active Allergy Reactions Severity Noted Date Comments Gadolinium Nausea/vomiting 08/08/2015 Noted during MRI in 2013. documented as of this encounter (statuses as of 03/07/2023) Medications Medication Sig Dispensed Refills Start Date End Date Status VENTOLIN HFA 108 (90 BASE) MCG/ACT IN AERSIndications:Ot her dyspnea and respiratory abnormality inhale 2 puffs by mouth four times a day 1 Inhaler 11 06/08/2013 Active MULTIVITAMINS PO CAPS 1 tab daily 0 Active VITAMIN D3 2000 UNITS PO TABS daily 0 Active oxygen GASIndications:REVERSE UNIT OPERATOR FISHERMAN D, very severe (HCC) 2 LPM via [...] as of this encounter (statuses as of 03/07/2023) Active Problems Problem Noted Date Cyst of pancreas 10/16/2022 Primary open-angle glaucoma, bilateral, moderate stage 11/28/2021 Hypothyroidism 11/28/2021 Chronic hypoxemic respiratory failure Bronchiectasis without complication 12/23 Overview: LLL Protein calorie malnutrition 12/31/2016 Bullous emphysema 01/30/2015 Multiple lung nodules 04/01/2014 COPD, group D, by GOLD 2017 classificati on 03/09/2012 Overview: PER COPD PROTOCOL #24. LAST PFT -03/03/12 12/29/12 Nocturnal ox, RA -- low 85%, mean 91.7%, <89% 4.5 mins, CRISTAL 5 HISTORY OF TOBACCO USE BENIGN NEOPLASM LG BOWEL Overview: Repeat in 2011 documented as of this encounter (statuses as of 03/07/2023) Resolved Problems Problem Noted Date Resolved Date Examination following surgery 04/16/2012 Unilateral inguinal hernia 03/14/201204/14 COPD, severe 03/09/2012 07/06/2012 Overview: PER COPD PROTOCOL #24. LAST PFT -03/03/12 Other specified pre-operative examination 201104/14/2019 documented as of this encounter (statuses as of 03/07/2023) Immunizations Name Administration Dates Next Due Pneumococcal [...] 50 Q uit: 02/10/2013 Smokeless Tobacco: Never Tobacco Cessation:Counseling Given: Yes Alcohol Use Standard Drinks/Week Comments Never 3.3 (1 standard drink = 0.6 oz p ure alcohol) Food Insecurity Answer Date Recorded Within the past 12 months, y ou worried that your food would run out before you got money to buy more. Never true 04/06/2020 Within the past 12 months, t he food you bought just didn't last and you didn't have money to get more. Never true 04/06/2020 Sex Assigned at Date Recorded Not on file Job Start Date Occupation Industry Not on file Not on file Not on file documented as of this encounter Last Filed Vital Signs Vital Sign Reading Time Taken Comments Blood Pressure 116/60 03/07/2023 5:18 PM EDT Pulse 76 03/07/2023 5:18 PM EDT Temperature 36.3 C (97.4 F) 03/07/2023 5:18 PM ED T Respiratory Rate 18 03/07/2023 5:18 PM EDT Oxygen Saturation 92% 03/07/2023 5:18 PM EDT 2 LPM Inhaled Oxygen Concentration - - Weight 56.2 kg (123 lb 12.8 oz) 03/07/2023 5:18 PM EDT Height 182.9 cm (6') 03/07/2023 5:18 PM EDT Body Mass Index 16.79 03/07/2023 5:18 PM EDT documented in this encounter Patient Instructions * Patient Instructions* Buddy Cerda PA-C - 03/07/2023 5:46 PM EDT Continue Cardura at night before bed. [facility]. Drink plenty of fluids and increase fluid intake over next 48-72 hours. We will notify you of your urine culture results. F/U with PCP with no improvement in 3-5 days. Go immediately to the ED with any change or worsening symptoms including chills, fevers, back pain. Urology referral placed. They will call you documented in this encounter Progress Notes * Buddy Cerda PA-C - 03/07/2023 5:33 PM EDT Nursing Notes: Keri Gibson [place], MELTING OPERATOR 03/07/23 1753 Signed Guerda Thompson is a 77 year old male who presents to clinic today for... Main Symptoms: frequency, abnormal flow, penis tip doesn't feel right How long: about a week Tried: Pt accompanied by: CONVENIENT CARE PROGRESS NOTE Guerda Thompson is a 77 year old male With PMH of chronic hypoxemic respiratory failure on supplemental oxygen, hypothyroidism, pancreatic cyst, COPD, bullous emphysema, bronchiectasis, multiple lung nodules, protein calorie malnutrition who presents with urinary tract symptoms. Patient was accompanied by Spouse. HPI: Severity of Symptoms: Moderate Modifying Factors (what was done since onset of Symptoms): none Timing (How often does it occur): constant Quality (Feels Like): dribbling, frequency Reports that he has been having some frequency, urgency, hesitancy, dribbling, mild difficulty starting/stopping stream. He worries he has a UTI. Denies dysuria, hematuria, f/s/ch, n/v/d/c, abn back/abd pain. He has a h/o BPH on Cardura 4mg daily for "many years." He reports that he saw urology for this years ago, but has not followed up with them in a long time. ROS: See HPI Denies difficulty with BMs. HISTORY: Past Medical History: Diagnosis Date Benign neoplasm of colon 06/07/2007 adenomatous polyps--repeat 5 years Bronchiectasis (HCC) COPD (chronic obstructive pulmonary disease) (HCC) COPD, severe (HCC) 03/09/2012 COVID 05/13/2022 Diverticulosis of colon Diverticulosis Elevated PSA, less than 10 ng/ml 05/06/2013 2.00 Emphysema, unspecified (HCC) History of tobacco use Lung nodule Multiple lung nodules 04/01/2014 Sleep apnea, obstructive Unilateral inguinal hernia 03/14/2012 Past Surgical History: Procedure Laterality Date BRONCHOSCOPY, DIAGNOSTIC 04/07/2014 BRONCHOSCOPY DIAGNOSTIC WITH OR WITHOUT WASHING [place] Ankit Scott [place] [facility] [place], [place]ST[place] 04/26/2014 BRONCHOSCOPY DIAGNOSTIC WITH OR WITHOUT WASHING performed by Ankit Scott MD [place] [facility]ONOSCOPY W/ BIOPSY (RECTUM) 06/07/07 adenomatous polyps--repeat 5 years COLONOSCOPY, REMOVE LESION, W/SNARE adenoma CYSTOSCOPY 04-05-09 stent removal CYSTOSCOPY/INSERTION OF STENT 03/28/2009 CYSTOURETERO W/LITHOTRIPSY 03/28/2009 EGD, W/ENDOSCOPIC US 03/19/2012 UPPER GI ENDOSCOPY ENDOSCOPIC ULTRASOUND performed by Cornelius Mclean MD [place] [facility] [place]AROSCOPY; REPAIR INITIAL INGUINAL HERNIA 03/31/2012 LAPAROSCOPIC REPAIR INGUINAL HERNIA INITIAL performed by Adriana Hastings MD [place] [facility] REMOVE TONSILS & ADENOIDS, UNDER 12 Tonsillectomy/Adenoids,<12 Y/O SIGMOIDOSCOPY/REMOVE LESION, CAUTERY 08/12/99 polyp at 20cm, diverticulosis Social History Socioeconomic History Marital status: Spouse name: Not on file Number of children: 2 Years of education: 16 Highest education level: Not on file Occupational History 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 Tobacco Use Smoking status: Former Packs/day: 2.00 Years: 50.00 Pack years: 100.00 Types: Cigarettes Quit date: 02/10/2013 Years since quittin.0 Smokeless tobacco: Never Vaping Use Vaping Use: Never used Substance and Sexual Activity Alcohol use: Never Alcohol/week: 3.3 standard drinks Types: 4 5 oz of wine per week Drug use: No Sexual activity: Yes Other Topics Concern Service Yes Comment: [employer] No Caffeine Concern No Occupational Exposure No Hobby Hazards No Sleep Concern No Stress Concern No Weight Concern No Special Diet No Back Care No Exercise Yes Bike Helmet No Seat Belt Yes Self-Exams No Social History Narrative Not on file Social Determinants of Health Financial Resource Strain: Not on file Food Insecurity: Not on file Transportation Needs: Not on file Physical Activity: Not on file Stress: Not on file Social Connections: Not on file Intimate Partner Violence: Not on file Housing Stability: Not on file Current Outpatient Medications Medication Sig Dispense Refill VENTOLIN HFA 108 (90 BASE) MCG/ACT IN AERS inhale 2 puffs by mouth four times a day 1 Inhaler 11 MULTIVITAMINS PO CAPS 1 tab daily VITAMIN D3 2000 UNITS PO TABS daily oxygen GAS 2 LPM via NC with activity. Maintain saturations >+88% 1 Each 0 doxazosin (CARDURA) 4 MG Tablet 1 TAB BY MOUTH AT BEDTIME 30 Tab 11 ARMOUR THYROID 30 MG Tablet 2 TABS (60MG) BY MOUTH EVERY DAY 60 Tab 1 SPIRIVA HANDIHALER 18 MCG inhalation Capsule INHALE THE CONTENTS OF ONE CAPSULE ORALLY EVERY DAY (BY TAKING 2-SEPARATE INHALATIONS VIA HANDIHALER DEVICE) 30 Cap 5 latanoprost (XALATAN) 0.005 % ophthalmic solution Instill 1 Drop into the left eye at bedtime. Fluticasone-Salmeterol 500-50 MCG/ACT Inhalation Aerosol Powder Breath Activated Inhale 1 Puff by mouth in the morning and 1 Puff before bedtime. Ascorbic Acid 500 MG Oral Tablet 1 Tablet. Naltrexone 4.5 MG OR Capsule Take by mouth 4.5 mg before bedtime. BiPAP every night at bedtime. predniSONE 20 MG Oral Tablet (Deltasone) 2 tablets by mouth daily for COPD exacerbation 10 Tablet 0 Azithromycin 250 MG Oral Tablet Take 1 Tablet by mouth once a day on Thursday, Thursday, and Thursday only. 6 Tablet levoFLOXacin 750 MG Oral Tablet (Levaquin) COPD exacerbation: Take 1 tablet by mouth daily for 3-5 days depending on symptoms and clinician recommendation. 5 Tablet 0 Furosemide 20 MG Oral Tablet (Lasix) Take one tablet daily on Thursday and Thursday. 30 Tablet 5 dilTIAZem HCl ER Coated Beads 120 MG Oral Capsule Extended Release 24 Hour (Cardizem CD) Take 1Capsule by mouth in the morning. 90 Capsule 3 Acetylcysteine 600 MG Oral Capsule (NAC) Take [...] 48 HOURS MORE TO ENSURE ERADIFICATION INFECTION. albuterol-ipratropium (DUONEB) 2.5-0.5 MG/3ML nebulizer solution 1-VIAL VIA NEBULIZER EVERY 6 HOURS NEEDED FOR SOB/COUGH/WHEEZE 120 Vial 4 No current facility-administered medications for this visit. Review of patient's allergies indicates: Allergen Reactions Gadolinium Nausea/vomiting Noted during MRI in 2013. Family History Problem Relation Age of Onset Cancer Mother breast age 53 No Past Hx Father age 88 Mental Disorder Sister suicide No Past Hx Sister OBJECTIVE: BP 116/60 | Pulse 76 | Temp 36.3 C (97.4 F) | Resp 18 | Ht 1.829 m (6') | Wt 56.2 kg (123 lb 12.8 oz) | SpO2 92% Comment: 2 LPM | BMI 16.79 kg/m | BSA 1.69 m Wt Readings from Last 1 Encounters: 03/07/23 56.2 kg (123 lb 12.8 oz) General appearance: awake, alert, no apparent distress Abdominal Exam: back: no CVA tenderness Respiratory: clear to auscultation, no rhonchi, no wheezes and no crackles Heart: regular rate, regular rhythm, no murmurs , no rubs and no gallops Skin/Integumentary: warm, dry Results for orders placed or performed in visit on 03/07/23 URINALYSIS, POINT OF CARE (ENTER/EDIT) Result Value Ref Range Color, Urine Yellow Yellow or Light Yellow Clarity, Urine Clear Clear Glucose, Urine Negative Negative mg/dL Bilirubin, Urine Negative Negative Ketone, Urine Negative Negative mg/dL Specific [place], Urine 1.020 1.003 - 1.030 Blood, Urine Negative Negative pH, Urine 7.0 5.0 - 7.5 units Protein, Urine Negative Negative mg/dL Urobilinogen, Urine 0.2 0.2 - 1.0 mg/dL Nitrite, Urine Negative Negative Esterase, Urine Negative Negative Patient Instructions Continue Cardura at night before bed. [facility] work [facility] sometime next week. Drink plenty of fluids and increase fluid intake over next 48-72 hours. We will notify you of your urine culture results. F/U with PCP with no improvement in 3-5 days. Go immediately to the ED with any change or worsening symptoms including chills, fevers, back pain. Urology referral placed. They will call you Assessment: Polyuria (Primary) - URINALYSIS, POINT OF CARE (ENTER/EDIT) - CULTURE, URINE, QUANTITATIVE; Future; Expected date: 03/07/2023 - CULTURE, URINE, QUANTITATIVE - UROLOGY REFERRAL OP - PSA; Future; Expected date: 03/07/2023 - COMPREHENSIVE METABOLIC PANEL; Future; Expected date: 03/07/2023 - CBC WITH WBC DIFFERENTIAL; Future; Expected date: 03/07/2023 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 symptoms - UROLOGY REFERRAL OP - PSA; Future; Expected date: 03/07/2023 - COMPREHENSIVE METABOLIC PANEL; Future; Expected date: 03/07/2023 - CBC WITH WBC DIFFERENTIAL; Future; Expected date: 03/07/2023 UA negative for evidence of UTI Suspect BHP is causing his issues Will refer to urology for further evaluation. With considering patient's other chronic health issues and lack of urological follow-up, will reachout to urology ask-a-doc to inquire about switching meds vs increasing Doxazosin to 8mg daily Follow Up: Return for Patient to follow up with Primary Care Provider as directed. | For: Patient to follow up with Primary Care Provider as directed Patient goals for plan of care were discussed Buddy Cerda PA-C [address] [place] [address] documented in this encounter Nursing Notes * Keri Flynn LPN - 03/07/2023 5:17 PM EDT Guerda Thompson is a 77 year old male who presents to clinic today for... Main Symptoms: frequency, abnormal flow, penis tip doesn't feel right How long: about a week Tried: Pt accompanied by: documented in this encounter Plan of Treatment Upcoming Encounters Date Type Specialty Care Team Description 03/13/2023 Office Visit Sleep Disorders Gricelda Young CRNP [address] [place] [id number] 05/20/2023 Office Visit Cardiology Miguel A Jaime DO [address] [place] [address] 07/08/2023 Office Visit Sleep Disorders Gricelda Young CRNP [address] [place] [address] Pending Results Name Type Priority Associated Diagnoses Date /Time CULTURE, URINE, QUANTITATIVE Lab Routine Polyuria 03/07/2023 5:42 PM EDT Scheduled Orders Name Type Priority Associated Diagnoses Orde r Schedule CULTURE, URINE, QUANTITATIVE Lab Routine Polyuria Expected: 03/07/2023, Expires: 03/07/2024 PSA Lab STAT Polyuria 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 symptoms Expected: 03/07/2023, Expires: 04/07/2023 COMPREHENSIVE METABOLIC PANEL Lab STAT Polyuria 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 symptoms Expected: 03/07/2023, Expires: 04/07/2023 CBC WITH WBC DIFFERENTIAL Lab STAT Polyuria 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 symptoms Expected: 03/07/2023, Expires: 04/07/2023 Scheduled Referrals Name Type Priority Associated Diagnoses Orde r Schedule UROLOGY REFERRAL OP Referral Within 3 day s (urgent) Polyuria 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 symptoms Ordered: 03/07/2023 Health Maintenance Due Date Last Done Comments COVID-19 Vaccine (#1) 06/07/1946 Alpha-1 Antitrypsin 12/07/1963 Zoster Vaccines (1 of 2) 12/07/1995 COLONOSCOPY-EVERY 5 YRS AGES 18-100 07/21/2017 07/21/2012, 06/07/2007 Depression Screening, Annual for Pts 12 and Over 12/30/2017 12/30/2016 Influenza Vaccine (FLU shot) (#1) 2023 06/10/2012, 06/10/2012 O2 ASSESSMENT COMPLETED IN PAST YEAR FOR COPD 01/14/2024 03/07/2023 DTaP,Tdap,and Td Vaccines (3 - Td or Tdap) 04/01/2032 04/01/2022, 05/12/2007 Pneumococcal Vaccine: 65+ Years Completed 12/30/2016, 07/05/2014, 01/11/2009 LUNG CANCER SCREENING - USE SMARTSET [id number] Completed 06/24/2019, 09/24/2018, 07/05/2018, Additional history exists [...] this encounter Medical Devices Implanted Type Area Large Sheetfed Press Operator Device Identifier Shelf Expiration Date Model / Serial / Lot Mesh Max 3d R Med [id number] - [id number] Implanted:Qty: 1 on 03/31/2012 at [facility] Right: Groin CR BARD : DAVOL 09/24/2016 [id number] / / [id number] documented as of this encounter Procedures Procedure Name Priority Date/Time Associated Diagnosis Comments URINALYSIS, POINT OF CARE (ENTER/EDIT) Routine 03/07/2023 Polyuria documented in this encounter Results * URINALYSIS, POINT OF CARE (ENTER/EDIT) (03/07/2023) Color, Urine Yellow Yellow or Light Yellow Clarity, Urine Clear Clear Glucose, Urine Negative Negative mg/dL Bilirubin, Urine Negative Negative Ketone, Urine Negative Negative mg/dL Specific [place], Urine 1.020 1.003 - 1.030 Blood, Urine Negative Negative pH, Urine 7.0 5.0 - 7.5 units Protein, Urine Negative Negative mg/dL Urobilinogen, Urine 0.2 0.2 - 1.0 mg/dL Nitrite, Urine Negative Negative Esterase, Urine Negative Negative Urine 03/07/2023 Buddy Cerda PA-C LAB POINT O F CARE TEST ENTER/EDIT ORDERABLES documented in this encounter Visit Diagnoses Diagnosis Polyuria- Primary 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 symptoms Hypertrophy of prostate without urinary obstruction and other lower urinary tract symptoms (LUTS) documented in this encounter Advance Directives Documents on File Type Date Recorded 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 Question Answer Comments Discussion of Advance Directives occurred with: Not Discussed Care Teams International Logistics Manager Relationship Specialty Start Date End Date Mak Chávez III, MD [address] [place] [place] [address] PCP - General 12/04/08 documented as of this encounter
--- OUTSIDE RECORDS SUMMARY | 2023-08-25 17:14 | External Medical Summary | Summary of Care ---
Author Name Unknown Organization [facility] Address [address] [place] [address] Phone [phone] Care Team Providers Care Personal Investment Adviser Name Role Phone Kyler ABDUL MD, Mak Gibson Primary Care Provider [phone] Reason for Visit * Reason Onset Date Comments Health Maintenance 05/01/2023 Encounter Details Date Type Department Care Team Description 05/01/2023 Telephone Family Practice [facility] [place] [address] [facility] [address] Mak Chávez III, MD [address] [place] [address] Health Maintenance Allergies Active Allergy Reactions Severity Noted Date Comments Gadolinium Nausea/vomiting 08/08/2015 Noted during MRI in 2013. documented as of this encounter (statuses as of 05/01/2023) Medications Medication Sig Dispensed Refills Start Date End Date Status VENTOLIN HFA 108 (90 BASE) MCG/ACT IN AERSIndications:Ot her dyspnea and respiratory abnormality inhale 2 puffs by mouth four times a day 1 Inhaler 11 06/08/2013 Active MULTIVITAMINS PO CAPS 1 tab daily 0 Active VITAMIN D3 2000 UNITS PO TABS daily 0 Active oxygen GASIndications:HAND WINDER D, very severe (HCC) 2 LPM via [...] as of this encounter (statuses as of 05/01/2023) Active Problems Problem Noted Date Cyst of [...] as of this encounter (statuses as of 05/01/2023) Resolved Problems Problem Noted Date Resolved Date Examination following surgery 04/16/2012 Unilateral inguinal hernia 03/14/201204/14 COPD, severe 03/09/2012 07/06/2012 Overview: PER COPD PROTOCOL #24. LAST PFT -03/03/12 Other specified pre-operative examination 201104/14/2019 documented as of this encounter (statuses as of 05/01/2023) Immunizations Name Administration Dates Next Due Pneumococcal [...] on file documented as of this encounter Miscellaneous Notes * Telephone Encounter - Jessica Moser LPN - 05/01/2023 11:00 AM EDT Care Gaps Comprehensive Care Outreach Last Office/Telemedicine Visit: 10/16/2022 (in office), Visit date not found (telemedicine) Next Office Visit: Visit date not found Hemoglobin AIC Results: No results found for: HEMOGLOBIN A1C Reviewed Health Maintenance below: Health Maintenance Topic Date Due COVID-19 Vaccine (1) Never done Alpha-1 Antitrypsin Never done Zoster Vaccines (1 of 2) Never done COLONOSCOPY-EVERY 5 YRS AGES 18-100 07/21/2017 Depression Screening 12/30/2017 Influenza Vaccine (FLU shot) (1) 04/24/2023 Colon va note says he no longer needs due to age ov No answer Care Gap Outreach Action Taken: Unable to reach documented in this encounter Plan of Treatment Upcoming Encounters Date Type Specialty Care Team Description 05/20/2023 Office Visit Cardiology Miguel A Jaime DO [address] [place] [id number] 07/08/2023 Office Visit Sleep Disorders Gricelda Young CRNP [address] [place] [id number] Health Maintenance Due Date Last Done Comments [...] 01/11/2009 LUNG CANCER SCREENING - USE SMARTSET 93686 Completed 06/24/2019, 09/24/2018, 07/05/2018, Additional history exists [...] this encounter Medical Devices Implanted Type Area Loop Tacker Device Identifier Shelf Expiration Date Model / Serial / Lot Mesh Max 3d R Med [id number] - [id number] Implanted:Qty: 1 on 03/31/2012 [place] [facility] [place]: Groin CR BARD : DAVOL 09/24/2016 [id number] / / [id number] documented as of this encounter Advance Directives Documents on File Type Date Recorded Patient Log Clerk Expl anation Power of Audio Visual Technician 02/17/2013 POWER OF A TTORNEY POA NOTICE Latest Code Status on File Code Status Date Activated Date Inactivated Comments Full Code 03/31/2012 7:42 AM 03/31/2012 7:41 PM This or rhiannon reflects the patients wishes and were consensually agreed upon. Question Answer Comments Discussion of Advance Directives occurred with: Not Discussed Care Teams Personal Investment Adviser Relationship Specialty Start Date End Date Vilas III, Mak Gibson MD [address] [place] [address] PCP - General 12/04/08 documented as of this encounter
[2023-08-25] MEDS ORDERED: ATROPINE SULFATE 0.1 MG/ML 10ML SYR IV ONE (17:35)
--- NOTE | 2023-08-25 17:36 | Critical Care Consultation ---
Date of Consultation August 25, 2023 Assessment & Plan (1) Complete heart block: (2) COPD (chronic obstructive pulmonary disease): (3) Viral pneumonitis: (4) Hypothyroidism: Plan Reason Critically Ill: 77 YOM brought to the EMD via EMS for increase in dyspnea a t home, found to be bradycardic in the 30s with complete heart block and entero/rhino virus via respiratory bio-fire. He is brought to the ICU for monitoring of respiratory and hemodynamic status. Neuro - No acute needs CAM ICU: NEGATIVE Cardiac - Complete Heart Block, - Patient presents with symptomatic bradycardia- it is difficult to ascertain whether his dyspnea is made worse by the heart block in setting of severe COPD with entero/rhino virus - Currently is warm, well perfused, and with SBP >120 and MAPS in the 70-100- Dopamine/Epinephrine if needed for worsening symptoms - Transvenous pacing system is at bedside if needed - TCP pads are on patient as well. - TSH is normal - Discontinue all QT prolongation medications, and CCB/BB agents - Hold diuretics at this time until hemodynamics are proven stable Respiratory - Hypoxic respiratory failure, COPD, Viral pneumonitis/pneumonia - Is without fevers or sputum production or opacification on CXR- He does have + viral respiratory panel, and inflammatory findings on CXR - ABG/VBG not obtained on arrival- he is with elevated HCo3- so likely acute on chronic respiratory failure with acute exacerbation of COPD secondary to Enter/Rhino virus - 125mg IV solumederol given in EMD, continue with IV solumederol 40mg - Scheduled Albuterol nebulizers - WIll add on Pulmicort at this time to assist with delivery of medication into airway- can continue in am or discontinue and place on home fluticasone/vilanterol - Respiratory support with BiPAP/HFNC/O2- intubation if needed GI - No acute needs - NPO after midnight RENAL/LYTES - - No acute needs - ICU electrolyte protocol - BPH - currently asymptomatic - follow - Continue Doxasosin ENDO - Hypothyroidism - Continue with Thyroid PORK tablet- TSH normal doubt any involvement at this time regarding his bradycardia HEME - No acute needs ID - Eneter/Rhino Virus - WBC normal, PCT negative, doubt bacterial involvement at this time - continue supportive care LINES/IV ACCESS - PIV Continue use of these lines DVT PROPHYLAXIS - Heparin 5000 units sq Q12 hours DISPO: ICU while in complete heart block I have personally spent 50 minutes of critical care time in the direct management of this patient. This is a life/limb threatening event. This includes time spent evaluating patient, direct bedside care, chart review, placing orders, interpretation of diagnostic studies, discussion with consultants, patient, and family members, as well as other required patient management activities. This time is exclusive of all separately billable procedures, and separate from and in addition to any other critical care service time. Thank you for allowing us to participate in the care of this patient. Please refer to my attending physician's documentation for any further recommendations. 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 Patient reports increase in dyspnea for the past 3-4 days associated with fluttering in his chest, subjective fever, and increase in fatigue. He also endorses a non-productive cough. He reports any exertional effort made him very short of breath. He has nebulizers at home however he feels they don't provide him with much benefit so does not use them. He also endorses no increase in his use of his rescue GUILLERMO. He was however on Azithromycin for presumed URI as an outpatient. Patient was brought to the [facility] today via EMS. He was with reported HR in the 30s and was being transcutaneously paced on arrival to the [facility], he was with reported adequate BP with SBP 103s and MAPS in the 70-80s. He was placed on BiPAP and was given 125mg of Solumederol for his respiratory distress which appears to have helped his respiratory rate and efforts at this time. He had CXR performed and respiratory bio-fire obtained. Resp BIOfire was notable for entero/rhino viurs. He was evaluated in the EMD by Cardiology for his bradycardia. Current recommendations are for TCP pads on, Dopamine 2-3mcg/kg/min (currently not on with hemodynamic stability, NPO after midnight for evaluation of likely PPM in the am. Patient evaluated in the ICU, awake, warm and conversant. He has just come off his BiPAP for a break as he feels it was too much pressure. He is with pursed lip breathing but is without retractions or abdominal breathing. Conversant without getting more dyspneic. Will follow hemodynamics and respiratory efforts through the night. BiPAP/HFNC/Intubation if needed, Hemodynamic support with Dopamine/Eip/TPM if needed. Full plan as per A/P section. CODE: FULL Allergies Allergy/AdvReac Type Severity Reaction Status Date / Time Gadolinium-Containing Allergy Intermediate Nausea/Vomi Verified 08/25/23 14:56 Contrast Medi tin Home Medications Medication Instructions Recorded Confirmed Type albuterol sulfate 90 mcg/actuation 2 puffs inhalation Q4H PRN SOB #1 g 03/31/19 08/25/23 History aerosol inhaler azithromycin 250 mg tablet 250 mg PO 3XWK #1 tab 03/31/19 08/25/23 History cholecalciferol (vitamin D3) 25 1,000 mcg PO 3XWK 03/31/19 08/25/23 History mcg (1,000 unit) tablet ipratropium 0.5 mg-albuterol 3 mg 3 ml inhalation Q4H PRN SOB #6 mL 03/31/19 08/25/23 History (2.5 mg base)/3 mL nebulization soln multivitamin (Multiple Vitamins 1 tab PO 3XWK 03/31/19 08/25/23 History tablet) thyroid (pork) 60 mg tablet 60 mg PO QAM 03/31/19 08/25/23 History tiotropium bromide 18 mcg capsule 1 cap inhalation QAM #1 inh 03/31/19 08/25/23 History with inhalation device fluticasone 500 mcg-salmeterol 50 1 puffs inhalation BID #60 ea 08/01/19 08/25/23 Rx mcg/dose blistr powdr for inhalation (Advair Diskus) ascorbic acid (vitamin C) 500 mg 500 mg PO DAILY 12/02/21 08/25/23 History tablet (Vitamin C) doxazosin 4 mg tablet 4 mg PO QPM 12/02/21 08/25/23 History latanoprost 0.005 % eye drops 1 drp OPL HS 12/02/21 08/25/23 History acetylcysteine 600 mg capsule 600 mg PO BID 08/25/23 08/25/23 History diltiazem HCl 120 mg 0 mg PO DAILY 08/25/23 08/25/23 History capsule,extended release 24 hr (Cartia XT) furosemide 20 mg tablet 20 mg PO DAILY PRN edema 08/25/23 08/25/23 History naltrexone 4.5 mg capsule 4.5 mg PO HS 08/25/23 08/25/23 History Patient History Medical History BPH (benign prostatic hyperplasia) Pancreatic cyst BENIGN Hypothyroidism Elevated cholesterol NO MEDS Emphysema lung Glaucoma Chronic obstructive pulmonary disease On home oxygen therapy 2L CONT. Surgical History Hx of left cataract extraction History of anesthesia reaction SLOW TO WAKE UP H/O shoulder surgery RT History of cystoscopy History of ERCP History of colonoscopy H/O inguinal hernia repair History of tooth extraction History of tonsillectomy Family History Other No family history of adverse response to anesthesia Social History Smoking Status: Former smoker Tobacco Type: Cigarettes Second Hand Exposure: No; Do You Dip or Chew Tobacco: No; Tobacco Cessation Education Requested by Patient: No Hx Alcohol Use: No Hx Substance Use: No Preferred Language: Latvian Communication Ability: Effective Slitting And Shipping Supervisor Required: No Beliefs That Will Affect Care: None Current Living Situation: Spouse Other Information That Helps Us Care for You: No Feels Safe at Home: Yes Safety Concerns: Feels Safe At This Time Assistive Devices: Walker Review of Systems Review of Systems: REVIEW OF SYSTEMS: Constitutional: No fever, (+) sweats or chills Eyes: No diplopia, no worsening or blurred vision ENT: normal hearing, no trouble swallowing Respiratory: (+) dyspnea with rest and with exertion, cough, No sputum, Cardiovascular: (+) palpitations, No chest pain, tightness Abdomen: No pain, nausea, vomiting, diarrhea or constipation Musculoskeletal: No joint pain, calf pain, swelling Neurologic: No weakness, numbness/tingling, or balance problems Psychiatric: No anxiety or depression Skin: No rash or itch Physical Exam Physical Exam: PHYSICAL EXAM: General: awake, alert, no apparent distress Head: Normocephalic, atraumatic ENT: PERRLA, EOMI, no pharyngeal exudate, mucous membranes dry Neuro: AAO x 3, speech clear and appropriate, strength intact bilaterally 5/5, sensation intact and equal all extremities and dermatomes, no pronator drift Chest: equal rise and fall of the chest, no accessory muscle use, no heaves or thirlls, decreased air movement throughout with end expiratory wheeze Cardiac: Regular rate and rhythm, telemetry reviewed- 3rd degree AV block, skin warm dry, cap refill <3 seconds, peripheral pulses +2 no JVD, no murmur, no edema GI: NABS x 4 quadrants, soft, nontender to palpation, no rebound, guarding or tenderness : Spontaneously voiding, no pain, no CVA tenderness, Skin: no rash or erythema Results & Data Results & Data Vital Signs (Past 12 Hours) Vital Signs Temp Pulse Pulse Resp BP BP Pulse Ox 08/25/23 17:04 08/25/23 16:49 35 L 14 129/50 L 100 08/25/23 16:45 36.5 C 08/25/23 16:00 36 L 15 123/48 L 96 08/25/23 15:37 36 L 15 119/53 L 100 08/25/23 15:30 42 L 21 99 08/25/23 15:00 36 L 15 100 08/25/23 15:00 100 08/25/23 13:55 42 L 18 120/53 L 99 08/25/23 13:28 41 L 16 99 08/25/23 13:12 36 L 24 108/45 L 100 08/25/23 12:33 32 L 35 H 97/54 L 100 08/25/23 12:31 08/25/23 12:30 35 L 08/25/23 12:24 38 L 08/25/23 12:17 34 L 17 117/55 L 94 08/25/23 12:02 38 L 08/25/23 12:02 36 L 21 101/48 L 100 O2 Del Method O2 Flow Rate FiO2 08/25/23 17:04 BiPAP 30 08/25/23 16:49 BiPAP 08/25/23 16:45 08/25/23 16:00 BiPAP 30 08/25/23 15:37 BiPAP 30 08/25/23 15:30 BiPAP 30 08/25/23 15:00 BiPAP 08/25/23 15:00 30 08/25/23 13:55 BiPAP 30 08/25/23 13:28 30 08/25/23 13:12 Nasal Cannula 2 08/25/23 12:33 Nebulizer 6 08/25/23 12:31 Nebulizer 6 08/25/23 12:30 08/25/23 12:24 Nasal Cannula 2 08/25/23 12:17 08/25/23 12:02 Nasal Cannula 2 08/25/23 12:02 Nasal Cannula 6 Laboratory Results Abnormal lab results 08/25/23 08/25/23 08/25/23 Range/Units 12:17 12:18 12:57 RBC 3.95 L (4.70-6.10) M/uL Hgb 12.4 L (14.0-18.0) g/dl Hct 39.3 L (42.0-52.0) % MCHC 31.6 L (32.0-36.0) g/dL RDW Std Deviation 50.5 H (36.4-46.3) fL Whiteside # (Auto) 0.88 H (0.11-0.59) K/uL BUN/Creatinine Ratio 30.8 H (10-20) Glucose 100 H (70-99(Fasting)) mg/dl Total Protein 5.8 L (6.0-8.3) gm/dl Urine Appearance (Clear) Urine Protein (Negative) Urine Ketones (Negative) Urine Bilirubin (Negative) Urine RBC (Auto) (0-4) /hpf U Hyaline Cast (Auto) (0-5) /lpf U Epithel Cells (Auto) (0-5) /lpf Calcium Oxalate Crystal (None Prsent) Urine Mucus (None Prsent) Entero/Rhino (PCR) DETECTED A* (NotDetected) 08/25/23 Range/Units 18:28 RBC (4.70-6.10) M/uL Hgb (14.0-18.0) g/dl Hct (42.0-52.0) % MCHC (32.0-36.0) g/dL RDW Std Deviation (36.4-46.3) fL Whiteside # (Auto) (0.11-0.59) K/uL BUN/Creatinine Ratio (10-20) Glucose (70-99(Fasting)) mg/dl Total Protein (6.0-8.3) gm/dl Urine Appearance Cloudy A (Clear) Urine Protein Trace H (Negative) Urine Ketones 2+ H (Negative) Urine Bilirubin 1+ H (Negative) Urine RBC (Auto) 5-10 H (0-4) /hpf U Hyaline Cast (Auto) 10-30 H (0-5) /lpf U Epithel Cells (Auto) 10-20 H (0-5) /lpf Calcium Oxalate Crystal Present A (None Prsent) Urine Mucus Present A (None Prsent) Entero/Rhino (PCR) (NotDetected) Diagnostic Findings Chest X-Ray 08/25/23 12:10 SINGLE VIEW CHEST CLINICAL HISTORY: Dyspnea FINDINGS: 2 AP, portable, upright chest radiographs are compared to study dated 10/16/2016 and correlated with chest CT dated 06/24/2019. The heart is enlarged noting atherosclerotic calcification of the thoracic aorta. Advanced emphysema and chronic interstitial thickening is similar to previous. Foci of parenchymal scarring are seen throughout both lungs. There is mild diffuse coarsening of the interstitium with patchy airspace opacities. No large pleural effusion or pneumothorax is seen. The skeletal structures are osteopenic. The bony thorax is grossly intact. IMPRESSION: 1. Cardiomegaly and advanced emphysema. 2. There is diffuse coarsening of the interstitium and mild patchy airspace opacities. This could represent an infectious/inflammatory pneumonitis versus mild pulmonary edema. Clinical correlation will be required and radiographic follow-up to resolution is recommended. 3. No large pleural effusion is identified. ACT 112: Negative or not required by law. Electronically signed by: Aman Monte M.D. 08/25/2023 12:52 PM Medications Administered Home Medications albuterol sulfate 90 mcg/actuation aerosol inhaler 2 puffs inhalation Q4H PRN SOB #1 g 03/31/19 [History Confirmed 08/25/23] azithromycin 250 mg tablet 250 mg PO 3XWK #1 tab 03/31/19 [History Confirmed 08/25/23] cholecalciferol (vitamin D3) 25 mcg (1,000 unit) tablet 1,000 mcg PO 3XWK 03/31/19 [History Confirmed 08/25/23] ipratropium 0.5 mg-albuterol 3 mg (2.5 mg base)/3 mL nebulization soln 3 ml inhalation Q4H PRN SOB #6 mL 03/31/19 [History Confirmed 08/25/23] multivitamin (Multiple Vitamins tablet) 1 tab PO 3XWK 03/31/19 [History Confirmed 08/25/23] thyroid (pork) 60 mg tablet 60 mg PO QAM 03/31/19 [History Confirmed 08/25/23] tiotropium bromide 18 mcg capsule with inhalation device 1 cap inhalation QAM #1 inh 03/31/19 [History Confirmed 08/25/23] fluticasone 500 mcg-salmeterol 50 mcg/dose blistr powdr for inhalation (Advair Diskus) 1 puffs inhalation BID #60 ea 08/01/19 [Rx Confirmed 08/25/23] ascorbic acid (vitamin C) 500 mg tablet (Vitamin C) 500 mg PO DAILY 12/02/21 [History Confirmed 08/25/23] doxazosin 4 mg tablet 4 mg PO QPM 12/02/21 [History Confirmed 08/25/23] latanoprost 0.005 % eye drops 1 drp OPL HS 12/02/21 [History Confirmed 08/25/23] acetylcysteine 600 mg capsule 600 mg PO BID 08/25/23 [History Confirmed 08/25/23 ] diltiazem HCl 120 mg capsule,extended release 24 hr (Cartia XT) 0 mg PO DAILY 08/25/23 [History Confirmed 08/25/23] furosemide 20 mg tablet 20 mg PO DAILY PRN edema 08/25/23 [History Confirmed 08/25/23] naltrexone 4.5 mg capsule 4.5 mg PO HS 08/25/23 [History Confirmed 08/25/23] Active Medications Albuterol (Albut/Ipratrop 3mg/0.5mg Neb 3 Ml Vial) 3 ml NEB QIDR [facility]; Protocol Stop: 09/24/23 18:59 Albuterol (Albuterol Hfa 8 Gm Inhaler) 2 puffs INH Q4H PRN PRN Reason: Shortness Of Breath Stop: 09/24/23 16:43 Budesonide (Budesonide 0.5 Mg/2 Ml Vial (Pulmicort)) 0.5 mg NEB BIDR [facility] Stop: 09/24/23 18:59 Fluticasone/Vilanterol (Fluticasone/Vilanterol 200/25mcg 14 Puffs/Inhaler) 1 puffs INH DAILY [facility] Stop: 09/25/23 08:59 Heparin Sodium (Porcine) (Heparin Sod 5,000 Unit/0.5 Ml Vial) 5,000 units SQ Q12 JERONIMO Stop: 09/24/23 20:59 Sodium Chloride (Nss) 1,000 mls @ 50 mls/hr IV .Q20H ONE Stop: 08/26/23 12:43 Last Admin: 08/25/23 17:38 Dose: 50 mls/hr Dopamine HCl/Dextrose (Dopamine / D5w) 400 mg in 250 mls @ 4.14 mls/hr IV .Q24H JERONIMO; Protocol Stop: 09/24/23 16:43 Methylprednisolone 40 mg/ (Syringe) 0.64 mls @ 1.5 mls/min IV DAILY JERONIMO Stop: 09/25/23 08:59 Latanoprost (Latanoprost 0.005% Op Soln 2.5 Ml Btl) 1 drops OPL HS JERONIMO Stop: 09/24/23 20:59 Miscellaneous (Icu Protocol For Hyperglycemia) 1 each N/A ACHS JERONIMO Stop: 08/27/23 16:43 Last Admin: 08/25/23 18:32 Dose: 1 each Thyroid (Randolph Thyroid 30 Mg Tab) 60 mg PO QAM JERONIMO Stop: 09/25/23 08:59 Umeclidinium Ashton (Umeclidinium Ashton 62.5mcg/Blister 7 Puffs/Inhaler) 1 puffs INH DAILY JERONIMO Stop: 09/25/23 08:59 ECG Additional Comments: Sinus tachycardia with complete heart block with ventricular escape complexes Low voltage QRS Septal infarct , age undetermined Possible Lateral infarct , age undetermined Abnormal ECG When compared with ECG of 15-OCT-2016 13:56, Significant changes have occurred Confirmed by Maximo Murphy ([id number]) on 08/25/2023 3:50:14 PM Coding Level of Care Code 14495 CRITICAL CARE 1ST 30-74M Diagnoses Complete heart block I44.2 COPD (chronic obstructive pulmonary disease) J44.9 Viral pneumonitis J12.9 Hypothyroidism E03.9
[2023-08-25] MEDS: ICU Protocol for HYPERglycemia SCH ×2 (18:32→20:30)
[2023-08-25 18:45] LABS: Appearance Urine Cloudy (Clear); Bacteria Urine Automated Negative (Negative); Blood Urine Negative (Negative); Color Urine Dark Yellow; Glucose Urine UA Negative (Negative); Ketones Urine 2+ (Negative); Leukocyte Esterase Urine Negative (Negative); Nitrite Urine Negative (Negative); Protein Urine Trace (Negative); Specific Gravity Urine 1.026 (1.000-1.030); Urobilinogen Urine Negative (Negative); pH Urine 5.5 (4.5-7.5)
[2023-08-25 18:47] LABS: Bilirubin Urine 1+ (Negative)
[2023-08-25 18:55] LABS: Calcium Oxalate Crystals Urine Present (None Prsent); Mucus Urine Present (None Prsent)
[2023-08-25] MEDS: ALBUT/IPRATROP 3MG/0.5MG NEB 3 ML VIAL NEB SCH (20:28)
[2023-08-25] MEDS: HEPARIN SOD 5,000 UNIT/0.5 ML VIAL SQ SCH (20:29)
[2023-08-25] MEDS: LATANOPROST 0.005% OP SOLN 2.5 ML BTL OPL SCH (20:31)
[2023-08-25] MEDS: BUDESONIDE 0.5 MG/2 ML VIAL (PULMICORT) NEB SCH (20:31)
[2023-08-26 04:32] LABS: Hematocrit (blood only) 35.9 % (42.0-52.0); Hemoglobin 11.5 g/dl (14.0-18.0); Mean Corpuscular Hemoglobin 31.4 pg (25.0-34.0); Mean Corpuscular Volume 98.1 fL (80.0-100.0); Mean Platelet Volume 11.5 fL (9.4-12.4); Platelet Count 140 K/uL (130-400); RDW Standard Deviation 50.4 fL (36.4-46.3); Red Blood Count 3.66 M/uL (4.70-6.10); White Blood Count 8.56 K/ul (4.8-10.8)
[2023-08-26 04:48] LABS: BUN Creatinine Ratio 41.5 (10-20); Calcium 8.7 mg/dl (8.6-10.3); Creatinine Clr Calc Pharmacy 91.1 ml/min; Est GFR (African American) 118.3 ml/min; Est GFR (Non-African American) 102.1 ml/min; Potassium 4.5 mmol/L (3.5-5.1)
--- NOTE | 2023-08-26 06:51 | Critical Care Progress Note ---
Date of Service August 26, 2023 Assessment & Plan (1) Complete heart block: (2) COPD (chronic obstructive pulmonary disease): (3) Viral pneumonitis: (4) Hypothyroidism: Plan Reason Critically Ill: 77 YOM brought to the EMD via EMS for increase in dyspnea a t home, found to be bradycardic in the 30s with complete heart block and entero/rhino virus via respiratory bio-fire. He is brought to the ICU for monitoring of respiratory and hemodynamic status. Neuro - No acute needs CAM ICU: NEGATIVE Cardiac - Complete Heart Block, - Currently is warm, well perfused, and with SBP >120 and MAPS in the 70-100- Dopamine/Epinephrine if needed for worsening symptoms - Transvenous pacing system is at bedside if needed - TCP pads are on patient as well. -Permanent pacemaker with cardiology expected today Respiratory - Hypoxic respiratory failure, COPD, Viral pneumonitis/pneumonia - acute on chronic respiratory failure with acute exacerbation of COPD secondary to Enter/Rhino virus - IV solumederol 40mg -Transition to prednisone later today, anticipate rapid taper - Scheduled Albuterol nebulizers - WIll add on Pulmicort at this time to assist with delivery of medication into airway- can continue in am or discontinue and place on home fluticasone/vilanterol - Respiratory support with BiPAP/HFNC/O2- intubation if needed GI - No acute needs - NPO after midnight -Resume diet after procedure today RENAL/LYTES - - No acute needs - ICU electrolyte protocol - BPH - currently asymptomatic - follow - Continue Doxasosin ENDO - Hypothyroidism - Continue home meds HEME - No acute needs ID - Eneter/Rhino Virus - WBC normal, PCT negative, doubt bacterial involvement at this time - continue supportive care LINES/IV ACCESS - PIV Continue use of these lines DVT PROPHYLAXIS - Heparin 5000 units sq Q12 hours DISPO: ICU while in complete heart block I have personally spent 35 minutes of critical care time in the direct management of this patient. This is a life/limb threatening event. This includes time spent evaluating patient, direct bedside care, chart review, placing orders, interpretation of diagnostic studies, discussion with consultants, patient, and family members, as well as other required patient management activities. This time is exclusive of all separately billable procedures, and separate from and in addition to any other critical care service time. Admission and Anticipated Discharge Date Admission Date: August 25, 2023 Subjective No overnight events. Tolerated high flow nasal cannula resting comfortably in the room Physical Exam Physical Exam: General: Alert. nontoxic. Skin: Warm, dry, Head: Atraumatic Ears, nose, mouth and throat: airway patent Cardiovascular: Normal peripheral perfusion, complete heart block with junctional escape beats Respiratory: no respiratory distress Gastrointestinal: Non distended Musculoskeletal: No deformity Results & Data Results & Data Vital Signs (Past 12 Hours) Vital Signs Temp Pulse Pulse Resp BP Pulse Ox Pulse Ox 08/26/23 06:20 33 L 13 98 08/26/23 06:10 31 L 19 98 08/26/23 06:00 111/58 L 08/26/23 06:00 32 L 19 08/26/23 05:50 31 L 19 99 08/26/23 05:40 32 L 22 99 08/26/23 05:31 52 L 23 99 08/26/23 05:31 106/47 L 08/26/23 05:30 51 L 20 08/26/23 05:20 32 L 19 98 08/26/23 05:10 32 L 29 H 98 08/26/23 05:00 33 L 17 08/26/23 05:00 108/51 L 08/26/23 04:50 32 L 13 98 08/26/23 04:40 34 L 7 L 99 08/26/23 04:30 114/51 L 08/26/23 04:30 33 L 13 08/26/23 04:20 33 L 10 L 99 08/26/23 04:10 33 L 33 H 98 08/26/23 04:00 33 L 8 L 08/26/23 04:00 101/49 L 08/26/23 03:50 33 L 18 98 08/26/23 03:40 33 L 25 H 100 08/26/23 03:31 35 L 17 98 08/26/23 03:31 105/39 L 08/26/23 03:30 34 L 16 08/26/23 03:20 33 L 21 99 08/26/23 03:20 36.6 C 08/26/23 03:10 33 L 15 99 08/26/23 03:00 109/54 L 08/26/23 03:00 33 L 16 08/26/23 03:00 59 L 24 100 08/26/23 02:50 33 L 28 H 100 08/26/23 02:40 32 L 12 100 08/26/23 02:30 106/49 L 08/26/23 02:30 33 L 14 08/26/23 02:23 33 L 08/26/23 02:20 33 L 17 100 08/26/23 02:10 32 L 20 100 08/26/23 02:00 45 L 15 100 08/26/23 01:50 32 L 5 L 100 08/26/23 01:40 42 L 14 100 08/26/23 01:30 105/47 L 08/26/23 01:30 32 L 13 100 08/26/23 01:20 34 L 18 100 08/26/23 01:10 34 L 13 100 08/26/23 01:00 35 L 13 99 08/26/23 01:00 104/49 L 08/26/23 00:50 33 L 16 100 08/26/23 00:40 34 L 17 100 08/26/23 00:30 107/53 L 08/26/23 00:30 36 L 16 08/26/23 00:20 35 L 23 100 08/26/23 00:10 34 L 21 99 08/26/23 00:00 125/63 08/26/23 00:00 40 L 18 99 08/25/23 23:50 48 L 20 100 08/25/23 23:40 35 L 18 100 08/25/23 23:30 115/62 08/25/23 23:30 35 L 12 100 08/25/23 23:20 48 L 22 100 08/25/23 23:10 49 L 20 100 08/25/23 23:00 32 L 9 L 92 08/25/23 22:52 105/43 L 08/25/23 22:52 38 L 16 08/25/23 22:50 49 L 29 H 100 08/25/23 22:40 51 L 27 H 100 08/25/23 22:30 44 L 17 96 08/25/23 22:20 50 L 23 99 08/25/23 22:20 49 L 25 H 100 08/25/23 22:10 72 24 94 08/25/23 22:00 89 32 H 93 08/25/23 21:50 55 L 24 97 08/25/23 21:40 52 L 27 H 97 08/25/23 21:31 122/67 08/25/23 21:31 62 24 99 08/25/23 21:30 28 L 20 99 08/25/23 21:20 42 L 24 99 08/25/23 21:10 48 L 18 98 08/25/23 21:03 36.5 C 08/25/23 21:00 150/83 H 08/25/23 21:00 65 36 H 95 08/25/23 20:50 73 36 H 97 08/25/23 20:40 49 L 26 H 99 08/25/23 20:31 34 L 19 100 08/25/23 20:31 34 L 19 100 08/25/23 20:30 135/70 08/25/23 20:30 34 L 16 100 08/25/23 20:20 34 L 17 99 08/25/23 20:10 34 L 20 99 08/25/23 20:00 46 L 20 99 08/25/23 20:00 130/84 08/25/23 19:50 42 L 19 100 08/25/23 19:40 33 L 14 99 08/25/23 19:38 08/25/23 19:30 118/48 L 08/25/23 19:30 33 L 17 100 08/25/23 19:20 33 L 15 100 08/25/23 19:10 33 L 20 100 08/25/23 19:00 33 L 24 100 08/25/23 19:00 115/51 L 08/25/23 18:51 100 08/25/23 18:50 37 L 20 100 O2 Del Method O2 Del Method O2 Flow Rate FiO2 08/26/23 06:20 08/26/23 06:10 08/26/23 06:00 08/26/23 06:00 08/26/23 05:50 08/26/23 05:40 08/26/23 05:31 08/26/23 05:31 08/26/23 05:30 08/26/23 05:20 08/26/23 05:10 08/26/23 05:00 08/26/23 05:00 08/26/23 04:50 08/26/23 04:40 08/26/23 04:30 08/26/23 04:30 08/26/23 04:20 08/26/23 04:10 08/26/23 04:00 08/26/23 04:00 08/26/23 03:50 08/26/23 03:40 08/26/23 03:31 08/26/23 03:31 08/26/23 03:30 08/26/23 03:20 08/26/23 03:20 08/26/23 03:10 08/26/23 03:00 08/26/23 03:00 08/26/23 03:00 High Flow Nasal Cannula 35 35 08/26/23 02:50 08/26/23 02:40 08/26/23 02:30 08/26/23 02:30 08/26/23 02:23 08/26/23 02:20 08/26/23 02:10 08/26/23 02:00 08/26/23 01:50 08/26/23 01:40 08/26/23 01:30 08/26/23 01:30 08/26/23 01:20 08/26/23 01:10 08/26/23 01:00 08/26/23 01:00 08/26/23 00:50 08/26/23 00:40 08/26/23 00:30 08/26/23 00:30 08/26/23 00:20 08/26/23 00:10 08/26/23 00:00 08/26/23 00:00 08/25/23 23:50 08/25/23 23:40 08/25/23 23:30 08/25/23 23:30 08/25/23 23:20 08/25/23 23:10 08/25/23 23:00 08/25/23 22:52 08/25/23 22:52 08/25/23 22:50 08/25/23 22:40 08/25/23 22:30 08/25/23 22:20 08/25/23 22:20 High Flow Nasal Cannula 35 45 08/25/23 22:10 08/25/23 22:00 08/25/23 21:50 08/25/23 21:40 08/25/23 21:31 08/25/23 21:31 08/25/23 21:30 08/25/23 21:20 08/25/23 21:10 08/25/23 21:03 08/25/23 21:00 08/25/23 21:00 08/25/23 20:50 08/25/23 20:40 08/25/23 20:31 30 08/25/23 20:31 BiPAP 30 08/25/23 20:30 08/25/23 20:30 08/25/23 20:20 08/25/23 20:10 08/25/23 20:00 08/25/23 20:00 08/25/23 19:50 08/25/23 19:40 08/25/23 19:38 BiPAP 30 08/25/23 19:30 08/25/23 19:30 08/25/23 19:20 08/25/23 19:10 08/25/23 19:00 08/25/23 19:00 08/25/23 18:51 BiPAP 08/25/23 18:50 Critical Care Results & Data Vital Signs (Past 12 Hours) Vital Signs Temp Pulse Pulse Resp BP Pulse Ox Pulse Ox 08/26/23 06:20 33 L 13 98 08/26/23 06:10 31 L 19 98 08/26/23 06:00 111/58 L 08/26/23 06:00 32 L 19 08/26/23 05:50 31 L 19 99 08/26/23 05:40 32 L 22 99 08/26/23 05:31 52 L 23 99 08/26/23 05:31 106/47 L 08/26/23 05:30 51 L 20 08/26/23 05:20 32 L 19 98 08/26/23 05:10 32 L 29 H 98 08/26/23 05:00 33 L 17 08/26/23 05:00 108/51 L 08/26/23 04:50 32 L 13 98 08/26/23 04:40 34 L 7 L 99 08/26/23 04:30 114/51 L 08/26/23 04:30 33 L 13 08/26/23 04:20 33 L 10 L 99 08/26/23 04:10 33 L 33 H 98 08/26/23 04:00 33 L 8 L 08/26/23 04:00 101/49 L 08/26/23 03:50 33 L 18 98 08/26/23 03:40 33 L 25 H 100 08/26/23 03:31 35 L 17 98 08/26/23 03:31 105/39 L 01/03/24 03:30 34 L 16 08/26/23 03:20 33 L 21 99 08/26/23 03:20 36.6 C 08/26/23 03:10 33 L 15 99 08/26/23 03:00 109/54 L 08/26/23 03:00 33 L 16 08/26/23 03:00 59 L 24 100 08/26/23 02:50 33 L 28 H 100 08/26/23 02:40 32 L 12 100 08/26/23 02:30 106/49 L 08/26/23 02:30 33 L 14 08/26/23 02:23 33 L 08/26/23 02:20 33 L 17 100 08/26/23 02:10 32 L 20 100 08/26/23 02:00 45 L 15 100 08/26/23 01:50 32 L 5 L 100 08/26/23 01:40 42 L 14 100 08/26/23 01:30 105/47 L 08/26/23 01:30 32 L 13 100 08/26/23 01:20 34 L 18 100 08/26/23 01:10 34 L 13 100 08/26/23 01:00 35 L 13 99 08/26/23 01:00 104/49 L 08/26/23 00:50 33 L 16 100 08/26/23 00:40 34 L 17 100 08/26/23 00:30 107/53 L 08/26/23 00:30 36 L 16 08/26/23 00:20 35 L 23 100 08/26/23 00:10 34 L 21 99 08/26/23 00:00 125/63 08/26/23 00:00 40 L 18 99 08/25/23 23:50 48 L 20 100 08/25/23 23:40 35 L 18 100 08/25/23 23:30 115/62 08/25/23 23:30 35 L 12 100 08/25/23 23:20 48 L 22 100 08/25/23 23:10 49 L 20 100 08/25/23 23:00 32 L 9 L 92 08/25/23 22:52 105/43 L 08/25/23 22:52 38 L 16 08/25/23 22:50 49 L 29 H 100 01/02/24 22:40 51 L 27 H 100 08/25/23 22:30 44 L 17 96 08/25/23 22:20 50 L 23 99 08/25/23 22:20 49 L 25 H 100 08/25/23 22:10 72 24 94 08/25/23 22:00 89 32 H 93 08/25/23 21:50 55 L 24 97 08/25/23 21:40 52 L 27 H 97 08/25/23 21:31 122/67 08/25/23 21:31 62 24 99 08/25/23 21:30 28 L 20 99 08/25/23 21:20 42 L 24 99 08/25/23 21:10 48 L 18 98 08/25/23 21:03 36.5 C 08/25/23 21:00 150/83 H 08/25/23 21:00 65 36 H 95 08/25/23 20:50 73 36 H 97 08/25/23 20:40 49 L 26 H 99 08/25/23 20:31 34 L 19 100 08/25/23 20:31 34 L 19 100 08/25/23 20:30 135/70 08/25/23 20:30 34 L 16 100 08/25/23 20:20 34 L 17 99 08/25/23 20:10 34 L 20 99 08/25/23 20:00 46 L 20 99 08/25/23 20:00 130/84 08/25/23 19:50 42 L 19 100 08/25/23 19:40 33 L 14 99 08/25/23 19:38 08/25/23 19:30 118/48 L 08/25/23 19:30 33 L 17 100 08/25/23 19:20 33 L 15 100 08/25/23 19:10 33 L 20 100 08/25/23 19:00 33 L 24 100 08/25/23 19:00 115/51 L 08/25/23 18:51 100 08/25/23 18:50 37 L 20 100 O2 Del Method O2 Del Method O2 Flow Rate FiO2 08/26/23 06:20 08/26/23 06:10 08/26/23 06:00 08/26/23 06:00 08/26/23 05:50 08/26/23 05:40 08/26/23 05:31 08/26/23 05:31 08/26/23 05:30 08/26/23 05:20 08/26/23 05:10 08/26/23 05:00 08/26/23 05:00 08/26/23 04:50 08/26/23 04:40 08/26/23 04:30 08/26/23 04:30 08/26/23 04:20 08/26/23 04:10 08/26/23 04:00 08/26/23 04:00 08/26/23 03:50 08/26/23 03:40 08/26/23 03:31 08/26/23 03:31 08/26/23 03:30 08/26/23 03:20 08/26/23 03:20 08/26/23 03:10 08/26/23 03:00 08/26/23 03:00 08/26/23 03:00 High Flow Nasal Cannula 35 35 08/26/23 02:50 08/26/23 02:40 08/26/23 02:30 08/26/23 02:30 08/26/23 02:23 08/26/23 02:20 08/26/23 02:10 08/26/23 02:00 08/26/23 01:50 08/26/23 01:40 08/26/23 01:30 08/26/23 01:30 08/26/23 01:20 08/26/23 01:10 08/26/23 01:00 08/26/23 01:00 08/26/23 00:50 08/26/23 00:40 08/26/23 00:30 08/26/23 00:30 08/26/23 00:20 08/26/23 00:10 08/26/23 00:00 08/26/23 00:00 08/25/23 23:50 08/25/23 23:40 08/25/23 23:30 08/25/23 23:30 08/25/23 23:20 08/25/23 23:10 08/25/23 23:00 08/25/23 22:52 08/25/23 22:52 08/25/23 22:50 08/25/23 22:40 08/25/23 22:30 08/25/23 22:20 08/25/23 22:20 High Flow Nasal Cannula 35 45 08/25/23 22:10 08/25/23 22:00 08/25/23 21:50 08/25/23 21:40 08/25/23 21:31 08/25/23 21:31 08/25/23 21:30 08/25/23 21:20 08/25/23 21:10 08/25/23 21:03 08/25/23 21:00 08/25/23 21:00 08/25/23 20:50 08/25/23 20:40 08/25/23 20:31 30 08/25/23 20:31 BiPAP 30 08/25/23 20:30 08/25/23 20:30 08/25/23 20:20 08/25/23 20:10 08/25/23 20:00 08/25/23 20:00 08/25/23 19:50 08/25/23 19:40 08/25/23 19:38 BiPAP 30 08/25/23 19:30 08/25/23 19:30 08/25/23 19:20 08/25/23 19:10 08/25/23 19:00 08/25/23 19:00 08/25/23 18:51 BiPAP 08/25/23 18:50 Lab & Micro Results (Past 24 Hours) RBC 3.90 M/uL (4.70-6.10) L 08/27/23 WBC 14.70 K/ul (4.8-10.8) H 08/27/23 Hgb 12.3 g/dl (14.0-18.0) L 08/27/23 Hct 37.5 % (42.0-52.0) L 08/27/23 MCV 96.2 fL (80.0-100.0) 08/27/23 MCH 31.5 pg (25.0-34.0) 08/27/23 MCHC 32.8 g/dL (32.0-36.0) 08/27/23 RDW Standard Deviation 49.6 fL (36.4-46.3) H 08/27/23 RDW Coefficient of Variation 14.1 % (11.5-14.5) 08/27/23 Plt Count 190 K/uL (130-400) 08/27/23 MPV 10.0 fL (9.4-12.4) 08/27/23 Na 139 mmol/L (136-145) 08/27/23 K 4.3 mmol/L (3.5-5.1) 08/27/23 Cl 102 mmol/L (98-107) 08/27/23 CO2 32 mmol/L (21-32) 08/27/23 Anion Gap 5 (3-11) 08/27/23 BUN 21 mg/dl (6-23) 08/27/23 Creatinine 0.50 mg/dl (0.6-1.4) L 08/27/23 Estimated GFR ( Amer) 121.2 ml/min 08/27/23 Estimated GFR (Non-Af Amer) 104.5 ml/min 08/27/23 BUN/Creatinine Ratio 42.0 (10-20) H 08/27/23 Glu 100 mg/dl (70-99(Fasting)) H 08/27/23 Ca 9.4 mg/dl (8.6-10.3) 08/27/23 Phosphorus Level 2.7 mg/dl (2.5-4.9) 08/27/23 Mg 2.1 mg/dl (1.7-2.4) 08/27/23 03:47 Calcium Level 9.4 mg/dl (8.6-10.3) 08/27/23 03:47 Diagnostic Findings (Past 24 Hours) Chest X-Ray 08/25/23 12:10 SINGLE VIEW CHEST CLINICAL HISTORY: Dyspnea FINDINGS: 2 AP, portable, upright chest radiographs are compared to study dated 10/16/2016 and correlated with chest CT dated 06/24/2019. The heart is enlarged noting atherosclerotic calcification of the thoracic aorta. Advanced emphysema and chronic interstitial thickening is similar to previous. Foci of parenchymal scarring are seen throughout both lungs. There is mild diffuse coarsening of the interstitium with patchy airspace opacities. No large pleural effusion or pneumothorax is seen. The skeletal structures are osteopenic. The bony thorax is grossly intact. IMPRESSION: 1. Cardiomegaly and advanced emphysema. 2. There is diffuse coarsening of the interstitium and mild patchy airspace opacities. This could represent an infectious/inflammatory pneumonitis versus mild pulmonary edema. Clinical correlation will be required and radiographic follow-up to resolution is recommended. 3. No large pleural effusion is identified. ACT 112: Negative or not required by law. Electronically signed by: mAan Monte M.D. 08/25/2023 12:52 PM I & O Totals 24 Hours 08/24/23 08/25/23 08/26/23 06:59 06:59 06:59 Intake Total 525 / 525 Output Total 250 / 250 Balance 275 / 275 Cumulative 08/25/23 11:14 thru 08/26/23 05:46 Intake Total 525 Output Total 250 Balance 275 RT Ventilator Mngmt (Last Documented) Ventilator Ordered Settings Respiratory Rate 13 08/26/23 06:20 Fraction of Inspired Oxygen 35 08/26/23 03:00 Ventilator - PT Measurements Respiratory Rate 13 Coding Level of Care Code 51343 CRITICAL CARE 1ST 30-74M Diagnoses Complete heart block I44.2 COPD (chronic obstructive pulmonary disease) J44.9 Viral pneumonitis J12.9 Hypothyroidism E03.9
[2023-08-26] MEDS ORDERED: WATER, STERILE FOR INJ 10 ML VIAL ONE (07:00)
[2023-08-26] MEDS ORDERED: BUPIVACAINE 0.25% PF 30 ML VIAL ONE (07:00)
[2023-08-26] MEDS ORDERED: LIDOCAINE 1% LOCAL 20 ML VIAL ONE (07:00)
[2023-08-26] MEDS ORDERED: VANCOMYCIN HCL 1000MG/20ML VIAL ONE (07:00)
[2023-08-26] MEDS: ICU Protocol for HYPERglycemia SCH ×2 (07:15→13:15)
--- NOTE | 2023-08-26 07:58 | Hospitalist Progress Note ---
Date of Service August 26, 2023 Assessment & Plan (1) Complete heart block: Plan: Mr. Thompson is a 77 year old gentleman with history of severe COPD on chronic o2 2l, hypothyroidism, bph, and glaucoma, who presented for dyspnea on 08/25/23 and was found to be in complete heart block. He was additionally found to be acutely hypoxic, requiring HFNC, in the setting of rhinovirus infection. He was admitted to ICU on dopamine drip until pacemaker placement on 08/26/2023. #Complete heart block, now s/p pacemaker Likely secondary to viral infection, medications Lyme screen negative TSH wnl Initial troponin negative Reviewed outpatient echo Hold azithromycin, diltiazem Avoid AV beth blocking agents Started on dopamine GGT in ICU on 08/25 #Acute on Chronic Respiratory Failure with Hypoxia, home O2 2L #Severe COPD with bronchiectasis #Rhinovirus infection --CXR:Cardiomegaly and advanced emphysema. There is diffuse coarsening of the interstitium and mild patchy airspace opacities. This could represent an infectious/inflammatory pneumonitis versus mild pulmonary edema. Clinical correlation will be required and radiographic follow-up to resolution is recommended. No large pleural effusion is identified. -right ventricular enlargement -bipap at night --Normal procalcitonin --BioFire positive for enterovirus -- Continue BiPAP for respiratory support prn and at bedtime --Continue DuoNebs, Solu-Medrol --Continue home inhalers --Pulmonary hygiene #Hypothyroidism Continue levothyroxine #Bronchiectasis #Past tobacco use #Multiple lung nodules as per records #Glaucoma Continue eye drops #BPH Resume doxazosin as able Bladder scan as needed to monitor for any retention DVT Px: Heparin SQ Code Status Full Code Admission and Anticipated Discharge Date Admission Date: August 25, 2023 Subjective Patient seen after device placement, surrounded by family, eating lunch, conversational pleasant Denies any acute concerns Review of Systems Review of Systems: All systems reviewed & are unremarkable except as noted in Subjective Physical Exam Constitutional: WD/WN, vitals as above Respiratory: normal respiratory effort, lungs clear to auscultation Cardiovascular: RRR, no murmur, no edema bandage over left chest, left arm in sling Gastrointestinal (Abdomen): normal bowel sounds, soft, nontender, no hepatosplenomegaly Results & Data Results & Data Vital Signs (Past 12 Hours) Vital Signs Temp Pulse Pulse Resp BP Pulse Ox O2 Del Method 08/26/23 07:15 High Flow Nasal Cannula 08/26/23 07:10 33 L 19 96 08/26/23 07:00 106/60 08/26/23 07:00 34 L 26 H 08/26/23 06:50 31 L 6 L 99 08/26/23 06:40 33 L 15 98 08/26/23 06:30 115/51 L 08/26/23 06:30 31 L 20 96 08/26/23 06:20 33 L 13 98 08/26/23 06:10 31 L 19 98 08/26/23 06:00 111/58 L 08/26/23 06:00 32 L 19 08/26/23 05:50 31 L 19 99 08/26/23 05:40 32 L 22 99 08/26/23 05:31 52 L 23 99 08/26/23 05:31 106/47 L 08/26/23 05:30 51 L 20 08/26/23 05:20 32 L 19 98 08/26/23 05:10 32 L 29 H 98 08/26/23 05:00 33 L 17 08/26/23 05:00 108/51 L 08/26/23 04:50 32 L 13 98 08/26/23 04:40 34 L 7 L 99 08/26/23 04:30 114/51 L 08/26/23 04:30 33 L 13 08/26/23 04:20 33 L 10 L 99 08/26/23 04:10 33 L 33 H 98 08/26/23 04:00 33 L 8 L 08/26/23 04:00 101/49 L 08/26/23 03:50 33 L 18 98 08/26/23 03:40 33 L 25 H 100 08/26/23 03:31 35 L 17 98 08/26/23 03:31 105/39 L 08/26/23 03:30 34 L 16 08/26/23 03:20 33 L 21 99 08/26/23 03:20 36.6 C 08/26/23 03:10 33 L 15 99 08/26/23 03:00 109/54 L 08/26/23 03:00 33 L 16 08/26/23 03:00 59 L 24 100 High Flow Nasal Cannula 08/26/23 02:50 33 L 28 H 100 08/26/23 02:40 32 L 12 100 08/26/23 02:30 106/49 L 08/26/23 02:30 33 L 14 08/26/23 02:23 33 L 08/26/23 02:20 33 L 17 100 08/26/23 02:10 32 L 20 100 08/26/23 02:00 45 L 15 100 08/26/23 01:50 32 L 5 L 100 08/26/23 01:40 42 L 14 100 08/26/23 01:30 105/47 L 08/26/23 01:30 32 L 13 100 08/26/23 01:20 34 L 18 100 08/26/23 01:10 34 L 13 100 08/26/23 01:00 35 L 13 99 08/26/23 01:00 104/49 L 08/26/23 00:50 33 L 16 100 08/26/23 00:40 34 L 17 100 08/26/23 00:30 107/53 L 08/26/23 00:30 36 L 16 08/26/23 00:20 35 L 23 100 08/26/23 00:10 34 L 21 99 08/26/23 00:00 125/63 08/26/23 00:00 40 L 18 99 08/25/23 23:50 48 L 20 100 08/25/23 23:40 35 L 18 100 08/25/23 23:30 115/62 08/25/23 23:30 35 L 12 100 08/25/23 23:20 48 L 22 100 08/25/23 23:10 49 L 20 100 08/25/23 23:00 32 L 9 L 92 08/25/23 22:52 105/43 L 08/25/23 22:52 38 L 16 08/25/23 22:50 49 L 29 H 100 08/25/23 22:40 51 L 27 H 100 08/25/23 22:30 44 L 17 96 08/25/23 22:20 50 L 23 99 08/25/23 22:20 49 L 25 H 100 High Flow Nasal Cannula 08/25/23 22:10 72 24 94 08/25/23 22:00 89 32 H 93 08/25/23 21:50 55 L 24 97 08/25/23 21:40 52 L 27 H 97 08/25/23 21:31 122/67 08/25/23 21:31 62 24 99 08/25/23 21:30 28 L 20 99 08/25/23 21:20 42 L 24 99 08/25/23 21:10 48 L 18 98 08/25/23 21:03 36.5 C 08/25/23 21:00 150/83 H 08/25/23 21:00 65 36 H 95 08/25/23 20:50 73 36 H 97 08/25/23 20:40 49 L 26 H 99 08/25/23 20:31 34 L 19 100 08/25/23 20:31 34 L 19 100 BiPAP 08/25/23 20:30 135/70 08/25/23 20:30 34 L 16 100 08/25/23 20:20 34 L 17 99 08/25/23 20:10 34 L 20 99 08/25/23 20:00 46 L 20 99 08/25/23 20:00 130/84 O2 Flow Rate FiO2 08/26/23 07:15 30 30 08/26/23 07:10 08/26/23 07:00 08/26/23 07:00 08/26/23 06:50 08/26/23 06:40 08/26/23 06:30 08/26/23 06:30 08/26/23 06:20 08/26/23 06:10 08/26/23 06:00 08/26/23 06:00 08/26/23 05:50 08/26/23 05:40 08/26/23 05:31 08/26/23 05:31 08/26/23 05:30 08/26/23 05:20 08/26/23 05:10 08/26/23 05:00 08/26/23 05:00 08/26/23 04:50 08/26/23 04:40 08/26/23 04:30 08/26/23 04:30 08/26/23 04:20 08/26/23 04:10 08/26/23 04:00 08/26/23 04:00 08/26/23 03:50 08/26/23 03:40 08/26/23 03:31 08/26/23 03:31 08/26/23 03:30 08/26/23 03:20 08/26/23 03:20 08/26/23 03:10 08/26/23 03:00 08/26/23 03:00 08/26/23 03:00 35 35 08/26/23 02:50 08/26/23 02:40 08/26/23 02:30 08/26/23 02:30 08/26/23 02:23 08/26/23 02:20 08/26/23 02:10 08/26/23 02:00 08/26/23 01:50 08/26/23 01:40 08/26/23 01:30 08/26/23 01:30 08/26/23 01:20 08/26/23 01:10 08/26/23 01:00 08/26/23 01:00 08/26/23 00:50 08/26/23 00:40 08/26/23 00:30 08/26/23 00:30 08/26/23 00:20 08/26/23 00:10 08/26/23 00:00 08/26/23 00:00 08/25/23 23:50 08/25/23 23:40 08/25/23 23:30 08/25/23 23:30 08/25/23 23:20 08/25/23 23:10 08/25/23 23:00 08/25/23 22:52 08/25/23 22:52 08/25/23 22:50 08/25/23 22:40 08/25/23 22:30 08/25/23 22:20 08/25/23 22:20 35 45 08/25/23 22:10 08/25/23 22:00 08/25/23 21:50 08/25/23 21:40 08/25/23 21:31 08/25/23 21:31 08/25/23 21:30 08/25/23 21:20 08/25/23 21:10 08/25/23 21:03 08/25/23 21:00 08/25/23 21:00 08/25/23 20:50 08/25/23 20:40 08/25/23 20:31 30 08/25/23 20:31 30 08/25/23 20:30 08/25/23 20:30 01/02/24 20:20 08/25/23 20:10 08/25/23 20:00 08/25/23 20:00 Laboratory Results Short CBC 08/26/23 Range/Units 03:25 WBC 8.56 (4.8-10.8) K/ul Hgb 11.5 L (14.0-18.0) g/dl Hct 35.9 L (42.0-52.0) % Plt Count 140 (130-400) K/uL BMP 08/26/23 03:25 Sodium 140 Potassium 4.5 Chloride 105 Carbon Dioxide 27 BUN 22 Creatinine 0.53 L Glucose 145 H Calcium 8.7 Urine 08/25/23 Range/Units 18:28 Urine Color Dark Yellow Urine Appearance Cloudy A (Clear) Urine pH 5.5 (4.5-7.5) Ur Specific [place] 1.026 (1.000-1.030) Urine Protein Trace H (Negative) Urine Glucose (UA) Negative (Negative) Medications Administered Home Medications Medication Instructions Recorded Confirmed Last Taken albuterol sulfate 90 mcg/actuation 2 puffs inhalation Q4H PRN SOB #1 g 03/31/19 08/25/23 08/25/23 aerosol inhaler azithromycin 250 mg tablet 250 mg PO 3XWK #1 tab 03/31/19 08/25/23 08/24/23 cholecalciferol (vitamin D3) 25 1,000 mcg PO 3XWK 03/31/19 08/25/23 08/24/23 mcg (1,000 unit) tablet ipratropium 0.5 mg-albuterol 3 mg 3 ml inhalation Q4H PRN SOB #6 mL 03/31/19 08/25/23 08/24/23 (2.5 mg base)/3 mL nebulization soln multivitamin (Multiple Vitamins 1 tab PO 3XWK 03/31/19 08/25/23 08/24/23 tablet) thyroid (pork) 60 mg tablet 60 mg PO QAM 03/31/19 08/25/23 08/25/23 tiotropium bromide 18 mcg capsule 1 cap inhalation QAM #1 inh 03/31/19 08/25/23 08/25/23 with inhalation device fluticasone 500 mcg-salmeterol 50 1 puffs inhalation BID #60 ea 08/01/19 08/25/23 08/25/23 mcg/dose blistr powdr for inhalation (Advair Diskus) ascorbic acid (vitamin C) 500 mg 500 mg PO DAILY 12/02/21 08/25/23 08/24/23 tablet (Vitamin C) doxazosin 4 mg tablet 4 mg PO QPM 12/02/21 08/25/23 08/24/23 latanoprost 0.005 % eye drops 1 drp OPL HS 12/02/21 08/25/23 08/24/23 acetylcysteine 600 mg capsule 600 mg PO BID 08/25/23 08/25/23 08/24/23 diltiazem HCl 120 mg 0 mg PO DAILY 08/25/23 08/25/23 08/21/23 capsule,extended release 24 hr (Cartia XT) furosemide 20 mg tablet 20 mg PO DAILY PRN edema 08/25/23 08/25/23 3 Weeks Ago ~08/04/23 naltrexone 4.5 mg capsule 4.5 mg PO HS 08/25/23 08/25/23 08/24/23 Active Medications Generic Name Dose Route Start Last Admin Trade Name Freq PRN Reason Stop Dose Admin Albuterol 3 ml 08/25/23 19:00 08/26/23 12:43 Albut/Ipratrop 3mg/0.5mg Neb 3 Ml Vial NEB 09/24/23 18:59 Not Given QIDR [facility] Protocol Heparin Sodium (Porcine) 5,000 units 08/25/23 21:00 08/26/23 08:48 Heparin Sod 5,000 Unit/0.5 Ml Vial SQ 09/24/23 20:59 Not Given Q12 JERONIMO Latanoprost 1 drops 08/25/23 21:00 08/25/23 20:31 Latanoprost 0.005% Op Soln 2.5 Ml Btl OPL 09/24/23 20:59 1 drops HS JERONIMO Administration Miscellaneous 1 each 08/25/23 16:44 08/26/23 13:15 Icu Protocol For Hyperglycemia N/A 08/27/23 16:43 Not Given ACHS JERONIMO Thyroid 60 mg 08/26/23 09:00 08/26/23 08:47 [place] Thyroid 30 Mg Tab PO 09/25/23 08:59 60 mg QAM JERONIMO Administration Umeclidinium [place] 1 puffs 08/26/23 09:00 08/26/23 08:49 Umeclidinium [place] 62.5mcg/Blister 7 Puffs/Inhaler INH 09/25/23 08:59 1 puffs DAILY JERONIMO Administration
[2023-08-26] MEDS: ARMOUR THYROID 30 MG TAB PO SCH (08:47)
[2023-08-26] MEDS: HEPARIN SOD 5,000 UNIT/0.5 ML VIAL SQ SCH ×2 (08:48→20:30)
[2023-08-26] MEDS: UMECLIDINIUM BROMIDE 62.5MCG/BLISTER 7 PUFFS/INHALER INH SCH (08:49)
[2023-08-26] MEDS ORDERED: methylPREDNISolone 40 MG in SYRINGE 0 ML IV SCH (09:00)
[2023-08-26] MEDS ORDERED: FLUTICASONE/VILANTEROL 200/25MCG 14 PUFFS/INHALER INH SCH (09:00)
[2023-08-26] MEDS: BUDESONIDE 0.5 MG/2 ML VIAL (PULMICORT) NEB SCH (09:06)
[2023-08-26] MEDS: ALBUT/IPRATROP 3MG/0.5MG NEB 3 ML VIAL NEB SCH ×3 (09:06→15:50)
[2023-08-26] MEDS ORDERED: fentaNYL citrate PF 100 MCG/2 ML VIAL ONE ×2 (09:54→10:27)
[2023-08-26] MEDS ORDERED: MIDAZOLAM HCL 5 MG/ML 1 ML VIAL ONE (09:54)
[2023-08-26] MEDS ORDERED: ceFAZolin 330 MG/ML 1 GM VIAL ONE (09:54)
--- NOTE | 2023-08-26 10:01 | Pre Anesthesia Assessment ---
Date of Service August 26, 2023 Pre Sedation Assessment Vital Signs Temp Pulse Pulse Resp BP BP Pulse Ox 08/26/23 09:36 30 L 18 114/64 100 08/26/23 09:01 120/61 08/26/23 09:01 31 L 13 96 08/26/23 09:00 31 L 19 95 08/26/23 08:30 115/57 L 08/26/23 08:30 35 L 23 93 08/26/23 08:00 90 08/26/23 07:30 111/53 L 08/26/23 07:30 33 L 17 08/26/23 07:15 08/26/23 07:10 33 L 19 96 08/26/23 07:00 106/60 08/26/23 07:00 34 L 26 H 08/26/23 06:50 31 L 6 L 99 08/26/23 06:40 33 L 15 98 08/26/23 06:30 115/51 L 08/26/23 06:30 31 L 20 96 08/26/23 06:20 33 L 13 98 08/26/23 06:10 31 L 19 98 08/26/23 06:00 111/58 L 08/26/23 06:00 32 L 19 08/26/23 05:50 31 L 19 99 08/26/23 05:40 32 L 22 99 08/26/23 05:31 52 L 23 99 08/26/23 05:31 106/47 L 08/26/23 05:30 51 L 20 08/26/23 05:20 32 L 19 98 08/26/23 05:10 32 L 29 H 98 08/26/23 05:00 33 L 17 08/26/23 05:00 108/51 L 08/26/23 04:50 32 L 13 98 08/26/23 04:40 34 L 7 L 99 08/26/23 04:30 114/51 L 08/26/23 04:30 33 L 13 08/26/23 04:20 33 L 10 L 99 08/26/23 04:10 33 L 33 H 98 08/26/23 04:00 33 L 8 L 08/26/23 04:00 101/49 L 08/26/23 03:50 33 L 18 98 08/26/23 03:40 33 L 25 H 100 08/26/23 03:31 35 L 17 98 01/03/24 03:31 105/39 L 08/26/23 03:30 34 L 16 08/26/23 03:20 33 L 21 99 08/26/23 03:20 36.6 C 08/26/23 03:10 33 L 15 99 08/26/23 03:00 109/54 L 08/26/23 03:00 33 L 16 08/26/23 03:00 59 L 24 100 08/26/23 02:50 33 L 28 H 100 08/26/23 02:40 32 L 12 100 08/26/23 02:30 106/49 L 08/26/23 02:30 33 L 14 08/26/23 02:23 33 L 08/26/23 02:20 33 L 17 100 08/26/23 02:10 32 L 20 100 08/26/23 02:00 45 L 15 100 08/26/23 01:50 32 L 5 L 100 08/26/23 01:40 42 L 14 100 08/26/23 01:30 105/47 L 08/26/23 01:30 32 L 13 100 08/26/23 01:20 34 L 18 100 08/26/23 01:10 34 L 13 100 08/26/23 01:00 35 L 13 99 08/26/23 01:00 104/49 L 08/26/23 00:50 33 L 16 100 08/26/23 00:40 34 L 17 100 08/26/23 00:30 107/53 L 08/26/23 00:30 36 L 16 08/26/23 00:20 35 L 23 100 08/26/23 00:10 34 L 21 99 08/26/23 00:00 125/63 08/26/23 00:00 40 L 18 99 08/25/23 23:50 48 L 20 100 08/25/23 23:40 35 L 18 100 08/25/23 23:30 115/62 08/25/23 23:30 35 L 12 100 08/25/23 23:20 48 L 22 100 08/25/23 23:10 49 L 20 100 08/25/23 23:00 32 L 9 L 92 08/25/23 22:52 105/43 L 08/25/23 22:52 38 L 16 08/25/23 22:50 49 L 29 H 100 08/25/23 22:40 51 L 27 H 100 08/25/23 22:30 44 L 17 96 08/25/23 22:20 50 L 23 99 08/25/23 22:20 49 L 25 H 100 08/25/23 22:10 72 24 94 08/25/23 22:00 89 32 H 93 08/25/23 21:50 55 L 24 97 08/25/23 21:40 52 L 27 H 97 08/25/23 21:31 122/67 08/25/23 21:31 62 24 99 08/25/23 21:30 28 L 20 99 08/25/23 21:20 42 L 24 99 08/25/23 21:10 48 L 18 98 08/25/23 21:03 36.5 C 08/25/23 21:00 150/83 H 08/25/23 21:00 65 36 H 95 08/25/23 20:50 73 36 H 97 08/25/23 20:40 49 L 26 H 99 08/25/23 20:31 34 L 19 100 08/25/23 20:31 34 L 19 100 08/25/23 20:30 135/70 08/25/23 20:30 34 L 16 100 08/25/23 20:20 34 L 17 99 08/25/23 20:10 34 L 20 99 08/25/23 20:00 46 L 20 99 08/25/23 20:00 130/84 08/25/23 19:50 42 L 19 100 08/25/23 19:40 33 L 14 99 08/25/23 19:38 08/25/23 19:30 118/48 L 08/25/23 19:30 33 L 17 100 08/25/23 19:20 33 L 15 100 08/25/23 19:10 33 L 20 100 08/25/23 19:00 33 L 24 100 08/25/23 19:00 115/51 L 08/25/23 18:51 08/25/23 18:50 37 L 20 100 08/25/23 18:40 45 L 20 99 08/25/23 18:31 45 L 21 97 08/25/23 18:31 142/66 H 08/25/23 18:30 33 L 19 96 08/25/23 18:20 53 L 32 H 89 L 08/25/23 18:10 36 L 21 99 08/25/23 18:01 123/62 08/25/23 18:00 33 L 29 H 123/62 99 08/25/23 17:30 34 L 17 121/50 L 100 08/25/23 17:04 08/25/23 17:00 35 L 19 123/57 L 100 08/25/23 16:49 35 L 14 129/50 L 100 08/25/23 16:45 36.5 C 08/25/23 16:37 96 H 21 129/50 L 98 08/25/23 16:00 36 L 15 123/48 L 96 08/25/23 15:37 36 L 15 119/53 L 100 08/25/23 15:30 42 L 21 99 08/25/23 15:00 36 L 15 100 08/25/23 15:00 100 08/25/23 13:55 42 L 18 120/53 L 99 08/25/23 13:28 41 L 16 99 08/25/23 13:12 36 L 24 108/45 L 100 08/25/23 12:33 32 L 35 H 97/54 L 100 08/25/23 12:31 08/25/23 12:30 35 L 08/25/23 12:24 38 L 08/25/23 12:17 34 L 17 117/55 L 94 08/25/23 12:02 38 L 08/25/23 12:02 36 L 21 101/48 L 100 Pulse Ox O2 Del Method O2 Del Method O2 Flow Rate FiO2 08/26/23 09:36 Oxymask 6 08/26/23 09:01 08/26/23 09:01 High Flow Nasal Cannula 35 30 08/26/23 09:00 High Flow Nasal Cannula 35 30 08/26/23 08:30 08/26/23 08:30 High Flow Nasal Cannula 35 30 08/26/23 08:00 08/26/23 07:30 High Flow Nasal Cannula 35 30 08/26/23 07:30 08/26/23 07:15 High Flow Nasal Cannula 30 30 08/26/23 07:10 08/26/23 07:00 08/26/23 07:00 08/26/23 06:50 08/26/23 06:40 08/26/23 06:30 08/26/23 06:30 08/26/23 06:20 08/26/23 06:10 08/26/23 06:00 08/26/23 06:00 08/26/23 05:50 08/26/23 05:40 08/26/23 05:31 08/26/23 05:31 08/26/23 05:30 08/26/23 05:20 08/26/23 05:10 08/26/23 05:00 08/26/23 05:00 08/26/23 04:50 08/26/23 04:40 08/26/23 04:30 08/26/23 04:30 08/26/23 04:20 08/26/23 04:10 08/26/23 04:00 08/26/23 04:00 08/26/23 03:50 08/26/23 03:40 08/26/23 03:31 08/26/23 03:31 08/26/23 03:30 08/26/23 03:20 08/26/23 03:20 08/26/23 03:10 08/26/23 03:00 08/26/23 03:00 08/26/23 03:00 High Flow Nasal Cannula 35 35 08/26/23 02:50 08/26/23 02:40 08/26/23 02:30 08/26/23 02:30 08/26/23 02:23 08/26/23 02:20 08/26/23 02:10 08/26/23 02:00 08/26/23 01:50 08/26/23 01:40 08/26/23 01:30 08/26/23 01:30 08/26/23 01:20 08/26/23 01:10 08/26/23 01:00 08/26/23 01:00 08/26/23 00:50 08/26/23 00:40 08/26/23 00:30 08/26/23 00:30 08/26/23 00:20 08/26/23 00:10 08/26/23 00:00 08/26/23 00:00 08/25/23 23:50 08/25/23 23:40 08/25/23 23:30 08/25/23 23:30 08/25/23 23:20 08/25/23 23:10 08/25/23 23:00 08/25/23 22:52 08/25/23 22:52 08/25/23 22:50 08/25/23 22:40 08/25/23 22:30 08/25/23 22:20 08/25/23 22:20 High Flow Nasal Cannula 35 45 08/25/23 22:10 08/25/23 22:00 08/25/23 21:50 08/25/23 21:40 08/25/23 21:31 08/25/23 21:31 08/25/23 21:30 08/25/23 21:20 08/25/23 21:10 08/25/23 21:03 08/25/23 21:00 08/25/23 21:00 08/25/23 20:50 08/25/23 20:40 08/25/23 20:31 30 08/25/23 20:31 BiPAP 30 08/25/23 20:30 08/25/23 20:30 08/25/23 20:20 08/25/23 20:10 08/25/23 20:00 08/25/23 20:00 08/25/23 19:50 08/25/23 19:40 08/25/23 19:38 BiPAP 30 08/25/23 19:30 08/25/23 19:30 08/25/23 19:20 08/25/23 19:10 08/25/23 19:00 08/25/23 19:00 08/25/23 18:51 100 BiPAP 08/25/23 18:50 08/25/23 18:40 08/25/23 18:31 08/25/23 18:31 08/25/23 18:30 08/25/23 18:20 08/25/23 18:10 08/25/23 18:01 08/25/23 18:00 Nasal Cannula 2 08/25/23 17:30 BiPAP 30 08/25/23 17:04 BiPAP 30 08/25/23 17:00 BiPAP 30 08/25/23 16:49 BiPAP 08/25/23 16:45 08/25/23 16:37 BiPAP 30 08/25/23 16:00 BiPAP 30 08/25/23 15:37 BiPAP 30 08/25/23 15:30 BiPAP 08/25/23 15:00 BiPAP 08/25/23 15:00 30 08/25/23 13:55 BiPAP 08/25/23 13:28 30 08/25/23 13:12 Nasal Cannula 2 08/25/23 12:33 Nebulizer 6 08/25/23 12:31 Nebulizer 6 08/25/23 12:30 08/25/23 12:24 Nasal Cannula 2 08/25/23 12:17 08/25/23 12:02 Nasal Cannula 2 08/25/23 12:02 Nasal Cannula 6 Cardiovascular + bradycardic Respiratory normal respiratory effort, lungs clear to auscultation Pre-Sedation Airway Assessment Smoking Status: Former smoker Hx Sleep Apnea: No Short, Thick Neck: No Thyromental Distance: > or= 3.5 Finger Breadths Oral Cavity: + WNL Mallampati Class: I ASA: ASA3 NPO Status Date of Last Intake of Fluids: 08/25/23 Date of Last Intake of Solid Food: 08/25/23 Procedure Planning Contraindications for Sedation: none Current Medications Reviewed: Yes Notes The planned sedation has been discussed with the patient. Informed Consent was obtained. I have identified the patient, determined the appropriateness of sedation and have assessed the patient immediately prior to the procedure. All medicine(s) and interventions are by my order.
--- NOTE | 2023-08-26 10:01 | History & Physical Bridge Note ---
Date of Service August 26, 2023 History & Physical Bridge Note I have examined the patient, reviewed the History & Physical and in the interval since the performance of the History & Physical I have noted the following changes of clinical significance: no changes noted
[2023-08-26] MEDS ORDERED: MIDAZOLAM HCL 1 MG/ML 2ML VIAL ONE (10:27)
--- NOTE | 2023-08-26 11:13 | Electrocardiogram Report ---
Test Reason : Blood Pressure : / mmHG Vent. Rate : 034 BPM Atrial Rate : 044 BPM P-R Int : 000 ms QRS Dur : 142 ms QT Int : 568 ms P-R-T Axes : 092 008 027 degrees QTc Int : 426 ms Normal sinus rhythm with complete heart block and Idioventricular rhythm Right bundle branch block Anterior infarct , age undetermined Abnormal ECG When compared with ECG of 25-AUG-2023 12:07, No significant change Confirmed by Maximo Murphy ([id number]) on 08/26/2023 11:12:54 AM Referred By: REFERRED SELF Confirmed By:Maximo Murphy
--- NOTE | 2023-08-26 12:04 | Post Anesthesia Assessment ---
Date of Service August 26, 2023 Post Sedation Assessment Vital Signs Temp Pulse Pulse Resp BP BP Pulse Ox 08/26/23 09:36 30 L 18 114/64 100 08/26/23 09:01 120/61 08/26/23 09:01 31 L 13 96 08/26/23 09:00 31 L 19 95 08/26/23 08:30 115/57 L 08/26/23 08:30 35 L 23 93 08/26/23 08:00 90 08/26/23 07:30 111/53 L 08/26/23 07:30 33 L 17 08/26/23 07:20 46 L 20 97 08/26/23 07:15 08/26/23 07:10 33 L 19 96 08/26/23 07:00 106/60 08/26/23 07:00 34 L 26 H 08/26/23 06:50 31 L 6 L 99 08/26/23 06:40 33 L 15 98 08/26/23 06:30 115/51 L 08/26/23 06:30 31 L 20 96 08/26/23 06:20 33 L 13 98 08/26/23 06:10 31 L 19 98 08/26/23 06:00 111/58 L 08/26/23 06:00 32 L 19 08/26/23 05:50 31 L 19 99 08/26/23 05:40 32 L 22 99 08/26/23 05:31 52 L 23 99 08/26/23 05:31 106/47 L 08/26/23 05:30 51 L 20 08/26/23 05:20 32 L 19 98 08/26/23 05:10 32 L 29 H 98 08/26/23 05:00 33 L 17 08/26/23 05:00 108/51 L 08/26/23 04:50 32 L 13 98 08/26/23 04:40 34 L 7 L 99 08/26/23 04:30 114/51 L 08/26/23 04:30 33 L 13 08/26/23 04:20 33 L 10 L 99 08/26/23 04:10 33 L 33 H 98 08/26/23 04:00 33 L 8 L 08/26/23 04:00 101/49 L 08/26/23 03:50 33 L 18 98 01/03/24 03:40 33 L 25 H 100 01/03/24 03:31 35 L 17 98 08/26/23 03:31 105/39 L 08/26/23 03:30 34 L 16 08/26/23 03:20 33 L 21 99 08/26/23 03:20 36.6 C 08/26/23 03:10 33 L 15 99 08/26/23 03:00 109/54 L 08/26/23 03:00 33 L 16 08/26/23 03:00 59 L 24 100 08/26/23 02:50 33 L 28 H 100 08/26/23 02:40 32 L 12 100 08/26/23 02:30 106/49 L 08/26/23 02:30 33 L 14 08/26/23 02:23 33 L 08/26/23 02:20 33 L 17 100 08/26/23 02:10 32 L 20 100 08/26/23 02:00 45 L 15 100 08/26/23 01:50 32 L 5 L 100 08/26/23 01:40 42 L 14 100 08/26/23 01:30 105/47 L 08/26/23 01:30 32 L 13 100 08/26/23 01:20 34 L 18 100 08/26/23 01:10 34 L 13 100 08/26/23 01:00 35 L 13 99 08/26/23 01:00 104/49 L 08/26/23 00:50 33 L 16 100 08/26/23 00:40 34 L 17 100 08/26/23 00:30 107/53 L 08/26/23 00:30 36 L 16 08/26/23 00:20 35 L 23 100 08/26/23 00:10 34 L 21 99 08/26/23 00:00 125/63 08/26/23 00:00 40 L 18 99 08/25/23 23:50 48 L 20 100 08/25/23 23:40 35 L 18 100 08/25/23 23:30 115/62 08/25/23 23:30 35 L 12 100 08/25/23 23:20 48 L 22 100 08/25/23 23:10 49 L 20 100 08/25/23 23:00 32 L 9 L 92 08/25/23 22:52 105/43 L 01/02/24 22:52 38 L 16 08/25/23 22:50 49 L 29 H 100 08/25/23 22:40 51 L 27 H 100 08/25/23 22:30 44 L 17 96 08/25/23 22:20 50 L 23 99 08/25/23 22:20 49 L 25 H 100 08/25/23 22:10 72 24 94 08/25/23 22:00 89 32 H 93 08/25/23 21:50 55 L 24 97 08/25/23 21:40 52 L 27 H 97 08/25/23 21:31 122/67 08/25/23 21:31 62 24 99 08/25/23 21:30 28 L 20 99 08/25/23 21:20 42 L 24 99 08/25/23 21:10 48 L 18 98 08/25/23 21:03 36.5 C 08/25/23 21:00 150/83 H 08/25/23 21:00 65 36 H 95 08/25/23 20:50 73 36 H 97 08/25/23 20:40 49 L 26 H 99 08/25/23 20:31 34 L 19 100 08/25/23 20:31 34 L 19 100 08/25/23 20:30 135/70 08/25/23 20:30 34 L 16 100 08/25/23 20:20 34 L 17 99 08/25/23 20:10 34 L 20 99 08/25/23 20:00 46 L 20 99 08/25/23 20:00 130/84 08/25/23 19:50 42 L 19 100 08/25/23 19:40 33 L 14 99 08/25/23 19:38 08/25/23 19:30 118/48 L 08/25/23 19:30 33 L 17 100 08/25/23 19:20 33 L 15 100 08/25/23 19:10 33 L 20 100 08/25/23 19:00 33 L 24 100 08/25/23 19:00 115/51 L 08/25/23 18:51 08/25/23 18:50 37 L 20 100 08/25/23 18:40 45 L 20 99 08/25/23 18:31 45 L 21 97 08/25/23 18:31 142/66 H 08/25/23 18:30 33 L 19 96 08/25/23 18:20 53 L 32 H 89 L 08/25/23 18:10 36 L 21 99 08/25/23 18:01 123/62 08/25/23 18:00 33 L 29 H 123/62 99 08/25/23 17:30 34 L 17 121/50 L 100 08/25/23 17:04 08/25/23 17:00 35 L 19 123/57 L 100 08/25/23 16:49 35 L 14 129/50 L 100 08/25/23 16:45 36.5 C 08/25/23 16:37 96 H 21 129/50 L 98 08/25/23 16:00 36 L 15 123/48 L 96 08/25/23 15:37 36 L 15 119/53 L 100 08/25/23 15:30 42 L 21 99 08/25/23 15:00 36 L 15 100 08/25/23 15:00 100 08/25/23 13:55 42 L 18 120/53 L 99 08/25/23 13:28 41 L 16 99 08/25/23 13:12 36 L 24 108/45 L 100 08/25/23 12:33 32 L 35 H 97/54 L 100 08/25/23 12:31 08/25/23 12:30 35 L 08/25/23 12:24 38 L 08/25/23 12:17 34 L 17 117/55 L 94 Pulse Ox O2 Del Method O2 Del Method O2 Flow Rate FiO2 08/26/23 09:36 Oxymask 6 08/26/23 09:01 08/26/23 09:01 High Flow Nasal Cannula 35 30 08/26/23 09:00 High Flow Nasal Cannula 35 30 08/26/23 08:30 08/26/23 08:30 High Flow Nasal Cannula 35 30 08/26/23 08:00 08/26/23 07:30 High Flow Nasal Cannula 35 30 08/26/23 07:30 08/26/23 07:20 High Flow Nasal Cannula 35 30 08/26/23 07:15 High Flow Nasal Cannula 30 30 08/26/23 07:10 08/26/23 07:00 08/26/23 07:00 08/26/23 06:50 08/26/23 06:40 08/26/23 06:30 08/26/23 06:30 08/26/23 06:20 08/26/23 06:10 08/26/23 06:00 08/26/23 06:00 08/26/23 05:50 08/26/23 05:40 08/26/23 05:31 08/26/23 05:31 08/26/23 05:30 08/26/23 05:20 08/26/23 05:10 08/26/23 05:00 08/26/23 05:00 08/26/23 04:50 08/26/23 04:40 08/26/23 04:30 08/26/23 04:30 08/26/23 04:20 08/26/23 04:10 08/26/23 04:00 08/26/23 04:00 08/26/23 03:50 08/26/23 03:40 08/26/23 03:31 08/26/23 03:31 08/26/23 03:30 08/26/23 03:20 08/26/23 03:20 08/26/23 03:10 08/26/23 03:00 08/26/23 03:00 08/26/23 03:00 High Flow Nasal Cannula 35 35 08/26/23 02:50 08/26/23 02:40 08/26/23 02:30 08/26/23 02:30 08/26/23 02:23 08/26/23 02:20 08/26/23 02:10 08/26/23 02:00 08/26/23 01:50 08/26/23 01:40 08/26/23 01:30 08/26/23 01:30 08/26/23 01:20 08/26/23 01:10 08/26/23 01:00 08/26/23 01:00 08/26/23 00:50 08/26/23 00:40 08/26/23 00:30 08/26/23 00:30 08/26/23 00:20 08/26/23 00:10 08/26/23 00:00 08/26/23 00:00 08/25/23 23:50 08/25/23 23:40 08/25/23 23:30 08/25/23 23:30 08/25/23 23:20 08/25/23 23:10 08/25/23 23:00 08/25/23 22:52 08/25/23 22:52 08/25/23 22:50 08/25/23 22:40 08/25/23 22:30 08/25/23 22:20 08/25/23 22:20 High Flow Nasal Cannula 35 45 08/25/23 22:10 08/25/23 22:00 08/25/23 21:50 08/25/23 21:40 08/25/23 21:31 08/25/23 21:31 08/25/23 21:30 08/25/23 21:20 08/25/23 21:10 08/25/23 21:03 08/25/23 21:00 08/25/23 21:00 08/25/23 20:50 08/25/23 20:40 08/25/23 20:31 30 08/25/23 20:31 BiPAP 30 08/25/23 20:30 08/25/23 20:30 08/25/23 20:20 08/25/23 20:10 08/25/23 20:00 08/25/23 20:00 08/25/23 19:50 08/25/23 19:40 08/25/23 19:38 BiPAP 30 08/25/23 19:30 08/25/23 19:30 08/25/23 19:20 08/25/23 19:10 08/25/23 19:00 08/25/23 19:00 08/25/23 18:51 100 BiPAP 08/25/23 18:50 08/25/23 18:40 08/25/23 18:31 08/25/23 18:31 08/25/23 18:30 08/25/23 18:20 08/25/23 18:10 08/25/23 18:01 08/25/23 18:00 Nasal Cannula 2 08/25/23 17:30 BiPAP 30 08/25/23 17:04 BiPAP 30 08/25/23 17:00 BiPAP 30 08/25/23 16:49 BiPAP 08/25/23 16:45 08/25/23 16:37 BiPAP 30 08/25/23 16:00 BiPAP 30 08/25/23 15:37 BiPAP 30 08/25/23 15:30 BiPAP 08/25/23 15:00 BiPAP 08/25/23 15:00 08/25/23 13:55 BiPAP 08/25/23 13:28 08/25/23 13:12 Nasal Cannula 2 08/25/23 12:33 Nebulizer 6 08/25/23 12:31 Nebulizer 6 08/25/23 12:30 08/25/23 12:24 Nasal Cannula 2 08/25/23 12:17 Recovery Score Activity: Moves 4 extremities Respiration: Deep Breath/Cough Circulation: +/-20% PreAnes Value Consciousness: Fully Awake Oxygen Saturation: > 92% On Room Air Discharge Sedation Level of Care: Fast Track Phase II Post Sedation Plan On clinical assessment, the patient appears to have tolerated the sedation with out complications. Patient is recovering as anticipated. Patient will continue to be monitored by nursing and may be discharged when sedation discharge criteria are met per below protocol. Upon Completions of procedure up to 15 minutes continue every 5 minute vital signs and the P.A.R. score; then discharge to a Phase I or Fast Track to Phase II per the following guidelines: * Discharge Patient to appropriate Phase II area if PAR is 8 or greater or return to pre- procedure baseline. The post - procedure orders will be as directed. * If PAR score is less than 8 or not return to pre-procedure baseline then patient will follow Phase I monitoring till PAR is reached for Phase II. The Phase I may be done in procedure room or may call to secure a Phase I area. * If naloxone or flumazenil are used for reversal, hold in Phase I for continued monitoring from when last reversal dose was given for a minimum of 60 minutes or longer pending the nurse and/or physician discretion of patient condition before discharge to Phase II. Please call the Sedation Physician to re-evaluate and complete post-note for discharge to Phase II area. Do NOT discharge from procedure sedation or Phase 1 until post- sedation evaluation note is complete by procedure /sedation MD Sedation Discharge Instructions to be given to the patient at discharge to home.
--- NOTE | 2023-08-26 12:15 | Operative Report ---
Post Operative Report DICTATED BY:Diana Alexander D.O. DATE OF PROCEDURE: 08/27/2023. PREOPERATIVE DIAGNOSES: Complete heart block POSTOPERATIVE DIAGNOSIS: Same PROCEDURE: A dual-chamber rate responsive permanent pacemaker along with a peripheral venogram under fluoroscopic guidance. SURGEON: Diana Alexander DO ASSISTANTS: None. ANESTHESIA: Monitored conscious sedation administered under my supervision by Ankit Yarbrough. Start time 10:13am, end time 12:00pm, a total of 3 mg of Versed and 125 mcg of fentanyl. INTRAVENOUS FLUIDS: 125 mL. CONTRAST: 12 mL. ANTIBIOTICS: 2 grams of Ancef. ADDITIONAL MEDICATIONS: None BLOOD LOSS: 100 mL. URINE OUTPUT: Not applicable. SPECIMENS: None. FINDINGS: See below. DRAINS: None. COMPLICATIONS: None. CONDITION: Stable. INDICATIONS: This is a 77-year-old gentleman who has a past medical history COPD on supplemental O2, Hypothyroidism, BPH, HLD. Pt admitted with RSV and CHB. Hhe was recommended a pacemaker prior to hospital discharge. CONSENT: Consent was obtained prior to the patient going into the electrophysiology lab. The patient was informed of the risks, benefits, and alternatives to the procedure. Risks include, but not limited to, sudden cardiac , cardiac arrhythmias, cerebrovascular accident, myocardial infa rction, injury to his blood vessels, chamber of the heart and lung, bleeding and infection. The patient understood these risks and agreed to the procedure as planned. Informed consent was obtained. DESCRIPTION OF PROCEDURE: The patient was brought into electrophysiology lab in a fasting state. He was connected to continuous cardiac monitoring. A timeout was performed to ensure the patient's identity and procedure correctly. He was prepped and draped in the left infraclavicular space in normal surgical standard fashion. Monitored conscious sedation was given throughout the procedure for the patient's comfort level. [place] precautions were maintained throughout the procedure. Prophylactic antibiotics were given prior to incision. A 20 mL of 1% lidocaine and bupivacaine mixture were given in the left deltopectoral groove. An incision was made in the left deltopectoral groove. Blunt dissection was performed down to the pectoralis muscle. Then, using blunt dissection over the pectoralis muscle within the pectoral fascia, a pacemaker pocket was created. Then, a peripheral venogram was performed to identify the axillary vein. Venous axillary access was obtained through a needlestick without any problems. A guidewire was inserted without any resistance. A 9- Taiwanese sheath was inserted over the guidewire without any resistance. Dilator was removed and a second guidewire was inserted through the sheath to allow for retained venous access. Then a 6 [place]ese sheath was inserted over one of the guidewires. The guidewire and dilator were removed. Then the right atrial pacemaker lead was temporarily placed in the RV apex to have back up pacing during the procedure. Of note he did become dependent on the back up lead and while putting in the CPS Tissue Coordinator 3D sheath the back up lead dislodged and lost capture briefly so pt was externally paced briefly. But I was quickly able to reposition the back up lead and we had capture again. Then, the 9 [place]ese sheath was reinserted over the retained guidewire. The dilator and guidewire were removed. Then the CPS Tissue Coordinator 3D medium sheath was inserted through the 9-Taiwanese sheath over a Glidewire into the right ventricle. The Glidewire and dilator were removed. Then, the left bundle lead was advanced through the sheath into the RV. I did not even try looking for a HIS bundle region. With the camera in NOVA 30 I paced mapped in differrent positions. Sometimes I did not have capture and other times the position did not look correct. I also swapped out the medium CPS Tissue Coordinator 3D sheath for a small and this gave me some better success. It did seem like I was too high up for his heart was very elongated and vertical. But I did get good capture, I then moved the camera to CROATIAN 30. Then the helix was extended into the septum. Then the helix locking tool was placed. Then the lead was screwed further into the septum while pacing by giving slow clockwise turns. The paced complex changed to a nice R' in V1 and the pacing stim to peak QRS in V6 was good. I then gave contrast through the sheath to see how far the lead was into the septum and then I slit the CPS Tissue Coordinator 3D medium sheath under fluoroscopic guidance and left the 9-Taiwanese sheath in while I re-positioned the right atrial lead. Of note I did reposition it a couple of times. The right atrial lead screw was retracted and the right atrial lead was brought out of the RV apex to the RA. It was positioned into right atrial appendage under fluoroscopic guidance. There was adequate pacing and sensing thresholds and no diaphragmatic stimulation with high output pacing. Of note I did have to reposition it a few times for when I would put the straight stylet back in it dislodged. As well as it dislodged one time after I had split the sheath and was suturing the lead down. But ultimately I got good pacing and sensing using the larger curved stylet. The 6-Taiwanese sheath was peeled away and the lead was fixated to the pectoralis muscle using 0 silk suture. The 9-Taiwanese sheath around the left bundle lead was peeled away and the lead was fixated to pectoralis muscle using 0 silk suture. The pocket was flushed with copious amounts of vancomycin and saline wash and inspected for hemostasis. The leads were then attached to the pulse generator making sure the pins were in appropriate position, passed set screws, and set screws were all tightened. Pulse generator was then placed in the antibiotic pouch followed then by being placed in the pocket, making sure the leads were lying flat beneath the device. The incision was closed in a 3-layer fashion using 2-0 Vicryl interrupted suture, followed by 3-0 Vicryl interrupted suture, followed by 4-0 Monocryl running stitch. Then a primaseal dressing was placed EQUIPMENT: 1. Pulse generator is a Instant Opinion MRI Model Number [id number] SN: [id number]. 2. Right atrial lead, [place] SJM Tendril STS 8TC SN: [id number] 3. Left bundle lead, [place] SJM Tendril STS 8TC SN: [id number] INTRAPROCEDURAL FINDINGS: 1.Right atrial lead, P waves 2 millivolts, impedance 440 ohms, threshold 1.4 volts at 0.4 milliseconds. 3. Left bundle lead, R waves none pt paced at 30bpm, impedance 850 ohms, threshold 1.3 volts at 1.0 milliseconds. FINAL MEASUREMENTS THROUGH THE DEVICE: 1. Right atrial lead, P waves > 5millivolts, impedance 640 ohms, threshold 0.5 volt at 0.4 milliseconds. 2. Left bundle lead, R waves none patient is paced at 30bpm, impedance 780 ohms, threshold 0.5 volts at 1 milliseconds. FINAL PARAMETERS: DDD 60/120, right atrial amplitude 3.5 volts, pulse width 0.4 milliseconds, sensitivity 0.5 millivolts. Left bundle lead amplitude 3.5 volts, pulse width 1 milliseconds, sensitivity 2 millivolts. IMPRESSION: Successful dual chamber rate responsive permanent pacemaker under fluoroscopic guidance along with peripheral venogram, all under fluoroscopic guidance secondary to complete heart block PLAN: Monitor the patient post-procedure. A 12-lead ECG, chest x-ray.transfer back to ICU. We will check his device again in the morning. He is not to lift the left elbow or left shoulder for 1 month. He cannot lift more than 10 pounds with the left arm for 2 weeks. He is to keep the dressing on and dry until his wound check next week. .
--- NOTE | 2023-08-26 12:47 | XRay Report ---
XR chest 1V portable HISTORY: 77 years-old Male s/p ppm ensure no PTX status post placement of a cardiac pacer COMPARISON: Chest 08/25/2023 TECHNIQUE: AP view of the chest FINDINGS: Cardiac mediastinal and hilar silhouettes are unchanged. Status post placement of a dual lead left olson bclavian pacer. Leads appear intact. No postprocedural pneumothorax identified. Hyperinflation with c hronic interstitial coarsening and diaphragmatic flattening. Bones appear grossly intact. IMPRESSION: 1. Status post placement of left subclavian pacer. No postprocedural pneumothorax. 2. Pulmonary emphysema. ACT 112: Negative or not required by law. The above report was generated using voice recognition software. It may contain grammatical, syntax o r spelling errors. Electronically signed by: Juanpablo Villalba M.D. 08/26/2023 12:46 PM
--- NOTE | 2023-08-26 16:48 | Cardiology Progress Note ---
Date of Service August 26, 2023 Assessment & Plan (1) Complete heart block: (2) COPD (chronic obstructive pulmonary disease): (3) Emphysema of lung: Plan 77-year-old male with underlying severe chronic obstructive lung disease and conduction system disease who presents with increasing dyspnea and marked reduction in exercise tolerance x 3 days. Marked bradycardia noted on pulse oximetry Sought evaluation today due to persistent symptoms and low heart rate. Found to be in third-degree AV block with a ventricular escape rhythm. Currently hemodynamically stable with adequate blood pressures and normal renal perfusion Minimal increase in vascular markings on chest x-ray but no other findings consistent with congestive failure Impression: Symptomatic third-degree AV block/conduction system disease/tachybradycardia syndrome Plan: Now status post dual-chamber pacemaker insertion with appropriate function. Multiple questions asked and answered Will resume diltiazem in a.m. Pacemaker interrogation in a.m. Admission and Anticipated Discharge Date Admission Date: August 25, 2023 Subjective Patient seen post dual-chamber pacemaker insertion Feels much better heart rate now 80s. Tolerated procedure well Respiratory status stable Pacemaker incision intact Physical Exam Constitutional: + thin and + cachectic; no acute distres s Eyes: PERRL, conjunctivae normal, anicteric sclerae ENMT: external ear and nose normal, oropharynx normal Neck: trachea midline, no thyromegaly Respiratory: Auscultation: + diminished lung sounds and + rhonchi (Upper airway sounds with BiPAP in place) Cardiovascular: Rate/Rhythm: regular rhythm and + bradycardic Heart Sounds: no murmur Vessels: femoral pulses present and radial pulses present; no JVD Extremities: + edema (Trace) Gastrointestinal (Abdomen): normal bowel sounds, soft, nontender, no hepatosplenomegaly Psychiatric: A+Ox3, euthymic affect Results & Data Vital Signs (Past 12 Hours) Vital Signs Pulse Pulse Resp BP BP Pulse Ox O2 Del Method 08/26/23 09:36 30 L 18 114/64 100 Oxymask 08/26/23 09:01 120/61 08/26/23 09:01 31 L 13 96 High Flow Nasal Cannula 08/26/23 09:00 31 L 19 95 High Flow Nasal Cannula 08/26/23 08:30 115/57 L 08/26/23 08:30 35 L 23 93 High Flow Nasal Cannula 08/26/23 08:00 90 08/26/23 07:30 111/53 L High Flow Nasal Cannula 08/26/23 07:30 33 L 17 08/26/23 07:20 46 L 20 97 High Flow Nasal Cannula 08/26/23 07:15 High Flow Nasal Cannula 08/26/23 07:10 33 L 19 96 08/26/23 07:00 106/60 08/26/23 07:00 34 L 26 H 08/26/23 06:50 31 L 6 L 99 08/26/23 06:40 33 L 15 98 08/26/23 06:30 115/51 L 08/26/23 06:30 31 L 20 96 08/26/23 06:20 33 L 13 98 08/26/23 06:10 31 L 19 98 08/26/23 06:00 111/58 L 08/26/23 06:00 32 L 19 08/26/23 05:50 31 L 19 99 08/26/23 05:40 32 L 22 99 08/26/23 05:31 52 L 23 99 08/26/23 05:31 106/47 L 08/26/23 05:30 51 L 20 08/26/23 05:20 32 L 19 98 08/26/23 05:10 32 L 29 H 98 08/26/23 05:00 33 L 17 08/26/23 05:00 108/51 L 08/26/23 04:50 32 L 13 98 O2 Flow Rate FiO2 08/26/23 09:36 6 08/26/23 09:01 08/26/23 09:01 35 30 08/26/23 09:00 35 30 08/26/23 08:30 08/26/23 08:30 35 30 08/26/23 08:00 08/26/23 07:30 35 30 08/26/23 07:30 08/26/23 07:20 35 30 08/26/23 07:15 30 30 08/26/23 07:10 08/26/23 07:00 08/26/23 07:00 08/26/23 06:50 08/26/23 06:40 08/26/23 06:30 08/26/23 06:30 08/26/23 06:20 08/26/23 06:10 08/26/23 06:00 08/26/23 06:00 08/26/23 05:50 08/26/23 05:40 08/26/23 05:31 08/26/23 05:31 08/26/23 05:30 08/26/23 05:20 08/26/23 05:10 08/26/23 05:00 08/26/23 05:00 08/26/23 04:50 Laboratory Results Laboratory Results - last 24 hr 08/25/23 08/25/23 08/25/23 18:28 22:30 23:32 WBC RBC Hgb Hct MCV MCH MCHC RDW Std Deviation RDW Coeff of David Plt Count MPV Sodium Potassium Chloride Carbon Dioxide Anion Gap BUN Creatinine Est Cr Clr Drug Dosing Est GFR ( Amer) Est GFR (Non-Af Amer) BUN/Creatinine Ratio Glucose POC Glucose 168 H Calcium Magnesium Troponin I High Sens 47.9 H D Urine Color Dark Yellow Urine Appearance Cloudy A Urine pH 5.5 Ur Specific [place] 1.026 Urine Protein Trace H Urine Glucose (UA) Negative Urine Ketones 2+ H Urine Blood Negative Urine Nitrite Negative Urine Bilirubin 1+ H Urine Urobilinogen Negative Ur Leukocyte Esterase Negative Urine WBC (Auto) 1-5 Urine RBC (Auto) 5-10 H U Hyaline Cast (Auto) 10-30 H U Epithel Cells (Auto) 10-20 H Urine Bacteria (Auto) Negative Urine Crystals Not Reportable Calcium Oxalate Crystal Present A Urine Mucus Present A Nasal Screen MRSA (PCR) 08/25/23 08/26/23 Unknown 03:25 WBC 8.56 RBC 3.66 L Hgb 11.5 L Hct 35.9 L MCV 98.1 MCH 31.4 MCHC 32.0 RDW Std Deviation 50.4 H RDW Coeff of David 14.0 Plt Count 140 MPV 11.5 Sodium 140 Potassium 4.5 Chloride 105 Carbon Dioxide 27 Anion Gap 8 BUN 22 Creatinine 0.53 L Est Cr Clr Drug Dosing 91.1 Est GFR ( Amer) 118.3 Est GFR (Non-Af Amer) 102.1 BUN/Creatinine Ratio 41.5 H Glucose 145 H POC Glucose Calcium 8.7 Magnesium 2.0 Troponin I High Sens Urine Color Urine Appearance Urine pH Ur Specific [place] Mark Urine Protein Urine Glucose (UA) Urine Ketones Urine Blood Urine Nitrite Urine Bilirubin Urine Urobilinogen Ur Leukocyte Esterase Urine WBC (Auto) Urine RBC (Auto) U Hyaline Cast (Auto) U Epithel Cells (Auto) Urine Bacteria (Auto) Urine Crystals Calcium Oxalate Crystal Urine Mucus Nasal Screen MRSA (PCR) Negative
[2023-08-26] MEDS ORDERED: MELATONIN 3 MG TAB PO PRN (17:28)
[2023-08-26] MEDS: guaiFENesin 600 MG TABCR PO SCH (20:02)
[2023-08-26] MEDS: FLUTICASONE/SALMETEROL (ADVAIR) 500/50 INH 14 PUFF INH SCH (20:02)
[2023-08-26] MEDS ORDERED: AZITHROMYCIN 250 MG TAB PO ONE (20:14)
[2023-08-26] MEDS: LATANOPROST 0.005% OP SOLN 2.5 ML BTL OPL SCH (20:30)
[2023-08-26] MEDS ORDERED: ACETAMINOPHEN 325 MG TAB PO PRN (22:19)
[2023-08-27 04:38] LABS: Hematocrit (blood only) 37.5 % (42.0-52.0); Hemoglobin 12.3 g/dl (14.0-18.0); Mean Corpuscular Hemoglobin 31.5 pg (25.0-34.0); Mean Corpuscular Hgb Conc 32.8 g/dL (32.0-36.0); Mean Corpuscular Volume 96.2 fL (80.0-100.0); Platelet Count 190 K/uL (130-400); RDW Coefficient of Variation 14.1 % (11.5-14.5); RDW Standard Deviation 49.6 fL (36.4-46.3)
[2023-08-27 04:56] LABS: Est GFR (African American) 121.2 ml/min; Potassium 4.3 mmol/L (3.5-5.1)
[2023-08-27 04:57] LABS: Calcium 9.4 mg/dl (8.6-10.3); Creatinine Clr Calc Pharmacy 99.6 ml/min; Est GFR (Non-African American) 104.5 ml/min; Magnesium 2.1 mg/dl (1.7-2.4); Phosphorus 2.7 mg/dl (2.5-4.9)
--- NOTE | 2023-08-27 07:30 | Critical Care Progress Note ---
Date of Service August 27, 2023 Assessment & Plan (1) Complete heart block: (2) Acute exacerbation of chronic obstructive pulmonary disease: (3) Viral URI: (4) Hypothyroidism: (5) COPD (chronic obstructive pulmonary disease): Plan (1) Complete heart block: (2) COPD (chronic obstructive pulmonary disease): (3) Viral pneumonitis: (4) Hypothyroidism: Plan Reason Critically Ill: 77 YOM brought to the EMD via EMS for increase in dyspnea a t home, found to be bradycardic in the 30s with complete heart block and positive entero/rhino virus via respiratory bio-fire. He is brought to the ICU for monitoring of respiratory and hemodynamic status. Neuro - No acute needs CAM ICU: NEGATIVE Cardiac - Complete Heart Block, - Currently is warm, well perfused, and with SBP >100 and MAPS in the 80-115; Dopamine/Epinephrine if needed for worsening symptoms - Transvenous pacing system is at bedside if needed and TCP pads are on patient as well. - s/p dual pacemaker placement today, day 1 - no post-procedural pneumothorax noted on chest X-ray - incision site healing, very little erythema or edema Respiratory - Hypoxic respiratory failure, COPD, Viral pneumonitis/pneumonia - acute on chronic respiratory failure with acute exacerbation of COPD secondary to Enter/Rhino virus infection - IV solumederol 40mg -Transitioned to prednisone w/ rapid taper: 40, 20, 10 mg (days 1, 2, 3) - Scheduled Albuterol nebulizers - Add on Pulmicort at this time to assist with delivery of medication into airway- can continue in am or discontinue and place on home fluticasone/vilanterol - Respiratory support with BiPAP/HFNC/O2- intubation if needed GI - No acute needs - NPO after midnight -Resume diet after procedure today RENAL/LYTES - - No acute needs - ICU electrolyte protocol - BPH - currently asymptomatic - follow - Continue Doxasosin ENDO - Hypothyroidism - Continue home meds HEME - No acute needs ID - Eneter/Rhino Virus - WBC normal, PCT negative, doubt bacterial involvement at this time - continue supportive care LINES/IV ACCESS - PIV Continue use of these lines DVT PROPHYLAXIS - Heparin 5000 units sq Q12 hours DISPO: ICU while in complete heart block Admission and Anticipated Discharge Date Admission Date: August 25, 2023 Supervising Physician Co-Signing Physician Notes Dr. Boone was resident physician during care of patient. I separately evaluated patient for ferreira portions of the history and the exam. I was present during the critical portion of medical decision making, and I discussed the case with the resident. I generally agree with the findings and plan. Heart rate improved status post pacemaker. Tolerating nasal cannula. Stable for downgrade out of ICU. Subjective Patient is a 77 yo M w/ a PMHx of emphysema, COPD, BPH, hypothyroidism, chronic respiratory failure with hypoxia, bronchiectasis, past tobacco use, multiple lung nodules, glaucoma, pancreatic cyst, who presented with a 4-day history of worsening shortness of breath, runny nose, and bradycardia w/ heart rate in 30- 40's. Upon admission he was determined to have third-degree heart block w/ ventricular escape rhythm. Today patient is s/p successful dual-chamber pacemaker insertion, day 2, and diltiazem has already been re-initiated and pacemaker incision is intact. Patient is hemodynamically stable with normal range blood pressures and normal renal perfusion. Patient was friendly and cooperative upon exam. Review of Systems Constitutional: no fever and no chills Physical Exam Constitutional: + cachectic and + frail appearing Respiratory: Auscultation: + diminished lung sounds and + rhonchi Cardiovascular: RRR, no murmur, no edema Gastrointestinal (Abdomen): normal bowel sounds, soft, nontender, no hepatosplenomegaly Psychiatric: A+Ox3, euthymic affect Results & Data Results & Data Vital Signs (Past 12 Hours) Vital Signs Temp Pulse Resp BP Pulse Ox O2 Del Method O2 Flow Rate 08/27/23 06:00 76 28 H 92 08/27/23 06:00 120/83 08/27/23 05:00 79 24 93 08/27/23 05:00 141/84 H 08/27/23 04:00 135/82 08/27/23 04:00 81 39 H 95 08/27/23 04:00 37.1 C CPAP 3 08/27/23 03:00 81 21 94 08/27/23 03:00 124/85 08/27/23 02:00 105/81 08/27/23 02:00 89 30 H 96 08/27/23 01:00 127/75 08/27/23 01:00 76 30 H 96 08/27/23 00:30 79 24 91 CPAP 3 08/27/23 00:00 36 C L 08/27/23 00:00 82 15 88 L CPAP 2 08/27/23 00:00 129/74 08/26/23 23:30 78 31 H 93 08/26/23 23:00 81 20 96 08/26/23 23:00 101/72 08/26/23 22:30 83 34 H 99 08/26/23 22:15 74 28 H 100 08/26/23 22:15 128/79 08/26/23 22:00 81 21 99 08/26/23 22:00 CPAP 3 08/26/23 21:45 78 18 100 08/26/23 21:45 124/72 08/26/23 21:30 81 13 100 08/26/23 21:30 109/74 08/26/23 21:17 92 H 18 99 08/26/23 21:17 130/88 08/26/23 21:00 130/74 08/26/23 21:00 90 24 99 08/26/23 20:45 89 27 H 99 08/26/23 20:45 147/77 H 08/26/23 20:30 153/87 H 08/26/23 20:30 88 31 H 98 08/26/23 20:15 88 31 H 98 08/26/23 20:15 150/81 H 08/26/23 20:01 85 27 H 100 08/26/23 20:01 134/82 08/26/23 20:00 84 22 98 Nasal Cannula 3 08/26/23 20:00 Nasal Cannula 2 08/26/23 20:00 35.8 C L 08/26/23 19:45 139/82 08/26/23 19:45 86 19 98 08/26/23 19:31 89 24 96 08/26/23 19:31 118/87 08/26/23 19:30 90 35 H 96 Resident Activity Tracking Resident Involvement: Resident Care Provided Care Provided: Adult Hospital Medicine
[2023-08-27] MEDS: FLUTICASONE/SALMETEROL (ADVAIR) 500/50 INH 14 PUFF INH SCH ×2 (08:05→20:35)
[2023-08-27] MEDS: guaiFENesin 600 MG TABCR PO SCH ×2 (08:06→20:36)
[2023-08-27] MEDS: HEPARIN SOD 5,000 UNIT/0.5 ML VIAL SQ SCH ×2 (08:06→20:35)
[2023-08-27] MEDS: ARMOUR THYROID 30 MG TAB PO SCH (08:06)
[2023-08-27] MEDS: UMECLIDINIUM BROMIDE 62.5MCG/BLISTER 7 PUFFS/INHALER INH SCH (08:07)
--- NOTE | 2023-08-27 09:16 | Billing Data ---
Date of Service August 27, 2023 Coding Level of Care Code INP/OBS EV SAME DAY LV 1,45MIN
[2023-08-27] MEDS: dilTIAZem HCL 120 MG CAPCR PO SCH (11:23)
--- NOTE | 2023-08-27 12:07 | Pulmonary Consultation ---
Date of Consultation August 27, 2023 Assessment & Plan (1) End stage COPD: (2) Acute on chronic hypoxic respiratory failure: (3) Acute exacerbation of chronic obstructive pulmonary disease: (4) Viral URI: (5) Emphysema of lung: (6) Lung nodules: (7) Complete heart block: Plan IMPRESSION: 77-year-old male with a history of end-stage COPD presenting with acute on chronic hypoxic respiratory failure with likely COPD exacerbation in the setting of rhino/enterovirus infection as well as contribution from symptoms related to complete heart block. Pulmonary medicine consulted for baseline disease process. RECOMMENDATIONS: 1. End-stage COPD - Uncertain as to initial reason for consultation as the patient does appear to be improving from his baseline presentation and patient obviously represents end-stage COPD, however family was interested in "shopping around" for pulmonary provider locally as they are frustrated with their current situation. While I have limited access the patient's most recent pulmonary workup in the outpatient setting, they inform me that the last pulmonary function testing that they had was several years ago. Patient remains on high- dose Wixela, Spiriva, and as needed albuterol. On previous documentation that I am able to appreciate from 2018, the patient had been on azithromycin Thursday/Thursday/Thursday as well as Daliresp and chronic prednisone at 5 mg daily. The last pulmonary function testing that I am able to review is from 08/11/2017 which shows an FVC of 1.98 L or 41% predicted, FEV1 of 0.67 L or 18% predicted, and a ratio of 34%. No significant postbronchodilator responsiveness appreciated. Diffusion capacity not evaluated on this study. Spirometry consistent with very severe obstruction. Since that time, the patient has had no real significant change in his medical therapies. He remains on 2 L nasal cannula at all times and uses BiPAP with settings of 12/5 as needed for dyspnea. Patient's activity level is severely reduced. I had an extensive conversation with the patient and at bedside. Initially, they are questioning alternative therapies including Hettick valves and lung volume reduction procedures. At this point, without his most recent pulmonary function testing or without undergoing extensive outpatient testing, it is difficult for me to say if the patient would be candidate, but I question if this were to be the case. That being said, he would likely warrant at least a degree of evaluation if they were wishing to pursue these type of therapies. I did reiterate to them that this is not a procedure that is performed locally and would require consultation from interventional pulmonary at a larger tertiary care facility. They acknowledge this. Additionally, I did explain to them what an outpatient evaluation it would look like at our institution as well as questions and concerns they have. Certainly, we would be welcome to see the patient in the outpatient setting from a pulmonary perspective if needed. 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 He reiterates that he is concerned as his dyspnea has become progressively worse and that his anxiety related to his breathing has become more stressful to him. There has been a discussion related to palliative care previously, however they did not approach this in the outpatient setting. After conversation, they are welcome main evaluation by palliative medicine. I reached out and discussed the case with them as well. Otherwise, from the patient's COPD, he appears to be at his baseline at this time. I would continue with an outpatient taper of steroids. No need for antibiotics at this time in the setting of a viral process. He has his inhalers at home that I would not adjust at this point. Certainly, this could be considered in the outpatient setting, but would not recommend performing at this time. Patient is at his baseline oxygen requirement and has everything he needs at home to be discharged at the convenience of the hospitalist service. We will be happy to see the patient in the outpatient setting in follow-up to establish care if that is the patient's wishes. Order currently placed for outpatient pulmonary consultation. 2. Acute on chronic hypoxic respiratory failure - Multifactorial in the setting of complete heart block, COPD, and rhino/enteroviral infection. Patient is back to his baseline oxygen requirement at this time. 3. Acute exacerbation of chronic obstructive pulmonary disease - Patient not bronchospastic on exam at this time. Would recommend prednisone taper back to his baseline prednisone dose in the outpatient setting. 4. Lung nodules - Documented history of prior lung nodules which the patient reports have been "stable". I am without access to the most recent images performed at [facility], however the patient does inform me that during his last discussion with pulmonary medicine, he did not wish to pursue further imaging and evaluation for lung cancer screening and alluded that he would not wish to undergo interventional therapy in the event that he were to develop a primary pulmonary malignancy. This topic can be broached again in the outpatient setting, however I do not find this to be an unreasonable approach given his end-stage disease process. 5. Complete heart block - Patient doing well status post pacemaker placement. Defer to cardiology for ongoing management. Thank you for allowing us to participate in the care of this pleasant patient. Pulmonary medicine will sign off at this time. History of Present Illness Reason for Consultation: chronic hypoxia COPD/emphysema Requesting Physician: Dr. Garza Attending Physician: Fawn Garza MD History of Present Illness Patient is a 77-year-old male with an extensive past medical history significant for end-stage COPD, significant emphysema of the lungs, chronic hypoxic respiratory failure on 2 L nasal cannula, bronchiectasis, and BiPAP dependence who was initially admitted to this institution with symptoms of generalized weakness, fatigue, and breathing difficulties initially thought to be related to his underlying pulmonary disease process, however he was noted to be profoundly bradycardic and complete heart block. The patient initially had been managed in the ICU setting including nebulized budesonide and rescue nebulizers which patient reports did not provide significant relief. He reports that he is breathing much better and back to near his baseline at this time. He continues to use his BiPAP from home at 12/5 per previous recommendations. He and his were requesting consultation to "shop around" for a pulmonary provider locally. Previously, the patient had been seen in our institution prior to 2018. He has since been following at [facility] through their pulmonary program. [facility]. He currently is on high-dose Wixela and Spiriva. He rarely uses his rescue inhaler. He uses his BiPAP intermittently throughout the day to help with episodes of shortness of breath. He is uncertain when his last pulmonary f unction testing has been performed. He reports that he gets extremely dyspneic with minimal exertion. Upon evaluation in room 103, the patient is awake, alert, and oriented. He reports that his breathing has somewhat improved. He states that over the summer he had had some increase in activity with walking on the street, but does note that he becomes extremely dyspneic with any activity. He reports a minimal cough at baseline. This appears to be nonproductive. He complains of no chest pain, palpitations, or hemoptysis. Patient reports frustration with limited activity and does report increase in anxiety related to his breathing. There had been discussion previously about palliative consultation in the outpatient setting, however this was not pursued. They are interested in this today. Otherwise, the patient offers no overt pulmonary complaints and has been feeling better since admission. Allergies Allergy/AdvReac Type Severity Reaction Status Date / Time Gadolinium-Containing Allergy Intermediate Nausea/Vomi Verified 08/25/23 14:56 Contrast Medi tin Home Medications Medication Instructions Recorded Confirmed Type albuterol sulfate 90 mcg/actuation 2 puffs inhalation Q4H PRN SOB #1 g 03/31/19 08/25/23 History aerosol inhaler azithromycin 250 mg tablet 250 mg PO 3XWK #1 tab 03/31/19 08/25/23 History cholecalciferol (vitamin D3) 25 1,000 mcg PO 3XWK 03/31/19 08/25/23 History mcg (1,000 unit) tablet ipratropium 0.5 mg-albuterol 3 mg 3 ml inhalation Q4H PRN SOB #6 mL 03/31/19 08/25/23 History (2.5 mg base)/3 mL nebulization soln multivitamin (Multiple Vitamins 1 tab PO 3XWK 03/31/19 08/25/23 History tablet) thyroid (pork) 60 mg tablet 60 mg PO QAM 03/31/19 08/25/23 History tiotropium bromide 18 mcg capsule 1 cap inhalation QAM #1 inh 03/31/19 08/25/23 History with inhalation device fluticasone 500 mcg-salmeterol 50 1 puffs inhalation BID #60 ea 08/01/19 08/25/23 Rx mcg/dose blistr powdr for inhalation (Advair Diskus) ascorbic acid (vitamin C) 500 mg 500 mg PO DAILY 12/02/21 08/25/23 History tablet (Vitamin C) doxazosin 4 mg tablet 4 mg PO QPM 12/02/21 08/25/23 History latanoprost 0.005 % eye drops 1 drp OPL HS 12/02/21 08/25/23 History acetylcysteine 600 mg capsule 600 mg PO BID 08/25/23 08/25/23 History diltiazem HCl 120 mg 0 mg PO DAILY 08/25/23 08/25/23 History capsule,extended release 24 hr (Cartia XT) furosemide 20 mg tablet 20 mg PO DAILY PRN edema 08/25/23 08/25/23 History naltrexone 4.5 mg capsule 4.5 mg PO HS 08/25/23 08/25/23 History Patient History Medical History BPH (benign prostatic hyperplasia) Pancreatic cyst BENIGN Hypothyroidism Elevated cholesterol NO MEDS Emphysema lung Glaucoma Chronic obstructive pulmonary disease On home oxygen therapy 2L CONT. Surgical History Hx of left cataract extraction History of anesthesia reaction SLOW TO WAKE UP H/O shoulder surgery RT History of cystoscopy History of ERCP History of colonoscopy H/O inguinal hernia repair History of tooth extraction History of tonsillectomy Family History Other No family history of adverse response to anesthesia Social History Smoking Status: Former smoker Tobacco Type: Cigarettes Second Hand Exposure: No; Do You Dip or Chew Tobacco: No; Tobacco Cessation Education Requested by Patient: No Hx Alcohol Use: No Hx Substance Use: No Preferred Language: Japanese Communication Ability: Effective Liquor Merchant Required: No Beliefs That Will Affect Care: None Current Living Situation: Spouse Other Information That Helps Us Care for You: No Feels Safe at Home: Yes Safety Concerns: Feels Safe At This Time Assistive Devices: Walker Review of Systems Review of Systems: A complete 10 point review of systems was reviewed with the patient with per tinent positives and negatives as per history of present illness. All else were negative. Physical Exam Physical Exam: VITAL SIGNS - Vital signs and nursing notes were reviewed. GENERAL - 77-year-old male appearing his stated age who is in no acute distress. Communicates well with provider and answers questions appropriately. SKIN - Without rashes or lesions. NOSE - Midline and without cyanosis. MOUTH/OROPHARYNX - Without perioral cyanosis. NECK - Neck with FROM. LUNGS - Chest wall evaluation demonstrates increased chest wall A:P diameter. Auscultation reveals delayed air entry bilaterally without wheezes, rales, or rhonchi. CARDIAC - RRR with S1/S2. No murmur, rubs, or gallops appreciated. ABDOMEN - Abdominal inspection demonstrates a flat abdomen. BS normoactive all four quadrants. No tenderness, palpable masses, or ascites noted. EXTREMITIES - Nail clubbing not present. No peripheral cyanosis. No pretibial edema present. +3/5 radial palpated throughout. PSYCH - A&Ox3 and cooperates fully with examiner. Pt is very pleasant and interacts well with examiner. Results & Data Results & Data Vital Signs (Past 12 Hours) Vital Signs Temp Pulse Resp BP Pulse Ox O2 Del Method O2 Flow Rate 08/27/23 08:01 Nasal Cannula 3 08/27/23 06:00 76 28 H 92 08/27/23 06:00 120/83 08/27/23 05:00 79 24 93 08/27/23 05:00 141/84 H 08/27/23 04:00 135/82 08/27/23 04:00 81 39 H 95 08/27/23 04:00 37.1 C CPAP 3 08/27/23 03:00 81 21 94 08/27/23 03:00 124/85 08/27/23 02:00 105/81 08/27/23 02:00 89 30 H 96 08/27/23 01:00 127/75 08/27/23 01:00 76 30 H 96 08/27/23 00:30 79 24 91 CPAP 3 PG Care Time/CCT Total # of Minutes Spent Total Time Spent with Patient: Total time spent is greater than 50% in coordination of care (as documented) at patient's floor/unit and/or counseling patient: Coding Level of Care Code 85770 INT INP/OBS CARE 3/75MIN Diagnoses End stage COPD J44.9 Acute on chronic hypoxic respiratory failure J96.21 Acute exacerbation of chronic obstructive pulmonary disease J44.1 Viral URI J06.9 Emphysema of lung J43.9 Lung nodules R91.8 Complete heart block I44.2
--- NOTE | 2023-08-27 13:10 | Hospitalist Progress Note ---
Date of Service August 27, 2023 Assessment & Plan (1) Complete heart block: Plan: Mr. Thompson is a 77 year old gentleman with history of severe COPD on chronic o2 2l, hypothyroidism, bph, and glaucoma, who presented for dyspnea on 08/25/23 and was found to be in complete heart block. He was additionally found to be acutely hypoxic, requiring HFNC, in the setting of rhinovirus infection. He was admitted to ICU on dopamine drip until pacemaker placement on 08/26/2023. #Complete heart block, now s/p pacemaker Likely secondary to viral infection, medications Lyme screen negative TSH wnl Cardiology following s/p PPM 08/26, device check stable this am Continue diltizaem 120mg qam plan for OP cards follow up #Acute on Chronic Respiratory Failure with Hypoxia, home O2 2L #Severe COPD with bronchiectasis #Rhinovirus infection --CXR:Cardiomegaly and advanced emphysema. There is diffuse coarsening of the interstitium and mild patchy airspace opacities. This could represent an infectious/inflammatory pneumonitis versus mild pulmonary edema. Clinical correlation will be required and radiographic follow-up to resolution is recommended. No large pleural effusion is identified. -right ventricular enlargement -bipap at night --Normal procalcitonin --BioFire positive for enterovirus -- Continue BiPAP for respiratory support prn and at bedtime --Continue DuoNebs, Solu-Medrol --Continue home inhalers --Pulmonary hygiene Requested Pulm consult -Reached out to Palliative Care -Continue 40mg Prednisone #Hypothyroidism Continue levothyroxine #Bronchiectasis #Past tobacco use #Multiple lung nodules as per records #Glaucoma Continue eye drops #BPH Resume doxazosin as able Bladder scan as needed to monitor for any retention DVT Px: Heparin SQ Code Status Full Code Admission and Anticipated Discharge Date Admission Date: August 25, 2023 Subjective Reports feeling marginally better. Dyspnea noted conversationally, but states thats baseline prefers to go home, but a bit hesitant Physical Exam Constitutional: WD/WN, vitals as above Respiratory: decreased airway movement Cardiovascular: RRR, no murmur, no edema Gastrointestinal (Abdomen): normal bowel sounds, soft, nontender, no hepatosplenomegaly Results & Data Results & Data Vital Signs (Past 12 Hours) Vital Signs Temp Pulse Resp BP Pulse Ox O2 Del Method O2 Flow Rate 08/27/23 08:01 Nasal Cannula 3 08/27/23 06:00 76 28 H 92 08/27/23 06:00 120/83 08/27/23 05:00 79 24 93 08/27/23 05:00 141/84 H 08/27/23 04:00 135/82 08/27/23 04:00 81 39 H 95 08/27/23 04:00 37.1 C CPAP 3 08/27/23 03:00 81 21 94 08/27/23 03:00 124/85 08/27/23 02:00 105/81 08/27/23 02:00 89 30 H 96 Laboratory Results Short CBC 08/27/23 Range/Units 03:47 WBC 14.70 H (4.8-10.8) K/ul Hgb 12.3 L (14.0-18.0) g/dl Hct 37.5 L (42.0-52.0) % Plt Count 190 (130-400) K/uL BMP 08/27/23 03:47 Sodium 139 Potassium 4.3 Chloride 102 Carbon Dioxide 32 BUN 21 Creatinine 0.50 L Glucose 100 H Calcium 9.4 Medications Administered Home Medications Medication Instructions Recorded Confirmed Last Taken albuterol sulfate 90 mcg/actuation 2 puffs inhalation Q4H PRN SOB #1 g 03/31/19 08/25/23 08/25/23 aerosol inhaler azithromycin 250 mg tablet 250 mg PO 3XWK #1 tab 03/31/19 08/25/23 08/24/23 cholecalciferol (vitamin D3) 25 1,000 mcg PO 3XWK 03/31/19 08/25/23 08/24/23 mcg (1,000 unit) tablet ipratropium 0.5 mg-albuterol 3 mg 3 ml inhalation Q4H PRN SOB #6 mL 03/31/19 08/25/23 08/24/23 (2.5 mg base)/3 mL nebulization soln multivitamin (Multiple Vitamins 1 tab PO 3XWK 03/31/19 08/25/23 08/24/23 tablet) thyroid (pork) 60 mg tablet 60 mg PO QAM 03/31/19 08/25/23 08/25/23 tiotropium bromide 18 mcg capsule 1 cap inhalation QAM #1 inh 03/31/19 08/25/23 08/25/23 with inhalation device fluticasone 500 mcg-salmeterol 50 1 puffs inhalation BID #60 ea 08/01/19 08/25/23 08/25/23 mcg/dose blistr powdr for inhalation (Advair Diskus) ascorbic acid (vitamin C) 500 mg 500 mg PO DAILY 12/02/21 08/25/23 08/24/23 tablet (Vitamin C) doxazosin 4 mg tablet 4 mg PO QPM 12/02/21 08/25/23 08/24/23 latanoprost 0.005 % eye drops 1 drp OPL HS 12/02/21 08/25/23 08/24/23 acetylcysteine 600 mg capsule 600 mg PO BID 08/25/23 08/25/23 08/24/23 diltiazem HCl 120 mg 0 mg PO DAILY 08/25/23 08/25/23 08/21/23 capsule,extended release 24 hr (Cartia XT) furosemide 20 mg tablet 20 mg PO DAILY PRN edema 08/25/23 08/25/23 3 Weeks Ago ~08/04/23 naltrexone 4.5 mg capsule 4.5 mg PO HS 08/25/23 08/25/23 08/24/23 Active Medications Generic Name Dose Route Start Last Admin Trade Name Freq PRN Reason Stop Dose Admin Diltiazem HCl 120 mg 08/27/23 09:15 08/27/23 11:23 Diltiazem Hcl 120 Mg Capcr PO 09/26/23 09:14 120 mg QAM JERONIMO Administration Guaifenesin 1,200 mg 08/26/23 21:00 08/27/23 08:06 Guaifenesin 600 Mg Tabcr PO 09/25/23 20:59 1,200 mg Q12 JERONIMO Administration Heparin Sodium (Porcine) 5,000 units 08/25/23 21:00 08/27/23 08:06 Heparin Sod 5,000 Unit/0.5 Ml Vial SQ 09/24/23 20:59 5,000 units Q12 JERONIMO Administration Latanoprost 1 drops 08/25/23 21:00 08/26/23 20:30 Latanoprost 0.005% Op Soln 2.5 Ml Btl OPL 09/24/23 20:59 1 drops HS JERONIMO Administration Melatonin 3 mg 08/26/23 17:28 08/26/23 20:45 Melatonin 3 Mg Tab PO 09/25/23 17:27 3 mg HS PRN Administration Sleep Fluticasone/Salmeterol 1 puffs 08/26/23 21:00 08/27/23 08:05 Fluticasone/Salmeterol (Advair) 500/50 Inh 14 Puff INH 09/25/23 20:59 1 puffs BID JERONIMO Administration Thyroid 60 mg 08/26/23 09:00 08/27/23 08:06 [place] Thyroid 30 Mg Tab PO 09/25/23 08:59 60 mg QAM JERONIMO Administration Umeclidinium [place] 1 puffs 08/26/23 09:00 08/27/23 08:07 Umeclidinium [place] 62.5mcg/Blister 7 Puffs/Inhaler INH 09/25/23 08:59 1 puffs DAILY JERONIMO Administration
--- NOTE | 2023-08-27 14:13 | Cardiology Progress Note ---
Date of Service August 27, 2023 Assessment & Plan (1) Complete heart block: (2) COPD (chronic obstructive pulmonary disease): (3) Emphysema of lung: Plan 77-year-old male with underlying severe chronic obstructive lung disease and conduction system disease who presents with increasing dyspnea and marked reduction in exercise tolerance x 3 days. Marked bradycardia noted on pulse oximetry Sought evaluation today due to persistent symptoms and low heart rate. Found to be in third-degree AV block with a ventricular escape rhythm. Currently hemodynamically stable with adequate blood pressures and normal renal perfusion Minimal increase in vascular markings on chest x-ray but no other findings consistent with congestive failure Impression: Symptomatic third-degree AV block/conduction system disease/tachybradycardia syndrome Plan: Now status post dual-chamber pacemaker insertion with appropriate function. Multiple questions asked and answered Will resume diltiazem in a.m. Pacemaker interrogation in a.m. 08/27/2023 Cardiovascular status stable. Dual-chamber pacemaker functioning appropriately Cardizem XT resumed due to past tachycardia Outpatient wound check and device follow-up scheduled for 09/01/2023 Admission and Anticipated Discharge Date Admission Date: August 25, 2023 Subjective Patient was seen and examined, chart, medications, telemetry reviewed. Cardiac status stable. Pacemaker functioning well. Pacemaker incision healing Diltiazem XT resumed today Patient and feel pulmonary status is stable uses BiPAP when resting Review of Systems Review of Systems: All systems reviewed & are unremarkable except as noted in Subjective Physical Exam Constitutional: + thin and + cachectic; no acute distres s Eyes: PERRL, conjunctivae normal, anicteric sclerae ENMT: external ear and nose normal, oropharynx normal Neck: trachea midline, no thyromegaly Respiratory: Auscultation: + diminished lung sounds and + rhonchi (Upper airway sounds with BiPAP in place) Cardiovascular: Rate/Rhythm: regular rate and regular rhythm (Atrial sensed, ventricular paced) Heart Sounds: no murmur Vessels: femoral pulses present and radial pulses present; no JVD Extremities: + edema (Trace) Chest (Breasts): Chest: + pacemaker (Incision clean, no hematoma) Gastrointestinal (Abdomen): normal bowel sounds, soft, nontender, no hepatosplenomegaly Skin: no rashes, warm and dry Psychiatric: A+Ox3, euthymic affect Results & Data Vital Signs (Past 12 Hours) Vital Signs Temp Pulse Resp BP Pulse Ox O2 Del Method O2 Flow Rate 08/27/23 08:01 Nasal Cannula 3 08/27/23 06:00 76 28 H 92 08/27/23 06:00 120/83 08/27/23 05:00 79 24 93 08/27/23 05:00 141/84 H 08/27/23 04:00 135/82 08/27/23 04:00 81 39 H 95 08/27/23 04:00 37.1 C CPAP 3 08/27/23 03:00 81 21 94 08/27/23 03:00 124/85 Laboratory Results Laboratory Results - last 24 hr 08/27/23 03:47 WBC 14.70 H RBC 3.90 L Hgb 12.3 L Hct 37.5 L MCV 96.2 MCH 31.5 MCHC 32.8 RDW Std Deviation 49.6 H RDW Coeff of David 14.1 Plt Count 190 MPV 10.0 Sodium 139 Potassium 4.3 Chloride 102 Carbon Dioxide 32 Anion Gap 5 BUN 21 Creatinine 0.50 L Est Cr Clr Drug Dosing 99.6 Est GFR ( Amer) 121.2 Est GFR (Non-Af Amer) 104.5 BUN/Creatinine Ratio 42.0 H Glucose 100 H Calcium 9.4 Phosphorus 2.7 Magnesium 2.1
--- NOTE | 2023-08-27 14:27 | Electrocardiogram Report ---
Test Reason : Blood Pressure : / mmHG Vent. Rate : 076 BPM Atrial Rate : 076 BPM P-R Int : 158 ms QRS Dur : 114 ms QT Int : 436 ms P-R-T Axes : 107 073 -58 degrees QTc Int : 490 ms Poor data quality, interpretation may be adversely affected Atrial-sensed ventricular-paced rhythm Abnormal ECG When compared with ECG of 26-AUG-2023 12:55, Vent. rate has increased BY 10 BPM Confirmed by Maximo Murphy ([id number]) on 08/27/2023 2:27:15 PM Referred By: REFERRED SELF Confirmed By:Maximo Murphy
[2023-08-27] MEDS: ACETYLCYSTEINE 600 MG CAP PO SCH (20:34)
[2023-08-27] MEDS: LATANOPROST 0.005% OP SOLN 2.5 ML BTL OPL SCH (20:36)
[2023-08-27] MEDS ORDERED: DOXAZosin MESYLATE 4 MG TAB PO SCH (21:00)
[2023-08-28 04:12] LABS: Hematocrit (blood only) 34.2 % (42.0-52.0); Mean Corpuscular Hemoglobin 31.6 pg (25.0-34.0); Mean Corpuscular Hgb Conc 32.2 g/dL (32.0-36.0); Mean Corpuscular Volume 98.3 fL (80.0-100.0); Platelet Count 154 K/uL (130-400); RDW Standard Deviation 50.3 fL (36.4-46.3); Red Blood Count 3.48 M/uL (4.70-6.10); White Blood Count 11.62 K/ul (4.8-10.8)
[2023-08-28 04:29] LABS: Calcium 8.8 mg/dl (8.6-10.3); Creatinine Clr Calc Pharmacy 103.9 ml/min; Est GFR (African American) 124.3 ml/min; Est GFR (Non-African American) 107.2 ml/min; Magnesium 1.9 mg/dl (1.7-2.4); Phosphorus 2.8 mg/dl (2.5-4.9)
[2023-08-28] MEDS: dilTIAZem HCL 120 MG CAPCR PO SCH (07:33)
[2023-08-28] MEDS: UMECLIDINIUM BROMIDE 62.5MCG/BLISTER 7 PUFFS/INHALER INH SCH (07:33)
[2023-08-28] MEDS: ACETYLCYSTEINE 600 MG CAP PO SCH (07:33)
[2023-08-28] MEDS: ARMOUR THYROID 30 MG TAB PO SCH (07:34)
[2023-08-28] MEDS: FLUTICASONE/SALMETEROL (ADVAIR) 500/50 INH 14 PUFF INH SCH (07:34)
[2023-08-28] MEDS: HEPARIN SOD 5,000 UNIT/0.5 ML VIAL SQ SCH (07:35)
[2023-08-28] MEDS: guaiFENesin 600 MG TABCR PO SCH (07:35)
[2023-08-28] MEDS ORDERED: predniSONE 10 MG TABLET PO SCH (09:00)
[2023-08-28] MEDS ORDERED: ASCORBIC ACID 500 MG TAB PO SCH (09:00)
--- NOTE | 2023-08-28 12:17 | Cardiology Progress Note ---
Date of Service August 28, 2023 Assessment & Plan (1) Complete heart block: (2) COPD (chronic obstructive pulmonary disease): (3) Emphysema of lung: Plan 77-year-old male with underlying severe chronic obstructive lung disease and conduction system disease who presents with increasing dyspnea and marked reduction in exercise tolerance x 3 days. Marked bradycardia noted on pulse oximetry Sought evaluation today due to persistent symptoms and low heart rate. Found to be in third-degree AV block with a ventricular escape rhythm. Currently hemodynamically stable with adequate blood pressures and normal renal perfusion Minimal increase in vascular markings on chest x-ray but no other findings consistent with congestive failure Impression: Symptomatic third-degree AV block/conduction system disease/tachybradycardia syndrome Plan: Now status post dual-chamber pacemaker insertion with appropriate function. Multiple questions asked and answered Will resume diltiazem in a.m. Pacemaker interrogation in a.m. 08/27/2023 Cardiovascular status stable. Dual-chamber pacemaker functioning appropriately Cardizem XT resumed due to past tachycardia Outpatient wound check and device follow-up scheduled for 09/01/2023 08/28/2023 Incision remains intact normal device function on telemetry Plan as outlined above Admission and Anticipated Discharge Date Admission Date: August 25, 2023 Physical Exam Constitutional: + thin and + cachectic; no acute distres s Eyes: PERRL, conjunctivae normal, anicteric sclerae ENMT: external ear and nose normal, oropharynx normal Neck: trachea midline, no thyromegaly Cardiovascular: Rate/Rhythm: regular rate and regular rhythm (Atrial sensed, ventricular paced) Chest (Breasts): Chest: + pacemaker (Incision clean, no hematoma) Psychiatric: A+Ox3, euthymic affect Results & Data Vital Signs (Past 12 Hours) Vital Signs Temp Pulse Resp BP Pulse Ox O2 Del Method O2 Flow Rate 08/28/23 11:18 36.6 C 08/28/23 11:00 100/60 08/28/23 11:00 77 23 97 08/28/23 10:00 79 23 97 08/28/23 09:00 84 27 H 97 08/28/23 08:00 113/69 08/28/23 08:00 81 21 96 08/28/23 07:39 Nasal Cannula 3 08/28/23 07:23 36.3 C L 08/28/23 07:00 109/90 08/28/23 07:00 89 20 98 08/28/23 06:35 37 C 72 21 92/59 L 98 CPAP 08/28/23 05:00 36.8 C 71 20 96/63 L 100 CPAP 08/28/23 04:00 36.8 C 78 21 96/63 L 98 CPAP 08/28/23 03:00 73 21 100/61 97 CPAP 08/28/23 02:00 79 21 90/60 L 95 CPAP 08/28/23 01:00 78 23 123/75 98 CPAP 08/28/23 00:17 82 Laboratory Results Laboratory Results - last 24 hr 08/28/23 03:42 WBC 11.62 H RBC 3.48 L Hgb 11.0 L Hct 34.2 L MCV 98.3 MCH 31.6 MCHC 32.2 RDW Std Deviation 50.3 H RDW Coeff of David 14.0 Plt Count 154 MPV 10.0 Sodium 138 Potassium 4.0 Chloride 100 Carbon Dioxide 34 H Anion Gap 4 BUN 16 Creatinine 0.47 L Est Cr Clr Drug Dosing 103.9 Est GFR ( Amer) 124.3 Est GFR (Non-Af Amer) 107.2 BUN/Creatinine Ratio 34.0 H Glucose 96 Calcium 8.8 Phosphorus 2.8 Magnesium 1.9
--- NOTE | 2023-08-28 12:28 | Discharge Summary ---
Discharge Summary Date of Service August 28, 2023 Notes For Next Care Provider Medication Changes From Visit No medication changes Admission HPI Per Admitting Provider Patient is a 77-year-old male with history of COPD, chronic respiratory failure with hypoxia, bronchiectasis, past tobacco use, multiple lung nodules, hypothyroidism, glaucoma, pancreatic cyst, BPH and other medical problems presents with history of worsening shortness of breath is a runny nose, generalized weakness since 4 days duration. Patient is currently in respiratory distress on BiPAP, most of the history is obtained from patient's at bedside, old records and ER staff. Patient also noted to have low heart rate in 30-40s since 4 days duration but could not seek medical attention due to holiday weekend. Patient admits to have intermittent palpitations but denies any chest pain, dizziness, syncope, fever, chills, nausea, vomiting, abdominal pain, diarrhea. He also denies any bite. He has been on azithromycin for COPD exacerbation chronically--last echo on Thursday. He also has not been taking his diltiazem since 4 days duration due to low heart rate. Currently patient is on BiPAP and heart rate between 30s and 40s. 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 Patient will be admitted to ICU and started on dopamine drip for pacemaker tomorrow. Admission Exam Per Admitting Provider Physical Exam: Vitals signs as noted above General Appearance:Thin, Frail, chronic ill appearing, mild respiratory distress Head: normocephalic, Atraumatic Eyes: normal inspection, EOMI Neck: supple, Trachea midline Respiratory/Chest: Decreased breath sounds, CTA, No accessory muscle use Cardiovascular: S1, S2, No murmur, +Bradycardia Abdomen/GI:Soft, Non tender, Bowel sounds present Extremities/Musculoskeletal:normal inspection, no edema Neurologic/Psych:AAOX3, grossly no focal neurological deficits Skin: normal color, warm, Chronic LE erythematous rash (~ 8 months per family) Principal Dx & Hospital Course #1 = Principal Diagnosis (1) Complete heart block: Mr. Thompson is a 77 year old gentleman with history of severe COPD on chronic o2 2l, hypothyroidism, bph, and glaucoma, who presented for dyspnea on 08/25/23 and was found to be in complete heart block. He was additionally found to be acutely hypoxic, requiring HFNC, in the setting of rhinovirus infection. He was admitted to ICU on dopamine drip until pacemaker placement on 08/26/2023. Patient did well post-operatively. Patient requested Pulm consulted to consider establishing with [facility] as needed. Patient otherwise returned to baseline respiratory status. On day of discharge, patient eating well and reports feeling slightly weak but eager to return home with home health services. #Complete heart block, now s/p pacemaker Likely secondary to viral infection, medications Lyme screen negative TSH wnl Cardiology following s/p PPM 08/26, device check stable this am Continue diltizaem 120mg qam plan for OP cards follow up 09/01/2023 #Acute on Chronic Respiratory Failure with Hypoxia, home O2 2L #Severe COPD with bronchiectasis #Rhinovirus infection --CXR:Cardiomegaly and advanced emphysema. There is diffuse coarsening of the interstitium and mild patchy airspace opacities. This could represent an infectious/inflammatory pneumonitis versus mild pulmonary edema. Clinical correlation will be required and radiographic follow-up to resolution is recommended. No large pleural effusion is identified. -right ventricular enlargement -bipap at night --Normal procalcitonin --BioFire positive for enterovirus -- Continue BiPAP for respiratory support prn and at bedtime --Continue home inhalers --Pulmonary hygiene Requested Pulm consult -No changes to regimen, encouraged palliative discussion #Hypothyroidism Continue levothyroxine #Bronchiectasis #Past tobacco use #Multiple lung nodules as per records #Glaucoma Continue eye drops #BPH Resume doxazosin Discharge Exam Constitutional WD/WN, vitals as above Respiratory diminshed breath sounds Cardiovascular RRR, no murmur, no edema bandage over ppm site, CDI no strike through Gastrointestinal (Abdomen) normal bowel sounds, soft, nontender, no hepatosplenomegaly Updated Medication List Medication Instructions Recorded Confirmed Type albuterol sulfate 90 mcg/actuation 2 puffs inhalation Q4H PRN SOB #1 g 03/31/19 08/25/23 History aerosol inhaler azithromycin 250 mg tablet 250 mg PO 3XWK #1 tab 03/31/19 08/25/23 History cholecalciferol (vitamin D3) 25 1,000 mcg PO 3XWK 03/31/19 08/25/23 History mcg (1,000 unit) tablet ipratropium 0.5 mg-albuterol 3 mg 3 ml inhalation Q4H PRN SOB #6 mL 03/31/19 08/25/23 History (2.5 mg base)/3 mL nebulization soln multivitamin (Multiple Vitamins 1 tab PO 3XWK 03/31/19 08/25/23 History tablet) thyroid (pork) 60 mg tablet 60 mg PO QAM 03/31/19 08/25/23 History tiotropium bromide 18 mcg capsule 1 cap inhalation QAM #1 inh 03/31/19 08/25/23 History with inhalation device fluticasone 500 mcg-salmeterol 50 1 puffs inhalation BID #60 ea 08/01/19 08/25/23 Rx mcg/dose blistr powdr for inhalation (Advair Diskus) ascorbic acid (vitamin C) 500 mg 500 mg PO DAILY 12/02/21 08/25/23 History tablet (Vitamin C) doxazosin 4 mg tablet 4 mg PO QPM 12/02/21 08/25/23 History latanoprost 0.005 % eye drops 1 drp OPL HS 12/02/21 08/25/23 History acetylcysteine 600 mg capsule 600 mg PO BID 08/25/23 08/25/23 History diltiazem HCl 120 mg 0 mg PO DAILY 08/25/23 08/25/23 History capsule,extended release 24 hr (Cartia XT) furosemide 20 mg tablet 20 mg PO DAILY PRN edema 08/25/23 08/25/23 History naltrexone 4.5 mg capsule 4.5 mg PO HS 08/25/23 08/25/23 History Hospital Stay Data Consultations 08/25/23 13:57 ED Decision to Admit Stat 08/25/23 14:25 Consult Cardiology Routine 08/27/23 09:12 Consult Pulmonology Routine Procedures Performed Operation Date: 08/26/23 10:00 Actual Procedures p Pacer with A/V Leads (Dual) - Diana Alexander DO s Venogram, Unilateral - Diana Alexander DO Diagnostic Imagining Performed 08/26/23 07:15 EP Lab Images for PACS ONCE Pending Results Patient Have Any Pending Studies at Discharge: No Discharge Instructions Given to Patient (Per Discharging Provider) You were admitted due to concerns of shortness of breath and weakness, as well as low heart rate. You were found to have complete heart block and underwent pacemaker placement on 08/26/2023. Your home medications were resumed. Total Time Total Time Spent Total Time Spent (In Minutes): 45 Home Health Attestation I certify that this patient is under my care and that I, or a physicians laboratory assistant working with me, had a face to-face encounter that meets the home health [id number] encounter requirements with this patient. The encounter with the patient was in whole, or in part, for the following medical condition, which is the primary reason for home health care (list medical condition): s/p pacemaker I certify that, based on my findings, the following services are medically necessary home health services: My clinical findings support the need for the above services because: OT Assess ADL Status and Restore Function w ADLs PT Gait and Balance Training, Strengthening and Safety Further, I certify that my clinical findings support that this patient is homebound (i.e. absences from home require considerable and taxing effort and are for medical reasons or restorationist services or infrequently or of short duration when for other reasons) because: Transportation Assistance/Unable to Leave Home Unassisted Certification for Home Health Services: Based on the above findings, I certify that this patient is confined to the home and needs intermittent fci care, physical therapy and/or speech therapy or continues to need occupational therapy. The patient is under my care, and I have initiated the establishment of the plan of care. This patient will be followed by a physician who will periodically review the plan of care.
== END 2023-08-28 16:47 | disposition home health service (06) | DRG 242 ==
LOC: ED 12:00 → SUATTDRO 14:59 → 1E 14:59

== ENCOUNTER 2024-10-20 10:56 | Inpatient (IN) ==
--- NOTE | 2024-10-20 11:19 | Emergency Department Note ---
Impression & Plan Acute hypoxemic respiratory failure, Acute exacerbation of chronic obstructive pulmonary disease, Pneumonia ED Provider Note NAME: JI ARAYA AGE: 78 SEX: M : 1945 ARRIVES VIA: Ambulance INFORMANT: EMS, ED PROVIDER(S): sUman Ziegler MD CHIEF COMPLAINT: Shortness of breath MEDICAL DECISION MAKING: Patient presents due to concern for shortness of breath and unresponsiveness. Patient did undergo intubation at the bedside as the patient was unresponsive and not breathing on his own. Patient was intubated successfully without issue. Stat chest x-ray ordered along with blood work imaging CT head IV fluids breathing treatment and methylprednisolone. Patient did have vent settings set so he was on a higher rate in light of the patient's known history of COPD and concern for possible hypercarbia. Patient was a very difficult stick so difficult to obtain blood work. Patient's chest x-ray so that the ET tube may be a bit high and so was advanced another 2 to 3 cm. Patient was satting well on the vent. Patient did have antibiotics ordered. As needed fentanyl ordered for sedation. CT head negative. I did have a discussion with the who was concerned about him being here in the first place but would like to eventually try to get him home so he could at home. She does not want to extubate currently. Patient eventually did have his blood work completed which showed a white count of 15 hemoglobin of 13.5. Platelet count is unremarkable. The patient's kidney function unremarkable. Initial lactate of 4.5. Procalcitonin not elevated. Urinalysis shows bacteria and white cells. No nitrites. The patient was already treated with Zosyn. MRSA negative BioFire negative. Patient CT of his head did not show any obvious ICH. Patient's VBG showed patient 7.25 with a pCO2 of 68. ABG did show pH is 734 pCO2 of 47. I did speak the on-call hospitalist Dr. Ricci and the patient was admitted to the intensive care unit. I also did message the business systems administrator Dr. Contreras. Critical Care: I have personally spent 134 minutes of critical care time in direct management of this patient. This includes bedside care, interpretation of diagnostic studies, and testing, discussion with consultants, patient, and family members, and other require inpatient management activities. This 134 minutes is in excess of all separately billable procedures. Procedures: Endotracheal Intubation performed by Dr. Ziegler Indication respiratory failure, unresponsiveness. The patient was on 100% oxygen via NRB prior to the procedure. Suction, airway equipment, RSI drugs, respiratory equipment, and appropriate personnel were prepared prior to the initiation of the procedure. A time out was taken. Paralysis was achieved with 75 mg of rocuronium after observing the clinical benefit of the medications, the airway was easily visualized utilizing a MAC S3 video laryngoscope. A 7.5 size ETT tube was placed atraumatically to 24 cm using standard technique. The cuff inflated without signs of malfunction. There were bilateral breath sounds, positive colormetric change, no gastric sounds, a good capnography waveform, and post procedure pulse oximetry was 100%. Post intubation sedation was performed using fentanyl boluses and eventually fentanyl drip. There were no complications. Discussion w/ other healthcare providers: Dr. Ricci inpatient medicine service Dr. Contreras business systems administrator Prior /Outside records reviewed: None Differential diagnosis: Reactive airway disease, pneumonia, pneumothorax, COPD, CHF, ACS, pulmonary embolism, musculoskeletal, GERD as well as other pathologies were considered. Diagnostics, as interpreted by me: ECG: Likely sinus but significant motion artifact noted, rate of 101, wide QRS right bundle branch block pattern. Cardiac monitoring: An order was placed for continuous cardiac monitoring. The monitor shows a rate of 87 with sinus rhythm. Patient was placed on pulse oximetry Medical decision rules: None Imaging studies: I informally interpreted the patient's chest x-ray shows ET tube in place with left sided opacities with formal report to follow. HPI: Patient presents due to concern for decreased responsiveness and shortness of breath. reported to EMS that the patient had difficulty breathing with breathing since Thursday. Patient did receive a breathing treatment and route was intermittently responsive to where he was following commands and reportedly had equal telecommunications specialist strength and was able to squeeze hands. Prior to arrival here in the department the patient was no longer responsive just. Patient had a BSG in the 120s. No temp taken prior to arrival. Patient reportedly does use his BiPAP and CPAP at home. and present states that she was considering palliative or hospice care at home. She does want him if he does pass away to do so at home. She also reports that she had given him some freshly made wheat bread and was not sure about the CO2 and the bread could have caused some issues with his breathing. PAST MEDICAL HISTORY: See Below PAST SURGICAL HISTORY: See Below SOCIAL HISTORY: See Below HOME MEDICATIONS: See Below ALLERGIES: See Below VITALS: See Below PHYSICAL EXAMINATION: GENERAL: Severe distress. EYE EXAM: Normal conjunctiva. PERRL, no anisocoria and EOM's grossly intact w/o pain. OROPHARYNX: Dry mucus membranes, grossly normal dentition. NECK: Trachea midline, no stridor. Supple, no nuchal rigidity, no adenopathy, non-tender. No signs of meningismus. FROM of the neck with good chin to chest and neck extension. LUNGS: Diminished breath sounds throughout. Normal chest wall mechanics. HEART: NSR, no MRG. ABDOMEN: Abdomen soft, non-tender, no masses, no rebound or guarding. BACK: No CVA TTP. SKIN: No rashes and no bruising. UPPER EXTREMITIES: Upper extremities are grossly normal. LOWER EXTREMITIES: Grossly normal, no edema. NEURO EXAM: Does not respond to painful stimuli. Past Med/Surg History Problem List (Updated 10/20/24 @ 18:05 by Usman Ziegler MD) Pneumonia (Acute) Acute exacerbation of chronic obstructive pulmonary disease (Acute) Acute hypoxemic respiratory failure (Acute) Chronic respiratory failure Ex-smoker Viral URI End stage COPD Viral pneumonitis Complete heart block (Acute) Encounter for pre-operative examination Emphysema of lung (Chronic) BPH (benign prostatic hyperplasia) (Chronic) Lung nodules (Chronic) Hypothyroidism (Chronic) COPD (chronic obstructive pulmonary disease) (Chronic) Medical History Acute on chronic hypoxic respiratory failure Acute exacerbation of chronic obstructive pulmonary disease BPH (benign prostatic hyperplasia) Pancreatic cyst BENIGN Hypothyroidism Elevated cholesterol NO MEDS Emphysema lung Glaucoma Chronic obstructive pulmonary disease On home oxygen therapy 2L CONT. Surgical History Hx of left cataract extraction History of anesthesia reaction SLOW TO WAKE UP H/O shoulder surgery RT History of cystoscopy History of ERCP History of colonoscopy H/O inguinal hernia repair History of tooth extraction History of tonsillectomy Family History Other No family history of adverse response to anesthesia Social History Smoking Status: Unknown if ever smoked Tobacco Type: Cigarettes Age Quit Using Tobacco: 56; packs per day: 2; Second Hand Exposure: No; Do You Dip or Chew Tobacco: No; Hx Alcohol Use: No Hx Substance Use: No Preferred Language: Hungarian Communication Ability: Effective Feed Handler Required: No Beliefs That Will Affect Care: None Current Living Situation: Spouse Feels Safe at Home: Yes Assistive Devices: Walker Allergies Allergies Allergy/AdvReac Type Severity Reaction Status Date / Time Gadolinium-Containing Allergy Intermediate Nausea/Vomi Verified 08/25/23 14:56 Contrast Medi ting Home Meds Home Medications Medication Instructions Recorded Confirmed azithromycin 250 mg tablet 250 mg PO 3XWK #1 tab 03/31/19 10/20/24 ipratropium 0.5 mg-albuterol 3 mg 3 ml inhalation Q4H PRN SOB #6 mL 03/31/19 10/20/24 (2.5 mg base)/3 mL nebulization soln thyroid (pork) 60 mg tablet 60 mg PO UD 03/31/19 10/20/24 tiotropium bromide 18 mcg capsule 1 cap inhalation UD #1 inh 03/31/19 10/20/24 with inhalation device doxazosin 4 mg tablet 4 mg PO QPM 12/02/21 10/20/24 latanoprost 0.005 % eye drops 1 drp OPL HS 12/02/21 10/20/24 diltiazem HCl 120 mg 120 mg PO DAILY 08/25/23 10/20/24 capsule,extended release 24 hr (Cartia XT) furosemide 20 mg tablet 20 mg PO DAILY PRN edema 08/25/23 10/20/24 naltrexone 4.5 mg capsule 4.5 mg PO UD 08/25/23 10/20/24 ascorbic acid (vitamin C) 500 mg 1 g PO DAILY 05/12/24 10/20/24 tablet (Vitamin C) cholecalciferol (vitamin D3) 25 5,000 unit PO Q7D 05/12/24 10/20/24 mcg (1,000 unit) tablet Previous Rx's Medication Instructions Recorded fluticasone 500 mcg-salmeterol 50 1 puffs inhalation BID #60 ea 08/01/19 mcg/dose blistr powdr for inhalation (Advair Diskus) Results & Data (ED) Vital Signs Vital Signs - 24 hr 10/20/24 11:00 10/20/24 11:11 10/20/24 11:11 Temperature Temperature Source Pulse Rate 118 H 113 H Pulse Rate from SpO2 Sensor Respiratory Rate 24 28 H Respiratory Effort / Characteristics Non-Labored Spontaneous Respiratory Depth Normal Respiratory Pattern Regular Blood Pressure 113/78 112/76 Blood Pressure Mean 89 91 Pulse Oximetry 100 100 100 Oxygen Delivery Method Ambu-Bag Mechanical Vent Mechanical Vent Fraction of Inspired Oxygen 100 Sepsis Recent Fever Within 48 Hours No Sepsis New/Unexplained Change in Mental Status Yes Sepsis Action Taken by Nursing Physician Notified End-Tidal CO2 10/20/24 11:15 10/20/24 11:20 10/20/24 11:20 Temperature Temperature Source Pulse Rate 104 H 117 H Pulse Rate from SpO2 Sensor Respiratory Rate 24 24 Respiratory Effort / Characteristics Respiratory Depth Respiratory Pattern Blood Pressure 113/78 104/77 Blood Pressure Mean 92 90 Pulse Oximetry 100 100 Oxygen Delivery Method Mechanical Vent Fraction of Inspired Oxygen 100 100 Sepsis Recent Fever Within 48 Hours Sepsis New/Unexplained Change in Mental Status Sepsis Action Taken by Nursing End-Tidal CO2 36 10/20/24 11:23 10/20/24 11:25 10/20/24 11:30 Temperature Temperature Source Pulse Rate 113 H Pulse Rate from SpO2 Sensor Respiratory Rate 24 Respiratory Effort / Characteristics Respiratory Depth Respiratory Pattern Blood Pressure 117/86 122/96 Blood Pressure Mean 98 103 Pulse Oximetry 99 100 Oxygen Delivery Method Mechanical Vent Mechanical Vent Fraction of Inspired Oxygen 100 Sepsis Recent Fever Within 48 Hours Sepsis New/Unexplained Change in Mental Status Sepsis Action Taken by Nursing End-Tidal CO2 10/20/24 11:40 10/20/24 11:50 10/20/24 11:55 Temperature Temperature Source Pulse Rate 105 H Pulse Rate from SpO2 Sensor Respiratory Rate 24 Respiratory Effort / Characteristics Respiratory Depth Respiratory Pattern Blood Pressure 127/99 135/103 H 131/102 H Blood Pressure Mean 104 115 115 Pulse Oximetry 100 Oxygen Delivery Method Mechanical Vent Fraction of Inspired Oxygen 100 Sepsis Recent Fever Within 48 Hours Sepsis New/Unexplained Change in Mental Status Sepsis Action Taken by Nursing End-Tidal CO2 34 10/20/24 12:01 10/20/24 12:15 10/20/24 12:20 Temperature Temperature Source Pulse Rate 113 H 98 H 96 H Pulse Rate from SpO2 Sensor Respiratory Rate 24 24 Respiratory Effort / Characteristics Respiratory Depth Respiratory Pattern Blood Pressure 131/107 H 122/95 Blood Pressure Mean 113 105 Pulse Oximetry 100 100 Oxygen Delivery Method Mechanical Vent Mechanical Vent Fraction of Inspired Oxygen 60 60 Sepsis Recent Fever Within 48 Hours Sepsis New/Unexplained Change in Mental Status Sepsis Action Taken by Nursing End-Tidal CO2 30 33 10/20/24 12:23 10/20/24 12:25 10/20/24 12:35 Temperature Temperature Source Pulse Rate Pulse Rate from SpO2 Sensor Respiratory Rate Respiratory Effort / Characteristics Respiratory Depth Respiratory Pattern Blood Pressure 114/89 120/96 Blood Pressure Mean 96 104 Pulse Oximetry Oxygen Delivery Method Fraction of Inspired Oxygen 60 Sepsis Recent Fever Within 48 Hours Sepsis New/Unexplained Change in Mental Status Sepsis Action Taken by Nursing End-Tidal CO2 10/20/24 12:40 10/20/24 12:45 10/20/24 12:50 Temperature Temperature Source Pulse Rate 95 H Pulse Rate from SpO2 Sensor Respiratory Rate 24 Respiratory Effort / Characteristics Respiratory Depth Respiratory Pattern Blood Pressure 129/94 124/95 127/93 Blood Pressure Mean 103 101 98 Pulse Oximetry 100 Oxygen Delivery Method Mechanical Vent Fraction of Inspired Oxygen 60 Sepsis Recent Fever Within 48 Hours Sepsis New/Unexplained Change in Mental Status Sepsis Action Taken by Nursing End-Tidal CO2 32 10/20/24 12:55 10/20/24 13:00 10/20/24 13:05 Temperature 35.6 C L Temperature Source Reynoso Cath ( Temp Sensing) Pulse Rate 87 82 Pulse Rate from SpO2 Sensor Respiratory Rate 24 24 Respiratory Effort / Characteristics Respiratory Depth Respiratory Pattern Blood Pressure 113/90 134/97 Blood Pressure Mean 98 106 Pulse Oximetry 100 100 Oxygen Delivery Method Mechanical Vent Mechanical Vent Fraction of Inspired Oxygen 60 60 Sepsis Recent Fever Within 48 Hours Sepsis New/Unexplained Change in Mental Status Sepsis Action Taken by Nursing End-Tidal CO2 31 10/20/24 13:10 10/20/24 13:15 10/20/24 13:20 Temperature Temperature Source Pulse Rate 89 Pulse Rate from SpO2 Sensor Respiratory Rate 24 Respiratory Effort / Characteristics Respiratory Depth Respiratory Pattern Blood Pressure 124/92 127/95 118/91 Blood Pressure Mean 103 106 98 Pulse Oximetry 100 Oxygen Delivery Method Mechanical Vent Fraction of Inspired Oxygen 60 Sepsis Recent Fever Within 48 Hours Sepsis New/Unexplained Change in Mental Status Sepsis Action Taken by Nursing End-Tidal CO2 31 10/20/24 13:30 10/20/24 13:30 10/20/24 13:35 Temperature Temperature Source Pulse Rate 91 H 87 Pulse Rate from SpO2 Sensor Respiratory Rate 24 24 Respiratory Effort / Characteristics Respiratory Depth Respiratory Pattern Blood Pressure 141/107 H 141/107 H 126/97 Blood Pressure Mean 123 123 108 Pulse Oximetry 100 100 Oxygen Delivery Method Mechanical Vent Mechanical Vent Fraction of Inspired Oxygen 60 60 Sepsis Recent Fever Within 48 Hours Sepsis New/Unexplained Change in Mental Status Sepsis Action Taken by Nursing End-Tidal CO2 38 38 10/20/24 13:40 10/20/24 13:45 10/20/24 13:50 Temperature Temperature Source Pulse Rate 93 H 86 Pulse Rate from SpO2 Sensor 93 H Respiratory Rate 24 24 Respiratory Effort / Characteristics Respiratory Depth Respiratory Pattern Blood Pressure 124/92 125/91 115/84 Blood Pressure Mean 99 102 90 Pulse Oximetry 100 100 Oxygen Delivery Method Mechanical Vent Mechanical Vent Fraction of Inspired Oxygen 60 60 Sepsis Recent Fever Within 48 Hours Sepsis New/Unexplained Change in Mental Status Sepsis Action Taken by Nursing End-Tidal CO2 46 41 10/20/24 14:00 10/20/24 14:05 Temperature Temperature Source Pulse Rate 96 H Pulse Rate from SpO2 Sensor Respiratory Rate 24 Respiratory Effort / Characteristics Respiratory Depth Respiratory Pattern Blood Pressure 110/90 122/99 Blood Pressure Mean 93 108 Pulse Oximetry 100 Oxygen Delivery Method Mechanical Vent Fraction of Inspired Oxygen 60 Sepsis Recent Fever Within 48 Hours Sepsis New/Unexplained Change in Mental Status Sepsis Action Taken by Nursing End-Tidal CO2 48 Home Medications Current Medication List: was personally reviewed by me Laboratory Data Attestation: I reviewed the patient's lab results. 10/20/24 16:09 10/20/24 11:47 Lab Results 10/20/24 10/20/24 10/20/24 Range/Units 11:38 11:47 12:39 PT 11.8 (9.0-12.0) Seconds INR 1.1 (0.9-1.1) APTT 25 (21-31) Seconds PTT Ratio 0.9 Sodium 136 (136-145) mmol/L Potassium 5.0 (3.5-5.1) mmol/L Chloride 97 L (98-107) mmol/L Carbon Dioxide 33 H (21-32) mmol/L Anion Gap 6 (3-11) BUN 23 (6-23) mg/dl Creatinine 0.58 L (0.6-1.4) mg/dl Est Cr Clr Drug Dosing 84.5 ml/min eGFR 99.82 BUN/Creatinine Ratio 39.7 H (10-20) Glucose 128 H (70-99(Fasting)) mg/dl Calcium 9.4 (8.6-10.3) mg/dl Magnesium 2.4 (1.7-2.4) mg/dl Total Bilirubin 0.4 (0.2-1.0) mg/dl AST 37 (13-39) U/L ALT 21 (7-52) U/L Alkaline Phosphatase 83 (34-104) U/L Total Protein 6.5 (6.0-8.3) gm/dl Albumin 3.8 (3.4-5.0) gm/dl Globulin 2.7 (2.5-4.0) gm/dl Albumin/Globulin Ratio 1.4 (0.9-2) Urine Color Dark Yellow Urine Appearance Cloudy A (Clear) Urine pH 5.5 (4.5-7.5) Ur Specific [place] 1.020 (1.000-1.030) Urine Protein 2+ H (Negative) Urine Glucose (UA) Negative (Negative) Urine Ketones Trace H (Negative) Urine Blood 2+ H (Negative) Urine Nitrite Negative (Negative) Urine Bilirubin 1+ H (Negative) Urine Urobilinogen Positive H (Negative) Ur Leukocyte Esterase Negative (Negative) Urine WBC (Auto) 21-50 H (0-5) /hpf Urine RBC (Auto) >20 H (0-2) /hpf U Hyaline Cast (Auto) >20 H (0-2) /lpf U Epithel Cells (Auto) 0-2 (0-2) /hpf Urine Bacteria (Auto) 1+ H (None Seen) Calcium Oxalate Crystal Present A (None Prsent) Hyaline Casts Present A (None Presnt) /lpf Granular Casts Present A (None Prsent) /lpf Urine Mucus Present A (None Prsent) Nasal Screen MRSA (PCR) Negative (Negative) Adenovirus (PCR) Not Detected (NotDetected) B. pertussis DNA (PCR) Not Detected (NotDetected) B.parapertussis DNA PCR Not Detected (NotDetected) C. pneumoniae DNA (PCR) Not Detected (NotDetected) Coronavirus OC43 (PCR) Not Detected (NotDetected) Coronavirus HKU1 (PCR) Not Detected (NotDetected) Coronavirus 229E (PCR) Not Detected (NotDetected) SARS-CoV-2 (PCR) Not Detected (NotDetected) Coronavirus NL63 (PCR) Not Detected (NotDetected) Human Metapneumovir PCR Not Detected (NotDetected) Influenza Type A (PCR) Not Detected (NotDetected) Influenza Type B (PCR) Not Detected (NotDetected) M. pneumoniae (PCR) Not Detected (NotDetected) Parainfluenza 1 (PCR) Not Detected (NotDetected) Parainfluenza 2 (PCR) Not Detected (NotDetected) Parainfluenza 3 (PCR) Not Detected (NotDetected) Parainfluenza 4 (PCR) Not Detected (NotDetected) RSV (PCR) Not Detected (NotDetected) Entero/Rhino (PCR) Not Detected (NotDetected) Administered Medications Fentanyl Citrate (Fentanyl Citrate Pf 100 Mcg/2 Ml Vial) 50 mcg IV Q1H PRN PRN Reason: Pain Stop: 11/03/24 12:00 Last Admin: 10/20/24 12:48 Dose: 50 mcg Documented By: LUZ Fentanyl Citrate (Fentanyl Bolus From Bag) 50 mcg IV Q60M PRN PRN Reason: Pain or Agitation Stop: 11/03/24 13:12 Last Admin: 10/20/24 14:12 Dose: 50 mcg Documented By: LUZ Co-signed By: LAUREL Fentanyl Citrate (Fentanyl Citrate) 2,500 mcg in 250 mls @ 2.5 mls/hr IV .Q96H [facility]; Protocol Stop: 11/03/24 13:14 Last Admin: 10/20/24 13:38 Dose: 25 mcg/hr, 2.5 mls/hr Documented By: LUZ Co-signed By: DL Discontinued Medications Albuterol (Albut/Ipratrop 3mg/0.5mg Neb 3 Ml Vial) 12 ml INH ONE STA Stop: 10/20/24 11:12 Last Admin: 10/20/24 11:56 Dose: 12 ml Documented By: WILLIAM Sodium Chloride (Nss) 1,000 mls @ 999 mls/hr IV .Q1H1M ONE Stop: 10/20/24 12:11 Last Infusion: 10/20/24 13:17 Dose: Infused Documented By: Admin: 10/20/24 11:33 Dose: 999 mls/hr Documented By: LUZ Piperacillin Sod/Tazobactam Sod (Zosyn) 4.5 gm in 100 mls @ 200 mls/hr IV NOW ONE; Protocol Stop: 10/20/24 11:42 Last Infusion: 10/20/24 13:30 Dose: Infused Documented By: Admin: 10/20/24 12:49 Dose: 200 mls/hr Documented By: LUZ Pantoprazole Sodium (Protonix) 40 mg in 10 mls @ 5 mls/min IV ONE ONE Stop: 10/20/24 14:31 Last Admin: 10/20/24 16:35 Dose: 5 mls/min Documented By: ROSS Doxycycline Hyclate 100 mg/ (Dextrose) 100 mls @ 50 mls/hr IV NOW ONE Stop: 10/20/24 17:29 Last Admin: 10/20/24 16:35 Dose: 50 mls/hr Documented By: ROSS Methylprednisolone (Methylprednisolone 125 Mg/2 Ml Vial) 125 mg IV NOW STA Stop: 10/20/24 11:12 Last Admin: 10/20/24 11:33 Dose: 125 mg Documented By: LUZ Miscellaneous (Rapid Sequence Induction Bag) Confirm Administered Dose 1 each N/A .STK-MED ONE Stop: 10/20/24 11:04 Last Admin: 10/20/24 12:32 Dose: 1 each Documented By: LUZ Kaur (Stat Iv Infusion Titration Per Protocol) 1 each N/A NOW STA Stop: 10/20/24 13:14 Last Admin: 10/20/24 16:57 Dose: Not Given Documented By: ROSS Kaur (Icu Protocol For Hyperglycemia) 1 each N/A ACHS JERONIMO Stop: 10/22/24 16:29 Last Admin: 10/20/24 16:58 Dose: Not Given Documented By: ROSS Imaging Data Radiologist's Impression: Chest X-Ray 10/20/24 11:11 XR chest 1V portable CLINICAL HISTORY: Dyspnea COMPARISON STUDY: 08/26/2023 FINDINGS: Endotracheal tube tip is just below the thoracic inlet. Left pacemaker is stable. There is an interval mass at the left lung apex with surrounding reticular and patchy opacity. Interval left apical pleural thickening. There is emphysema. There is interval mild hazy opacity at the left base with mild blunting of the left costophrenic angle. Otherwise the lungs remain aerated. Heart size and pulmonary vasculature are normal. IMPRESSION: 1. Well positioned endotracheal tube. 2. Interval masslike opacity at the left lung apex with surrounding reticular and patchy opacity. Differential diagnosis includes malignancy and pneumonia. 3. Interval mild opacity at the left base, atelectasis, consolidation, or trace left pleural effusion. ACT 112: Positive. There are findings on this exam that require communication between the performing entity and the patient following Patient Test Result Information Act ([place] Act 112) guidelines. Electronically signed by: Kelton Correa M.D. 10/20/2024 12:[address] 10/20/24 11:13 CT head/brain wo con CLINICAL HISTORY: 78 years-old Male with unresponsive. Acutely altered mental status TECHNIQUE: Multiple axial CT images of the head were obtained without contrast. A dose lowering technique was utilized adhering to the principles of ALARA. CT DOSE: 625.8 mGy.cm COMPARISON: None. FINDINGS: No acute intracranial hemorrhage, midline shift, intracranial mass, hydrocephalus, territorial ischemia or abnormal extra-axial collection. Involutional changes with white matter hypodensities suggestive of chronic microvascular ischemic disease. The calvarium is intact. Prior bilateral lens repair. The paranasal sinuses, mastoid air cells, and middle ear cavities are clear. IMPRESSION: No acute intracranial abnormality identified. ACT 112: Negative or not required by law. The above report was generated using voice recognition software. It may contain grammatical, syntax or spelling errors. Electronically signed by: Juanpablo Villalba M.D. 10/20/2024 12:17 PM Discharge Plan Visit Data Chief Complaint: Unresponsive ED Provider: Usman Ziegler Discharge Problem: Acute hypoxemic respiratory failure, Acute exacerbation of chronic obstructive pulmonary disease, Pneumonia Patient Disposition: Admitted As Inpatient Discharge Instructions Interventions: ED Discharge Assessment Last Done: 10/20/24 16:05 Discharge Problem: Pneumonia Qualifiers: Pneumonia type: due to unspecified organism Laterality: left Lung location: u nspecified part of lung Qualified Code(s): J18.9 - Pneumonia, unspecified organism
[2024-10-20] MEDS: SODIUM CHLORIDE 0.9% 1,000 ML IV ONE (11:33)
[2024-10-20] MEDS: methylPREDNISolone 125 MG/2 ML VIAL IV STA (11:33)
[2024-10-20] MEDS: ALBUT/IPRATROP 3MG/0.5MG NEB 3 ML VIAL INH STA (11:56)
--- NOTE | 2024-10-20 12:03 | XRay Report ---
XR chest 1V portable CLINICAL HISTORY: Dyspnea COMPARISON STUDY: 08/26/2023 FINDINGS: Endotracheal tube tip is just below the thoracic inlet. Left pacemaker is stable. There is an interval mass at the left lung apex with surrounding reticular and patchy opacity. Interval left a pical pleural thickening. There is emphysema. There is interval mild hazy opacity at the left base wi th mild blunting of the left costophrenic angle. Otherwise the lungs remain aerated. Heart size and p ulmonary vasculature are normal. IMPRESSION: 1. Well positioned endotracheal tube. 2. Interval masslike opacity at the left lung apex with surrounding reticular and patchy opacity. Dif ferential diagnosis includes malignancy and pneumonia. 3. Interval mild opacity at the left base, atelectasis, consolidation, or trace left pleural effusion . ACT 112: Positive. There are findings on this exam that require communication between the performing entity and the patient following Patient Test Result Information Act ([place] Act 112) guidelines. Electronically signed by: Kelton Correa M.D. 10/20/2024 12:02 PM
--- NOTE | 2024-10-20 12:19 | CT Scan Report ---
CT head/brain wo con CLINICAL HISTORY: 78 years-old Male with unresponsive. Acutely altered mental status TECHNIQUE: Multiple axial CT images of the head were obtained without contrast. A dose lowering tech nique was utilized adhering to the principles of ALARA. CT DOSE: 625.8 mGy.cm COMPARISON: None. FINDINGS: No acute intracranial hemorrhage, midline shift, intracranial mass, hydrocephalus, territorial ischem ia or abnormal extra-axial collection. Involutional changes with white matter hypodensities suggestiv e of chronic microvascular ischemic disease. The calvarium is intact. Prior bilateral lens repair. The paranasal sinuses, mastoid air cells, and m iddle ear cavities are clear. IMPRESSION: No acute intracranial abnormality identified. ACT 112: Negative or not required by law. The above report was generated using voice recognition software. It may contain grammatical, syntax o r spelling errors. Electronically signed by: Juanpablo Villalba M.D. 10/20/2024 12:17 PM
[2024-10-20] MEDS: RAPID SEQUENCE INDUCTION BAG ONE (12:32)
[2024-10-20] MEDS: fentaNYL citrate PF 100 MCG/2 ML VIAL IV PRN (12:48)
[2024-10-20] MEDS: PIPERACILLIN/TAZOBACTAM 4.5 GM/100 ML BAG IV ONE (12:49)
[2024-10-20 13:15] LABS: INR 1.1 (0.9-1.1); Partial Thromboplastin Ratio 0.9; Partial Thromboplastin Time 25 Seconds (21-31); Prothrombin Time 11.8 Seconds (9.0-12.0)
--- NOTE | 2024-10-20 13:15 | Critical Care Consultation ---
Date of Consultation October 20, 2024 Assessment & Plan (1) Pneumonia: (2) Acute on chronic respiratory failure with hypoxia and hypercapnia: (3) End stage COPD: (4) Lung nodules: (5) COPD (chronic obstructive pulmonary disease): (6) BPH (benign prostatic hyperplasia): (7) Hypothyroidism: (8) On home oxygen therapy: (9) BPH (benign prostatic hyperplasia): Plan Reason Critically Ill: 78-year-old male coming to pulmonary for COPD. He was intubated in the ER Past medical history: BPH, end-stage COPD Patient was last seen by me in the clinic on 05/12/2024 Neuro - [facility] ICU: Unable to assess Continue with sedation with propofol and fentanyl Cardiac - -- History of hypertension Continue to hold home blood pressure medication Respiratory - CT chest 06/24/2019 personally reviewed: Bilateral apical pleural scarring Severe centrilobular and paraseptal emphysema appreciated bilaterally Left upper lobe peripheral 5 mm pulmonary nodule No significant mediastinal lymphadenopathy -- VDRF Likely secondary to acute on chronic hypercapnic hypoxic respiratory failure with left upper lobe pneumonia Continue with ventilatory support Keep RASS -1 Daily sedation holidays and SBT's Continue with antibiotics -- COPD with emphysema Gold E End-stage COPD At home on Advair 500-50 puff twice a day along with Spiriva On azithromycin Uubcfu-[id number]-[id number] at home EKG 05/12/2024 QTc 424 with atrial sensed ventricular paced rhythm Spirometry 09/16/2016 personally reviewed: Very severe obstructive lung dysfunction, insignificant bronchodilator response FVC 2.08 L 43%, FEV1 0.75 L 21%, FEV1/FVC 36%, -- Pulmonary nodule Largest being 5 mm in the left upper lobe Patient understand that he has end-stage COPD and he would not like to monitor her survey the pulmonary nodules --Ex-smoker [id number] smoking history Quit in 2011 GI - -- No acute issues RENAL/LYTES - -- Monitor BUNs/creatinine Avoid nephrotoxic medication ENDO - --Hypothyroidism Continue with home thyroid replacement medication -- ICU hyperglycemia protocol HEME - -- Normocytic anemia Monitor H&H ID - -- Left upper lobe pneumonia Procalcitonin 0.27, nasal MRSA negative Respiratory BioFire negative for everything on 10/20/2024 --Prophylaxis VTE: Heparin GI: Pantoprazole Lines: Peripheral Diet: Tube feeds Plan: Strict in and out Continue with broad-spectrum antibiotics Follow sputum culture Overall prognosis remains to be guarded given end-stage COPD All questions and queries of the patient as well as patient's were answered in depth I have personally spent 64 minutes of critical care time in the direct managem ent of this patient. This is a life/limb threatening event. This includes time spent evaluating patient, direct bedside care, chart review, placing orders, interpretation of diagnostic studies, discussion with consultants, patient, and family members, as well as other required patient management activities. This time is exclusive of all separately billable procedures, and teaching time and separate from and in addition to any other critical care service time. History of Present Illness History of Present Illness 78-year-old male coming to pulmonary for COPD. He was intubated in the ER Past medical history: BPH, end-stage COPD Patient was last seen by me in the clinic on 05/12/2024 Patient and son were in the room at the time of examination He was breathing with the vent Saturation was 95 to 95% on 40% FiO2 and PEEP of 5. Moving his hands spontaneously. As per the family patient was complaining of worsening shortness of breath for approximately a week or so He is compliant with his inhalers nebulizers as well as AVAPS machine at home No dysuria or diarrhea. No fever or chills at home Is supposed to be on BiPAP at night and whenever he short of breath. Social history: Approximately [id number] smoking history, quit in 2011, no illicit drug use. 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 Pets: Has cats at home, no birds or poultry nearby Allergies: Denies Asthma: No personal or family history of asthma Lung cancer: History of lung cancer in mother was a smoker Allergies Allergy/AdvReac Type Severity Reaction Status Date / Time Gadolinium-Containing Allergy Intermediate Nausea/Vomi Verified 08/25/23 14:56 Contrast Medi ting Home Medications Medication Instructions Recorded Confirmed Type azithromycin 250 mg tablet 250 mg PO 3XWK #1 tab 03/31/19 10/20/24 History ipratropium 0.5 mg-albuterol 3 mg 3 ml inhalation Q4H PRN SOB #6 mL 03/31/19 10/20/24 History (2.5 mg base)/3 mL nebulization soln thyroid (pork) 60 mg tablet 60 mg PO UD 03/31/19 10/20/24 History tiotropium bromide 18 mcg capsule 1 cap inhalation UD #1 inh 03/31/19 10/20/24 History with inhalation device fluticasone 500 mcg-salmeterol 50 1 puffs inhalation BID #60 ea 08/01/19 10/20/24 Rx mcg/dose blistr powdr for inhalation (Advair Diskus) doxazosin 4 mg tablet 4 mg PO QPM 12/02/21 10/20/24 History latanoprost 0.005 % eye drops 1 drp OPL HS 12/02/21 10/20/24 History diltiazem HCl 120 mg 120 mg PO DAILY 08/25/23 10/20/24 History capsule,extended release 24 hr (Cartia XT) furosemide 20 mg tablet 20 mg PO DAILY PRN edema 08/25/23 10/20/24 History naltrexone 4.5 mg capsule 4.5 mg PO UD 08/25/23 10/20/24 History ascorbic acid (vitamin C) 500 mg 1 g PO DAILY 05/12/24 10/20/24 History tablet (Vitamin C) cholecalciferol (vitamin D3) 25 5,000 unit PO Q7D 05/12/24 10/20/24 History mcg (1,000 unit) tablet Patient History Medical History Acute on chronic hypoxic respiratory failure Acute exacerbation of chronic obstructive pulmonary disease BPH (benign prostatic hyperplasia) Pancreatic cyst BENIGN Hypothyroidism Elevated cholesterol NO MEDS Emphysema lung Glaucoma Chronic obstructive pulmonary disease On home oxygen therapy 2L CONT. Surgical History Hx of left cataract extraction History of anesthesia reaction SLOW TO WAKE UP H/O shoulder surgery RT History of cystoscopy History of ERCP History of colonoscopy H/O inguinal hernia repair History of tooth extraction History of tonsillectomy Family History Other No family history of adverse response to anesthesia Social History Smoking Status: Former smoker Tobacco Type: Cigarettes Age Quit Using Tobacco: 56; packs per day: 2; Second Hand Exposure: No; Do You Dip or Chew Tobacco: No; Tobacco Cessation Education Requested by Patient: No Hx Alcohol Use: No Hx Substance Use: No Preferred Language: Afghan Communication Ability: Sedated 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: No Beliefs That Will Affect Care: Spiritual Current Living Situation: Spouse Other Information That Helps Us Care for You: No Feels Safe at Home: Yes Safety Concerns: Feels Safe At This Time Assistive Devices: CPAP, Oxygen - Continuous and Walker Review of Systems Review of Systems: All systems reviewed & are unremarkable except as noted in HPI & below and Unobtainable due to endotracheal tube Physical Exam Physical Exam: Constitutional: No acute distress, frail-appearing HEENT: PERRLA Respiratory system: Decreased air entry bilaterally, no wheeze, no rhonchi, no crackles CVS: S1-S2 positive, no murmurs or gallops Abdomen: Soft, nontender, nondistended, positive bowel sounds x4 Extremities: +2 pulses bilaterally radialis, no cyanosis, +1 pitting edema bilateral lower extremity Neuro: Intubated, sedated, breathing with the vent Psych:Unable to assess G/U: Positive [place] Skin: no rashes, warm and dry Lymphatic: no cervical or axillary lymphadenopathy Results & Data Results & Data Vital Signs (Past 12 Hours) Vital Signs Pulse Resp BP Pulse Ox O2 Del Method FiO2 10/20/24 12:23 60 10/20/24 12:01 113 H 10/20/24 11:23 99 Mechanical Vent 10/20/24 11:20 104 H 24 100 100 10/20/24 11:11 100 Mechanical Vent 10/20/24 11:00 118 H 24 113/78 100 Ambu-Bag Coding Level of Care Code 75354 CRITICAL CARE 1ST 30-74M Diagnoses Pneumonia J18.9 Laterality: left Lung location: unspecified part of lung Pneumonia type: due to unspecified organism Acute on chronic respiratory failure with hypoxia and hypercapnia J96.21; J96.22 End stage COPD J44.9 Lung nodules R91.8 COPD (chronic obstructive pulmonary disease) J44.9 BPH (benign prostatic hyperplasia) N40.0 Hypothyroidism E03.9 On home oxygen therapy Z99.81 (1) Pneumonia Laterality: left Lung location: unspecified part of lung Pneumonia type: due to unspecified organism Qualified Code(s): J18.9 - Pneumonia, unspecified organism
[2024-10-20 13:22] LABS: Albumin Globulin Ratio 1.4 (0.9-2); Albumin Level 3.8 gm/dl (3.4-5.0); BUN Creatinine Ratio 39.7 (10-20); Bilirubin,Total 0.4 mg/dl (0.2-1.0); Calcium 9.4 mg/dl (8.6-10.3); Creatinine Clr Calc Pharmacy 84.5 ml/min; Globulin 2.7 gm/dl (2.5-4.0); Magnesium 2.4 mg/dl (1.7-2.4); Total Protein 6.5 gm/dl (6.0-8.3)
[2024-10-20 13:30] LABS: Appearance Urine Cloudy (Clear); Bacteria Urine Automated 1+ (None Seen); Bilirubin Urine 1+ (Negative); Blood Urine 2+ (Negative); Calcium Oxalate Crystals Urine Present (None Prsent); Cast Urine Automated >20 /lpf (0-2); Color Urine Dark Yellow; Epithelial Cell Urine Auto 0-2 /hpf (0-2); Glucose Urine UA Negative (Negative); Granular Casts Urine Present /lpf (None Prsent); Hyaline Casts Urine Present /lpf (None Presnt); Ketones Urine Trace (Negative); Leukocyte Esterase Urine Negative (Negative); Mucus Urine Present (None Prsent); Nitrite Urine Negative (Negative); Protein Urine 2+ (Negative); RBC Urine Automated >20 /hpf (0-2); Urobilinogen Urine Positive (Negative); WBC Urine Automated 21-50 /hpf (0-5); pH Urine 5.5 (4.5-7.5)
[2024-10-20] MEDS: fentaNYL citrate 2,500 MCG/250 ML BAG IV SCH (13:38)
[2024-10-20 14:01] LABS: Adenovirus PCR Not Detected (NotDetected); Bordetella parapertussis PCR Not Detected (NotDetected); Bordetella pertussis PCR Not Detected (NotDetected); Chlamydia pneumoniae PCR Not Detected (NotDetected); Coronavirus 229E PCR Not Detected (NotDetected); Coronavirus CoV-2 (COVID19)PCR Not Detected (NotDetected); Coronavirus HKU1 PCR Not Detected (NotDetected); Coronavirus NL63 PCR Not Detected (NotDetected); Coronavirus OC43PCR Not Detected (NotDetected); Human Metapneumovirus PCR Not Detected (NotDetected); Influenza A PCR Not Detected (NotDetected); Influenza B PCR Not Detected (NotDetected); Mycoplasma pneumoniae PCR Not Detected (NotDetected); Parainfluenza Virus 1 PCR Not Detected (NotDetected); Parainfluenza Virus 2 PCR Not Detected (NotDetected); Parainfluenza Virus 3 PCR Not Detected (NotDetected); Parainfluenza Virus 4 PCR Not Detected (NotDetected); Respiratory Syncytial VirusPCR Not Detected (NotDetected); Rhinovirus/Enterovirus PCR Not Detected (NotDetected)
[2024-10-20] MEDS: fentaNYL BOLUS from BAG IV PRN (14:12)
--- NOTE | 2024-10-20 14:16 | History & Physical Report ---
Date of Service October 20, 2024 Assessment & Plan (1) COPD (chronic obstructive pulmonary disease): Plan AE COPD Pneumonia Metabolic encephalopathy Imaging reviewed, CT head negative for acute finding. CXR suggestive of left- sided pneumonia. Continue with Solu-Medrol, Perforomist neb, budesonide nebs, PPI IV while intubated Admit patient in ICU, ICU consult placed. Mx per ICU protocol. Will continue with Zosyn, add doxycycline, hold azithromycin while on Doxy Protein calorie malnutrition: Per pt's , patient has very poor appetite that he lives off of nutritional drink. Consult dietitian. Tube feeding in next 24 hours if the patient can't extubated. Other chronic medical conditions: Hypothyroidism,Protein calorie malnutrition----- continue with/resume home meds as and when able. DVT prophylaxis: Heparin subcu Full code History of Present Illness Chief Complaint: Worsening shortness of breath. Primary Care Provider: Mak Chávez MD 78-year-old male with PMH of chronic hypoxemic respiratory failure on 2.5 L oxygen at home, group D COPD, bullous emphysema, bronchiectasis, multiple lung nodules, hypothyroidism, protein calorie malnutrition was brought in the ED due to worsening shortness of breath more so in the last 2 days. Patient is intubated at bedside but is responsive/calm, he nods "no" to chest pain. History taken from chart review, discussion with ER physician and patient's at bedside. In the ED, pt was unresponsive and not breathing on his own, hence he was intubated per d/w ER physician. He got solu medrol bolus and hour long breathing treatment. Per patient's , no fever in the last 1 to 2 weeks, reports cough being at baseline and no unusual color of the sputum production. Patient has very poor appetite at baseline, he lives off of nutritional drink which he can tolerate per pt's . He drinks 3-4 packs a day of the nutritional drink. Per , pt has been feeling sob for few weeks, needing BPAP/Non invasive ventilation to maintain saturation more so in the last 2 days ago BAGGER MEAT. He was also getting exceedingly weak per , so much so that, he was not able to sit himself up. Per pt's , he quit smoking 13 years ago, he did smoke "forever" w/ average of 2 ppd. He drinks very occasional alcohol. Full Code Medications reviewed with patient's at bedside. Plan of care d/w pt's at bedside, who voiced understanding. Allergies Allergy/AdvReac Type Severity Reaction Status Date / Time Gadolinium-Containing Allergy Intermediate Nausea/Vomi Verified 08/25/23 14:56 Contrast Medi ting Home Medications Medication Instructions Recorded Confirmed Type azithromycin 250 mg tablet 250 mg PO 3XWK #1 tab 03/31/19 10/20/24 History ipratropium 0.5 mg-albuterol 3 mg 3 ml inhalation Q4H PRN SOB #6 mL 03/31/19 10/20/24 History (2.5 mg base)/3 mL nebulization soln thyroid (pork) 60 mg tablet 60 mg PO UD 03/31/19 10/20/24 History tiotropium bromide 18 mcg capsule 1 cap inhalation UD #1 inh 03/31/19 10/20/24 History with inhalation device fluticasone 500 mcg-salmeterol 50 1 puffs inhalation BID #60 ea 08/01/19 10/20/24 Rx mcg/dose blistr powdr for inhalation (Advair Diskus) doxazosin 4 mg tablet 4 mg PO QPM 12/02/21 10/20/24 History latanoprost 0.005 % eye drops 1 drp OPL HS 12/02/21 10/20/24 History diltiazem HCl 120 mg 120 mg PO DAILY 08/25/23 10/20/24 History capsule,extended release 24 hr (Cartia XT) furosemide 20 mg tablet 20 mg PO DAILY PRN edema 08/25/23 10/20/24 History naltrexone 4.5 mg capsule 4.5 mg PO UD 08/25/23 10/20/24 History ascorbic acid (vitamin C) 500 mg 1 g PO DAILY 05/12/24 10/20/24 History tablet (Vitamin C) cholecalciferol (vitamin D3) 25 5,000 unit PO Q7D 05/12/24 10/20/24 History mcg (1,000 unit) tablet Past Med/Surg History Problem List (Updated 05/16/24 @ 11:33 by Cassie Iraheta RN) Chronic respiratory failure Ex-smoker Viral URI End stage COPD Viral pneumonitis Complete heart block (Acute) Encounter for pre-operative examination Emphysema of lung (Chronic) BPH (benign prostatic hyperplasia) (Chronic) Lung nodules (Chronic) Hypothyroidism (Chronic) COPD (chronic obstructive pulmonary disease) (Chronic) Medical History BPH (benign prostatic hyperplasia) Pancreatic cyst BENIGN Hypothyroidism Elevated cholesterol NO MEDS Emphysema lung Glaucoma Chronic obstructive pulmonary disease On home oxygen therapy 2L CONT. Surgical History Hx of left cataract extraction History of anesthesia reaction SLOW TO WAKE UP H/O shoulder surgery RT History of cystoscopy History of ERCP History of colonoscopy H/O inguinal hernia repair History of tooth extraction History of tonsillectomy Family History Other No family history of adverse response to anesthesia Social History (Updated 05/12/24 @ 13:03 by Dinah Howell LPN) Smoking Status: Unknown if ever smoked Tobacco Type: Cigarettes Age Quit Using Tobacco: 56; packs per day: 2; Second Hand Exposure: No; Do You Dip or Chew Tobacco: No; Hx Alcohol Use: No Hx Substance Use: No Preferred Language: Djiboutian Communication Ability: Effective Machine Packer Required: No Beliefs That Will Affect Care: None Current Living Situation: Spouse Feels Safe at Home: Yes Assistive Devices: Walker Review of Systems Review of Systems: Neg otherwise mentioned in HPI Physical Exam Physical Exam: GENERAL: Alert, intubated, responds appropriately, MV, fentanyl drip. Appears weak/frail/sick. HEENT: No pallor, no icterus. Pupils equal, round and reactive to light. Oral mucosa dry. NECK: No JVD, no neck masses. HEART: S1 and S2 heard. Regular rate and rhythm. No murmur, no gallop. RESPIRATORY SYSTEM: Normal AP diameter. No accessory muscle use. No wheezing, no crackles. severely decreased b/l breath sounds. ABDOMEN: Soft, bowel sounds present, nontender, no distention. CENTRAL NERVOUS SYSTEM: No facial droop. Obeys simple commands. Moves extremities. EXTREMITIES: No edema, no erythema seen. Results & Data Results & Data Vital Signs (Past 12 Hours) Vital Signs Temp Pulse Resp BP Pulse Ox O2 Del Method FiO2 10/20/24 13:40 124/92 10/20/24 13:35 87 24 126/97 100 Mechanical Vent 60 10/20/24 13:30 91 H 24 141/107 H 100 Mechanical Vent 60 10/20/24 13:30 141/107 H 10/20/24 13:20 118/91 10/20/24 13:15 127/95 10/20/24 13:10 89 24 124/92 100 Mechanical Vent 60 10/20/24 13:05 82 24 134/97 100 Mechanical Vent 60 10/20/24 13:00 35.6 C L 10/20/24 12:55 87 24 113/90 100 Mechanical Vent 60 10/20/24 12:50 127/93 10/20/24 12:45 95 H 24 124/95 100 Mechanical Vent 60 10/20/24 12:40 129/94 10/20/24 12:35 120/96 10/20/24 12:25 114/89 10/20/24 12:23 60 10/20/24 12:20 96 H 24 122/95 100 Mechanical Vent 60 10/20/24 12:15 98 H 24 131/107 H 100 Mechanical Vent 60 10/20/24 12:01 113 H 10/20/24 11:55 131/102 H 10/20/24 11:50 135/103 H 10/20/24 11:40 105 H 24 127/99 100 Mechanical Vent 100 10/20/24 11:30 122/96 10/20/24 11:25 113 H 24 117/86 100 Mechanical Vent 100 10/20/24 11:23 99 Mechanical Vent 10/20/24 11:20 117 H 24 104/77 100 Mechanical Vent 100 10/20/24 11:20 104 H 24 100 100 10/20/24 11:15 113/78 10/20/24 11:11 113 H 28 H 112/76 100 Mechanical Vent 100 10/20/24 11:11 100 Mechanical Vent 10/20/24 11:00 118 H 24 113/78 100 Ambu-Bag
--- OUTSIDE RECORDS SUMMARY | 2024-10-20 15:18 | External Medical Summary | Summary of Care ---
Author Name Unknown Organization [facility] Address [address] [place] [address] Phone [phone] Care Team Providers Care Animal Park Code Enforcement Officer Name Role Phone Kyler ABDUL MD, Mak Gibson Primary Care Provider [phone] Encounter Details Date Type Department Care Team (Late st Contact Info) Description 09/12/2024 Population Health External Data Unspecified Department Allergies Active Allergy Reactions Criticality Noted Date Comments Gadolinium Nausea/vomiting 08/08/2015 Noted during MRI in 2013. documented as of this encounter (statuses as of 09/12/2024) Medications VENTOLIN HFA 108 (90 BASE) MCG/ACT IN AERSIndications: Other dyspnea and respiratory abnormality inhale 2 puffs by mouth four times a day 1 Inhaler 11 06/08/20 13 Active MULTIVITAMINS PO CAPS 1 tab daily Active VITAMIN D3 2000 UNITS PO TABS daily Active oxygen GASIndications:C OPD, very severe (HCC) 2 LPM via NC with activity. Maintain saturations >+88% 1 Each 09/17/19 17 Active albuterol-ipratr opium (DUONEB) 2.5-0.5 MG/3ML nebulizer solutionIndicati ons:COPD exacerbation (HCC) 1-VIAL VIA NEBULIZER EVERY 6 HOURS NEEDED FOR SOB/COUGH/WHEEZE 120 Vial 4 09/18/19 17 Active doxazosin (CARDURA) 4 MG Tablet 1 TAB BY MOUTH AT BEDTIME 30 Tab 11 09/27/19 17 Active ARMOUR THYROID 30 MG Tablet 2 TABS (60MG) BY MOUTH EVERY DAY 60 Tab 1 09/26/19 17 Active Additional Information Patient taking differently: 60 mg Oral Daily(AM), Reported on 03/11/2024 SPIRIVA HANDIHALER 18 MCG inhalation Capsule INHALE THE CONTENTS OF ONE CAPSULE ORALLY EVERY DAY (BY TAKING 2-SEPARATE INHALATIONS VIA HANDIHALER DEVICE) 30 Cap 5 10/13/19 17 Active latanoprost (XALATAN) 0.005 % ophthalmic solution Instill 1 Drop into both eyes at bedtime. Active Fluticasone-Salm eterol 500-50 MCG/ACT Inhalation Aerosol Powder Breath Activated Inhale 1 Puff by mouth in the morning and 1 Puff before bedtime. 09/29/19 19 Active Ascorbic Acid 500 MG Oral Tablet 1 Tablet. 12/03/19 22 Active Naltrexone 4.5 MG OR Capsule Take by mouth 4.5 mg before bedtime. Active BiPAP every night at bedtime. Active predniSONE 20 MG Oral Tablet (Deltasone) 2 tablets by mouth daily for COPD exacerbation 10 Tablet 09/11/19 23 Active Additional Information Patient not taking.Reported on 03/11/2024 Azithromycin 250 MG Oral Tablet Take 1 Tablet by mouth once a day on Thursday, Thursday, and Thursday only. 6 Tablet 09/11/19 23 Active Furosemide 20 MG Oral Tablet (Lasix)Indicatio ns:SOB (shortness of breath),Edema, unspecified type Take one tablet daily on Thursday and Thursday. 30 Tablet 5 10/23/19 23 Active Additional Information Patient not taking.Reported on 03/11/2024 Acetylcysteine 600 MG Oral Capsule (NAC) Take 1 Capsule by mouth in the morning. 06/06/20 22 Active Clotrimazole 1 % External Cream (Lotrimin) APPLY APPLICATION TO SKIN TWICE A DAY NEEDED FOR FUNGAL INFECTION ON FEET AND ANKLES TO THE RED/IRRITATED/ITC HY AREAS UNTIL RESOLVED, THEN APPROX 48 HOURS MORE TO ENSURE ERADIFICATION INFECTION. FOR FUNGAL INFECTION ON FEET AND ANKLES TO THE RED/IRRITATED/ITC HY AREAS UNTIL RESOLVED, THEN APPROX 48 HOURS MORE TO ENSURE ERADIFICATION INFECTION. 06/06/20 Active dilTIAZem HCl ER Coated Beads 120 MG Oral Capsule Extended Release 24 Hour (Cartia XT)Indications:R BBB (right bundle branch block),Palpitati ons Take 1 Capsule by mouth in the morning. Every morning.. 90 Capsule 3 01/05/20 24 Active documented as of this encounter (statuses as of 09/12/2024) Active Problems Problem Noted Date Diagnosed Date Cyst of pancreas 10/16/2022 Primary open-angle glaucoma, bilateral, moderate stage 11/28/2021 Hypothyroidism 11/28/2021 Chronic hypoxemic respiratory failure 01/12/2019 Bronchiectasis without complication 01/12/2019 Overview (01/12/2019): LLL Protein calorie malnutrition 12/31/2016 Bullous emphysema 01/30/2015 Multiple lung nodules 04/01/2014 COPD, group D, by GOLD 2017 classification 03/09 Overview (12/29/2012): PER COPD PROTOCOL #24. LAST PFT -03/03/12 12/29/12 Nocturnal ox, RA -- low 85%, mean 91.7%, <89% 4.5 mins, CRISTAL 5 HISTORY OF TOBACCO USE BENIGN NEOPLASM LG BOWEL Overview (06/14/2007): Repeat in 2011 documented as of this encounter (statuses as of 09/12/2024) Resolved Problems Problem Noted Date Diagnosed Date Resolved Date Examination following surgery 04/16/2012 04/14/2019 Unilateral inguinal hernia 03/14/2012 0 04/14/2019 COPD, severe 03/09/2012 07/06/2012 Overview: PER COPD PROTOCOL #24. LAST PFT -03/03/12 Other specified pre-operative examination 03/09/2012 04/14/2019 documented as of this encounter (statuses as of 09/12/2024) Immunizations Name Administration Dates Next Due Pneumococcal Conjugate Vacc, 13 Valent (Prevnar) 07/05/2014 Pneumococcal Polysaccharide PPV23 (Pneumovax) ,01/11/2009 Seasonal Influenza Vac., MDV, IM, 0.5 mL (Fluzon e) 06/10/2012 Seasonal Influenza Virus Vac cine, Unspecified Formulation 06/10/2012 TDAP (age 10 and older)(Boostrix) 04/01/2022 04/01/2032 TDAP, Age 7 and older, IM (Adacel) 05/12/2007 documented as of this encounter Social History Tobacco Use Types Packs/Day Years Used Date Smoking Tobacco: Former Cigarettes 2 50 0 02/10/1963 - 02/10/2013 Smokeless Tobacco: Never Alcohol Use Standard [...] Recorded Sex Assigned at Not on file Legal Sex Male 5:56 AM EST Gender Identity Not on file Sexual Orientation Not on file 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 Not on file Not on file Not on file documented as of this encounter Plan of Treatment Upcoming Encounters Date Type Department Care Team (Late st Contact Info) Description 02/09/2025 2:30 PM EDT Office Visit Cardiology, [facility] [address] [place] [address] Miguel A Jaime, [address] [place] [address] Health Maintenance Due Date Last Done Comments Alpha-1 Antitrypsin 12/07/1963 Zoster Vaccines (1 of 2) 12/07/1995 Adult Wellness Visit 12/07/2011 Colonoscopy 07/21/2017 07/21/2012, 06/07/2007 Depression Screening 12/30/2017 12/30/2016 COVID-19 Vaccine ( season) 2024 Influenza Vaccine (FLU shot) (#1) 2024 06/10/2012, 06/10/2012 O2 ASSESSMENT COMPLETED IN PAST YEAR FOR COPD 03/11/2025 03/11/2024 DTap/Tdap Vaccines (3 - Td or Tdap) 04/01/2032 04/01/2022, 05/12/2007 RETIRED - COLONOSCOPY-EVERY 5 YRS AGES 18-100 Discontinued 07/21/2012, 06/07/2007 Pneumococcal Vaccine: 50+ Years Completed 12/30/2016, 07/05/2014, 01/11/2009 Lung Cancer Screening Completed 06/24/2019 , 09/24/2018, 07/05/2018, Additional history exists HPV (Gardasil) Vaccine Aged Out No lo nger eligible based on patient's age to complete this topic Hepatitis B Vaccine Aged Out No longe r eligible based on patient's age to complete this topic MENINGOCOCCAL (MENACTRA/MENVEO) Aged Out No longer eligible based on patient's age to complete this topic documented as of this encounter Medical Devices Implanted Type Area Loan Broker Device Identifier Shelf Expiration Date Model / Serial / Lot Mesh Max 3d R Med [id number] - [id number] Implanted:Qty: 1 on 03/31/2012 at [place] [facility] [place] [facility] [place]: Groin CR BARD : DAVOL 09/24/2016 [id number] / / [id number] documented as of this encounter Advance Directives Documents on File Type Date Recorded Patient Chief Operator Hydroformer Expl anation Power of Sludge Control Operator 02/17/2013 POWER OF A TTORNEY POA NOTICE * Full Code (Latest Code Status on File) Date Activated Date Inactivated Comments 03/31/2012 7:42 AM 03/31/2012 7:41 PM This order ref lects the patients wishes and were consensually agreed upon. Question Answer Comments Discussion of Advance Directives occurred with: Not Discussed Care Teams Animal Park Code Enforcement Officer Relationship Specialty Start Date End Date Mak Chávez III, MD [address] [place] [address] PCP - General 12/04/08 documented as of this encounter
--- OUTSIDE RECORDS SUMMARY | 2024-10-20 15:18 | External Medical Summary | Summary of Care ---
Author Name Unknown Organization [facility] Address [address] [facility] [place] [address] Phone [phone] Care Team Providers Care Rand Sewer Name Role Phone Kyler ABDUL MD, Mak Gibson Primary Care Provider [phone] Encounter Details Date Type Department Care Team (Late st Contact Info) Description 09/29/2024 Result Scan Unspecified Department Miguel A Jaime, [address] [place] [address] <No scans attached> Allergies Active Allergy Reactions Criticality Noted Date Comments Gadolinium Nausea/vomiting 08/08/2015 Noted during MRI in 2013. documented as of this encounter (statuses as of 09/29/2024) Medications VENTOLIN HFA 108 (90 BASE) MCG/ACT [...] morning. Every morning.. 90 Capsule 3 01/05/20 Active documented as of this encounter (statuses as of 09/29/2024) Active Problems Problem Noted Date Diagnosed Date [...] as of this encounter (statuses as of 09/29/2024) Resolved Problems Problem Noted Date Diagnosed Date Resolved Date Examination following surgery 04/16/2012 04/14/2019 Unilateral inguinal hernia 03/14/2012 0 04/14/2019 COPD, severe 03/09/2012 07/06/2012 Overview: PER COPD PROTOCOL #24. LAST PFT -03/03/12 Other specified pre-operative examination 03/09/2012 04/14/2019 documented as of this encounter (statuses as of 09/29/2024) Immunizations Name Administration Dates Next Due Pneumococcal [...] 02/09/2025 2:30 PM EDT Office Visit Cardiology, [facility] [address] [place] [address] Miguel A Jaime O, DO [address] [place] [address] Health Maintenance Due Date Last Done Comments [...] this encounter Medical Devices Implanted Type Area Manager Research And Development Device Identifier Shelf Expiration Date Model / Serial / Lot Mesh Max 3d Radius App Med [id number] - [id number] Implanted:Qty: 1 on 03/31/2012 at OR [facility] [place] Right: Groin CR BARD : DAVOL 09/24/2016 [id number] / / [id number] documented as of this encounter Procedures Procedure Name Priority Date/Time Associated Diagnosis Comments CARDIOLOGY SCANNED RESULT 09/29/2024 documented in this encounter Results * CARDIOLOGY SCANNED RESULT (09/29/2024) 09/29/2024 Miguel A Jaime DO OTHER Final Resul t documented in this encounter Advance Directives Documents on File Type Date Recorded Patient Supervisor Electron Tube Processing Expl anation Power of Delicatessen Goods Stock Clerk 02/17/2013 POWER OF A TTORNEY POA NOTICE * Full Code (Latest Code Status on File) Date Activated Date Inactivated Comments 03/31/2012 7:42 AM 03/31/2012 7:41 PM This order ref lects the patients wishes and were consensually agreed upon. Question Answer Comments Discussion of Advance Directives occurred with: Not Discussed Care Teams Rand Sewer Relationship Specialty Start Date End Date Mak Chávez III, MD [address] [facility] [address] PCP - General 12/04/08 documented as of this encounter
--- OUTSIDE RECORDS SUMMARY | 2024-10-20 15:18 | External Medical Summary | Summary of Care ---
Author Name Unknown Organization [facility] Address [address] [facility] [place] [address] Phone [phone] Care Team Providers Care Ground Instructor Basic Name Role Phone Kyler ABDUL MD, Mak Gibson Primary Care Provider [phone] Encounter Details Date Type Department Care Team (Late st Contact Info) Description 07/01/2024 Result Scan Unspecified Department Miguel A Jaime, [address] [place] [address] <No scans attached> Allergies Active Allergy Reactions Criticality Noted Date Comments Gadolinium Nausea/vomiting 08/08/2015 Noted during MRI in 2013. documented as of this encounter (statuses as of 07/01/2024) Medications VENTOLIN HFA 108 (90 BASE) MCG/ACT [...] as of this encounter (statuses as of 07/01/2024) Active Problems Problem Noted Date Diagnosed Date [...] as of this encounter (statuses as of 07/01/2024) Resolved Problems Problem Noted Date Diagnosed Date Resolved Date Examination following surgery 04/16/2012 04/14/2019 Unilateral inguinal hernia 03/14/2012 0 04/14/2019 COPD, severe 03/09/2012 07/06/2012 Overview: PER COPD PROTOCOL #24. LAST PFT -03/03/12 Other specified pre-operative examination 03/09/2012 04/14/2019 documented as of this encounter (statuses as of 07/01/2024) Immunizations Name Administration Dates Next Due Pneumococcal [...] in the Last Year Never true 04/06/2020 Utilities Answer Date Recorded Do you have trouble paying y our heating, water, or electric bill? (Adult - for ages 18 years and over) Not on file 02/09/2024 Is your family able to pay t he heat, water, or electric bill? (Household - for ages 0-17 years) Not on file 02/09/2024 Does your family have access to good internet? (Household - for ages 0-17 years) Not on file 02/09/2024 Social Connections Answer Date Recorded How often do you feel lonely or isolated from those around you? (Adult - for ages 18 years and over) Not on file 02/09/2024 Sex and Gender Information Value Date Recorded [...] 02/09/2025 2:30 PM EDT Office Visit Cardiology, [facility] [address] [place] [address] Miguel A Jaime DO [address] [place] [address] Health Maintenance Due Date Last Done Comments [...] AGES 18-100 Discontinued 07/21/2012, 06/07/2007 Pneumococcal Vaccine: 65+ Years Completed 12/30/2016, 07/05/2014, 01/11/2009 Lung Cancer [...] this encounter Medical Devices Implanted Type Area Upholstery Bundler Device Identifier Shelf Expiration Date Model / Serial / Lot Mesh Max 3d Med [id number] - [id number] Implanted:Qty: 1 on 03/31/2012 at [place] [facility] [place] Right: Groin CR BARD : DAVOL 09/24/2016 [id number] / / [id number] documented as of this encounter Procedures Procedure Name Priority Date/Time Associated Diagnosis Comments CARDIOLOGY SCANNED RESULT 07/01/2024 documented in this encounter Results * CARDIOLOGY SCANNED RESULT (07/01/2024) 07/01/2024 us Miguel A Jaime DO OTHER Final Resul t documented in this encounter Advance Directives Documents on File Type Date Recorded Patient Case Management Director Expl anation Power of Diplomatic Interpreter/Translator 02/17/2013 POWER OF A TTORNEY POA NOTICE * Full Code (Latest Code Status on File) Date Activated Date Inactivated Comments 03/31/2012 7:42 AM 03/31/2012 7:41 PM This order ref lects the patients wishes and were consensually agreed upon. Question Answer Comments Discussion of Advance Directives occurred with: Not Discussed Care Teams Ground Instructor Basic Relationship Specialty Start Date End Date Mak Chávez III, MD [address] [place] [address] PCP - General 12/04/08 documented as of this encounter
[2024-10-20 16:09] LABS: iSTAT Allen Test Pass; iSTAT Art Bld Gas pCO2 Correct 48 mmHg (35-46); iSTAT Arterial Blood Gas HCO3 26 meg/L (19-24); iSTAT Arterial Blood Gas pCO2 47 mmHg (35-46); iSTAT Arterial Blood Gas pH 7.34 (7.35-7.45); iSTAT Arterial Blood Gas pO2 167 mmHg (80-95); iSTAT Arterial Blood Gas pO2 C 168; iSTAT Carbon Dioxide 27 mmol/L (24-31); iSTAT FiO2 60 %; iSTAT Hematocrit 41 % (42-52); iSTAT Hemoglobin 13.9 g/dl (14.0-18.0); iSTAT Potassium 4.6 mmol/L (3.3-5.0); iSTAT Sample Type Arterial; iSTAT Site L Radial; iSTAT Sodium 136 mmol/L (135-144); iSTAT SpO2 100
[2024-10-20 16:25] LABS: Base Excess VBG 0.8 mEq/L; HCO3 VBG 30 mmol/L; Oxygen Saturation VBG < 60.0 %; PCO2 VBG 68 mmHg (38-50); PO2 VBG 21 mmHg; pH VBG 7.25 (7.36-7.41)
[2024-10-20 16:27] LABS: Hematocrit (blood only) 43.5 % (42.0-52.0); Hemoglobin 13.5 g/dl (14.0-18.0); Mean Corpuscular Hemoglobin 30.8 pg (25.0-34.0); Mean Corpuscular Volume 99.1 fL (80.0-100.0); Mean Platelet Volume 9.4 fL (9.4-12.4); Platelet Count 254 K/uL (130-400); RDW Coefficient of Variation 13.5 % (11.5-14.5); RDW Standard Deviation 49.3 fL (36.4-46.3); Red Blood Count 4.39 M/uL (4.70-6.10); White Blood Count 15.44 K/ul (4.8-10.8)
[2024-10-20] MEDS: DOXYCYCLINE HYCLATE 100 MG in DEXTROSE 5% MINI-B 100 ML IV ONE (16:35)
[2024-10-20] MEDS: PANTOprazole 40 MG/10 ML SYR IV ONE (16:35)
[2024-10-20 16:43] LABS: Basophils # (auto) 0.03 K/uL (0.00-0.20); Basophils % (auto) 0.2 %; Eosinophils # (auto) 0.01 K/uL (0.00-0.50); Eosinophils % (auto) 0.1 %; Immature Granulocytes % (auto) 0.6 %; Lymphocytes # (auto) 0.31 K/uL (1.20-3.40); Monocytes # (auto) 0.31 K/uL (0.11-0.59); Neutrophils # (auto) 14.68 K/uL (1.40-6.50); Neutrophils % (auto) 95.1 %
[2024-10-20] MEDS: STAT IV Infusion **Titration per Protocol STA (16:57)
[2024-10-20] MEDS: ICU Protocol for HYPERglycemia SCH ×2 (16:58→18:48)
[2024-10-20] MEDS ORDERED: methylPREDNISolone 125 MG/2 ML VIAL IV SCH (17:00)
[2024-10-20] MEDS ORDERED: PEPTAMEN 1.5 CAL 1,000 ML BAG OG SCH (17:30)
[2024-10-20] MEDS: methylPREDNISolone 40 MG in SYRINGE 0 ML IV SCH (17:59)
[2024-10-20] MEDS: TUBE FEEDING WATER FLUSH OG SCH (18:15)
[2024-10-20] MEDS: FORMOTEROL 20 MCG/2 ML VIAL NEB SCH (19:48)
[2024-10-20] MEDS: BUDESONIDE 0.5 MG/2 ML VIAL (PULMICORT) NEB SCH (19:48)
[2024-10-20] MEDS: PIPERACILLIN/TAZOBACTAM 4.5 GM/100 ML BAG IV SCH (20:46)
[2024-10-20] MEDS: HEPARIN SOD 5,000 UNIT/0.5 ML VIAL SQ SCH (20:46)
--- NOTE | 2024-10-20 21:05 | XRay Report ---
EXAM: XR KUB/Abdomen 1 view CLINICAL HISTORY: Eval OG tube placement TECHNIQUE: X-ray images of the upper abdomen were obtained. COMPARISON: No prior studies available for comparison. FINDINGS: Nasogastric tube is seen within the stomach. Suspected bilateral pleural effusions and ill-defined pulmonary opacities. No definite evidence of intestinal obstruction at the time of examination. IMPRESSION: Nasogastric tube within the stomach. Electronically signed by Sourav Yoo 10-20-2024 9:04 PM
[2024-10-20] MEDS: ALBUT/IPRATROP 3MG/0.5MG NEB 3 ML VIAL NEB SCH (21:23)
[2024-10-20] MEDS: SODIUM CHLORIDE 0.9% 500 ML IV ONE (21:50)
[2024-10-21] MEDS: TUBE FEEDING WATER FLUSH OG SCH (00:50)
[2024-10-21] MEDS: SODIUM CHLORIDE 0.9% 250 ML IV ONE (01:24)
[2024-10-21] MEDS: SODIUM CHLORIDE 0.9% 500 ML IV SCH (01:50)
[2024-10-21] MEDS: DOXYCYCLINE HYCLATE 100 MG in DEXTROSE 5% MINI-B 100 ML IV SCH (03:12)
[2024-10-21 04:48] LABS: Hematocrit (blood only) 39.1 % (42.0-52.0); Hemoglobin 12.7 g/dl (14.0-18.0); Mean Corpuscular Hemoglobin 31.4 pg (25.0-34.0); Mean Corpuscular Hgb Conc 32.5 g/dL (32.0-36.0); Mean Corpuscular Volume 96.8 fL (80.0-100.0); Mean Platelet Volume 9.6 fL (9.4-12.4); Platelet Count 242 K/uL (130-400); RDW Coefficient of Variation 13.7 % (11.5-14.5); Red Blood Count 4.04 M/uL (4.70-6.10); White Blood Count 12.72 K/ul (4.8-10.8)
[2024-10-21 04:58] LABS: BUN Creatinine Ratio 47.6 (10-20); Calcium 7.8 mg/dl (8.6-10.3); Creatinine Clr Calc Pharmacy 77.8 ml/min; Magnesium 1.9 mg/dl (1.7-2.4); Phosphorus 3.3 mg/dl (2.5-4.9); Potassium 4.2 mmol/L (3.5-5.1)
[2024-10-21] MEDS ORDERED: STAT IV Infusion **Titration per Protocol STA ×2 (06:04→11:14)
[2024-10-21] MEDS: NOREPINEPHRINE/D5W 4 MG/250 ML PLCT IV SCH (06:10)
[2024-10-21] MEDS ORDERED: POLYETHYLENE (MIRALAX) 17 GM PACK PO PRN (07:29)
--- NOTE | 2024-10-21 07:30 | Hospitalist Progress Note ---
Date of Service October 21, 2024 Assessment & Plan (1) COPD (chronic obstructive pulmonary disease): Plan Mr. Thompson is a 78-year-old male with PMH of chronic hypoxemic respiratory failure on 2.5 L oxygen at home, group D COPD, bullous emphysema, bronchiectasis, multiple lung nodules, hypothyroidism, protein calorie malnutrition was brought in the ED due to worsening shortness of breath more so in the last 2 days and was intubated 2/2 COPD with superimposed pneumonia. Patient extubated to bipap today and required precedex 2/2 anxiety. Palliative consulted at this time. Patient to remain full code. Per palliative, wishes to continue current management with possibility of reintubation. She does not wish for comfort measures at this time. #Ventilator dependent resp failure, SBT with extubation to NIV #Acute on chronic hypoxic, hypercapnic resp failure 2/2 COPD with superimposed pneumonia Imaging reviewed, CT head negative for acute finding. CXR suggestive of left- sided pneumonia. Holding AZT MWF, plans to resume as appropriate Continue doxycycline and zosyn Pressors per ICU Remains on solumedrol 40mg q8h Extubated 10/21 to NIV Palliative consulted given guarded prognosis iso end stage copd #Metabolic encephalopathy delirium precautions currently on precedex #Protein calorie malnutrition: Per pt's , patient has very poor appetite that he lives off of nutritional drink. Consult dietitian #pulmonary nodules #Prior tobacco use 5mmm BLANCHE nodule no longer active, 80 py Other chronic medical conditions: Hypothyroidism,Protein calorie malnutrition----- continue with/resume home meds as and when able. #Hypertension hold home meds #Hypothyroidism continue home med Sedation/analgeisa: precedex Pressor: Norepi Tube feeds ongoing HOB 30 degrees Bowel regimen prn GI PPX IV Protonix Heparin q 12 Admission and Anticipated Discharge Date Admission Date: October 20, 2024 Subjective patient on Precedex and arousable to verbal stimuli Family at bedside currently on BiPAP asking multiple questions about prognosis over 24 hours, reiterated that prognosis is guarded Physical Exam Constitutional: toleratiing bipap on exam, on Precedex, cachectic Respiratory: diminished bilaterally , 2/2 effort Cardiovascular: RRR, no murmur, no edema Gastrointestinal (Abdomen): normal bowel sounds, soft, nontender, no hepatosplenomegaly Results & Data Results & Data Vital Signs (Past 12 Hours) Vital Signs Temp Pulse Pulse Resp BP Pulse Ox O2 Del Method 10/21/24 06:36 37.5 C 92 H 20 104/71 97 10/21/24 06:16 91/66 L 10/21/24 06:16 91/66 L 10/21/24 06:16 91/66 L 10/21/24 06:15 37.5 C 94 H 20 98 10/21/24 06:12 37.5 C 95 H 20 97 10/21/24 06:09 37.5 C 97 H 20 98 10/21/24 06:04 79/56 L 10/21/24 06:00 80/56 L 10/21/24 06:00 37.6 C H 96 H 20 96 10/21/24 05:51 37.6 C H 97 H 20 97 10/21/24 05:48 37.6 C H 95 H 20 97 10/21/24 05:18 37.5 C 97 H 20 98 10/21/24 05:00 37.5 C 96 H 20 99 10/21/24 05:00 90/64 L 10/21/24 05:00 90/64 L 10/21/24 05:00 90/64 L 10/21/24 04:54 37.5 C 99 H 20 98 10/21/24 04:30 37.5 C 101 H 20 98 10/21/24 04:29 80 24 99 10/21/24 04:15 37.5 C 102 H 20 98 10/21/24 04:00 101/70 10/21/24 04:00 101/70 10/21/24 04:00 10/21/24 03:42 37.6 C H 99 H 20 98 10/21/24 03:21 37.6 C H 101 H 20 98 10/21/24 03:05 98/71 L 10/21/24 03:05 98/71 L 10/21/24 02:42 37.5 C 92 H 20 99 10/21/24 02:30 37.4 C 87 20 99 10/21/24 02:15 37.4 C 80 20 99 10/21/24 02:00 37.3 C 117 H 20 100 10/21/24 02:00 112/79 10/21/24 02:00 112/79 10/21/24 02:00 112/79 10/21/24 01:57 37.3 C 81 20 100 10/21/24 01:36 37.5 C 77 20 100 10/21/24 01:15 37.6 C H 79 20 99 10/21/24 01:02 84 24 99 10/21/24 01:00 87/63 L 10/21/24 01:00 87/63 L 10/21/24 01:00 87/63 L 10/21/24 01:00 37.6 C H 80 20 99 10/21/24 00:32 82 10/21/24 00:30 37.7 C H 82 20 98 10/21/24 00:00 10/20/24 23:54 37.6 C H 81 20 88/64 L 98 Mechanical Vent 10/20/24 23:42 37.6 C H 83 20 99 10/20/24 23:36 37.6 C H 84 20 99 10/20/24 23:03 37.6 C H 87 20 100 10/20/24 23:00 99/69 L 10/20/24 23:00 99/69 L 10/20/24 22:57 37.6 C H 87 20 100 10/20/24 22:33 37.7 C H 84 20 98 10/20/24 22:00 38.0 C H 83 20 100 10/20/24 22:00 89/64 L 10/20/24 22:00 89/64 L 10/20/24 22:00 89/64 L 10/20/24 21:52 24 10/20/24 21:36 38.1 C H 83 20 100 10/20/24 21:34 Mechanical Vent 10/20/24 21:03 38.0 C H 84 20 100 10/20/24 21:00 103/74 10/20/24 21:00 103/74 10/20/24 21:00 103/74 10/20/24 20:54 38.0 C H 87 20 100 10/20/24 20:39 38.0 C H 84 20 99 10/20/24 20:30 85 24 98 Mechanical Vent 10/20/24 20:24 38.1 C H 89 20 100 10/20/24 20:00 10/20/24 20:00 97/68 L 10/20/24 19:57 38.1 C H 84 20 100 10/20/24 19:30 38.0 C H 83 20 99 FiO2 10/21/24 06:36 10/21/24 06:16 10/21/24 06:16 10/21/24 06:16 10/21/24 06:15 10/21/24 06:12 10/21/24 06:09 10/21/24 06:04 10/21/24 06:00 10/21/24 06:00 10/21/24 05:51 10/21/24 05:48 10/21/24 05:18 10/21/24 05:00 10/21/24 05:00 10/21/24 05:00 10/21/24 05:00 10/21/24 04:54 10/21/24 04:30 10/21/24 04:29 60 10/21/24 04:15 10/21/24 04:00 10/21/24 04:00 10/21/24 04:00 35 10/21/24 03:42 10/21/24 03:21 10/21/24 03:05 10/21/24 03:05 10/21/24 02:42 10/21/24 02:30 10/21/24 02:15 10/21/24 02:00 10/21/24 02:00 10/21/24 02:00 10/21/24 02:00 10/21/24 01:57 10/21/24 01:36 10/21/24 01:15 10/21/24 01:02 60 10/21/24 01:00 10/21/24 01:00 10/21/24 01:00 10/21/24 01:00 10/21/24 00:32 10/21/24 00:30 10/21/24 00:00 35 10/20/24 23:54 35 10/20/24 23:42 10/20/24 23:36 10/20/24 23:03 10/20/24 23:00 10/20/24 23:00 10/20/24 22:57 10/20/24 22:33 10/20/24 22:00 10/20/24 22:00 10/20/24 22:00 10/20/24 22:00 10/20/24 21:52 60 10/20/24 21:36 10/20/24 21:34 35 10/20/24 21:03 10/20/24 21:00 10/20/24 21:00 10/20/24 21:00 10/20/24 20:54 10/20/24 20:39 10/20/24 20:30 60 10/20/24 20:24 10/20/24 20:00 35 10/20/24 20:00 10/20/24 19:57 10/20/24 19:30 Laboratory Results Short CBC 10/20/24 10/21/24 Range/Units 16:09 03:50 WBC 15.44 H 12.72 H (4.8-10.8) K/ul Hgb 13.5 L 12.7 L (14.0-18.0) g/dl Hct 43.5 39.1 L (42.0-52.0) % Plt Count 254 242 (130-400) K/uL BMP 10/20/24 10/21/24 11:47 03:50 Sodium 136 137 Potassium 5.0 4.2 Chloride 97 L 102 Carbon Dioxide 33 H 25 BUN 23 30 H Creatinine 0.58 L 0.63 Glucose 128 H 161 H Calcium 9.4 7.8 L Liver Function 10/20/24 Range/Units 11:47 Total Bilirubin 0.4 (0.2-1.0) mg/dl AST 37 (13-39) U/L ALT 21 (7-52) U/L Alkaline Phosphatase 83 (34-104) U/L Albumin 3.8 (3.4-5.0) gm/dl Urine 10/20/24 Range/Units 12:39 Urine Color Dark Yellow Urine Appearance Cloudy A (Clear) Urine pH 5.5 (4.5-7.5) Ur Specific [place] 1.020 (1.000-1.030) Urine Protein 2+ H (Negative) Urine Glucose (UA) Negative (Negative) Medications Administered Home Medications Medication Instructions Recorded Confirmed Last Taken azithromycin 250 mg tablet 250 mg PO 3XWK #1 tab 03/31/19 10/20/24 08/24/23 ipratropium 0.5 mg-albuterol 3 mg 3 ml inhalation Q4H PRN SOB #6 mL 08/08/19 02/27/25 01/01/24 (2.5 mg base)/3 mL nebulization soln thyroid (pork) 60 mg tablet 60 mg PO UD 03/31/19 10/20/24 08/25/23 tiotropium bromide 18 mcg capsule 1 cap inhalation UD #1 inh 03/31/19 10/20/24 08/25/23 with inhalation device fluticasone 500 mcg-salmeterol 50 1 puffs inhalation BID #60 ea 08/01/19 10/20/24 08/25/23 mcg/dose blistr powdr for inhalation (Advair Diskus) doxazosin 4 mg tablet 4 mg PO QPM 12/02/21 10/20/24 08/24/23 latanoprost 0.005 % eye drops 1 drp OPL HS 12/02/21 10/20/24 08/24/23 diltiazem HCl 120 mg 120 mg PO DAILY 08/25/23 10/20/24 08/21/23 capsule,extended release 24 hr (Cartia XT) furosemide 20 mg tablet 20 mg PO DAILY PRN edema 08/25/23 10/20/24 3 Weeks Ago ~08/04/23 naltrexone 4.5 mg capsule 4.5 mg PO UD 08/25/23 10/20/24 08/24/23 ascorbic acid (vitamin C) 500 mg 1 g PO DAILY 05/12/24 10/20/24 Unknown tablet (Vitamin C) cholecalciferol (vitamin D3) 25 5,000 unit PO Q7D 05/12/24 10/20/24 Unknown mcg (1,000 unit) tablet Active Medications Generic Name Dose Route Start Last Admin Trade Name Rcq PRN Reason Stop Dose Admin Albuterol 3 ml 10/20/24 19:10/21/24 07:03 Albut/Ipratrop 3mg/0.5mg Neb 3 Ml Vial NEB 11/19/24 18:59 Not Given Q6R JERONIMO Protocol Budesonide 0.5 mg 10/20/24 19:00 10/21/24 07:04 Budesonide 0.5 Mg/2 Ml Vial (Pulmicort) NEB 11/19/24 18:59 0.5 mg BIDR JERONIMO Administration Fentanyl Citrate 50 mcg 10/20/24 12:01 10/20/24 12:48 Fentanyl Citrate Pf 100 Mcg/2 Ml Vial IV 11/03/24 12:00 50 mcg Q1H PRN Administration Pain Fentanyl Citrate 50 mcg 10/20/24 13:13 10/20/24 14:12 Fentanyl Bolus From Bag IV 11/03/24 13:12 50 mcg Q60M PRN Administration Pain or Agitation Formoterol Fumarate 20 mcg 10/20/24 19:00 10/21/24 07:04 Formoterol 20 Mcg/2 Ml Vial NEB 11/19/24 18:59 20 mcg BIDR JERONIMO Administration Heparin Sodium (Porcine) 5,000 units 10/20/24 21:00 10/20/24 20:46 Heparin Sod 5,000 Unit/0.5 Ml Vial SQ 11/19/24 20:59 5,000 units Q12 JERONIMO Administration Fentanyl Citrate 2,500 mcg in 250 mls @ 2.5 mls/hr 10/20/24 13:15 10/21/24 07:10 Fentanyl Citrate IV 11/03/24 13:14 25 mcg/hr .Q96H JERONIMO 2.5 mls/hr Titration Protocol 25 MCG/HR Piperacillin Sod/Tazobactam Sod 4.5 gm in 100 mls @ 25 mls/hr 10/20/24 20:00 10/21/24 03:12 Zosyn IV 10/25/24 19:59 25 mls/hr Q8H JERONIMO Administration Protocol Doxycycline Hyclate 100 mg/ 100 mls @ 50 mls/hr 10/21/24 04:00 10/21/24 05:12 Dextrose IV 10/26/24 03:59 Infused Q12H JERONIMO Infusion Methylprednisolone 40 mg/ 0.64 mls @ 1.5 mls/min 10/20/24 17:00 10/21/24 00:50 Syringe IV 11/19/24 16:59 1.5 mls/min Q8H JERONIMO Administration Norepinephrine Bitartrate 4 mg in 250 mls @ 10.669 mls/hr 10/21/24 06:15 10/21/24 07:10 Levophed/D5w IV 11/20/24 06:14 0.05 mcg/kg/min .[id number] JERONIMO 10.7 mls/hr Titration Protocol 0.05 MCG/KG/MIN Miscellaneous 1 each 10/20/24 18:00 10/21/24 06:03 Icu Protocol For Hyperglycemia N/A 10/22/24 17:59 Not Given Q6H JERONIMO Sterile Water 200 ml 10/21/24 01:30 10/21/24 06:02 Tube Feeding Water Flush OG 11/20/24 01:29 200 ml Q4H JERONIMO Administration
[2024-10-21] MEDS: dilTIAZem HCL 120 MG CAPCR PO SCH (07:51)
[2024-10-21] MEDS: PANTOprazole 40 MG/10 ML SYR IV SCH (08:08)
[2024-10-21] MEDS: ARMOUR THYROID 30 MG TAB PO SCH (08:08)
[2024-10-21] MEDS: MULTI VIT W/MINERALS LIQUID 15 ML UDC NG SCH (08:08)
--- NOTE | 2024-10-21 08:20 | XRay Report ---
EXAM: XR chest 1V portable CLINICAL HISTORY: Eval lines/tubes/lung ji. TECHNIQUE: An X-ray image of the chest is obtained in AP projection. COMPARISON: No prior studies are available for comparison. FINDINGS: An endotracheal tube is noted, its inferior tip is 5.8 cm above the suyapa. NG tube seen is seen with it;'s tube in normal position. Pulmonary Parenchyma: Bilateral middle and lower zonal ill-defined alveolar faint opacity. Left lung upper zone cotton fluffy radio opaque patches, likely pneumonic. Right basal radio opaque patch likely pneumonic. No evidence of right pleural effusion while left side can not be evaluated. Heart and Mediastinum: Heart size and shape are normal. No mediastinal widening or masses. No hilar or mediastinal lymphadenopathy. Bony Thorax: Bony thorax appears intact without fractures or deformities. Soft Tissues: Left sided dual leads pacemaker is noted. IMPRESSION: 1. An endotracheal tube is noted, its inferior tip is 5.8 cm above the suyapa. 2. NG tube seen is seen with it;'s tube in normal position. 3. Bilateral middle and lower zonal ill-defined alveolar faint opacity. 4. Left lung upper zone fluffy radio opaque patches, likely pneumonic. 5. Right basal radio opaque patch, likely pneumonic. 6. Clinical lab correlation and follow-up is advised. Electronically signed by Sourav Yoo 10-21-2024 08:20 AM
--- NOTE | 2024-10-21 09:08 | Critical Care Progress Note ---
Date of Service October 21, 2024 Assessment & Plan (1) Pneumonia: (2) Acute on chronic respiratory failure with hypoxia and hypercapnia: (3) End stage COPD: (4) Lung nodules: (5) COPD (chronic obstructive pulmonary disease): (6) BPH (benign prostatic hyperplasia): (7) Hypothyroidism: (8) On home oxygen therapy: Plan Reason Critically Ill: 78-year-old male coming to pulmonary for COPD. He was intubated in the ER Past medical history: BPH, end-stage COPD Patient was last seen by me in the clinic on 05/12/2024 Neuro - [facility] ICU: Unable to assess Continue with sedation with propofol and fentanyl Cardiac - -- History of hypertension Continue to hold home blood pressure medication Respiratory - CT chest 06/24/2019 personally reviewed: Bilateral apical pleural scarring Severe centrilobular and paraseptal emphysema appreciated bilaterally Left upper lobe peripheral 5 mm pulmonary nodule No significant mediastinal lymphadenopathy -- VDRF Likely secondary to acute on chronic hypercapnic hypoxic respiratory failure with left upper lobe pneumonia Continue with ventilatory support Keep RASS -1 Daily sedation holidays and SBT's Continue with antibiotics -- COPD with emphysema Gold E End-stage COPD At home on Advair 500-50 puff twice a day along with Spiriva On azithromycin Giysxy-[id number]-[id number] at home EKG 05/12/2024 QTc 424 with atrial sensed ventricular paced rhythm Spirometry 09/16/2016 personally reviewed: Very severe obstructive lung dysfunction, insignificant bronchodilator response FVC 2.08 L 43%, FEV1 0.75 L 21%, FEV1/FVC 36%, -- Pulmonary nodule Largest being 5 mm in the left upper lobe Patient understand that he has end-stage COPD and he would not like to monitor her survey the pulmonary nodules --Ex-smoker [id number] smoking history Quit in 2011 GI - -- No acute issues RENAL/LYTES - -- Monitor BUNs/creatinine Avoid nephrotoxic medication ENDO - --Hypothyroidism Continue with home thyroid replacement medication -- ICU hyperglycemia protocol HEME - -- Normocytic anemia Monitor H&H ID - -- Left upper lobe pneumonia Procalcitonin 0.27, nasal MRSA negative Respiratory BioFire negative for everything on 10/20/2024 --Prophylaxis VTE: Heparin GI: Pantoprazole Lines: Peripheral Diet: Tube feeds Plan: In/out, +3.5 L, urine output 295 AB.39/39/93 on 35%, PEEP of 5 Magnesium being replaced Continue with antibiotics SBT today Overall prognosis remains to be guarded given end-stage COPD All questions and queries of the patient as well as patient's were answered in depth I have personally spent 40 minutes of critical care time in the direct management of this patient. This is a life/limb threatening event. This includes time spent evaluating patient, direct bedside care, chart review, placing orders, interpretation of diagnostic studies, discussion with consultants, patient, and family members, as well as other required patient management activities. This time is exclusive of all separately billable procedures, and teaching time and separate from and in addition to any other critical care service time. Admission and Anticipated Discharge Date Admission Date: October 20, 2024 Subjective Patient seen and examined at bedside. No acute distress, no adverse events overnight He was on 25 of fentanyl, answering all the questions appropriately Denied any chest pain, no abdominal pain Patient's family was also at bedside Review of Systems 2 Review of Systems: All systems reviewed & are unremarkable except as noted in Subjective Physical Exam 2 Physical Exam: Constitutional: No acute distress, frail-appearing HEENT: PERRLA Respiratory system: Decreased air entry bilaterally, no wheeze, no rhonchi, positive crackles bilateral lower lobes CVS: S1-S2 positive, no murmurs or gallops Abdomen: Soft, nontender, nondistended, positive bowel sounds x4 Extremities: +2 pulses bilaterally radialis, no cyanosis, +1 pitting edema bilateral lower extremity Neuro: Intubated, answering all the questions appropriately by nodding head, moving extremities purposefully Psych:Unable to assess G/U: Positive [place] Skin: no rashes, warm and dry Lymphatic: no cervical or axillary lymphadenopathy Results & Data Results & Data Vital Signs (Past 12 Hours) Vital Signs Temp Pulse Resp BP Pulse Ox O2 Del Method FiO2 10/21/24 08:32 Mechanical Vent 35 10/21/24 08:30 115/79 10/21/24 08:27 37.8 C H 98 H 20 97 Mechanical Vent 0.35 10/21/24 08:15 114/78 10/21/24 08:15 114/78 10/21/24 08:09 37.7 C H 96 H 20 98 10/21/24 08:03 37.7 C H 96 H 20 98 10/21/24 08:00 111/77 10/21/24 08:00 111/77 10/21/24 08:00 35 10/21/24 07:48 37.7 C H 90 20 98 10/21/24 07:45 102/76 10/21/24 07:36 37.6 C H 93 H 20 98 10/21/24 07:33 37.6 C H 94 H 20 98 10/21/24 07:30 103/73 10/21/24 07:21 37.6 C H 94 H 20 98 10/21/24 07:15 119/85 10/21/24 07:10 99 H 20 98 35 10/21/24 07:06 37.6 C H 93 H 20 97 10/21/24 07:00 109/79 10/21/24 06:36 37.5 C 92 H 20 104/71 97 10/21/24 06:16 91/66 L 10/21/24 06:16 91/66 L 10/21/24 06:16 91/66 L 10/21/24 06:15 37.5 C 94 H 20 98 10/21/24 06:12 37.5 C 95 H 20 97 10/21/24 06:09 37.5 C 97 H 20 98 10/21/24 06:04 79/56 L 10/21/24 06:00 80/56 L 10/21/24 06:00 37.6 C H 96 H 20 96 10/21/24 05:51 37.6 C H 97 H 20 97 10/21/24 05:48 37.6 C H 95 H 20 97 10/21/24 05:18 37.5 C 97 H 20 98 10/21/24 05:00 37.5 C 96 H 20 99 10/21/24 05:00 90/64 L 10/21/24 05:00 90/64 L 10/21/24 05:00 90/64 L 10/21/24 04:54 37.5 C 99 H 20 98 10/21/24 04:30 37.5 C 101 H 20 98 10/21/24 04:29 80 24 99 60 10/21/24 04:15 37.5 C 102 H 20 98 10/21/24 04:00 101/70 10/21/24 04:00 101/70 10/21/24 04:00 35 10/21/24 03:42 37.6 C H 99 H 20 98 10/21/24 03:21 37.6 C H 101 H 20 98 10/21/24 03:05 98/71 L 10/21/24 03:05 98/71 L 10/21/24 02:42 37.5 C 92 H 20 99 10/21/24 02:30 37.4 C 87 20 99 10/21/24 02:15 37.4 C 80 20 99 10/21/24 02:00 37.3 C 117 H 20 100 10/21/24 02:00 112/79 10/21/24 02:00 112/79 10/21/24 02:00 112/79 10/21/24 01:57 37.3 C 81 20 100 10/21/24 01:36 37.5 C 77 20 100 10/21/24 01:15 37.6 C H 79 20 99 10/21/24 01:02 84 24 99 60 10/21/24 01:00 87/63 L 10/21/24 01:00 87/63 L 10/21/24 01:00 87/63 L 10/21/24 01:00 37.6 C H 80 20 99 10/21/24 00:32 82 10/21/24 00:30 37.7 C H 82 20 98 10/21/24 00:00 35 10/20/24 23:54 37.6 C H 81 20 88/64 L 98 Mechanical Vent 35 10/20/24 23:42 37.6 C H 83 20 99 10/20/24 23:36 37.6 C H 84 20 99 10/20/24 23:03 37.6 C H 87 20 100 10/20/24 23:00 99/69 L 10/20/24 23:00 99/69 L 10/20/24 22:57 37.6 C H 87 20 100 10/20/24 22:33 37.7 C H 84 20 98 10/20/24 22:00 38.0 C H 83 20 100 10/20/24 22:00 89/64 L 10/20/24 22:00 89/64 L 10/20/24 22:00 89/64 L 10/20/24 21:52 24 60 10/20/24 21:36 38.1 C H 83 20 100 10/20/24 21:34 Mechanical Vent 35 Laboratory Results 10/21/24 03:50 10/21/24 03:50 Coding Level of Care Code 06342 CRITICAL CARE 1ST 30-74M Diagnoses Pneumonia J18.9 Laterality: left Lung location: unspecified part of lung Pneumonia type: due to unspecified organism Acute on chronic respiratory failure with hypoxia and hypercapnia J96.21; J96.22 End stage COPD J44.9 Lung nodules R91.8 COPD (chronic obstructive pulmonary disease) J44.9 BPH (benign prostatic hyperplasia) N40.0 Hypothyroidism E03.9 On home oxygen therapy Z99.81 (1) Pneumonia Laterality: left Lung location: unspecified part of lung Pneumonia type: due to unspecified organism Qualified Code(s): J18.9 - Pneumonia, unspecified organism
[2024-10-21 09:35] LABS: iSTAT Allen Test Pass; iSTAT Art Bld Gas pCO2 Correct 40 mmHg (35-46); iSTAT Art Bld Gas pH Corrected 7.382 (7.35-7.45); iSTAT Arterial Blood Gas HCO3 24 meg/L (19-24); iSTAT Arterial Blood Gas pCO2 39 mmHg (35-46); iSTAT Arterial Blood Gas pH 7.39 (7.35-7.45); iSTAT Arterial Blood Gas pO2 93 mmHg (80-95); iSTAT Arterial Blood Gas pO2 C 98; iSTAT Carbon Dioxide 25 mmol/L (24-31); iSTAT FiO2 35 %; iSTAT Hematocrit 38 % (42-52); iSTAT Hemoglobin 12.9 g/dl (14.0-18.0); iSTAT Potassium 4.1 mmol/L (3.3-5.0); iSTAT Sample Type Arterial; iSTAT Site R Radial; iSTAT Sodium 133 mmol/L (135-144); iSTAT SpO2 97
[2024-10-21 10:16] LABS: Thyroid Stimulating Hormone 2.555 uIu/ml (0.300-4.500)
[2024-10-21] MEDS: MAGNESIUM SULFATE / D5W 1 GM/100 ML BAG IV SCH (10:31)
[2024-10-21] MEDS: dexMEDEtomidine 400 MCG/100 ML BAG IV SCH (10:50)
[2024-10-21] MEDS ORDERED: GLUCOSE 40% GEL 15 GM TUBE PO PRN (11:59)
[2024-10-21] MEDS ORDERED: DEXTROSE 50% 50 ML SYRINGE IV PRN (11:59)
[2024-10-21] MEDS ORDERED: CARBOHYDRATES FOR HYPOGLYCEMIA PO PRN (11:59)
[2024-10-21] MEDS ORDERED: GLUCAGON FOR INJ 1 MG VIAL SQ PRN (11:59)
[2024-10-21] MEDS ORDERED: GLUCOSE 10 TAB/TUBE PO PRN (11:59)
[2024-10-21] MEDS: INSULIN ASPART PER UNIT CHARGE SC SCH (12:09)
--- NOTE | 2024-10-21 14:24 | Palliative Care Consultation ---
Date of Consultation October 21, 2024 Assessment & Plan (1) Dyspnea and respiratory abnormalities: MS 1mg IV q2-3h prn dyspnea/pain, Hold for somnolence or RR less than 14; please document RR with each dose administration. (2) Weakness generalized: (3) Discussion about advance care planning held with family member: I met with Donna family face to face for 60 min at bedside,pt unable to participate due to somnolence, recent extubation. is very fixated on wanting him reintubated if needed/if he stops breathing bc she feels he can get better with the current regimen. We spoke about what should be done if he fails current regimen or declines quickly and they are going to speak as a family. She refuses to allow any comfort care but wants prn morphine to relieve air hunger so i had added a MS 1mg Q2h prn air hunger dose. I will ask Angelique Garland to follow up Thursday. 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 would like [facility] [place] and [facility] at home set up for him at [place]. She has a private pay PT service she plans to engage. She does not want SNF under any condition and is aware [facility] is not in par for [facility]. She also said they do not want trach/peg but she cannot acquiesce to comfort care either. She states "I go by my gut when the moment happens." She had a lot of trouble understanding that if he stops breathing/heart stops then this would be a natural and that recurrent intubation in terminal COPD will lead to situation where the EOL COPD pt cannot be extubated and palliative extubation is offered but then he will not be home, not able to interact and what he has advised family would matter most (being at home, being with family, able to interact) will not be deliverable. I encouraged them to speak more about this as a family. I also suggested they ask him once he is more consistently awake and alert. I provided education about COPD which the ATS and ERS define COPD as a preventable and treatable disease state characterized by airflow limitation that is not fully reversible. The airflow limitation is progressive, incurable and will worsen over time. Smoking cessations helps progression slow down, but all COPD over time will get worse. Medications become less effective and do not work as well; in general these patients experience a significant decline in QOL. We discussed that Palliative care can begin when a patient becomes symptomatic and is usually concurrent with restorative and life-prolonging care. Palliative care is titrated, analogous to curative/restorative care, to meet the needs of the patient and family in accord with their preferences. We will help manage their symptoms and assist with goals of care discussions. She asked about hospice: I provided education about the hospice benefit: an interdisciplinary program offered by nurses, nurses aides, social workers, chaplains and a medical orderly for patients with a terminal condition and a life expectancy of less than 6 months. This is covered by Medicare at 100%/no out of pocket expense to patient and all meds/supplies needed by patient for the reason they are on hospice are paid for/covered by hospice. The goal is assure quality of life of the patient in their home setting (home, retirement, inpatient hospice setting) by providing symptoms management, psychosocial and spiritual support. However, they cannot offer 24 hours care and if the family is unable to provide that care, they will have to consider personal care with out of pocket cost vs. retirement placement. We discussed the goals of hospice as a patient service and the goals of care; we discussed EOL trajectories and transitions renzo the emotional impact of realizing mortality as a concrete reality from prior abstract considerations. I reviewed CPR survival: Only about 10% of patients who have [id number] sudden cardiac arrest survive to hospital discharge, with many survivors having neurologic impairment. This rate is even lower among patients with serious coexisting conditions, ie chance of survival to hospital discharge for in- hospital CPR in older people is low to moderate (15%) and decreases with age, comorbidities, performance status and frailty: for pts > 70 yo, more than half of the patients who initially survived resuscitation in the hospital before hospital discharge. The pooled survival to discharge after in-hospital CPR was 18% for patients between 70 and 79 years old, 15% for patients between 80 and 89 years old and 11% for patients of 90 years and older. The family admit patient has consistently asked for comfort and remaining at home. Pavel Krishnan confirms this from their triage nurse. states she has been trying to get enrolled in [facility] home for over a year and does not know why this was not done even though she was advised referral was placed. She does repeatedly comment on how "it took you a year to show up but I'm glad you finally made it" and had to be gently reminded [place] [facility] [facility]. I encouraged and sons to further discuss the goals of care in the context of very adv lung failure and the complexities that happen to other body systems as one end stage disease becomes terminal. states "they told us he needed hospice 8 years ago and we didn't take it, so I think he can get better." She perceives hospice as a service that would facilitate dying but not living better and she does not want a lot of people in and out of their home. She feels home based pall care is the fit she needs as her overarching "goal is to have meds on hand to make him more comfortable, such as morphine." I shared my worries that patient has expressed to several people as well as family that he wants to be home, awake/alert with family and not in medical settings but if we continue on the path of reintubation and "always trying to fix something" for a patient with terminal illness, we will not successfully cure anything and in the end we may prolong dying but not improve their QOL and at some point, if and when he gets repeatedly intubated, he will not be able to come off vent as he did earlier today because this is the nature of a chronically progressive lung disease chronically progressing - and conversation then shifts to compassionate extubation but pt will not be able to return home. She did reiterate she wants him to have comfort meds such as morphine, so I reviewed adding a PRN order for low dose IV MS for dyspnea/pain and with their consent, the order was written. (4) Palliative care by specialist: Introduced Palliative Medicine and explained our role in patient's care. Patient and/or family were receptive to palliative services for goals of care discussions. Reviewed we are different from hospice, a home health nurse visiting service. Plan As above Thank you for allowing us to participate in the ongoing care of this patient. Please page with any additional concerns. Sylvain Heaton DNP Director, Palliative Medicine History of Present Illness Attending Physician: Fawn Garza MD History of Present Illness Adv COPD intubated in ER extubated prior to my arrival, precedex weaning down On BiPAP 06/28, FiO2 35%, Rate 20 on home AVAPS I was contacted by Pavel Krishnan Pall Med advising pt was en route to [facility] bc " is asking for hospice so home nurse sent them to hospital." and 2 sons at bedside pt somnolent but awakens intermittently states she was his comfort assured but also wants fixable things fixed. She feels he can be reintubated if needed and this would only be for a day or few days to help him recover and "get better." But she does not want trach/PEG/vent SNF She is aware of his adv COPD and last PFTs, lung function she states is around 20% She states she wants [facility] at home Pall med and Medical home. She states "referrals were made for both of these but no one ever got a hold of me and I've been waiting a year to see you, glad you can finally make time for us." Gently educated I am an [facility] [place] and do not work for [facility] so those referrals did not come to [facility] [place] [facility] and we also do not offer any home based pall med services being a team of 2 providers. Allergies Allergy/AdvReac Type Severity Reaction Status Date / Time Gadolinium-Containing Allergy Intermediate Nausea/Vomi Verified 08/25/23 14:56 Contrast Medi tin Home Medications Medication Instructions Recorded Confirmed Type azithromycin 250 mg tablet 250 mg PO [id number] #1 tab 03/31/19 10/20/24 History ipratropium 0.5 mg-albuterol 3 mg 3 ml inhalation Q4H PRN SOB #6 mL 03/31/19 10/20/24 History (2.5 mg base)/3 mL nebulization soln thyroid (pork) 60 mg tablet 60 mg PO UD 03/31/19 10/20/24 History tiotropium bromide 18 mcg capsule 1 cap inhalation UD #1 inh 03/31/19 10/20/24 History with inhalation device fluticasone 500 mcg-salmeterol 50 1 puffs inhalation BID #60 ea 08/01/19 10/20/24 Rx mcg/dose blistr powdr for inhalation (Advair Diskus) doxazosin 4 mg tablet 4 mg PO QPM 12/02/21 10/20/24 History latanoprost 0.005 % eye drops 1 drp OPL HS 12/02/21 10/20/24 History diltiazem HCl 120 mg 120 mg PO DAILY 08/25/23 10/20/24 History capsule,extended release 24 hr (Cartia XT) furosemide 20 mg tablet 20 mg PO DAILY PRN edema 08/25/23 10/20/24 History naltrexone 4.5 mg capsule 4.5 mg PO UD 08/25/23 10/20/24 History ascorbic acid (vitamin C) 500 mg 1 g PO DAILY 05/12/24 10/20/24 History tablet (Vitamin C) cholecalciferol (vitamin D3) 25 5,000 unit PO Q7D 05/12/24 10/20/24 History mcg (1,000 unit) tablet Patient History Medical History Acute on chronic hypoxic respiratory failure Acute exacerbation of chronic obstructive pulmonary disease BPH (benign prostatic hyperplasia) Pancreatic cyst BENIGN Hypothyroidism Elevated cholesterol NO MEDS Emphysema lung Glaucoma Chronic obstructive pulmonary disease On home oxygen therapy 2L CONT. Surgical History Hx of left cataract extraction History of anesthesia reaction SLOW TO WAKE UP H/O shoulder surgery RT History of cystoscopy History of ERCP History of colonoscopy H/O inguinal hernia repair History of tooth extraction History of tonsillectomy Family History Other No family history of adverse response to anesthesia Social History Smoking Status: Former smoker Tobacco Type: Cigarettes Age Quit Using Tobacco: 56; packs per day: 2; Second Hand Exposure: No; Do You Dip or Chew Tobacco: No; Tobacco Cessation Education Requested by Patient: No Hx Alcohol Use: No Hx Substance Use: No Preferred Language: Pashto Communication Ability: Impaired [employer]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 Beliefs That Will Affect Care: Spiritual Current Living Situation: Spouse Other Information That Helps Us Care for You: No Feels Safe at Home: Yes Safety Concerns: Feels Safe At This Time Assistive Devices: BiPap, Raised Toilet Seat, Walker, Wheelchair and Other Review of Systems Review of Systems: Unobtainable due to cognitive status Physical Exam Constitutional: + acute distress, + cachectic, + frail a ppearing and cooperative Eyes: reactive pupils ENMT: MM dry, dentition fair Neck: trachea midline no stridor Respiratory: inc effort, +BiPAP on, diminished throughout, faint crackles left mid to base Cardiovascular: tachy Gastrointestinal (Abdomen): +abd breathing +scaphoid +BS Musculoskeletal: gen weakness DOMINGUEZ strength diminished but symmetrical Skin: pale, cool scatt ecchmoses Neurologic: awakes to voice/sternal rub, drifts off easily but can follow simple commands CAM ICU Negative Results & Data Vital Signs (Past 12 Hours) Vital Signs Temp Pulse Pulse Resp BP Pulse Ox O2 Del Method 10/21/24 12:17 107 H 28 H 95 10/21/24 12:17 107 H 28 H 95 BiPAP 10/21/24 11:30 132/88 10/21/24 11:30 132/88 10/21/24 11:03 37.6 C H 127 H 32 H 91 BiPAP 10/21/24 11:00 140/99 10/21/24 11:00 140/99 10/21/24 10:45 37.6 C H 132 H 34 H 91 10/21/24 10:36 37.5 C 126 H 39 H 96 10/21/24 10:25 136 H 32 H 93 10/21/24 10:09 37.5 C 104 H 18 96 Mechanical Vent 10/21/24 10:00 129/88 10/21/24 09:57 37.6 C H 100 H 18 96 10/21/24 09:39 37.7 C H 97 H 22 95 10/21/24 09:30 119/80 10/21/24 09:27 37.8 C H 93 H 14 97 10/21/24 09:00 37.8 C H 96 H 20 97 10/21/24 09:00 98/71 L 10/21/24 09:00 98/71 L 10/21/24 09:00 98/71 L 10/21/24 09:00 98/71 L 10/21/24 09:00 98/71 L 10/21/24 08:45 37.8 C H 100 H 20 97 10/21/24 08:32 Mechanical Vent 10/21/24 08:30 115/79 10/21/24 08:27 37.8 C H 98 H 20 97 Mechanical Vent 10/21/24 08:15 114/78 10/21/24 08:15 114/78 10/21/24 08:09 37.7 C H 96 H 20 98 10/21/24 08:03 37.7 C H 96 H 20 98 10/21/24 08:00 111/77 10/21/24 08:00 111/77 10/21/24 08:00 10/21/24 07:48 37.7 C H 90 20 98 10/21/24 07:45 102/76 10/21/24 07:36 37.6 C H 93 H 20 98 10/21/24 07:33 37.6 C H 94 H 20 98 10/21/24 07:30 103/73 10/21/24 07:21 37.6 C H 94 H 20 98 10/21/24 07:15 119/85 10/21/24 07:10 99 H 20 98 10/21/24 07:06 37.6 C H 93 H 20 97 10/21/24 07:00 109/79 10/21/24 06:36 37.5 C 92 H 20 104/71 97 10/21/24 06:16 91/66 L 10/21/24 06:16 91/66 L 10/21/24 06:16 91/66 L 10/21/24 06:15 37.5 C 94 H 20 98 10/21/24 06:12 37.5 C 95 H 20 97 10/21/24 06:09 37.5 C 97 H 20 98 10/21/24 06:04 79/56 L 10/21/24 06:00 80/56 L 10/21/24 06:00 37.6 C H 96 H 20 96 10/21/24 05:51 37.6 C H 97 H 20 97 10/21/24 05:48 37.6 C H 95 H 20 97 10/21/24 05:18 37.5 C 97 H 20 98 10/21/24 05:00 37.5 C 96 H 20 99 10/21/24 05:00 90/64 L 10/21/24 05:00 90/64 L 10/21/24 05:00 90/64 L 10/21/24 04:54 37.5 C 99 H 20 98 10/21/24 04:30 37.5 C 101 H 20 98 10/21/24 04:29 80 24 99 10/21/24 04:15 37.5 C 102 H 20 98 10/21/24 04:00 101/70 10/21/24 04:00 101/70 10/21/24 04:00 10/21/24 03:42 37.6 C H 99 H 20 98 10/21/24 03:21 37.6 C H 101 H 20 98 10/21/24 03:05 98/71 L 10/21/24 03:05 98/71 L 10/21/24 02:42 37.5 C 92 H 20 99 10/21/24 02:30 37.4 C 87 20 99 FiO2 10/21/24 12:17 35 10/21/24 12:17 35 10/21/24 11:30 10/21/24 11:30 10/21/24 11:03 0.3 10/21/24 11:00 10/21/24 11:00 10/21/24 10:45 10/21/24 10:36 10/21/24 10:25 30 10/21/24 10:09 0.35 10/21/24 10:00 10/21/24 09:57 10/21/24 09:39 10/21/24 09:30 10/21/24 09:27 10/21/24 09:00 10/21/24 09:00 10/21/24 09:00 10/21/24 09:00 10/21/24 09:00 10/21/24 09:00 10/21/24 08:45 10/21/24 08:32 35 10/21/24 08:30 10/21/24 08:27 0.35 10/21/24 08:15 10/21/24 08:15 10/21/24 08:09 10/21/24 08:03 10/21/24 08:00 10/21/24 08:00 10/21/24 08:00 35 10/21/24 07:48 10/21/24 07:45 10/21/24 07:36 10/21/24 07:33 10/21/24 07:30 10/21/24 07:21 10/21/24 07:15 10/21/24 07:10 35 10/21/24 07:06 10/21/24 07:00 10/21/24 06:36 10/21/24 06:16 10/21/24 06:16 10/21/24 06:16 10/21/24 06:15 10/21/24 06:12 10/21/24 06:09 10/21/24 06:04 10/21/24 06:00 10/21/24 06:00 10/21/24 05:51 10/21/24 05:48 10/21/24 05:18 10/21/24 05:00 10/21/24 05:00 10/21/24 05:00 10/21/24 05:00 10/21/24 04:54 10/21/24 04:30 10/21/24 04:29 60 10/21/24 04:15 10/21/24 04:00 10/21/24 04:00 10/21/24 04:00 35 10/21/24 03:42 10/21/24 03:21 10/21/24 03:05 10/21/24 03:05 10/21/24 02:42 10/21/24 02:30 Laboratory Results 10/21/24 10/21/24 10/21/24 Range/Units 16:18 11:57 09:23 WBC (4.8-10.8) K/ul RBC (4.70-6.10) M/uL Hgb (14.0-18.0) g/dl POC Hgb 12.9 L (14.0-18.0) g/dl Hct (42.0-52.0) % POC Hct 38 L (42-52) % MCV (80.0-100.0) fL MCH (25.0-34.0) pg MCHC (32.0-36.0) g/dL RDW Std Deviation (36.4-46.3) fL RDW Coeff of David (11.5-14.5) % Plt Count (130-400) K/uL MPV (9.4-12.4) fL Immature Gran % (Auto) % Neut % (Auto) % Lymph % (Auto) % [place] % (Auto) % Eos % (Auto) % Baso % (Auto) % Neut # (Auto) (1.40-6.50) K/uL Lymph # (Auto) (1.20-3.40) K/uL [place] # (Auto) (0.11-0.59) K/uL Eos # (Auto) (0.00-0.50) K/uL Baso # (Auto) (0.00-0.20) K/uL Immature Gran # (Auto) (0.01-0.20) K/uL PT (9.0-12.0) Seconds INR (0.9-1.1) APTT (21-31) Seconds PTT Ratio Specimen Type Arterial Sample Site R Radial POC pH 7.39 (7.35-7.45) POC pCO2 39 (35-46) mmHg POC pO2 93 (80-95) mmHg POC HCO3 24 (19-24) ricardo/L POC Total CO2 25 (24-31) mmol/L POC Base Excess -1.0 (-9-1.8) ricardo/L O2 Sat Pulse Oximetry 97 ABG pH (Temp Correct) 7.382 (7.35-7.45) ABG pCO2 (Temp Corrct 40 (35-46) mmHg POC ABG pO2 at Pt Temp 98 POC ABG O2 Sat 97.0 H (90-95) % Steven Test Pass VBG pH (7.36-7.41) VBG pCO2 (38-50) mmHg VBG pO2 mmHg VBG HCO3 mmol/L VBG O2 Saturation % VBG Base Excess mEq/L O2 Delivery Device Ventilator Vent Mode AC POC FiO2 35 % End Tidal CO2 27 POC Sodium 133 L (135-144) mmol/L Sodium (136-145) mmol/L POC Potassium 4.1 (3.3-5.0) mmol/L Potassium (3.5-5.1) mmol/L Chloride (98-107) mmol/L Carbon Dioxide (21-32) mmol/L Anion Gap (3-11) BUN (6-23) mg/dl Creatinine (0.6-1.4) mg/dl Est Cr Clr Drug Dosing ml/min eGFR BUN/Creatinine Ratio (10-20) Glucose (70-99(Fasting)) mg/dl POC Glucose 183 H 271 H (70-99) mg/dl Lactate (0.4-2.0) mmol/L Calcium (8.6-10.3) mg/dl Phosphorus (2.5-4.9) mg/dl Magnesium (1.7-2.4) mg/dl Total Bilirubin (0.2-1.0) mg/dl AST (13-39) U/L ALT (7-52) U/L Alkaline Phosphatase (34-104) U/L Total Protein (6.0-8.3) gm/dl Albumin (3.4-5.0) gm/dl Globulin (2.5-4.0) gm/dl Albumin/Globulin Ratio (0.9-2) Procalcitonin (0-0.5) ng/ml TSH (0.300-4.500) uIu/ml Urine Color Urine Appearance (Clear) Urine pH (4.5-7.5) Ur Specific Commercial Point (1.000-1.030) Urine Protein (Negative) Urine Glucose (UA) (Negative) Urine Ketones (Negative) Urine Blood (Negative) Urine Nitrite (Negative) Urine Bilirubin (Negative) Urine Urobilinogen (Negative) Ur Leukocyte Esterase (Negative) Urine WBC (Auto) (0-5) /hpf Urine RBC (Auto) (0-2) /hpf U Hyaline Cast (Auto) (0-2) /lpf U Epithel Cells (Auto) (0-2) /hpf Urine Bacteria (Auto) (None Seen) Calcium Oxalate Crystal (None Prsent) Hyaline Casts (None Presnt) /lpf Granular Casts (None Prsent) /lpf Urine Mucus (None Prsent) Nasal Screen MRSA (PCR) (Negative) Adenovirus (PCR) (NotDetected) B. pertussis DNA (PCR) (NotDetected) B.parapertussis DNA PCR (NotDetected) C. pneumoniae DNA (PCR) (NotDetected) Coronavirus OC43 (PCR) (NotDetected) Coronavirus HKU1 (PCR) (NotDetected) Coronavirus 229E (PCR) (NotDetected) SARS-CoV-2 (PCR) (NotDetected) Coronavirus NL63 (PCR) (NotDetected) Human Metapneumovir PCR (NotDetected) Influenza Type A (PCR) (NotDetected) Influenza Type B (PCR) (NotDetected) M. pneumoniae (PCR) (NotDetected) Parainfluenza 1 (PCR) (NotDetected) Parainfluenza 2 (PCR) (NotDetected) Parainfluenza 3 (PCR) (NotDetected) Parainfluenza 4 (PCR) (NotDetected) RSV (PCR) (NotDetected) Entero/Rhino (PCR) (NotDetected) 10/21/24 10/20/24 10/20/24 Range/Units 03:50 23:53 18:46 WBC 12.72 H (4.8-10.8) K/ul RBC 4.04 L (4.70-6.10) M/uL Hgb 12.7 L (14.0-18.0) g/dl POC Hgb (14.0-18.0) g/dl Hct 39.1 L (42.0-52.0) % POC Hct (42-52) % MCV 96.8 (80.0-100.0) fL MCH 31.4 (25.0-34.0) pg MCHC 32.5 (32.0-36.0) g/dL RDW Std Deviation 49.0 H (36.4-46.3) fL RDW Coeff of David 13.7 (11.5-14.5) % Plt Count 242 (130-400) K/uL MPV 9.6 (9.4-12.4) fL Immature Gran % (Auto) % Neut % (Auto) % Lymph % (Auto) % [place] % (Auto) % Eos % (Auto) % Baso % (Auto) % Neut # (Auto) (1.40-6.50) K/uL Lymph # (Auto) (1.20-3.40) K/uL [place] # (Auto) (0.11-0.59) K/uL Eos # (Auto) (0.00-0.50) K/uL Baso # (Auto) (0.00-0.20) K/uL Immature Gran # (Auto) (0.01-0.20) K/uL PT (9.0-12.0) Seconds INR (0.9-1.1) APTT (21-31) Seconds PTT Ratio Specimen Type Sample Site POC pH (7.35-7.45) POC pCO2 (35-46) mmHg POC pO2 (80-95) mmHg POC HCO3 (19-24) ricardo/L POC Total CO2 (24-31) mmol/L POC Base Excess (-9-1.8) ricardo/L O2 Sat Pulse Oximetry ABG pH (Temp Correct) (7.35-7.45) ABG pCO2 (Temp Corrct (35-46) mmHg POC ABG pO2 at Pt Temp POC ABG O2 Sat (90-95) % Steven Test VBG pH (7.36-7.41) VBG pCO2 (38-50) mmHg VBG pO2 mmHg VBG HCO3 mmol/L VBG O2 Saturation % VBG Base Excess mEq/L O2 Delivery Device Vent Mode POC FiO2 % End Tidal CO2 POC Sodium (135-144) mmol/L Sodium 137 (136-145) mmol/L POC Potassium (3.3-5.0) mmol/L Potassium 4.2 (3.5-5.1) mmol/L Chloride 102 (98-107) mmol/L Carbon Dioxide 25 (21-32) mmol/L Anion Gap 10 (3-11) BUN 30 H (6-23) mg/dl Creatinine 0.63 (0.6-1.4) mg/dl Est Cr Clr Drug Dosing 77.8 ml/min eGFR 97.36 BUN/Creatinine Ratio 47.6 H (10-20) Glucose 161 H (70-99(Fasting)) mg/dl POC Glucose 153 H 124 H (70-99) mg/dl Lactate (0.4-2.0) mmol/L Calcium 7.8 L (8.6-10.3) mg/dl Phosphorus 3.3 (2.5-4.9) mg/dl Magnesium 1.9 (1.7-2.4) mg/dl Total Bilirubin (0.2-1.0) mg/dl AST (13-39) U/L ALT (7-52) U/L Alkaline Phosphatase (34-104) U/L Total Protein (6.0-8.3) gm/dl Albumin (3.4-5.0) gm/dl Globulin (2.5-4.0) gm/dl Albumin/Globulin Ratio (0.9-2) Procalcitonin (0-0.5) ng/ml TSH 2.555 (0.300-4.500) uIu/ml Urine Color Urine Appearance (Clear) Urine pH (4.5-7.5) Ur Specific Commercial Point (1.000-1.030) Urine Protein (Negative) Urine Glucose (UA) (Negative) Urine Ketones (Negative) Urine Blood (Negative) Urine Nitrite (Negative) Urine Bilirubin (Negative) Urine Urobilinogen (Negative) Ur Leukocyte Esterase (Negative) Urine WBC (Auto) (0-5) /hpf Urine RBC (Auto) (0-2) /hpf U Hyaline Cast (Auto) (0-2) /lpf U Epithel Cells (Auto) (0-2) /hpf Urine Bacteria (Auto) (None Seen) Calcium Oxalate Crystal (None Prsent) Hyaline Casts (None Presnt) /lpf Granular Casts (None Prsent) /lpf Urine Mucus (None Prsent) Nasal Screen MRSA (PCR) (Negative) Adenovirus (PCR) (NotDetected) B. pertussis DNA (PCR) (NotDetected) B.parapertussis DNA PCR (NotDetected) C. pneumoniae DNA (PCR) (NotDetected) Coronavirus OC43 (PCR) (NotDetected) Coronavirus HKU1 (PCR) (NotDetected) Coronavirus 229E (PCR) (NotDetected) SARS-CoV-2 (PCR) (NotDetected) Coronavirus NL63 (PCR) (NotDetected) Human Metapneumovir PCR (NotDetected) Influenza Type A (PCR) (NotDetected) Influenza Type B (PCR) (NotDetected) M. pneumoniae (PCR) (NotDetected) Parainfluenza 1 (PCR) (NotDetected) Parainfluenza 2 (PCR) (NotDetected) Parainfluenza 3 (PCR) (NotDetected) Parainfluenza 4 (PCR) (NotDetected) RSV (PCR) (NotDetected) Entero/Rhino (PCR) (NotDetected) 10/20/24 10/20/24 10/20/24 Range/Units 16:36 16:09 15:58 WBC 15.44 H (4.8-10.8) K/ul RBC 4.39 L (4.70-6.10) M/uL Hgb 13.5 L (14.0-18.0) g/dl POC Hgb 13.9 L (14.0-18.0) g/dl Hct 43.5 (42.0-52.0) % POC Hct 41 L (42-52) % MCV 99.1 (80.0-100.0) fL MCH 30.8 (25.0-34.0) pg MCHC 31.0 L (32.0-36.0) g/dL RDW Std Deviation 49.3 H (36.4-46.3) fL RDW Coeff of David 13.5 (11.5-14.5) % Plt Count 254 (130-400) K/uL MPV 9.4 (9.4-12.4) fL Immature Gran % (Auto) 0.6 % Neut % (Auto) 95.1 % Lymph % (Auto) 2.0 % [place] % (Auto) 2.0 % Eos % (Auto) 0.1 % Baso % (Auto) 0.2 % Neut # (Auto) 14.68 H (1.40-6.50) K/uL Lymph # (Auto) 0.31 L (1.20-3.40) K/uL [place] # (Auto) 0.31 (0.11-0.59) K/uL Eos # (Auto) 0.01 (0.00-0.50) K/uL Baso # (Auto) 0.03 (0.00-0.20) K/uL Immature Gran # (Auto) 0.10 (0.01-0.20) K/uL PT (9.0-12.0) Seconds INR (0.9-1.1) APTT (21-31) Seconds PTT Ratio Specimen Type Arterial Sample Site L Radial POC pH 7.34 L (7.35-7.45) POC pCO2 47 H (35-46) mmHg POC pO2 167 H (80-95) mmHg POC HCO3 26 H (19-24) ricardo/L POC Total CO2 27 (24-31) mmol/L POC Base Excess 0.0 (-9-1.8) ricardo/L O2 Sat Pulse Oximetry 100 ABG pH (Temp Correct) 7.340 L (7.35-7.45) ABG pCO2 (Temp Corrct 48 H (35-46) mmHg POC ABG pO2 at Pt Temp 168 POC ABG O2 Sat 99.0 H (90-95) % Steven Test Pass VBG pH 7.25 L (7.36-7.41) VBG pCO2 68 H (38-50) mmHg VBG pO2 21 mmHg VBG HCO3 30 mmol/L VBG O2 Saturation < 60.0 % VBG Base Excess 0.8 mEq/L O2 Delivery Device Ventilator Vent Mode AC POC FiO2 60 % End Tidal CO2 28 POC Sodium 136 (135-144) mmol/L Sodium (136-145) mmol/L POC Potassium 4.6 (3.3-5.0) mmol/L Potassium (3.5-5.1) mmol/L Chloride (98-107) mmol/L Carbon Dioxide (21-32) mmol/L Anion Gap (3-11) BUN (6-23) mg/dl Creatinine (0.6-1.4) mg/dl Est Cr Clr Drug Dosing ml/min eGFR BUN/Creatinine Ratio (10-20) Glucose (70-99(Fasting)) mg/dl POC Glucose (70-99) mg/dl Lactate 2.9 H* (0.4-2.0) mmol/L Calcium (8.6-10.3) mg/dl Phosphorus (2.5-4.9) mg/dl Magnesium (1.7-2.4) mg/dl Total Bilirubin (0.2-1.0) mg/dl AST (13-39) U/L ALT (7-52) U/L Alkaline Phosphatase (34-104) U/L Total Protein (6.0-8.3) gm/dl Albumin (3.4-5.0) gm/dl Globulin (2.5-4.0) gm/dl Albumin/Globulin Ratio (0.9-2) Procalcitonin 0.27 (0-0.5) ng/ml TSH (0.300-4.500) uIu/ml Urine Color Urine Appearance (Clear) Urine pH (4.5-7.5) Ur Specific Commercial Point (1.000-1.030) Urine Protein (Negative) Urine Glucose (UA) (Negative) Urine Ketones (Negative) Urine Blood (Negative) Urine Nitrite (Negative) Urine Bilirubin (Negative) Urine Urobilinogen (Negative) Ur Leukocyte Esterase (Negative) Urine WBC (Auto) (0-5) /hpf Urine RBC (Auto) (0-2) /hpf U Hyaline Cast (Auto) (0-2) /lpf U Epithel Cells (Auto) (0-2) /hpf Urine Bacteria (Auto) (None Seen) Calcium Oxalate Crystal (None Prsent) Hyaline Casts (None Presnt) /lpf Granular Casts (None Prsent) /lpf Urine Mucus (None Prsent) Nasal Screen MRSA (PCR) (Negative) Adenovirus (PCR) (NotDetected) B. pertussis DNA (PCR) (NotDetected) B.parapertussis DNA PCR (NotDetected) C. pneumoniae DNA (PCR) (NotDetected) Coronavirus OC43 (PCR) (NotDetected) Coronavirus HKU1 (PCR) (NotDetected) Coronavirus 229E (PCR) (NotDetected) SARS-CoV-2 (PCR) (NotDetected) Coronavirus NL63 (PCR) (NotDetected) Human Metapneumovir PCR (NotDetected) Influenza Type A (PCR) (NotDetected) Influenza Type B (PCR) (NotDetected) M. pneumoniae (PCR) (NotDetected) Parainfluenza 1 (PCR) (NotDetected) Parainfluenza 2 (PCR) (NotDetected) Parainfluenza 3 (PCR) (NotDetected) Parainfluenza 4 (PCR) (NotDetected) RSV (PCR) (NotDetected) Entero/Rhino (PCR) (NotDetected) 10/20/24 10/20/24 10/20/24 Range/Units 14:56 12:39 11:47 WBC (4.8-10.8) K/ul RBC (4.70-6.10) M/uL Hgb (14.0-18.0) g/dl POC Hgb (14.0-18.0) g/dl Hct (42.0-52.0) % POC Hct (42-52) % MCV (80.0-100.0) fL MCH (25.0-34.0) pg MCHC (32.0-36.0) g/dL RDW Std Deviation (36.4-46.3) fL RDW Coeff of David (11.5-14.5) % Plt Count (130-400) K/uL MPV (9.4-12.4) fL Immature Gran % (Auto) % Neut % (Auto) % Lymph % (Auto) % [place] % (Auto) % Eos % (Auto) % Baso % (Auto) % Neut # (Auto) (1.40-6.50) K/uL Lymph # (Auto) (1.20-3.40) K/uL [place] # (Auto) (0.11-0.59) K/uL Eos # (Auto) (0.00-0.50) K/uL Baso # (Auto) (0.00-0.20) K/uL Immature Gran # (Auto) (0.01-0.20) K/uL PT 11.8 (9.0-12.0) Seconds INR 1.1 (0.9-1.1) APTT 25 (21-31) Seconds PTT Ratio 0.9 Specimen Type Sample Site POC pH (7.35-7.45) POC pCO2 (35-46) mmHg POC pO2 (80-95) mmHg POC HCO3 (19-24) ricardo/L POC Total CO2 (24-31) mmol/L POC Base Excess (-9-1.8) ricardo/L O2 Sat Pulse Oximetry ABG pH (Temp Correct) (7.35-7.45) ABG pCO2 (Temp Corrct (35-46) mmHg POC ABG pO2 at Pt Temp POC ABG O2 Sat (90-95) % Steven Test VBG pH (7.36-7.41) VBG pCO2 (38-50) mmHg VBG pO2 mmHg VBG HCO3 mmol/L VBG O2 Saturation % VBG Base Excess mEq/L O2 Delivery Device Vent Mode POC FiO2 % End Tidal CO2 POC Sodium (135-144) mmol/L Sodium 136 (136-145) mmol/L POC Potassium (3.3-5.0) mmol/L Potassium 5.0 (3.5-5.1) mmol/L Chloride 97 L (98-107) mmol/L Carbon Dioxide 33 H (21-32) mmol/L Anion Gap 6 (3-11) BUN 23 (6-23) mg/dl Creatinine 0.58 L (0.6-1.4) mg/dl Est Cr Clr Drug Dosing 84.5 ml/min eGFR 99.82 BUN/Creatinine Ratio 39.7 H (10-20) Glucose 128 H (70-99(Fasting)) mg/dl POC Glucose (70-99) mg/dl Lactate 4.5 H* (0.4-2.0) mmol/L Calcium 9.4 (8.6-10.3) mg/dl Phosphorus (2.5-4.9) mg/dl Magnesium 2.4 (1.7-2.4) mg/dl Total Bilirubin 0.4 (0.2-1.0) mg/dl AST 37 (13-39) U/L ALT 21 (7-52) U/L Alkaline Phosphatase 83 (34-104) U/L Total Protein 6.5 (6.0-8.3) gm/dl Albumin 3.8 (3.4-5.0) gm/dl Globulin 2.7 (2.5-4.0) gm/dl Albumin/Globulin Ratio 1.4 (0.9-2) Procalcitonin (0-0.5) ng/ml TSH (0.300-4.500) uIu/ml Urine Color Dark Yellow Urine Appearance Cloudy A (Clear) Urine pH 5.5 (4.5-7.5) Ur Specific [place] 1.020 (1.000-1.030) Urine Protein 2+ H (Negative) Urine Glucose (UA) Negative (Negative) Urine Ketones Trace H (Negative) Urine Blood 2+ H (Negative) Urine Nitrite Negative (Negative) Urine Bilirubin 1+ H (Negative) Urine Urobilinogen Positive H (Negative) Ur Leukocyte Esterase Negative (Negative) Urine WBC (Auto) 21-50 H (0-5) /hpf Urine RBC (Auto) >20 H (0-2) /hpf U Hyaline Cast (Auto) >20 H (0-2) /lpf U Epithel Cells (Auto) 0-2 (0-2) /hpf Urine Bacteria (Auto) 1+ H (None Seen) Calcium Oxalate Crystal Present A (None Prsent) Hyaline Casts Present A (None Presnt) /lpf Granular Casts Present A (None Prsent) /lpf Urine Mucus Present A (None Prsent) Nasal Screen MRSA (PCR) (Negative) Adenovirus (PCR) (NotDetected) B. pertussis DNA (PCR) (NotDetected) B.parapertussis DNA PCR (NotDetected) C. pneumoniae DNA (PCR) (NotDetected) Coronavirus OC43 (PCR) (NotDetected) Coronavirus HKU1 (PCR) (NotDetected) Coronavirus 229E (PCR) (NotDetected) SARS-CoV-2 (PCR) (NotDetected) Coronavirus NL63 (PCR) (NotDetected) Human Metapneumovir PCR (NotDetected) Influenza Type A (PCR) (NotDetected) Influenza Type B (PCR) (NotDetected) M. pneumoniae (PCR) (NotDetected) Parainfluenza 1 (PCR) (NotDetected) Parainfluenza 2 (PCR) (NotDetected) Parainfluenza 3 (PCR) (NotDetected) Parainfluenza 4 (PCR) (NotDetected) RSV (PCR) (NotDetected) Entero/Rhino (PCR) (NotDetected) 10/20/24 Range/Units 11:38 WBC (4.8-10.8) K/ul RBC (4.70-6.10) M/uL Hgb (14.0-18.0) g/dl POC Hgb (14.0-18.0) g/dl Hct (42.0-52.0) % POC Hct (42-52) % MCV (80.0-100.0) fL MCH (25.0-34.0) pg MCHC (32.0-36.0) g/dL RDW Std Deviation (36.4-46.3) fL RDW Coeff of David (11.5-14.5) % Plt Count (130-400) K/uL MPV (9.4-12.4) fL Immature Gran % (Auto) % Neut % (Auto) % Lymph % (Auto) % [place] % (Auto) % Eos % (Auto) % Baso % (Auto) % Neut # (Auto) (1.40-6.50) K/uL Lymph # (Auto) (1.20-3.40) K/uL [place] # (Auto) (0.11-0.59) K/uL Eos # (Auto) (0.00-0.50) K/uL Baso # (Auto) (0.00-0.20) K/uL Immature Gran # (Auto) (0.01-0.20) K/uL PT (9.0-12.0) Seconds INR (0.9-1.1) APTT (21-31) Seconds PTT Ratio Specimen Type Sample Site POC pH (7.35-7.45) POC pCO2 (35-46) mmHg POC pO2 (80-95) mmHg POC HCO3 (19-24) ricardo/L POC Total CO2 (24-31) mmol/L POC Base Excess (-9-1.8) ricardo/L O2 Sat Pulse Oximetry ABG pH (Temp Correct) (7.35-7.45) ABG pCO2 (Temp Corrct (35-46) mmHg POC ABG pO2 at Pt Temp POC ABG O2 Sat (90-95) % Steven Test VBG pH (7.36-7.41) VBG pCO2 (38-50) mmHg VBG pO2 mmHg VBG HCO3 mmol/L VBG O2 Saturation % VBG Base Excess mEq/L O2 Delivery Device Vent Mode POC FiO2 % End Tidal CO2 POC Sodium (135-144) mmol/L Sodium (136-145) mmol/L POC Potassium (3.3-5.0) mmol/L Potassium (3.5-5.1) mmol/L Chloride (98-107) mmol/L Carbon Dioxide (21-32) mmol/L Anion Gap (3-11) BUN (6-23) mg/dl Creatinine (0.6-1.4) mg/dl Est Cr Clr Drug Dosing ml/min eGFR BUN/Creatinine Ratio (10-20) Glucose (70-99(Fasting)) mg/dl POC Glucose (70-99) mg/dl Lactate (0.4-2.0) mmol/L Calcium (8.6-10.3) mg/dl Phosphorus (2.5-4.9) mg/dl Magnesium (1.7-2.4) mg/dl Total Bilirubin (0.2-1.0) mg/dl AST (13-39) U/L ALT (7-52) U/L Alkaline Phosphatase (34-104) U/L Total Protein (6.0-8.3) gm/dl Albumin (3.4-5.0) gm/dl Globulin (2.5-4.0) gm/dl Albumin/Globulin Ratio (0.9-2) Procalcitonin (0-0.5) ng/ml TSH (0.300-4.500) uIu/ml Urine Color Urine Appearance (Clear) Urine pH (4.5-7.5) Ur Specific Commercial Point (1.000-1.030) Urine Protein (Negative) Urine Glucose (UA) (Negative) Urine Ketones (Negative) Urine Blood (Negative) Urine Nitrite (Negative) Urine Bilirubin (Negative) Urine Urobilinogen (Negative) Ur Leukocyte Esterase (Negative) Urine WBC (Auto) (0-5) /hpf Urine RBC (Auto) (0-2) /hpf U Hyaline Cast (Auto) (0-2) /lpf U Epithel Cells (Auto) (0-2) /hpf Urine Bacteria (Auto) (None Seen) Calcium Oxalate Crystal (None Prsent) Hyaline Casts (None Presnt) /lpf Granular Casts (None Prsent) /lpf Urine Mucus (None Prsent) Nasal Screen MRSA (PCR) Negative (Negative) Adenovirus (PCR) Not Detected (NotDetected) B. pertussis DNA (PCR) Not Detected (NotDetected) B.parapertussis DNA PCR Not Detected (NotDetected) C. pneumoniae DNA (PCR) Not Detected (NotDetected) Coronavirus OC43 (PCR) Not Detected (NotDetected) Coronavirus HKU1 (PCR) Not Detected (NotDetected) Coronavirus 229E (PCR) Not Detected (NotDetected) SARS-CoV-2 (PCR) Not Detected (NotDetected) Coronavirus NL63 (PCR) Not Detected (NotDetected) Human Metapneumovir PCR Not Detected (NotDetected) Influenza Type A (PCR) Not Detected (NotDetected) Influenza Type B (PCR) Not Detected (NotDetected) M. pneumoniae (PCR) Not Detected (NotDetected) Parainfluenza 1 (PCR) Not Detected (NotDetected) Parainfluenza 2 (PCR) Not Detected (NotDetected) Parainfluenza 3 (PCR) Not Detected (NotDetected) Parainfluenza 4 (PCR) Not Detected (NotDetected) RSV (PCR) Not Detected (NotDetected) Entero/Rhino (PCR) Not Detected (NotDetected) Diagnostic Findings Chest X-Ray 10/20/24 11:11 XR chest 1V portable CLINICAL HISTORY: Dyspnea COMPARISON STUDY: 08/26/2023 FINDINGS: Endotracheal tube tip is just below the thoracic inlet. Left pacemaker is stable. There is an interval mass at the left lung apex with surrounding reticular and patchy opacity. Interval left apical pleural thickening. There is emphysema. There is interval mild hazy opacity at the left base with mild blunting of the left costophrenic angle. Otherwise the lungs remain aerated. Heart size and pulmonary vasculature are normal. IMPRESSION: 1. Well positioned endotracheal tube. 2. Interval masslike opacity at the left lung apex with surrounding reticular and patchy opacity. Differential diagnosis includes malignancy and pneumonia. 3. Interval mild opacity at the left base, atelectasis, consolidation, or trace left pleural effusion. ACT 112: Positive. There are findings on this exam that require communication between the performing entity and the patient following Patient Test Result Information Act ([place] Act 112) guidelines. Electronically signed by: Kelton Correa M.D. 10/20/2024 12:[address] 10/20/24 11:13 CT head/brain wo con CLINICAL HISTORY: 78 years-old Male with unresponsive. Acutely altered mental status TECHNIQUE: Multiple axial CT images of the head were obtained without contrast. A dose lowering technique was utilized adhering to the principles of ALARA. CT DOSE: 625.8 mGy.cm COMPARISON: None. FINDINGS: No acute intracranial hemorrhage, midline shift, intracranial mass, hydrocephalus, territorial ischemia or abnormal extra-axial collection. Involutional changes with white matter hypodensities suggestive of chronic microvascular ischemic disease. The calvarium is intact. Prior bilateral lens repair. The paranasal sinuses, mastoid air cells, and middle ear cavities are clear. IMPRESSION: No acute intracranial abnormality identified. ACT 112: Negative or not required by law. The above report was generated using voice recognition software. It may contain grammatical, syntax or spelling errors. Electronically signed by: Juanpablo Villalba M.D. 10/20/2024 12:17 PM KUB X-Ray 10/20/24 19:20 EXAM: XR KUB/Abdomen 1 view CLINICAL HISTORY: Eval OG tube placement TECHNIQUE: X-ray images of the upper abdomen were obtained. COMPARISON: No prior studies available for comparison. FINDINGS: Nasogastric tube is seen within the stomach. Suspected bilateral pleural effusions and ill-defined pulmonary opacities. No definite evidence of intestinal obstruction at the time of examination. IMPRESSION: Nasogastric tube within the stomach. Electronically signed by Sourav Yoo 10-20-2024 9:04 PM Chest X-Ray 10/21/24 06:00 EXAM: XR chest 1V portable CLINICAL HISTORY: Eval lines/tubes/lung ji. TECHNIQUE: An X-ray image of the chest is obtained in AP projection. COMPARISON: No prior studies are available for comparison. FINDINGS: An endotracheal tube is noted, its inferior tip is 5.8 cm above the suyapa. NG tube seen is seen with it;'s tube in normal position. Pulmonary Parenchyma: Bilateral middle and lower zonal ill-defined alveolar faint opacity. Left lung upper zone cotton fluffy radio opaque patches, likely pneumonic. Right basal radio opaque patch likely pneumonic. No evidence of right pleural effusion while left side can not be evaluated. Heart and Mediastinum: Heart size and shape are normal. No mediastinal widening or masses. No hilar or mediastinal lymphadenopathy. Bony Thorax: Bony thorax appears intact without fractures or deformities. Soft Tissues: Left sided dual leads pacemaker is noted. IMPRESSION: 1. An endotracheal tube is noted, its inferior tip is 5.8 cm above the suyapa. 2. NG tube seen is seen with it;'s tube in normal position. 3. Bilateral middle and lower zonal ill-defined alveolar faint opacity. 4. Left lung upper zone fluffy radio opaque patches, likely pneumonic. 5. Right basal radio opaque patch, likely pneumonic. 6. Clinical lab correlation and follow-up is advised. Electronically signed by Sourav Yoo 10-21-2024 08:20 AM PG Care Time/CCT Total # of Minutes Spent Total Time Spent with Patient: Total time spent is greater than 50% in coordination of care (as documented) at patient's floor/unit and/or counseling patient: I spent 130 minutes overall addressing this case: 20 min in medical data review/discussion with referring provider(s) and/or preparation for the visit incl d/wOSH pall med [facility] 15 min in direct interaction with the patient/exam 60 min in Advance Care Planning/Goals of Care discussions as detailed above in note (must be >16min) 15 min in subsequent review and synthesis of assessment and plan 20 min communicating with other providers regarding the patient's case: nursing, [facility], [facility] primary care, care mgt, primary team, Pulm [facility] Advanced Care Planning [id number] Advanced Care Planning 30 Min [id number] Advanced Care Planning Additional 30 [place] [address] IN/OBS CONSULT LVL 5,80M (25 - SIGNIFICANT, SEPARATELY IDENTIFIABLE ) Patient Type New Medical Decision Making High Complexity Diagnoses Dyspnea and respiratory abnormalities R06.00; R06.89 Weakness generalized R53.1 Discussion about advance care planning held with family member Z71.0 Palliative care by specialist Z51.5 Additional Codes Advanced Care Planning - 66008 Advanced Care Planning 30 Min: 51218 Advanced Care Planning 30 Min ([id number]) Advanced Care Planning - 77863 Advanced Care Planning Additional 30 Min: 50291 Advanced Care Planning Additional 30 Min ([id number]) Time Spent (min) 130 Comment [id number]
[2024-10-21] MEDS: dexMEDEtomidine 200 MCG/50 ML BAG IV SCH (19:03)
[2024-10-21] MEDS: LACTATED RINGER'S 1,000 ML IV SCH (20:20)
--- NOTE | 2024-10-21 22:26 | Electrocardiogram Report ---
Test Reason : Blood Pressure : */* mmHG Vent. Rate : 101 BPM Atrial Rate : 101 BPM P-R Int : 152 ms QRS Dur : 146 ms QT Int : 366 ms P-R-T Axes : 85 269 -7 degrees QTcB Int : 474 ms Poor data quality, interpretation may be adversely affected Sinus tachycardia Right superior axis deviation Right bundle branch block Inferior infarct Abnormal ECG When compared with ECG of 12-May-2024 13:54, Premature atrial complexes are no longer Present Confirmed by Caleb Monroe ([id number]) on 10/21/2024 10:26:22 PM Referred By: REFERRED SELF Confirmed By: Caleb Monroe
[2024-10-22 04:17] LABS: Hematocrit (blood only) 37.1 % (42.0-52.0); Hemoglobin 12.2 g/dl (14.0-18.0); Mean Corpuscular Hemoglobin 31.4 pg (25.0-34.0); Mean Corpuscular Hgb Conc 32.9 g/dL (32.0-36.0); Mean Corpuscular Volume 95.4 fL (80.0-100.0); Mean Platelet Volume 9.5 fL (9.4-12.4); Platelet Count 213 K/uL (130-400); RDW Coefficient of Variation 14.1 % (11.5-14.5); RDW Standard Deviation 49.3 fL (36.4-46.3); Red Blood Count 3.89 M/uL (4.70-6.10); White Blood Count 21.42 K/ul (4.8-10.8)
[2024-10-22 04:35] LABS: BUN Creatinine Ratio 52.4 (10-20); Creatinine Clr Calc Pharmacy 77.8 ml/min; Magnesium 2.3 mg/dl (1.7-2.4); Phosphorus 3.9 mg/dl (2.5-4.9); Potassium 4.6 mmol/L (3.5-5.1)
--- NOTE | 2024-10-22 07:19 | Hospitalist Progress Note ---
Date of Service October 22, 2024 Assessment & Plan (1) COPD (chronic obstructive pulmonary disease): Plan Mr. Thompson is a 78-year-old male with PMH of chronic hypoxemic respiratory failure on 2.5 L oxygen at home, group D COPD, bullous emphysema, bronchiectasis, multiple lung nodules, hypothyroidism, protein calorie malnutrition was brought in the ED due to worsening shortness of breath more so in the last 2 days and was intubated 2/2 COPD with superimposed pneumonia. Patient extubated to bipap today and required precedex 2/2 anxiety. Palliative consulted on 10/21. Initially, was hoping to pursue intubation as needed; however, given respiratory distress opted for DNR/DNI with slow introduction of medicines to help palliate patient. Patient's still reports concern she hasnt exhausted all efforts #Ventilator dependent resp failure, SBT with extubation to NIV #Acute on chronic hypoxic, hypercapnic resp failure 2/2 COPD with superimposed pneumonia Imaging reviewed, CT head negative for acute finding. CXR suggestive of left- sided pneumonia. Holding AZT MWF, plans to resume as appropriate Continue doxycycline and zosyn Pressors per ICU Remains on solumedrol 40mg q8h Extubated 10/21 to NIV Palliative consulted given guarded prognosis iso end stage copd Morphine added to aid in respiratory distress inquiring more about comfort measures, but not ready to decide at this time #Metabolic encephalopathy delirium precautions currently on precedex #Protein calorie malnutrition: Per pt's , patient has very poor appetite that he lives off of nutritional drink. Consult dietitian #pulmonary nodules #Prior tobacco use 5mmm BLANCHE nodule no longer active, 80 py Other chronic medical conditions: Hypothyroidism,Protein calorie malnutrition----- continue with/resume home meds as and when able. #Hypertension hold home meds #Hypothyroidism continue home med Sedation/analgeisa: precedex Pressor: Norepi Tube feeds ongoing HOB 30 degrees Bowel regimen prn GI PPX IV Protonix Heparin q 12 Admission and Anticipated Discharge Date Admission Date: October 20, 2024 Subjective On HFNC at this time respiratory distress noted Physical Exam Constitutional: ill appearing cachectic gentleman Respiratory: diminished with rhonchi Cardiovascular: RRR, no murmur, no edema Results & Data Results & Data Vital Signs (Past 12 Hours) Vital Signs Temp Pulse Pulse Pulse Resp BP Pulse Ox 10/22/24 07:09 67 24 97 10/22/24 07:09 69 24 98 10/22/24 06:15 36.2 C L 61 21 98 10/22/24 06:12 36.2 C L 61 19 98 10/22/24 06:00 91/60 L 10/22/24 05:39 36.3 C L 67 23 99 10/22/24 05:30 36.3 C L 64 22 98 10/22/24 05:15 36.3 C L 65 23 98 10/22/24 05:12 36.3 C L 64 23 98 10/22/24 05:00 103/62 10/22/24 05:00 103/62 10/22/24 04:57 36.3 C L 66 20 98 10/22/24 04:45 36.3 C L 66 22 98 10/22/24 04:39 36.3 C L 65 22 98 10/22/24 04:30 36.3 C L 71 24 98 10/22/24 04:27 36.3 C L 79 22 98 10/22/24 04:24 36.4 C L 67 24 98 10/22/24 04:03 36.4 C L 73 19 98 10/22/24 04:01 108/72 10/22/24 03:57 36.4 C L 74 26 H 95 10/22/24 03:48 36.4 C L 69 24 97 10/22/24 03:36 36.4 C L 73 24 98 10/22/24 03:33 36.4 C L 78 22 98 10/22/24 03:33 90 29 H 97 10/22/24 03:24 36.4 C L 72 25 H 97 10/22/24 03:06 36.5 C 72 22 97 10/22/24 03:03 36.5 C 72 21 97 10/22/24 03:00 88/57 L 10/22/24 03:00 88/57 L 10/22/24 02:42 36.4 C L 87 26 H 97 10/22/24 02:21 36.4 C L 80 27 H 96 10/22/24 02:18 36.4 C L 82 24 97 10/22/24 02:06 36.4 C L 89 28 H 96 10/22/24 02:03 36.4 C L 89 30 H 97 03/01/25 02:00 103/66 10/22/24 02:00 103/66 10/22/24 02:00 103/66 10/22/24 01:51 36.3 C L 87 23 96 10/22/24 01:45 36.3 C L 95 H 25 H 97 10/22/24 01:36 36.3 C L 92 H 27 H 97 10/22/24 01:27 36.2 C L 96 H 28 H 97 10/22/24 01:21 36.2 C L 91 H 29 H 97 10/22/24 01:18 36.2 C L 90 25 H 97 10/22/24 01:03 36.0 C L 85 28 H 98 10/22/24 01:00 129/89 10/22/24 01:00 129/89 10/22/24 00:51 35.9 C L 83 25 H 98 10/22/24 00:43 69 24 99 10/22/24 00:43 69 24 99 10/22/24 00:42 35.9 C L 68 25 H 99 10/22/24 00:21 35.7 C L 72 27 H 99 10/22/24 00:00 35.8 C L 60 19 99 10/22/24 00:00 82/58 L 10/22/24 00:00 82/58 L 10/21/24 23:48 35.6 C L 62 17 98 10/21/24 23:30 78/54 L 10/21/24 23:21 35.6 C L 60 18 98 10/21/24 23:18 35.6 C L 60 18 98 10/21/24 23:00 77/54 L 10/21/24 22:57 35.6 C L 60 18 98 10/21/24 22:54 35.6 C L 60 18 98 10/21/24 22:45 35.6 C L 60 18 98 10/21/24 22:42 35.6 C L 60 18 98 10/21/24 22:30 80/55 L 10/21/24 22:24 35.6 C L 60 17 98 10/21/24 22:15 35.6 C L 60 18 98 10/21/24 22:00 110/78 10/21/24 22:00 110/78 10/21/24 22:00 35.5 C L 69 20 98 10/21/24 21:57 35.5 C L 62 22 98 10/21/24 21:42 35.3 C L 60 17 98 10/21/24 21:30 89/67 L 10/21/24 21:24 35.3 C L 70 19 98 10/21/24 20:53 76 14 99 10/21/24 20:42 35.3 C L 65 21 99 10/21/24 20:31 70 24 96 10/21/24 20:30 78/55 L 10/21/24 20:27 35.4 C L 60 17 99 10/21/24 20:15 35.3 C L 60 17 99 10/21/24 20:00 76/60 L 10/21/24 20:00 76/60 L 10/21/24 20:00 10/21/24 19:51 35.3 C L 60 18 99 10/21/24 19:45 35.3 C L 60 17 99 10/21/24 19:21 35.4 C L 60 18 99 O2 Del Method FiO2 10/22/24 07:09 30 10/22/24 07:09 BiPAP 30 10/22/24 06:15 10/22/24 06:12 10/22/24 06:00 10/22/24 05:39 10/22/24 05:30 10/22/24 05:15 10/22/24 05:12 10/22/24 05:00 10/22/24 05:00 10/22/24 04:57 10/22/24 04:45 10/22/24 04:39 10/22/24 04:30 10/22/24 04:27 10/22/24 04:24 10/22/24 04:03 10/22/24 04:01 10/22/24 03:57 10/22/24 03:48 10/22/24 03:36 10/22/24 03:33 10/22/24 03:33 35 10/22/24 03:24 10/22/24 03:06 10/22/24 03:03 10/22/24 03:00 10/22/24 03:00 10/22/24 02:42 10/22/24 02:21 10/22/24 02:18 10/22/24 02:06 10/22/24 02:03 10/22/24 02:00 10/22/24 02:00 10/22/24 02:00 10/22/24 01:51 10/22/24 01:45 10/22/24 01:36 10/22/24 01:27 10/22/24 01:21 10/22/24 01:18 10/22/24 01:03 10/22/24 01:00 10/22/24 01:00 10/22/24 00:51 10/22/24 00:43 35 10/22/24 00:43 BiPAP 35 10/22/24 00:42 10/22/24 00:21 10/22/24 00:00 10/22/24 00:00 10/22/24 00:00 10/21/24 23:48 10/21/24 23:30 10/21/24 23:21 10/21/24 23:18 10/21/24 23:00 10/21/24 22:57 10/21/24 22:54 10/21/24 22:45 10/21/24 22:42 10/21/24 22:30 10/21/24 22:24 10/21/24 22:15 10/21/24 22:00 10/21/24 22:00 10/21/24 22:00 10/21/24 21:57 10/21/24 21:42 10/21/24 21:30 10/21/24 21:24 10/21/24 20:53 35 10/21/24 20:42 10/21/24 20:31 35 10/21/24 20:30 10/21/24 20:27 10/21/24 20:15 10/21/24 20:00 10/21/24 20:00 10/21/24 20:00 BiPAP 35 10/21/24 19:51 10/21/24 19:45 10/21/24 19:21 Laboratory Results Short CBC 10/22/24 Range/Units 03:52 WBC 21.42 H (4.8-10.8) K/ul Hgb 12.2 L (14.0-18.0) g/dl Hct 37.1 L (42.0-52.0) % Plt Count 213 (130-400) K/uL BMP 10/22/24 03:52 Sodium 135 L Potassium 4.6 Chloride 102 Carbon Dioxide 28 BUN 33 H Creatinine 0.63 Glucose 141 H Calcium 8.0 L Medications Administered Home Medications Medication Instructions Recorded Confirmed Last Taken azithromycin 250 mg tablet 250 mg PO 3XWK #1 tab 03/31/19 10/20/24 08/24/23 ipratropium 0.5 mg-albuterol 3 mg 3 ml inhalation Q4H PRN SOB #6 mL 03/31/19 10/20/24 08/24/23 (2.5 mg base)/3 mL nebulization soln thyroid (pork) 60 mg tablet 60 mg PO UD 03/31/19 10/20/24 08/25/23 tiotropium bromide 18 mcg capsule 1 cap inhalation UD #1 inh 03/31/19 10/20/24 08/25/23 with inhalation device fluticasone 500 mcg-salmeterol 50 1 puffs inhalation BID #60 ea 08/01/19 10/20/24 08/25/23 mcg/dose blistr powdr for inhalation (Advair Diskus) doxazosin 4 mg tablet 4 mg PO QPM 12/02/21 10/20/24 08/24/23 latanoprost 0.005 % eye drops 1 drp OPL HS 12/02/21 10/20/24 08/24/23 diltiazem HCl 120 mg 120 mg PO DAILY 08/25/23 10/20/24 08/21/23 capsule,extended release 24 hr (Cartia XT) furosemide 20 mg tablet 20 mg PO DAILY PRN edema 08/25/23 10/20/24 3 Weeks Ago ~08/04/23 naltrexone 4.5 mg capsule 4.5 mg PO UD 08/25/23 10/20/24 08/24/23 ascorbic acid (vitamin C) 500 mg 1 g PO DAILY 05/12/24 10/20/24 Unknown tablet (Vitamin C) cholecalciferol (vitamin D3) 25 5,000 unit PO Q7D 05/12/24 10/20/24 Unknown mcg (1,000 unit) tablet Active Medications Generic Name Dose Route Start Last Admin Trade Name Freq PRN Reason Stop Dose Admin Albuterol 3 ml 10/20/24 19:00 10/22/24 12:29 Albut/Ipratrop 3mg/0.5mg Neb 3 Ml Vial NEB 11/19/24 18:59 3 ml Q6R JERONIMO Administration Protocol Budesonide 0.5 mg 10/20/24 19:00 10/22/24 07:08 Budesonide 0.5 Mg/2 Ml Vial (Pulmicort) NEB 11/19/24 18:59 0.5 mg BIDR JERONIMO Administration Diltiazem HCl 120 mg 10/21/24 09:00 10/21/24 07:51 Diltiazem Hcl 120 Mg Capcr PO 11/20/24 08:59 Not Given DAILY JERONIMO Fentanyl Citrate 50 mcg 10/20/24 12:01 10/20/24 12:48 Fentanyl Citrate Pf 100 Mcg/2 Ml Vial IV 11/03/24 12:00 50 mcg Q1H PRN Administration Pain Fentanyl Citrate 50 mcg 10/20/24 13:13 10/20/24 14:12 Fentanyl Bolus From Bag IV 11/03/24 13:12 50 mcg Q60M PRN Administration Pain or Agitation Formoterol Fumarate 20 mcg 10/20/24 19:00 10/22/24 07:08 Formoterol 20 Mcg/2 Ml Vial NEB 11/19/24 18:59 20 mcg BIDR JERONIMO Administration Heparin Sodium (Porcine) 5,000 units 10/20/24 21:00 10/22/24 08:32 Heparin Sod 5,000 Unit/0.5 Ml Vial SQ 11/19/24 20:59 5,000 units Q12 JERONIMO Administration Fentanyl Citrate 2,500 mcg in 250 mls @ 0 mls/hr 10/20/24 13:15 10/21/24 19:04 Fentanyl Citrate IV 11/03/24 13:14 Infused .Q0M JERONIOM Titration Protocol 0 MCG/HR Piperacillin Sod/Tazobactam Sod 4.5 gm in 100 mls @ 25 mls/hr 10/20/24 20:00 10/22/24 17:04 Zosyn IV 10/25/24 19:59 Infused Q8H JERONIMO Infusion Protocol Pantoprazole Sodium 40 mg in 10 mls @ 5 mls/min 10/21/24 09:00 10/22/24 08:32 Protonix IV 11/20/24 08:59 5 mls/min DAILY JERONIMO Administration Doxycycline Hyclate 100 mg/ 100 mls @ 50 mls/hr 10/21/24 04:00 10/22/24 16:46 Dextrose IV 10/26/24 03:59 50 mls/hr Q12H JERONIMO Administration Norepinephrine Bitartrate 4 mg in 250 mls @ 0 mls/hr 10/21/24 06:15 10/21/24 10:30 Levophed/D5w IV 11/20/24 06:14 0 mcg/kg/min .Q0M JERONIMO 0 mls/hr Titration Protocol 0 MCG/KG/MIN Dexmedetomidine/Sodium Chloride 400 mcg in 100 mls @ 5.69 mls/hr 10/21/24 12:15 10/22/24 17:53 Precedex IV 10/25/24 12:14 0.4 mcg/kg/hr .[id number] JERONIMO 5.7 mls/hr Administration Protocol 0.4 MCG/KG/HR Lactated Ringer's 1,000 mls @ 110 mls/hr 10/21/24 20:00 10/22/24 13:11 Lr IV 10/22/24 19:59 110 mls/hr .Q9H6M JERONIMO Administration Insulin Aspart 0 units 10/21/24 12:00 10/22/24 17:04 Insulin Aspart Per Unit Charge SC 11/20/24 11:59 1 units Q4 JERONIMO Administration Morphine Sulfate 2 mg 10/22/24 10:38 10/22/24 14:09 Morphine Sulfate 2 Mg/Ml Carp IV 11/04/24 14:21 2 mg Q2H PRN Administration dyspnea or pain Multivitamins/Minerals 15 ml 10/21/24 09:00 10/22/24 08:16 Multi Vit W/Minerals Liquid 15 Ml Udc NG 11/20/24 08:59 Not Given QAM JERONIMO Thyroid 60 mg 10/21/24 09:00 10/22/24 08:16 [place] Thyroid 30 Mg Tab PO 11/20/24 08:59 Not Given QAM JERONIMO
[2024-10-22 08:00] LABS: Estimated Average Glucose 111 mg/dl; Hemoglobin A1C 5.5 % (4.5-5.6)
[2024-10-22] MEDS: MoRPHine SULFATE 2 MG/ML CARP IV PRN ×2 (08:31→10:49)
--- NOTE | 2024-10-22 08:44 | Critical Care Progress Note ---
Date of Service October 22, 2024 Assessment & Plan (1) Pneumonia: (2) Acute on chronic respiratory failure with hypoxia and hypercapnia: (3) End stage COPD: (4) Lung nodules: (5) COPD (chronic obstructive pulmonary disease): (6) BPH (benign prostatic hyperplasia): (7) Hypothyroidism: (8) On home oxygen therapy: Plan Reason Critically Ill: 78-year-old male coming to pulmonary for COPD. He was intubated in the ER Past medical history: BPH, end-stage COPD Patient was last seen by me in the clinic on 05/12/2024 Neuro - [facility] ICU: Unable to assess Continue with sedation with propofol and fentanyl Cardiac - -- History of hypertension Continue to hold home blood pressure medication Respiratory - CT chest 06/24/2019 personally reviewed: Bilateral apical pleural scarring Severe centrilobular and paraseptal emphysema appreciated bilaterally Left upper lobe peripheral 5 mm pulmonary nodule No significant mediastinal lymphadenopathy --S/p VDRF Likely secondary to acute on chronic hypercapnic hypoxic respiratory failure with left upper lobe pneumonia Extubated 10/21/2024 Continue with antibiotics -- COPD with emphysema Gold E End-stage COPD At home on Advair 500-50 puff twice a day along with Spiriva On azithromycin Qzuoym-Iklaacaju-Xibumq at home EKG 05/12/2024 QTc 424 with atrial sensed ventricular paced rhythm Spirometry 09/16/2016 personally reviewed: Very severe obstructive lung dysfunction, insignificant bronchodilator response FVC 2.08 L 43%, FEV1 0.75 L 21%, FEV1/FVC 36%, -- Pulmonary nodule Largest being 5 mm in the left upper lobe Patient understand that he has end-stage COPD and he would not like to monitor her survey the pulmonary nodules --Ex-smoker 50-[id number]-tayf smoking history Quit in 2011 GI - -- No acute issues RENAL/LYTES - -- Monitor BUNs/creatinine Avoid nephrotoxic medication ENDO - --Hypothyroidism Continue with home thyroid replacement medication -- ICU hyperglycemia protocol HEME - -- Normocytic anemia Monitor H&H ID - -- Left upper lobe pneumonia Procalcitonin 0.27, nasal MRSA negative Respiratory BioFire negative for everything on 10/20/2024 --DNR/DNI --Prophylaxis VTE: Heparin GI: Pantoprazole Lines: Peripheral Diet: Tube feeds Plan: In/out, +903, urine output 745 I again had in-depth discussion with patient's as well as son. They understand that the prognosis is grave and they would want him to be comfortable. No escalation of care which includes no intubation. As per the request I will increase the morphine dose to 2 mg every 2 hours. Will increase it more if need be to keep the patient comfortable Overall prognosis remains to be guarded given end-stage COPD I have personally spent 39 minutes of critical care time in the direct management of this patient. This is a life/limb threatening event. This includes time spent evaluating patient, direct bedside care, chart review, placing orders, interpretation of diagnostic studies, discussion with consultants, patient, and family members, as well as other required patient management activities. This time is exclusive of all separately billable procedures, and teaching time and separate from and in addition to any other critical care service time. Admission and Anticipated Discharge Date Admission Date: October 20, 2024 Subjective Patient seen and examined at bedside. In mild respiratory distress Earlier today he was put on high flow which she was tolerating well but then he complained of difficulty catching air and he was put back on BiPAP Patient's family was in the room at the time of examination As per RT, patient had disclosed that he would not like to continue the way he is right now. When I saw him he was on low-dose Precedex. He was following commands. Denied any chest pain. Did complain of some swelling which he is having difficulty bringing up He has been getting morphine 1 mg every 2 hours right now Review of Systems 2 Review of Systems: All systems reviewed & are unremarkable except as noted in Subjective Physical Exam 2 Physical Exam: Constitutional: In respiratory distress, frail-appearing HEENT: PERRLA, EOMI Respiratory system: Decreased air entry bilaterally, mild expiratory wheeze bilaterally, no rhonchi, positive crackles bilateral lower lobes CVS: S1-S2 positive, no murmurs or gallops Abdomen: Soft, nontender, nondistended, positive bowel sounds x4 Extremities: +2 pulses bilaterally radialis, no cyanosis, +1 pitting edema bilateral lower extremity Neuro: Awake alert oriented to self and place Psych: Anxious mood G/U: Positive [place] Skin: no rashes, warm and dry Lymphatic: no cervical or axillary lymphadenopathy Results & Data Results & Data Vital Signs (Past 12 Hours) Vital Signs Temp Pulse Pulse Pulse Resp BP Pulse Ox 10/22/24 07:20 63 10/22/24 07:09 67 24 97 10/22/24 07:09 69 24 98 10/22/24 06:15 36.2 C L 61 21 98 10/22/24 06:12 36.2 C L 61 19 98 10/22/24 06:00 91/60 L 10/22/24 05:39 36.3 C L 67 23 99 10/22/24 05:30 36.3 C L 64 22 98 10/22/24 05:15 36.3 C L 65 23 98 10/22/24 05:12 36.3 C L 64 23 98 10/22/24 05:00 103/62 10/22/24 05:00 103/62 10/22/24 04:57 36.3 C L 66 20 98 10/22/24 04:45 36.3 C L 66 22 98 10/22/24 04:39 36.3 C L 65 22 98 10/22/24 04:30 36.3 C L 71 24 98 10/22/24 04:27 36.3 C L 79 22 98 10/22/24 04:24 36.4 C L 67 24 98 10/22/24 04:03 36.4 C L 73 19 98 10/22/24 04:01 108/72 10/22/24 03:57 36.4 C L 74 26 H 95 10/22/24 03:48 36.4 C L 69 24 97 10/22/24 03:36 36.4 C L 73 24 98 10/22/24 03:33 36.4 C L 78 22 98 10/22/24 03:33 90 29 H 97 10/22/24 03:24 36.4 C L 72 25 H 97 10/22/24 03:06 36.5 C 72 22 97 10/22/24 03:03 36.5 C 72 21 97 10/22/24 03:00 88/57 L 10/22/24 03:00 88/57 L 10/22/24 02:42 36.4 C L 87 26 H 97 10/22/24 02:21 36.4 C L 80 27 H 96 10/22/24 02:18 36.4 C L 82 24 97 10/22/24 02:06 36.4 C L 89 28 H 96 10/22/24 02:03 36.4 C L 89 30 H 97 10/22/24 02:00 103/66 10/22/24 02:00 103/66 10/22/24 02:00 103/10/22/24 01:51 36.3 C L 87 23 96 10/22/24 01:45 36.3 C L 95 H 25 H 97 10/22/24 01:36 36.3 C L 92 H 27 H 97 10/22/24 01:27 36.2 C L 96 H 28 H 97 10/22/24 01:21 36.2 C L 91 H 29 H 97 10/22/24 01:18 36.2 C L 90 25 H 97 10/22/24 01:03 36.0 C L 85 28 H 98 10/22/24 01:00 129/89 10/22/24 01:00 129/89 10/22/24 00:51 35.9 C L 83 25 H 98 10/22/24 00:43 69 24 99 10/22/24 00:43 69 24 99 10/22/24 00:42 35.9 C L 68 25 H 99 10/22/24 00:21 35.7 C L 72 27 H 99 10/22/24 00:00 35.8 C L 60 19 99 10/22/24 00:00 82/58 L 10/22/24 00:00 82/58 L 10/21/24 23:48 35.6 C L 62 17 98 10/21/24 23:30 78/54 L 10/21/24 23:21 35.6 C L 60 18 98 10/21/24 23:18 35.6 C L 60 18 98 10/21/24 23:00 77/54 L 10/21/24 22:57 35.6 C L 60 18 98 10/21/24 22:54 35.6 C L 60 18 98 10/21/24 22:45 35.6 C L 60 18 98 10/21/24 22:42 35.6 C L 60 18 98 10/21/24 22:30 80/55 L 10/21/24 22:24 35.6 C L 60 17 98 10/21/24 22:15 35.6 C L 60 18 98 10/21/24 22:00 110/78 10/21/24 22:00 110/78 10/21/24 22:00 35.5 C L 69 20 98 10/21/24 21:57 35.5 C L 62 22 98 10/21/24 21:42 35.3 C L 60 17 98 10/21/24 21:30 89/67 L 10/21/24 21:24 35.3 C L 70 19 98 10/21/24 20:53 76 14 99 O2 Del Method FiO2 10/22/24 07:20 10/22/24 07:09 30 10/22/24 07:09 BiPAP 30 10/22/24 06:15 10/22/24 06:12 10/22/24 06:00 10/22/24 05:39 10/22/24 05:30 10/22/24 05:15 10/22/24 05:12 10/22/24 05:00 10/22/24 05:00 10/22/24 04:57 10/22/24 04:45 10/22/24 04:39 10/22/24 04:30 10/22/24 04:27 10/22/24 04:24 10/22/24 04:03 10/22/24 04:01 10/22/24 03:57 10/22/24 03:48 10/22/24 03:36 10/22/24 03:33 10/22/24 03:33 35 10/22/24 03:24 10/22/24 03:06 10/22/24 03:03 10/22/24 03:00 10/22/24 03:00 10/22/24 02:42 10/22/24 02:21 10/22/24 02:18 10/22/24 02:06 10/22/24 02:03 10/22/24 02:00 10/22/24 02:00 10/22/24 02:00 10/22/24 01:51 10/22/24 01:45 10/22/24 01:36 10/22/24 01:27 10/22/24 01:21 10/22/24 01:18 10/22/24 01:03 10/22/24 01:00 10/22/24 01:00 10/22/24 00:51 10/22/24 00:43 35 10/22/24 00:43 BiPAP 35 10/22/24 00:42 10/22/24 00:21 10/22/24 00:00 10/22/24 00:00 10/22/24 00:00 10/21/24 23:48 10/21/24 23:30 10/21/24 23:21 10/21/24 23:18 10/21/24 23:00 10/21/24 22:57 10/21/24 22:54 10/21/24 22:45 10/21/24 22:42 10/21/24 22:30 10/21/24 22:24 10/21/24 22:15 10/21/24 22:00 10/21/24 22:00 10/21/24 22:00 10/21/24 21:57 10/21/24 21:42 10/21/24 21:30 10/21/24 21:24 10/21/24 20:53 35 Laboratory Results 10/22/24 03:52 10/22/24 03:52 Coding Level of Care Code 39819 CRITICAL CARE 1ST 30-74M Diagnoses Pneumonia J18.9 Laterality: left Lung location: unspecified part of lung Pneumonia type: due to unspecified organism Acute on chronic respiratory failure with hypoxia and hypercapnia J96.21; J96.22 End stage COPD J44.9 Lung nodules R91.8 COPD (chronic obstructive pulmonary disease) J44.9 BPH (benign prostatic hyperplasia) N40.0 Hypothyroidism E03.9 On home oxygen therapy Z99.81 (1) Pneumonia Laterality: left Lung location: unspecified part of lung Pneumonia type: due to unspecified organism Qualified Code(s): J18.9 - Pneumonia, unspecified organism
--- NOTE | 2024-10-22 09:10 | XRay Report ---
XR chest 1V portable CLINICAL HISTORY: f/u COMPARISON STUDY: Chest CT June 24, 2019. Chest radiograph October 21, 2024. FINDINGS: The endotracheal and nasogastric tubes have been removed. Small bilateral pleural effusions are unchanged. There is no pneumothorax. There is underlying emphysema. Cardiomediastinal silhouette is normal. Irregular left apical airspace opacity persists. Left infrahilar opacity is also noted. IMPRESSION: 1. Persistent irregular left apical airspace opacity. Pneumonia is favored. However, an underlying le graciela cannot be excluded and radiographic follow-up to ensure resolution is recommended. 2. Left infrahilar opacity which is likely infectious but should be assessed on follow-up exams to en sure resolution. 3. No change in small bilateral pleural effusions. 4. Emphysema. ACT 112: Negative or not required by law. Electronically signed by: Adam Ellis M.D. 10/22/2024 9:08 AM
[2024-10-22] MEDS: methylPREDNISolone 40 MG in SYRINGE 0 ML IV SCH (20:17)
[2024-10-22] MEDS: LACTATED RINGER'S 1,000 ML IV SCH (23:31)
--- NOTE | 2024-10-23 08:08 | Critical Care Progress Note ---
Date of Service October 23, 2024 Assessment & Plan (1) Pneumonia: (2) Acute on chronic respiratory failure with hypoxia and hypercapnia: (3) End stage COPD: (4) Lung nodules: (5) COPD (chronic obstructive pulmonary disease): (6) BPH (benign prostatic hyperplasia): (7) Hypothyroidism: (8) On home oxygen therapy: Plan Reason Critically Ill: 78-year-old male coming to pulmonary for COPD. He was intubated in the ER Past medical history: BPH, end-stage COPD Patient was last seen by me in the clinic on 05/12/2024 Neuro - [facility] ICU: Unable to assess Continue with sedation with propofol and fentanyl Cardiac - -- History of hypertension Continue to hold home blood pressure medication Respiratory - CT chest 06/24/2019 personally reviewed: Bilateral apical pleural scarring Severe centrilobular and paraseptal emphysema appreciated bilaterally Left upper lobe peripheral 5 mm pulmonary nodule No significant mediastinal lymphadenopathy --S/p VDRF Likely secondary to acute on chronic hypercapnic hypoxic respiratory failure with left upper lobe pneumonia Extubated 10/21/2024 Continue with antibiotics -- COPD with emphysema Gold E End-stage COPD At home on Advair 500-50 puff twice a day along with Spiriva On azithromycin Dyvenx-Nllgizdcd-Oziadw at home EKG 05/12/2024 QTc 424 with atrial sensed ventricular paced rhythm Spirometry 09/16/2016 personally reviewed: Very severe obstructive lung dysfunction, insignificant bronchodilator response FVC 2.08 L 43%, FEV1 0.75 L 21%, FEV1/FVC 36%, -- Pulmonary nodule Largest being 5 mm in the left upper lobe Patient understand that he has end-stage COPD and he would not like to monitor her survey the pulmonary nodules --Ex-smoker [id number] smoking history Quit in 2011 GI - -- No acute issues RENAL/LYTES - -- Monitor BUNs/creatinine Avoid nephrotoxic medication ENDO - --Hypothyroidism Continue with home thyroid replacement medication -- ICU hyperglycemia protocol HEME - -- Normocytic anemia Monitor H&H ID - -- Left upper lobe pneumonia Procalcitonin 0.27, nasal MRSA negative Respiratory BioFire negative for everything on 10/20/2024 --DNR/DNI --Prophylaxis VTE: Heparin GI: Pantoprazole Lines: Peripheral Diet: Tube feeds Plan: In/out, +1.8 L, urine output 660 Has been off Precedex. Will discontinue it. Continue with morphine dose to 2 mg every 2 hours. Will try to see if you are able to get it long-acting extended release as of later today or tomorrow Complete the course of antibiotics for total of 5 days Given the poor appetite, I will change IV fluids to D5 NS at 100 mL an hour. No escalation of care. Overall prognosis remains to be guarded given end-stage COPD All questions and queries of the patient as well as patient's family were answered in depth Please note the above document was generated using voice recognition software. It may contain grammatical, syntax or spelling errors.Any formal questions or concerns about the content, text or information contained within the body of this dictation should be directly addressed to the provider for clarification. Admission and Anticipated Discharge Date Admission Date: October 20, 2024 Subjective Patient seen and examined at bedside. No acute distress. He has been getting morphine 2 mg almost every 2 hours. He was very comfortable. On 45 L, 30% he was saturating 95-96%. I went down to 25% FiO2. Patient's family was also in the room. Patient denies any chest pain, breathing is more comfortable he said. Poor appetite. Not interested in eating or drinking right now Review of Systems 2 Review of Systems: All systems reviewed & are unremarkable except as noted in Subjective Physical Exam 2 Physical Exam: Constitutional: No respiratory distress, frail-appearing HEENT: PERRLA, EOMI Respiratory system: Decreased air entry bilaterally, no wheeze, no rhonchi, positive crackles bilateral lower lobes CVS: S1-S2 positive, no murmurs or gallops Abdomen: Soft, nontender, nondistended, positive bowel sounds x4 Extremities: +2 pulses bilaterally radialis, no cyanosis, +1 pitting edema bilateral lower extremity Neuro: Awake alert oriented to self and place Psych: Normal mood and affect G/U: Positive [place] Skin: no rashes, warm and dry Lymphatic: no cervical or axillary lymphadenopathy Results & Data Results & Data Vital Signs (Past 12 Hours) Vital Signs Temp Pulse Pulse Resp BP Pulse Ox O2 Del Method 10/23/24 07:14 60 17 30 L High Flow Nasal Cannula 10/23/24 06:27 35.7 C L 60 14 96 10/23/24 06:21 35.7 C L 60 14 95 10/23/24 06:00 104/68 10/23/24 06:00 104/68 10/23/24 05:45 35.7 C L 60 17 95 10/23/24 05:36 35.7 C L 63 19 96 10/23/24 05:26 99/66 L 10/23/24 05:26 99/66 L 10/23/24 05:21 35.7 C L 60 16 95 10/23/24 05:00 99/64 L 10/23/24 05:00 99/64 L 10/23/24 04:57 35.7 C L 60 16 95 10/23/24 04:51 35.8 C L 67 17 95 10/23/24 04:45 35.8 C L 62 17 95 10/23/24 04:42 35.8 C L 61 16 95 10/23/24 04:36 35.8 C L 61 16 95 10/23/24 04:33 35.8 C L 60 17 94 10/23/24 04:27 35.8 C L 61 17 94 10/23/24 04:27 60 18 95 High Flow Nasal Cannula 10/23/24 04:21 35.8 C L 60 22 94 10/23/24 04:18 35.8 C L 61 15 94 10/23/24 04:06 35.8 C L 62 17 94 10/23/24 04:03 35.8 C L 64 17 94 10/23/24 04:00 12110/23/24 04:00 12110/23/24 04:00 12110/23/24 04:00 12110/23/24 03:54 35.8 C L 62 19 94 10/23/24 03:51 35.8 C L 63 17 94 10/23/24 03:45 35.8 C L 64 17 94 10/23/24 03:30 35.8 C L 67 17 95 10/23/24 03:27 35.8 C L 68 16 96 10/23/24 03:21 35.8 C L 70 18 96 10/23/24 03:00 122/73 10/23/24 03:00 122/73 10/23/24 03:00 12210/23/24 03:00 35.8 C L 60 15 95 10/23/24 02:48 35.8 C L 60 16 96 10/23/24 02:39 35.8 C L 60 17 96 10/23/24 02:21 35.8 C L 60 17 96 10/23/24 02:15 35.8 C L 60 15 96 10/23/24 02:00 120/75 10/23/24 01:51 35.8 C L 60 14 95 10/23/24 01:45 35.8 C L 63 15 95 10/23/24 01:42 35.8 C L 60 17 95 10/23/24 01:27 35.8 C L 62 15 96 10/23/24 01:18 35.8 C L 65 16 96 10/23/24 01:03 64 20 95 High Flow Nasal Cannula 10/23/24 01:00 123/84 10/23/24 01:00 35.8 C L 64 15 95 10/23/24 00:45 35.8 C L 67 14 95 10/23/24 00:21 35.8 C L 61 14 95 10/23/24 00:12 35.9 C L 63 14 94 10/23/24 00:09 35.9 C L 67 15 95 10/23/24 00:00 111/70 10/22/24 23:18 35.9 C L 60 21 94 10/22/24 23:15 35.9 C L 60 19 94 10/22/24 23:09 36.0 C L 60 18 94 10/22/24 22:57 36.0 C L 63 15 94 10/22/24 22:39 36.0 C L 60 16 94 10/22/24 22:30 36.0 C L 62 17 94 10/22/24 22:21 36.0 C L 60 16 94 10/22/24 22:00 100/65 10/22/24 22:00 100/10/22/24 22:00 100/10/22/24 22:00 36.0 C L 60 15 10/22/24 21:57 36.0 C L 60 15 94 10/22/24 21:45 36.0 C L 62 14 95 10/22/24 21:36 36.0 C L 60 16 95 10/22/24 21:30 36.0 C L 60 19 95 10/22/24 21:12 36.1 C L 60 18 94 10/22/24 21:05 36.1 C L 61 18 93 10/22/24 21:02 36.1 C L 62 20 93 10/22/24 21:00 113/74 10/22/24 21:00 113/74 10/22/24 20:50 36.1 C L 67 24 94 10/22/24 20:47 36.1 C L 77 15 94 10/22/24 20:38 36.1 C L 85 21 93 10/22/24 20:26 36.0 C L 96 H 27 H 92 10/22/24 20:17 35.9 C L 93 H 15 93 O2 Flow Rate FiO2 10/23/24 07:14 45 30 10/23/24 06:27 10/23/24 06:21 10/23/24 06:00 10/23/24 06:00 10/23/24 05:45 10/23/24 05:36 10/23/24 05:26 10/23/24 05:26 10/23/24 05:21 10/23/24 05:00 10/23/24 05:00 10/23/24 04:57 10/23/24 04:51 10/23/24 04:45 10/23/24 04:42 10/23/24 04:36 10/23/24 04:33 10/23/24 04:27 10/23/24 04:27 50 30 10/23/24 04:21 10/23/24 04:18 10/23/24 04:06 10/23/24 04:03 10/23/24 04:00 10/23/24 04:00 10/23/24 04:00 10/23/24 04:00 10/23/24 03:54 10/23/24 03:51 10/23/24 03:45 10/23/24 03:30 10/23/24 03:27 10/23/24 03:21 10/23/24 03:00 10/23/24 03:00 10/23/24 03:00 10/23/24 03:00 10/23/24 02:48 10/23/24 02:39 10/23/24 02:21 10/23/24 02:15 10/23/24 02:00 10/23/24 01:51 10/23/24 01:45 10/23/24 01:42 10/23/24 01:27 10/23/24 01:18 10/23/24 01:03 50 30 10/23/24 01:00 10/23/24 01:00 10/23/24 00:45 10/23/24 00:21 10/23/24 00:12 10/23/24 00:09 10/23/24 00:00 10/22/24 23:18 10/22/24 23:15 10/22/24 23:09 10/22/24 22:57 10/22/24 22:39 10/22/24 22:30 10/22/24 22:21 10/22/24 22:00 10/22/24 22:00 10/22/24 22:00 10/22/24 22:00 10/22/24 21:57 10/22/24 21:45 10/22/24 21:36 10/22/24 21:30 10/22/24 21:12 10/22/24 21:05 10/22/24 21:02 10/22/24 21:00 10/22/24 21:00 10/22/24 20:50 10/22/24 20:47 10/22/24 20:38 10/22/24 20:26 10/22/24 20:17 Laboratory Results 10/22/24 03:52 10/22/24 03:52 Coding Level of Care Code 97663 SUB INP/OBS CARE MIN Diagnoses Pneumonia J18.9 Laterality: left Lung location: unspecified part of lung Pneumonia type: due to unspecified organism Acute on chronic respiratory failure with hypoxia and hypercapnia J96.21; J96.22 End stage COPD J44.9 Lung nodules R91.8 COPD (chronic obstructive pulmonary disease) J44.9 BPH (benign prostatic hyperplasia) N40.0 Hypothyroidism E03.9 On home oxygen therapy Z99.81 (1) Pneumonia Laterality: left Lung location: unspecified part of lung Pneumonia type: due to unspecified organism Qualified Code(s): J18.9 - Pneumonia, unspecified organism
[2024-10-23] MEDS: D5W AND NSS 1,000 ML IV SCH (10:18)
[2024-10-23 12:34] VITALS: BP 143/96; TEMP 97.5
[2024-10-23] MEDS ORDERED: STAT IV Infusion **Titration per Protocol STA (12:44)
[2024-10-23] MEDS ORDERED: ONDANSETRON INJ 2 MG/ML 2 ML VIAL IV PRN (12:44)
--- NOTE | 2024-10-23 12:50 | Communication Note ---
Date of Service: October 23, 2024 Critical care addendum: Patient has been getting morphine 2 mg every 2 hours for comfort. Family wanted to have a discussion regarding further goals and plan. I sat down with the patient's , son in the conference room They do understand that the patient health condition is at a point with no return to normal baseline. He does have significant air hunger on and off requiring morphine very frequently now. Patient has wished multiple times that he would like to be comfortable. Patient's family would like to proceed with morphine drip but they do wish to continue with antibiotics and steroids along with nebulizers if feasible. I did explain that I do not think antibiotics and steroids will make any difference in overall prognosis but it is reasonable to try to accommodate family's wishes. They are asking if patient would be able to go home on hospice. I did explain that given the requirement of the oxygen and the air hunger that he has, the probability of achieving this goal is very low. All questions and queries of the patient were answered in depth. I have personally spent 32 minutes of critical care time in the direct manageme nt of this patient. This is a life/limb threatening event. This includes time spent evaluating patient, direct bedside care, chart review, placing orders, interpretation of diagnostic studies, discussion with consultants, patient, and family members, as well as other required patient management activities. This time is exclusive of all separately billable procedures, and teaching time and separate from and in addition to any other critical care service time. Please note the above document was generated using voice recognition software. It may contain grammatical, syntax or spelling errors. Coding Level of Care Code 89920 CRITICAL CARE 1ST 30-74M
[2024-10-23] MEDS: MoRPHine SULF 100 MG/100 ML BAG IV SCH (13:11)
[2024-10-23] MEDS: GLYCOPYRROLATE 0.2 MG/ML VIAL IV PRN (13:18)
[2024-10-23] MEDS: MoRPHine BOLUS from BAG IV PRN (13:18)
--- NOTE | 2024-10-23 13:55 | Hospitalist Progress Note ---
Date of Service October 23, 2024 Assessment & Plan (1) COPD (chronic obstructive pulmonary disease): Plan Mr. Thompson is a 78-year-old male with PMH of chronic hypoxemic respiratory failure on 2.5 L oxygen at home, group D COPD, bullous emphysema, bronchiectasis, multiple lung nodules, hypothyroidism, protein calorie malnutrition was brought in the ED due to worsening shortness of breath more so in the last 2 days and was intubated 2/2 COPD with superimposed pneumonia. Patient extubated to bipap today and required precedex 2/2 anxiety. Palliative consulted on 10/21. Initially, was hoping to pursue intubation as needed; however, given respiratory distress opted for DNR/DNI with slow introduction of medicines to help palliate patient. Discussion with and 2 sons had on 10/23. Dr Jones initiated morphine drip. Discussed no further labs draws and deescalation of other care measures. Family wishes to continue HFNC at this time, as well as abx and steroids. Agreed that these efforts right now contribute to comfort. Patient to transfer from ICU to continue to pursue LEGAL CONSULTANT #Comfort Care Measures #Ventilator dependent resp failure, SBT with extubation to NIV #Acute on chronic hypoxic, hypercapnic resp failure 2/2 COPD with superimposed pneumonia Imaging reviewed, CT head negative for acute finding. CXR suggestive of left- sided pneumonia. Holding AZT MWF, plans to resume as appropriate Continue doxycycline and zosyn Pressors per ICU Remains on solumedrol 40mg q8h Extubated 10/21 to NIV Palliative consulted given guarded prognosis iso end stage copd Patient transitioned to morphine drip at this time Continue steroids and abx continue HFNC for comfort with plans to downtitrate #Metabolic encephalopathy delirium precautions precedex discontinued on morphine at this time #Protein calorie malnutrition: Per pt's , patient has very poor appetite that he lives off of nutritional drink. Consult dietitian #pulmonary nodules #Prior tobacco use 5mmm BLANCHE nodule no longer active, 80 py Other chronic medical conditions: Hypothyroidism,Protein calorie malnutrition----- continue with/resume home meds as and when able. #Hypertension hold home meds #Hypothyroidism continue home med Food and drink for comfort HOB 30 degrees Bowel regimen prn d/c Protonix d/c heparin Admission and Anticipated Discharge Date Admission Date: October 20, 2024 Subjective HFNC at this time awake and oriented to self and location no acute distress Physical Exam Constitutional: thin cachectic Respiratory: diminished Cardiovascular: tachycardic regular Results & Data Results & Data Vital Signs (Past 12 Hours) Vital Signs Temp Pulse Pulse Resp BP Pulse Ox O2 Del Method 10/23/24 12:15 36.4 C L 123 H 23 93 10/23/24 12:06 23 92 High Flow Nasal Cannula 10/23/24 12:00 143/96 H 10/23/24 11:54 36.3 C L 79 20 98 10/23/24 11:00 140/83 10/23/24 10:54 36.2 C L 74 20 98 10/23/24 10:31 87 15 97 High Flow Nasal Cannula 10/23/24 10:00 142/90 H 10/23/24 09:57 36.0 C L 68 14 99 10/23/24 09:03 35.9 C L 60 14 98 10/23/24 09:00 122/76 10/23/24 08:28 High Flow Nasal Cannula 10/23/24 08:24 60 10/23/24 08:00 35.9 C L 75 14 130/87 98 10/23/24 07:14 60 17 30 L High Flow Nasal Cannula 10/23/24 07:12 35.7 C L 61 14 97 10/23/24 07:00 111/75 10/23/24 06:27 35.7 C L 60 14 96 10/23/24 06:21 35.7 C L 60 14 95 10/23/24 06:00 104/68 10/23/24 06:00 104/68 10/23/24 05:45 35.7 C L 60 17 95 10/23/24 05:36 35.7 C L 63 19 96 10/23/24 05:26 99/66 L 10/23/24 05:26 99/66 L 10/23/24 05:21 35.7 C L 60 16 95 10/23/24 05:00 99/64 L 10/23/24 05:00 99/64 L 10/23/24 04:57 35.7 C L 60 16 95 10/23/24 04:51 35.8 C L 67 17 95 10/23/24 04:45 35.8 C L 62 17 95 10/23/24 04:42 35.8 C L 61 16 95 10/23/24 04:36 35.8 C L 61 16 95 10/23/24 04:33 35.8 C L 60 17 94 10/23/24 04:27 35.8 C L 61 17 94 10/23/24 04:27 60 18 95 High Flow Nasal Cannula 10/23/24 04:21 35.8 C L 60 22 94 10/23/24 04:18 35.8 C L 61 15 94 10/23/24 04:06 35.8 C L 62 17 94 10/23/24 04:03 35.8 C L 64 17 94 10/23/24 04:00 12110/23/24 04:00 12110/23/24 04:00 12110/23/24 04:00 12110/23/24 03:54 35.8 C L 62 19 94 10/23/24 03:51 35.8 C L 63 17 94 10/23/24 03:45 35.8 C L 64 17 94 10/23/24 03:30 35.8 C L 67 17 95 10/23/24 03:27 35.8 C L 68 16 96 10/23/24 03:21 35.8 C L 70 18 96 10/23/24 03:00 122/73 10/23/24 03:00 122/73 10/23/24 03:00 122/73 10/23/24 03:00 35.8 C L 60 15 95 10/23/24 02:48 35.8 C L 60 16 96 10/23/24 02:39 35.8 C L 60 17 96 10/23/24 02:21 35.8 C L 60 17 96 10/23/24 02:15 35.8 C L 60 15 96 10/23/24 02:00 120/75 O2 Flow Rate FiO2 10/23/24 12:15 10/23/24 12:06 35 30 10/23/24 12:00 10/23/24 11:54 10/23/24 11:00 10/23/24 10:54 10/23/24 10:31 40 30 10/23/24 10:00 10/23/24 09:57 10/23/24 09:03 10/23/24 09:00 10/23/24 08:28 45 30 10/23/24 08:24 10/23/24 08:00 10/23/24 07:14 45 30 10/23/24 07:12 10/23/24 07:00 10/23/24 06:27 10/23/24 06:21 10/23/24 06:00 10/23/24 06:00 10/23/24 05:45 10/23/24 05:36 10/23/24 05:26 10/23/24 05:26 10/23/24 05:21 10/23/24 05:00 10/23/24 05:00 10/23/24 04:57 10/23/24 04:51 10/23/24 04:45 10/23/24 04:42 10/23/24 04:36 10/23/24 04:33 10/23/24 04:27 10/23/24 04:27 50 30 10/23/24 04:21 10/23/24 04:18 10/23/24 04:06 10/23/24 04:03 10/23/24 04:00 10/23/24 04:00 10/23/24 04:00 10/23/24 04:00 10/23/24 03:54 10/23/24 03:51 10/23/24 03:45 10/23/24 03:30 10/23/24 03:27 10/23/24 03:21 10/23/24 03:00 10/23/24 03:00 10/23/24 03:00 10/23/24 03:00 10/23/24 02:48 10/23/24 02:39 10/23/24 02:21 10/23/24 02:15 10/23/24 02:00 Medications Administered Home Medications Medication Instructions Recorded Confirmed Last Taken azithromycin 250 mg tablet 250 mg PO 3XWK #1 tab 03/31/19 10/20/24 08/24/23 ipratropium 0.5 mg-albuterol 3 mg 3 ml inhalation Q4H PRN SOB #6 mL 03/31/19 10/20/24 08/24/23 (2.5 mg base)/3 mL nebulization soln thyroid (pork) 60 mg tablet 60 mg PO UD 03/31/19 10/20/2424 tiotropium bromide 18 mcg capsule 1 cap inhalation UD #1 inh 03/31/19 10/20/24 08/25/23 with inhalation device fluticasone 500 mcg-salmeterol 50 1 puffs inhalation BID #60 ea 08/01/19 10/20/24 08/25/23 mcg/dose blistr powdr for inhalation (Advair Diskus) doxazosin 4 mg tablet 4 mg PO QPM 12/02/21 10/20/24 08/24/23 latanoprost 0.005 % eye drops 1 drp OPL HS 12/02/21 10/20/24 08/24/23 diltiazem HCl 120 mg 120 mg PO DAILY 08/25/23 10/20/24 08/21/23 capsule,extended release 24 hr (Cartia XT) furosemide 20 mg tablet 20 mg PO DAILY PRN edema 08/25/23 10/20/24 3 Weeks Ago ~08/04/23 naltrexone 4.5 mg capsule 4.5 mg PO UD 08/25/23 10/20/24 08/24/23 ascorbic acid (vitamin C) 500 mg 1 g PO DAILY 05/12/24 10/20/24 Unknown tablet (Vitamin C) cholecalciferol (vitamin D3) 25 5,000 unit PO Q7D 05/12/24 10/20/24 Unknown mcg (1,000 unit) tablet Active Medications Generic Name Dose Route Start Last Admin Trade Name Freq PRN Reason Stop Dose Admin Albuterol 3 ml 10/20/24 19:00 10/23/24 12:06 Albut/Ipratrop 3mg/0.5mg Neb 3 Ml Vial NEB 11/19/24 18:59 3 ml Q6R JERONIMO Administration Protocol Budesonide 0.5 mg 10/20/24 19:00 10/23/24 07:13 Budesonide 0.5 Mg/2 Ml Vial (Pulmicort) NEB 11/19/24 18:59 0.5 mg BIDR JERONIMO Administration Diltiazem HCl 120 mg 10/21/24 09:00 10/21/24 07:51 Diltiazem Hcl 120 Mg Capcr PO 11/20/24 08:59 Not Given DAILY JERONIMO Formoterol Fumarate 20 mcg 10/20/24 19:00 10/23/24 07:13 Formoterol 20 Mcg/2 Ml Vial NEB 11/19/24 18:59 20 mcg BIDR JERONIMO Administration Glycopyrrolate 0.4 mg 10/23/24 12:44 10/23/24 13:18 Glycopyrrolate 0.2 Mg/Ml Vial IV 11/22/24 12:43 0.4 mg Q4H PRN Administration Rattling Secretions or Pulm Congestion Heparin Sodium (Porcine) 5,000 units 10/20/24 21:00 10/23/24 08:08 Heparin Sod 5,000 Unit/0.5 Ml Vial SQ 11/19/24 20:59 5,000 units Q12 JERONIMO Administration Piperacillin Sod/Tazobactam Sod 4.5 gm in 100 mls @ 25 mls/hr 10/20/24 20:00 10/23/24 12:44 Zosyn IV 10/25/24 19:59 25 mls/hr Q8H JERONIMO Administration Protocol Doxycycline Hyclate 100 mg/ 100 mls @ 50 mls/hr 10/21/24 04:00 10/23/24 05:31 Dextrose IV 10/26/24 03:59 Infused Q12H JERONIMO Infusion Methylprednisolone 40 mg/ 0.64 mls @ 1.5 mls/min 10/22/24 20:00 10/23/24 08:08 Syringe IV 11/21/24 19:59 1.5 mls/min Q12H JERONIMO Administration Dextrose/Sodium Chloride 1,000 mls @ 100 mls/hr 10/23/24 10:30 10/23/24 10:18 D5w And Nss IV 10/24/24 10:29 100 mls/hr .Q10H JERONIMO Administration Morphine Sulfate 100 mg in 100 mls @ 1 mls/hr 10/23/24 12:45 10/23/24 13:11 Morphine Sulf IV 11/06/24 12:44 1 mg/hr .Q96H JERONIMO 1 mls/hr Administration Protocol 1 MG/HR Morphine Sulfate 2 mg 10/22/24 10:38 10/23/24 12:17 Morphine Sulfate 2 Mg/Ml Carp IV 11/04/24 14:21 2 mg Q2H PRN Administration dyspnea or pain Morphine Sulfate 1 mg 10/23/24 12:44 10/23/24 13:44 Morphine Bolus From Bag IV 11/06/24 12:43 1 mg Q15M PRN Administration Comfort Care Parameters Thyroid 60 mg 10/21/24 09:00 10/23/24 08:09 [place] Thyroid 30 Mg Tab PO 11/20/24 08:59 Not Given QAM JERONIMO
[2024-10-23] MEDS: LORazepam 2 MG/1 ML VIAL IV PRN (19:50)
[2024-10-23 23:12] VITALS: PULSE 101; O2SAT 91
--- NOTE | 2024-10-24 10:48 | Hospitalist Progress Note ---
Date of Service October 24, 2024 Assessment & Plan (1) COPD (chronic obstructive pulmonary disease): Plan Mr. Thompson is a 78-year-old male with PMH of chronic hypoxemic respiratory failure on 2.5 L oxygen at home, group D COPD, bullous emphysema, bronchiectasis, multiple lung nodules, hypothyroidism, protein calorie malnutrition was brought in the ED due to worsening shortness of breath more so in the last 2 days and was intubated 2/2 COPD with superimposed pneumonia. Patient extubated to bipap today and required precedex 2/2 anxiety. Palliative consulted on 10/21. Initially, was hoping to pursue intubation as needed; however, given respiratory distress opted for DNR/DNI with slow introduction of medicines to help palliate patient. Discussion with and 2 sons had on 10/23. Dr Jones initiated morphine drip. Discussed no further labs draws and deescalation of other care measures. Family wishes to continue HFNC at this time, as well as abx and steroids. It was discussed that flluids now are likely contributing to discomfort given notable swelling. Family agreed to discontinue. #Comfort Care Measures #Ventilator dependent resp failure, SBT with extubation to NIV #Acute on chronic hypoxic, hypercapnic resp failure 2/2 COPD with superimposed pneumonia Imaging reviewed, CT head negative for acute finding. CXR suggestive of left- sided pneumonia. Holding AZT MWF, plans to resume as appropriate Continue doxycycline and zosyn Pressors per ICU Remains on solumedrol 40mg q8h Extubated 10/21 to NIV Palliative consulted given guarded prognosis iso end stage copd Patient transitioned to morphine drip at this time Continue steroids and abx continue HFNC for comfort with plans to downtitrate as tolerated #Metabolic encephalopathy delirium precautions precedex discontinued on morphine at this time #Protein calorie malnutrition: Per pt's , patient has very poor appetite that he lives off of nutritional drink. 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 #Hypertension #Hypothyroidism Food and drink for comfort HOB 30 degrees Bowel regimen prn d/c Protonix d/c heparin Admission and Anticipated Discharge Date Admission Date: October 20, 2024 Subjective Increasing morphine drip needs grimacing with physical stimuli no distress noted Physical Exam Constitutional: hfnc, mouth open, not arousable Respiratory: shallow breathing Cardiovascular: tachycardic Musculoskeletal: BUE edema Results & Data Results & Data Vital Signs (Past 12 Hours) Vital Signs Pulse Resp Pulse Ox O2 Del Method O2 Flow Rate FiO2 10/24/24 07:45 High Flow Nasal Cannula 30 10/24/24 03:27 High Flow Nasal Cannula 40 30 10/23/24 23:11 101 H 22 91 High Flow Nasal Cannula 40 30 Medications Administered Home Medications Medication Instructions Recorded Confirmed Last Taken azithromycin 250 mg tablet 250 mg PO 3XWK #1 tab 03/31/19 10/20/24 08/24/23 ipratropium 0.5 mg-albuterol 3 mg 3 ml inhalation Q4H PRN SOB #6 mL 03/31/19 10/20/24 08/24/23 (2.5 mg base)/3 mL nebulization soln thyroid (pork) 60 mg tablet 60 mg PO UD 03/31/19 10/20/24 08/25/23 tiotropium bromide 18 mcg capsule 1 cap inhalation UD #1 inh 03/31/19 10/20/24 08/25/23 with inhalation device fluticasone 500 mcg-salmeterol 50 1 puffs inhalation BID #60 ea 08/01/19 10/20/24 08/25/23 mcg/dose blistr powdr for inhalation (Advair Diskus) doxazosin 4 mg tablet 4 mg PO QPM 12/02/21 10/20/24 08/24/23 latanoprost 0.005 % eye drops 1 drp OPL HS 12/02/21 10/20/24 08/24/23 diltiazem HCl 120 mg 120 mg PO DAILY 08/25/23 10/20/24 08/21/23 capsule,extended release 24 hr (Cartia XT) furosemide 20 mg tablet 20 mg PO DAILY PRN edema 08/25/23 10/20/24 3 Weeks Ago ~08/04/23 naltrexone 4.5 mg capsule 4.5 mg PO UD 08/25/23 10/20/24 08/24/23 ascorbic acid (vitamin C) 500 mg 1 g PO DAILY 05/12/24 10/20/24 Unknown tablet (Vitamin C) cholecalciferol (vitamin D3) 25 5,000 unit PO Q7D 05/12/24 10/20/24 Unknown mcg (1,000 unit) tablet Active Medications Generic Name Dose Route Start Last Admin Trade Name Freq PRN Reason Stop Dose Admin Glycopyrrolate 0.4 mg 10/23/24 12:44 10/23/24 13:18 Glycopyrrolate 0.2 Mg/Ml Vial IV 11/22/24 12:43 0.4 mg Q4H PRN Administration Rattling Secretions or Pulm Congestion Piperacillin Sod/Tazobactam Sod 4.5 gm in 100 mls @ 25 mls/hr 10/20/24 20:00 10/24/24 09:05 Zosyn IV 10/25/24 19:59 25 mls/hr Q8H JERONIMO Infusion Protocol Methylprednisolone 40 mg/ 0.64 mls @ 1.5 mls/min 10/22/24 20:00 10/24/24 09:10 Syringe IV 11/21/24 19:59 1.5 mls/min Q12H JERONIMO Administration Morphine Sulfate 100 mg in 100 mls @ 2 mls/hr 10/23/24 12:45 10/23/24 19:50 Morphine Sulf IV 11/06/24 12:44 2 mg/hr .Q50H JERONIMO 2 mls/hr Titration Protocol 2 MG/HR Lorazepam 0.5 mg 10/23/24 12:44 10/24/24 09:14 Lorazepam 2 Mg/1 Ml Vial IV 11/22/24 12:43 0.5 mg Q4H PRN Administration Anxiety/Agitation Morphine Sulfate 2 mg 10/22/24 10:38 10/23/24 12:17 Morphine Sulfate 2 Mg/Ml Carp IV 11/04/24 14:21 2 mg Q2H PRN Administration dyspnea or pain Morphine Sulfate 1 mg 10/23/24 12:44 10/24/24 09:15 Morphine Bolus From Bag IV 11/06/24 12:43 1 mg Q15M PRN Administration Comfort Care Parameters
--- NOTE | 2024-10-24 15:50 | Palliative Care Consultation ---
Date of Consultation October 24, 2024 Assessment & Plan (1) Palliative care by specialist: Palliative care will continue to follow for ongoing EOL care/comfort. (2) Comfort measures only status: Pt transition to RESEARCH BIOSTATISTICIAN over weekend. large family presence at bedside (3) Need for comfort care: RESEARCH BIOSTATISTICIAN Symptom manamgement: Continue per primary Pain/dyspnea/tachypnea continuos morphine dirp titrate to comfort, currently at 2mg /hr morphine bolus 2mg IVP PRN [id number] Nausea/vomitting zofran 4mg IVP q4h PRN Agitation ativan 0.5mg IVP q4h PRN Hyperactive delirium haldol 5mg IVP q6h PRN Secretions - if repositioning not effective robinul 0.4mg IV q4h PRN atropine SL 3 drops Q1h PRN Nursing care: Discontinue all medications not directed towards comfort. Detether pt from IV tubing, monitor cables, and check vitals once per shift. Please continue HFNC and titrate down as able for patient comfort. Use medications above PRN for dyspnea/tachypnea and do not increase oxygen once titrated down. Assess q1h for pain/dyspnea and treat accordingly. History of Present Illness Reason for Consultation: comfort care Requesting Physician: Fawn Garza MD Attending Physician: Fawn Garza MD History of Present Illness 78-year-old male with PMH of chronic hypoxemic respiratory failure on 2.5 L oxygen at home, group D COPD, bullous emphysema, bronchiectasis, multiple lung nodules, hypothyroidism, protein calorie malnutrition was brought in the ED due to worsening shortness of breath more so in the last 2 days. Pt was intubated in ED on arrival and extubated in ICU on 10/21. Allergies Allergy/AdvReac Type Severity Reaction Status Date / Time Gadolinium-Containing Allergy Intermediate Nausea/Vomi Verified 08/25/23 14:56 Contrast Medi ting Home Medications Medication Instructions Recorded Confirmed Type azithromycin 250 mg tablet 250 mg PO 3XWK #1 tab 03/31/19 10/20/24 History ipratropium 0.5 mg-albuterol 3 mg 3 ml inhalation Q4H PRN SOB #6 mL 03/31/19 10/20/24 History (2.5 mg base)/3 mL nebulization soln thyroid (pork) 60 mg tablet 60 mg PO UD 03/31/19 10/20/24 History tiotropium bromide 18 mcg capsule 1 cap inhalation UD #1 inh 03/31/19 10/20/24 History with inhalation device fluticasone 500 mcg-salmeterol 50 1 puffs inhalation BID #60 ea 08/01/19 10/20/24 Rx mcg/dose blistr powdr for inhalation (Advair Diskus) doxazosin 4 mg tablet 4 mg PO QPM 12/02/21 10/20/24 History latanoprost 0.005 % eye drops 1 drp OPL HS 12/02/21 10/20/24 History diltiazem HCl 120 mg 120 mg PO DAILY 08/25/23 10/20/24 History capsule,extended release 24 hr (Cartia XT) furosemide 20 mg tablet 20 mg PO DAILY PRN edema 08/25/23 10/20/24 History naltrexone 4.5 mg capsule 4.5 mg PO UD 08/25/23 10/20/24 History ascorbic acid (vitamin C) 500 mg 1 g PO DAILY 05/12/24 10/20/24 History tablet (Vitamin C) cholecalciferol (vitamin D3) 25 5,000 unit PO Q7D 05/12/24 10/20/24 History mcg (1,000 unit) tablet Patient History Medical History Acute on chronic hypoxic respiratory failure Acute exacerbation of chronic obstructive pulmonary disease BPH (benign prostatic hyperplasia) Pancreatic cyst BENIGN Hypothyroidism Elevated cholesterol NO MEDS Emphysema lung Glaucoma Chronic obstructive pulmonary disease On home oxygen therapy 2L CONT. Surgical History Hx of left cataract extraction History of anesthesia reaction SLOW TO WAKE UP H/O shoulder surgery RT History of cystoscopy History of ERCP History of colonoscopy H/O inguinal hernia repair History of tooth extraction History of tonsillectomy Family History Other No family history of adverse response to anesthesia Social History Smoking Status: Former smoker Tobacco Type: Cigarettes Age Quit Using Tobacco: 56; packs per day: 2; Second Hand Exposure: No; Do You Dip or Chew Tobacco: No; Tobacco Cessation Education Requested by Patient: No Hx Alcohol Use: No Hx Substance Use: No Preferred Language: Albanian Communication Ability: Impaired Mast Maker Required: No Beliefs That Will Affect Care: Spiritual Current Living Situation: Spouse Other Information That Helps Us Care for You: No Feels Safe at Home: Yes Safety Concerns: Feels Safe At This Time Assistive Devices: BiPap, Raised Toilet Seat, Walker, Wheelchair and Other Review of Systems Review of Systems: Unobtainable due to cognitive status Physical Exam Physical Exam: Pt is unresponsive to verbal and gentle tactile stimuli, did not attempt to awaken in concert with comfort directed care. He appears comfortable, on morphine infusion. Constitutional: hfnc, mouth open, not arousable Respiratory: shallow breathing Cardiovascular: tachycardic Musculoskeletal: BUE edema Results & Data Vital Signs (Past 12 Hours) Vital Signs O2 Del Method O2 Flow Rate FiO2 10/24/24 15:35 High Flow Nasal Cannula 50 30 10/24/24 11:25 High Flow Nasal Cannula 50 30 10/24/24 07:45 High Flow Nasal Cannula 30 10/24/24 07:30 High Flow Nasal Cannula 50 30 Laboratory Results No further labs or diagnostics in concert with comfort directed care. Diagnostic Findings No further labs or diagnostics in concert with comfort directed care. Medications Administered Current Inpatient Medications Glycopyrrolate (Glycopyrrolate 0.2 Mg/Ml Vial) 0.4 mg IV Q4H PRN PRN Reason: Rattling Secretions or Pulm Congestion Stop: 11/22/24 12:43 Last Admin: 10/23/24 13:18 Dose: 0.4 mg Piperacillin Sod/Tazobactam Sod (Zosyn) 4.5 gm in 100 mls @ 25 mls/hr IV Q8H [facility]; Protocol Stop: 10/25/24 19:59 Last Infusion: 10/24/24 13:08 Dose: Infused Methylprednisolone 40 mg/ (Syringe) 0.64 mls @ 1.5 mls/min IV Q12H [facility] Stop: 11/21/24 19:59 Last Admin: 10/24/24 09:10 Dose: 1.5 mls/min Morphine Sulfate (Morphine Sulf) 100 mg in 100 mls @ 2 mls/hr IV .Q50H JERONIMO; Protocol Stop: 11/06/24 12:44 Last Titration: 10/23/24 19:50 Dose: 2 mg/hr, 2 mls/hr Lorazepam (Lorazepam 2 Mg/1 Ml Vial) 0.5 mg IV Q4H PRN PRN Reason: Anxiety/Agitation Stop: 11/22/24 12:43 Last Admin: 10/24/24 13:22 Dose: 0.5 mg Morphine Sulfate (Morphine Sulfate 2 Mg/Ml Carp) 2 mg IV Q2H PRN PRN Reason: dyspnea or pain Stop: 11/04/24 14:21 Last Admin: 10/23/24 12:17 Dose: 2 mg Morphine Sulfate (Morphine Bolus From Bag) 1 mg IV Q15M PRN PRN Reason: Comfort Care Parameters Stop: 11/06/24 12:43 Last Admin: 10/24/24 13:22 Dose: 1 mg Ondansetron HCl (Ondansetron Inj 2 Mg/Ml 2 Ml Vial) 4 mg IV Q4H PRN PRN Reason: Nausea &/or Vomiting Stop: 11/22/24 12:43 PG Care Time/CCT Total # of Minutes Spent Total Time Spent with Patient: Total time spent is greater than 50% in coordination of care (as documented) at patient's floor/unit and/or counseling patient: Coding [place] [address] INT INP/OBS CARE 1/40MIN Patient Type Established History Problem Focused Exam Problem Focused Medical Decision Making Low Complexity Diagnoses Palliative care by specialist Z51.5 Comfort measures only status Z51.5 Need for comfort care
--- NOTE | 2024-10-25 14:09 | Hospitalist Progress Note ---
Date of Service October 25, 2024 Assessment & Plan (1) COPD (chronic obstructive pulmonary disease): Plan Mr. Thompson is a 78-year-old male with PMH of chronic hypoxemic respiratory failure on 2.5 L oxygen at home, group D COPD, bullous emphysema, bronchiectasis, multiple lung nodules, hypothyroidism, protein calorie malnutrition was brought in the ED due to worsening shortness of breath more so in the last 2 days and was intubated 2/2 COPD with superimposed pneumonia. Patient extubated to bipap today and required precedex 2/2 anxiety. Palliative consulted on 10/21. Initially, was hoping to pursue intubation as needed; however, given respiratory distress opted for DNR/DNI with slow introduction of medicines to help palliate patient. Discussion with and 2 sons had on 10/23. Dr Jones initiated morphine drip. Discussed no further labs draws and deescalation of other care measures. Family wishes to continue HFNC at this time, as well as abx and steroids. It was discussed that flluids now are likely contributing to discomfort given notable swelling. Family agreed to discontinue. Ongoing comfort measures #Comfort Care Measures #Ventilator dependent resp failure, SBT with extubation to NIV #Acute on chronic hypoxic, hypercapnic resp failure 2/2 COPD with superimposed pneumonia Imaging reviewed, CT head negative for acute finding. CXR suggestive of left- sided pneumonia. Holding AZT MWF, plans to resume as appropriate Continue doxycycline and zosyn Pressors per ICU Remains on solumedrol 40mg q8h Extubated 10/21 to NIV Palliative consulted given guarded prognosis iso end stage copd Patient transitioned to morphine drip at this time Continue steroids and abx continue HFNC for comfort with plans to downtitrate as tolerated #Metabolic encephalopathy delirium precautions precedex discontinued on morphine at this time #Protein calorie malnutrition: Per pt's , patient has very poor appetite that he lives off of nutritional drink. 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 #Hypertension #Hypothyroidism Food and drink for comfort HOB 30 degrees Bowel regimen prn d/c Protonix d/c heparin Admission and Anticipated Discharge Date Admission Date: October 20, 2024 Subjective oxygen needs being titrated down continued comfort measures being utilized prn Physical Exam Constitutional: thin cachectic Respiratory: shallow Cardiovascular: distant Results & Data Results & Data Vital Signs (Past 12 Hours) Vital Signs O2 Del Method O2 Flow Rate FiO2 10/25/24 11:30 High Flow Nasal Cannula 30 30 10/25/24 07:29 High Flow Nasal Cannula 50 30 10/25/24 02:48 High Flow Nasal Cannula 50 30
--- NOTE | 2024-10-25 15:13 | Palliative Care Progress Note ---
Date of Service October 25, 2024 Assessment & Plan (1) Palliative care by specialist: Plan: Palliative care will continue to follow for ongoing EOL pt care and family support. (2) Comfort measures only status: Plan: Pt was transitioned to NUMERICAL CONTROL MACHINE MACHINIST on 10/23/24. (3) Need for comfort care: Plan: NUMERICAL CONTROL MACHINE MACHINIST Symptom manamgement: Pain/dyspnea/tachypnea continuos morphine dirp titrate to comfort, currently at 2mg /hr morphine 2mg IVP PRN [id number] Nausea/vomitting zofran 4mg IVP q4h PRN Agitation ativan 0.5mg IVP q4h PRN Hyperactive delirium haldol 5mg IVP q6h PRN Secretions - if repositioning not effective robinul 0.4mg IV q4h PRN atropine SL 3 drops Q1h PRN Nursing care: Discontinue all medications not directed towards comfort. Detether pt from IV tubing, monitor cables, and check vitals once per shift. Please continue HFNC and titrate down as able for patient comfort. Use medications above PRN for dyspnea/tachypnea and do not increase oxygen once titrated down. Assess q1h for pain/dyspnea and treat accordingly. Plan NUMERICAL CONTROL MACHINE MACHINIST, on morphine drip. Admission and Anticipated Discharge Date Admission Date: October 20, 2024 Subjective Assessed pt at bedside, He was transitioned to NUMERICAL CONTROL MACHINE MACHINIST on 10/23/24. Pt is unresponsive to verbal and gentle tactile stimuli, did not attempt to awaken in concert with comfort directed care. He appears comfortable, morphine infusion remains at 2mg/hr. Respiratory effort decreased, rate 16/min. and son at bedside. Review of Systems Review of Systems: Unobtainable due to cognitive status Physical Exam Physical Exam: Pt is unresponsive to verbal and gentle tactile stimuli, did not attempt to awaken in concert with comfort directed care. He appears comfortable, on morphine infusion. Constitutional: hfnc, mouth open, not arousable Respiratory: shallow breathing Cardiovascular: tachycardic Musculoskeletal: BUE edema Results & Data Vital Signs (Past 12 Hours) Vital Signs O2 Del Method O2 Flow Rate FiO2 10/25/24 11:30 High Flow Nasal Cannula 30 30 10/25/24 07:29 High Flow Nasal Cannula 50 30 Laboratory Results No further labs or diagnostics in concert with comfort directed care. Diagnostic Findings No further labs or diagnostics in concert with comfort directed care. Medications Administered Current Inpatient Medications Glycopyrrolate (Glycopyrrolate 0.2 Mg/Ml Vial) 0.4 mg IV Q4H PRN PRN Reason: Rattling Secretions or Pulm Congestion Stop: 11/22/24 12:43 Last Admin: 10/25/24 10:42 Dose: 0.4 mg Methylprednisolone 40 mg/ (Syringe) 0.64 mls @ 1.5 mls/min IV Q12H JERONIMO Stop: 11/21/24 19:59 Last Admin: 10/25/24 09:31 Dose: 1.5 mls/min Morphine Sulfate (Morphine Sulf) 100 mg in 100 mls @ 3 mls/hr IV .[id number] JERONIMO; Protocol Stop: 11/06/24 12:44 Last Titration: 10/25/24 13:08 Dose: 3 mg/hr, 3 mls/hr Lorazepam (Lorazepam 2 Mg/1 Ml Vial) 0.5 mg IV Q4H PRN PRN Reason: Anxiety/Agitation Stop: 11/22/24 12:43 Last Admin: 10/25/24 09:31 Dose: 0.5 mg Morphine Sulfate (Morphine Sulfate 2 Mg/Ml Carp) 2 mg IV Q2H PRN PRN Reason: dyspnea or pain Stop: 11/04/24 14:21 Last Admin: 10/23/24 12:17 Dose: 2 mg Morphine Sulfate (Morphine Bolus From Bag) 1 mg IV Q15M PRN PRN Reason: Comfort Care Parameters Stop: 11/06/24 12:43 Last Admin: 10/25/24 13:08 Dose: 1 mg Ondansetron HCl (Ondansetron Inj 2 Mg/Ml 2 Ml Vial) 4 mg IV Q4H PRN PRN Reason: Nausea &/or Vomiting Stop: 11/22/24 12:43 PG Care Time/CCT Total # of Minutes Spent Total Time Spent with Patient: Total time spent is greater than 50% in coordination of care (as documented) at patient's floor/unit and/or counseling patient: Coding [place] [address] SUB INP/OBS CARE 2/35MIN Patient Type Established History Problem Focused Exam Problem Focused Medical Decision Making Low Complexity Diagnoses Palliative care by specialist Z51.5 Comfort measures only status Z51.5 Need for comfort care
[2024-10-26 08:00] VITALS: RESP 10
[2024-10-26] MEDS ORDERED: ATROPINE SULFATE 1% OP SOLN 5 ML BTL SL PRN (09:10)
[2024-10-26] MEDS: SCOPOLAMINE 1 MG/72 HR TDSY PATCH TD SCH (11:17)
--- NOTE | 2024-10-26 15:07 | Palliative Care Progress Note ---
Date of Service October 26, 2024 Assessment & Plan (1) Palliative care by specialist: Plan: Palliative care will continue to follow for ongoing EOL pt care and family support. (2) Comfort measures only status: Plan: Pt was transitioned to BEDSPREAD CUTTER on 10/23/24. (3) Need for comfort care: Plan: BEDSPREAD CUTTER Symptom manamgement: Pain/dyspnea/tachypnea continuos morphine drip titrate to comfort, currently at 3mg /hr morphine 2mg IVP PRN [id number] Nausea/vomitting zofran 4mg IVP q4h PRN Agitation ativan 0.5mg IVP q4h PRN Hyperactive delirium haldol 5mg IVP q6h PRN Secretions - if repositioning not effective robinul 0.4mg IV q4h PRN atropine SL 3 drops Q1h PRN Nursing care: Discontinue all medications not directed towards comfort. Detether pt from IV tubing, monitor cables, and check vitals once per shift. Please continue HFNC and titrate down as able for patient comfort. Use medications above PRN for dyspnea/tachypnea and do not increase oxygen once titrated down. Assess q1h for pain/dyspnea and treat accordingly. Plan BEDSPREAD CUTTER, on morphine drip. Admission and Anticipated Discharge Date Admission Date: October 20, 2024 Subjective Assessed pt at bedside, He was transitioned to BEDSPREAD CUTTER on 10/23/24. Pt is unresponsive to verbal and gentle tactile stimuli, did not attempt to awaken in concert with comfort directed care. He appears comfortable, morphine infusion remains at 3mg/hr. Respiratory effort decreased, rate 12/min with occasional brief periods of apnea. and sister at bedside. Review of Systems Review of Systems: Unobtainable due to cognitive status Physical Exam Physical Exam: Pt is unresponsive to verbal and gentle tactile stimuli, did not attempt to awaken in concert with comfort directed care. He appears comfortable, on morphine infusion. Constitutional: hfnc, mouth open, not arousable Respiratory: shallow breathing Cardiovascular: tachycardic Musculoskeletal: BUE edema Results & Data Vital Signs (Past 12 Hours) Vital Signs Resp O2 Del Method O2 Flow Rate FiO2 10/26/24 10:36 High Flow Nasal Cannula 30 30 10/26/24 08:00 10 L High Flow Nasal Cannula 30 30 10/26/24 03:30 High Flow Nasal Cannula 30 30 Laboratory Results No further labs or diagnostics in concert with comfort directed care. Diagnostic Findings No further labs or diagnostics in concert with comfort directed care. Medications Administered Current Inpatient Medications Atropine Sulfate (Atropine Sulfate 1% Op Soln 5 Ml Btl) 4 drops SL Q1H PRN PRN Reason: Secretions or pulm congestion Stop: 11/25/24 09:09 Glycopyrrolate (Glycopyrrolate 0.2 Mg/Ml Vial) 0.4 mg IV Q4H PRN PRN Reason: Rattling Secretions or Pulm Congestion Stop: 11/22/24 12:43 Last Admin: 10/26/24 18:19 Dose: 0.4 mg Methylprednisolone 40 mg/ (Syringe) 0.64 mls @ 1.5 mls/min IV Q12H JERONIMO Stop: 11/21/24 19:59 Last Admin: 10/26/24 19:58 Dose: 1.5 mls/min Morphine Sulfate (Morphine Sulf) 100 mg in 100 mls @ 3 mls/hr IV .[id number] JERONIMO; Protocol Stop: 11/06/24 12:44 Last Titration: 10/26/24 19:40 Dose: 3 mg/hr, 3 mls/hr Lorazepam (Lorazepam 2 Mg/1 Ml Vial) 0.5 mg IV Q4H PRN PRN Reason: Anxiety/Agitation Stop: 11/22/24 12:43 Last Admin: 10/26/24 18:19 Dose: 0.5 mg Miscellaneous (Check Scopolamine Patch Placement) 1 each N/A QS JERONIMO Stop: 11/25/24 15:59 Last Admin: 10/26/24 17:35 Dose: Not Given Miscellaneous (Remove Transderm-Scop Patch) 1 each N/A Q72H JERONIMO Stop: 11/28/24 09:14 Morphine Sulfate (Morphine Sulfate 2 Mg/Ml Carp) 2 mg IV Q2H PRN PRN Reason: dyspnea or pain Stop: 11/04/24 14:21 Last Admin: 10/23/24 12:17 Dose: 2 mg Morphine Sulfate (Morphine Bolus From Bag) 1 mg IV Q15M PRN PRN Reason: Comfort Care Parameters Stop: 11/06/24 12:43 Last Admin: 10/25/24 13:08 Dose: 1 mg Ondansetron HCl (Ondansetron Inj 2 Mg/Ml 2 Ml Vial) 4 mg IV Q4H PRN PRN Reason: Nausea &/or Vomiting Stop: 11/22/24 12:43 Scopolamine (Scopolamine 1 Mg/72 Hr Tdsy Patch) 1 patch TD Q72H JERONIMO Stop: 11/25/24 09:14 Last Admin: 10/26/24 11:17 Dose: Not Given PG Care Time/CCT Total # of Minutes Spent Total Time Spent with Patient: Total time spent is greater than 50% in coordination of care (as documented) at patient's floor/unit and/or counseling patient: Coding [place] [address] SUB INP/OBS CARE 2/35MIN Patient Type Established History Problem Focused Exam Problem Focused Medical Decision Making Low Complexity Diagnoses Palliative care by specialist Z51.5 Comfort measures only status Z51.5 Need for comfort care
--- NOTE | 2024-10-26 17:05 | Hospitalist Progress Note ---
Date of Service October 26, 2024 Assessment & Plan (1) COPD (chronic obstructive pulmonary disease): Plan Mr. Thompson is a 78-year-old male with PMH of chronic hypoxemic respiratory failure on 2.5 L oxygen at home, group D COPD, bullous emphysema, bronchiectasis, multiple lung nodules, hypothyroidism, protein calorie malnutrition was brought in the ED due to worsening shortness of breath more so in the last 2 days and was intubated 2/2 COPD with superimposed pneumonia. Patient extubated to bipap today and required precedex 2/2 anxiety. Palliative consulted on 10/21. Initially, was hoping to pursue intubation as needed; however, given respiratory distress opted for DNR/DNI with slow introduction of medicines to help palliate patient. Discussion with and 2 sons had on 10/23. Dr Jones initiated morphine drip. Discussed no further labs draws and deescalation of other care measures. Family wishes to continue HFNC at this time, as well as abx and steroids. It was discussed that flluids now are likely contributing to discomfort given notable swelling. Family agreed to discontinue. Ongoing comfort measures, no changes to plan #Comfort Care Measures #Ventilator dependent resp failure, SBT with extubation to NIV #Acute on chronic hypoxic, hypercapnic resp failure 2/2 COPD with superimposed pneumonia Imaging reviewed, CT head negative for acute finding. CXR suggestive of left- sided pneumonia. Holding AZT MWF, plans to resume as appropriate Continue doxycycline and zosyn Pressors per ICU Remains on solumedrol 40mg q8h Extubated 10/21 to NIV Palliative consulted given guarded prognosis iso end stage copd Patient transitioned to morphine drip at this time Continue steroids and abx continue HFNC for comfort with plans to downtitrate as tolerated #Metabolic encephalopathy delirium precautions precedex discontinued on morphine at this time #Protein calorie malnutrition: Per pt's , patient has very poor appetite that he lives off of nutritional drink. Consult dietitian #pulmonary nodules #Prior tobacco use 5mmm BLANCHE nodule no longer active, 80 py Other chronic medical conditions: Protein calorie malnutrition---[employer] #Hypertension #Hypothyroidism Food and drink for comfort HOB 30 degrees Bowel regimen prn d/c Protonix d/c heparin Admission and Anticipated Discharge Date Admission Date: October 20, 2024 Subjective NAEO Physical Exam Constitutional: thin, no distress Respiratory: shallow Cardiovascular: tachycardic Results & Data Results & Data Vital Signs (Past 12 Hours) Vital Signs Resp O2 Del Method O2 Flow Rate FiO2 10/26/24 16:17 High Flow Nasal Cannula 30 10/26/24 15:03 High Flow Nasal Cannula 30 10/26/24 10:36 High Flow Nasal Cannula 10/26/24 08:00 10 L High Flow Nasal Cannula 30
[2024-10-26] MEDS: CHECK SCOPOLAMINE PATCH PLACEMENT SCH (17:35)
[2024-10-27] MEDS ORDERED: ROCURONIUM BROMIDE 10 MG/ML 5 ML VIAL IV ONE (06:32)
--- NOTE | 2024-10-27 10:55 | Discharge Summary ---
Discharge Summary Date of Service October 27, 2024 Principal Dx & Hospital Course #1 = Principal Diagnosis (1) COPD (chronic obstructive pulmonary disease): Plan Mr. Thompson is a 78-year-old male with PMH of chronic hypoxemic respiratory failure on 2.5 L oxygen at home, group D COPD, bullous emphysema, bronchiectasis, multiple lung nodules, hypothyroidism, protein calorie malnutrition was brought in the ED due to worsening shortness of breath more so in the last 2 days and was intubated 2/2 COPD with superimposed pneumonia. Patient extubated to bipap today and required precedex 2/2 anxiety. Palliative consulted on 10/21. Initially, was hoping to pursue intubation as needed; however, given respiratory distress opted for DNR/DNI with slow introduction of medicines to help palliate patient. Discussion with and 2 sons had on 10/23. Dr Jones initiated morphine drip. Discussed no further labs draws and deescalation of other care measures. Family wishes to continue HFNC at this time, as well as abx and steroids. It was discussed that flluids now are likely contributing to discomfort given notable swelling. Family agreed to discontinue. Patient continued on comfort measures until passing on 10/27 at [address] Peguero note for exam. Patient was treated for the following: #Comfort Care Measures #Ventilator dependent resp failure, SBT with extubation to NIV #Acute on chronic hypoxic, hypercapnic resp failure 2/2 COPD with superimposed pneumonia Imaging reviewed, CT head negative for acute finding. CXR suggestive of left- sided pneumonia. Holding AZT MWF, plans to resume as appropriate Continue doxycycline and zosyn Pressors per ICU Remains on solumedrol 40mg q8h Extubated 10/21 to NIV Palliative consulted given guarded prognosis iso end stage copd Patient transitioned to morphine drip at this time Continue steroids and abx continue HFNC for comfort with plans to downtitrate as tolerated #Metabolic encephalopathy delirium precautions precedex discontinued on morphine at this time #Protein calorie malnutrition: Per pt's , patient has very poor appetite that he lives off of nutritional drink. Consult dietitian #pulmonary nodules #Prior tobacco use 5mmm BLANCHE nodule no longer active, 80 py Notes For Next Care Provider Medication Changes From Visit Admission HPI Per Admitting Provider 78-year-old male with PMH of chronic hypoxemic respiratory failure on 2.5 L oxygen at home, group D COPD, bullous emphysema, bronchiectasis, multiple lung nodules, hypothyroidism, protein calorie malnutrition was brought in the ED due to worsening shortness of breath more so in the last 2 days. Patient is intubated at bedside but is responsive/calm, he nods "no" to chest pain. History taken from chart review, discussion with ER physician and patient's at bedside. In the ED, pt was unresponsive and not breathing on his own, hence he was intubated per d/w ER physician. He got solu medrol bolus and hour long breathing treatment. Per patient's , no fever in the last 1 to 2 weeks, reports cough being at baseline and no unusual color of the sputum production. Patient has very poor appetite at baseline, he lives off of nutritional drink which he can tolerate per pt's . He drinks 3-4 packs a day of the nutritional drink. Per , pt has been feeling sob for few weeks, needing BPAP/Non invasive ventilation to maintain saturation more so in the last 2 days ago [employer]. He was also getting exceedingly weak per , so much so that, he was not able to sit himself up. Per pt's , he quit smoking 13 years ago, he did smoke "forever" w/ average of 2 ppd. He drinks very occasional alcohol. Full Code Medications reviewed with patient's at bedside. Plan of care d/w pt's at bedside, who voiced understanding. Admission Exam Per Admitting Provider GENERAL: Alert, intubated, responds appropriately, MV, fentanyl drip. Appears weak/frail/sick. HEENT: No pallor, no icterus. Pupils equal, round and reactive to light. Oral mucosa dry. NECK: No JVD, no neck masses. HEART: S1 and S2 heard. Regular rate and rhythm. No murmur, no gallop. RESPIRATORY SYSTEM: Normal AP diameter. No accessory muscle use. No wheezing, no crackles. severely decreased b/l breath sounds. ABDOMEN: Soft, bowel sounds present, nontender, no distention. CENTRAL NERVOUS SYSTEM: No facial droop. Obeys simple commands. Moves extremities. EXTREMITIES: No edema, no erythema seen. Discharge Exam See exam note by Dr Lincoln Updated Medication List Medication Instructions Recorded Confirmed Type azithromycin 250 mg tablet 250 mg PO 3XWK #1 tab 03/31/19 10/20/24 History ipratropium 0.5 mg-albuterol 3 mg 3 ml inhalation Q4H PRN SOB #6 mL 03/31/19 10/20/24 History (2.5 mg base)/3 mL nebulization soln thyroid (pork) 60 mg tablet 60 mg PO UD 03/31/19 10/20/24 History tiotropium bromide 18 mcg capsule 1 cap inhalation UD #1 inh 03/31/19 10/20/24 History with inhalation device fluticasone 500 mcg-salmeterol 50 1 puffs inhalation BID #60 ea 08/01/19 10/20/24 Rx mcg/dose blistr powdr for inhalation (Advair Diskus) doxazosin 4 mg tablet 4 mg PO QPM 12/02/21 10/20/24 History latanoprost 0.005 % eye drops 1 drp OPL HS 12/02/21 10/20/24 History diltiazem HCl 120 mg 120 mg PO DAILY 08/25/23 10/20/24 History capsule,extended release 24 hr (Cartia XT) furosemide 20 mg tablet 20 mg PO DAILY PRN edema 08/25/23 10/20/24 History naltrexone 4.5 mg capsule 4.5 mg PO UD 08/25/23 10/20/24 History ascorbic acid (vitamin C) 500 mg 1 g PO DAILY 05/12/24 10/20/24 History tablet (Vitamin C) cholecalciferol (vitamin D3) 25 5,000 unit PO Q7D 05/12/24 10/20/24 History mcg (1,000 unit) tablet Hospital Stay Data Consultations 10/20/24 13:19 ED Decision to Admit Stat 10/20/24 14:10 Consult Assistant Finance Director Routine 10/21/24 12:22 Consult Palliative Care Routine Diagnostic Imagining Performed 10/20/24 11:13 CT head/brain wo con Stat Total Time Total Time Spent Total Time Spent (In Minutes): 0
== END 2024-10-27 11:12 | disposition expired | DRG 208 ==
LOC: ED 10:56 → 1E 14:10 → SUATTDRO 14:10 → 1E 16:05 → 3E 10-23 16:11